=== PATIENT | male | born 1945 | race Caucasian/White ===

== ENCOUNTER → 2018-11-15 07:58 | Outpatient (CLI) | payer MEDICARE, OTHER, SELFPAY ==
--- NOTE | 2018-11-15 | DI.MRI.S_ITS ---
PROCEDURE: MR LUMBAR SPINE WO/W CON INDICATIONS: SCIATICA RIGHT SIDE TECHNIQUE: Noncontrast sagittal T1 spin echo and T2 fast spin echo, sagittal STIR, axial T1 and T2 fast spin echo through the lumbar spine. In cases with scoliosis, additional coronal T2 fast spin echo may be performed. After the administration of contrast, sagittal and axial T1 spin echo with fat saturation through the lumbar spine. COMPARISON: [facility], MR, LUMBAR SPINE W/O CONTRAST, 12/15/2011, 10:36. [facility], CR, SPINE LUMB 2 OR 3VW, 07/17/2015, 11:21. [facility], MR, L-SPINE W&WO CONTRAST, 11/25/2016, 12:14. FINDINGS: Image quality: Excellent. Alignment and curvature: There is severe levoscoliosis. There is grade 1-2 anterolisthesis of L5 on S1. There is surgical fusion of L5-S1. Marrow: Marrow is of normal overall signal. No acute vertebral body compression fractures. No suspicious marrow enhancement. Spinal cord: Conus medullaris terminates at the L1 level. Visualized spinal cord demonstrates normal signal, without suspicious enhancement. Paraspinous soft tissues: No paravertebral masses or abnormal enhancement. T12-L1: Moderate to severe loss of disc height and disc desiccation. There is diffuse posterior disc bulge and disc osteophyte complex. Moderate bilateral facet arthropathy and hypertrophy of ligamentum flavum. The central canal is mildly narrowed. Severe right and moderate left foraminal stenosis. No significant change from the last exam. L1-L2: Severe loss of disc height and disc desiccation. There is diffuse posterior disc bulge and disc osteophyte complex. Moderate bilateral facet arthropathy and hypertrophy of ligamentum flavum. The central canal is moderately narrowed. Severe bilateral foraminal stenosis. No significant change from the last exam. L2-L3: Severe loss of disc height and disc desiccation. There is diffuse posterior disc bulge and disc osteophyte complex. Severe bilateral facet arthropathy and hypertrophy of ligamentum flavum. The central canal is severely narrowed. Severe bilateral foraminal stenosis. No significant change from the last exam. L3-L4: There is laminectomy and fusion. There is diffuse posterior osteophyte complex. Severe bilateral facet arthropathy and hypertrophy of ligamentum flavum. The central canal is mild-to moderate narrowed. Moderate to severe bilateral foraminal stenosis. No significant change from the last exam. L4-L5: Severe loss of disc height and disc desiccation. There is diffuse posterior disc bulge and disc osteophyte complex. Moderate bilateral facet arthropathy. The central canal is mildly narrowed. Moderate to severe right and [id number] left foraminal stenosis. No significant change from the last exam. L5-S1: Surgically fused. There is diffuse posterior osteophyte complex. Moderate bilateral facet arthropathy. The central canal is mildly narrowed. Moderate to severe bilateral foraminal stenosis. No significant change from the last exam. IMPRESSION: 1. Multilevel degenerative and post surgical as described. 2. Multilevel central canal stenosis, severe at L2-L3, moderate at L1-L2, and [id number] at L2 at L4 and L4-L5. 3. Multilevel foraminal stenoses as described. 4. Severe levoscoliosis. Dictated by: Kyler Byrd M.D. on 11/15/2018 at 13:33 Approved by: Kyler Byrd M.D. on 11/15/2018 at 17:58
== END ==
DX: M51.16 Intervertebral disc disorders with radiculopathy, lumbar region (principal); M48.061 Spinal stenosis, lumbar region without neurogenic claudication; M51.17 Intervertebral disc disorders with radiculopathy, lumbosacral region; M48.07 Spinal stenosis, lumbosacral region; M47.27 Other spondylosis with radiculopathy, lumbosacral region; M43.17 Spondylolisthesis, lumbosacral region; M47.26 Other spondylosis with radiculopathy, lumbar region; M41.9 Scoliosis, unspecified; Z98.1 Arthrodesis status
CPT/HCPCS: 72158; A9579

== ENCOUNTER → 2018-12-28 11:31 | Outpatient (CLI) | payer MEDICARE, OTHER, SELFPAY ==
--- NOTE | 2018-12-28 | DI.CT.S_ITS ---
PROCEDURE: CT LUMBAR SPINE WO CON INDICATIONS: Spinal stenosis, lumbar region without neurogenic claudicati TECHNIQUE: Noncontrast 3 mm thick sections acquired from the T12 level to the sacrum. Sagittal and coronal reformats were constructed. For radiation dose reduction, the following was used: automated exposure control. In this patient, 3-D reformatted images were also performed. COMPARISON: [facility], MR, MR LUMBAR SPINE WO/W CON, 11/15/2018, 8:56. [facility], MR, L-SPINE W&WO CONTRAST, 11/25/2016, 12:14. FINDINGS: Image quality: There is streak artifact associated with the metallic hardware. Bones: No acute vertebral body compression fractures. There is loss of vertebral body height seen on the right aspect of L2, which is best perceived on the coronal reformatted images. No suspicious lytic or blastic bony lesions. No pars defects. Moderate levoconvex lumbar scoliosis is seen. Grade 1 anterolisthesis is seen at L5-S1. T12-L1: Moderate to severe loss of disc height is seen. Vacuum disc phenomenon is seen at this level. Endplate irregularity and sclerosis are seen. There is moderate right-sided and mild left-sided facet hypertrophy seen. Moderate to severe bilateral neural foraminal narrowing is seen. Mild to moderate central canal narrowing is seen. L1-L2: Moderate to severe loss of disc height is seen. Endplate irregularity and sclerosis are seen. Bridging endplate osteophytes are seen. Vacuum disc phenomenon is seen at this level. Moderate to prominent disc bulge is seen. There is severe bilateral neural foraminal narrowing seen. Moderate central canal narrowing is seen. No significant change from the prior. L2-L3: Moderate to severe loss of disc height is seen. Vacuum disc phenomenon is seen at this level. Endplate irregularity and sclerosis are seen. Bridging endplate osteophytes are seen. Prominent disc bulge is seen. Severe bilateral neural foraminal narrowing is seen. Severe central canal narrowing is seen. Stable from the prior study. L3-L4: Vertebral body fusion is seen at this level. There is fusion of the facets as well. There is moderate to severe bilateral neural foraminal narrowing seen, left worse than right. Mild to moderate central canal narrowing is seen. Stable from the prior study. L4-L5: Moderate to severe loss of disc height is seen. Bridging endplate osteophytes are seen. Moderate disc bulge is seen. Moderate to severe bilateral neural foraminal narrowing is seen, left worse than right. Mild central canal narrowing is seen. Stable from the prior study. L5-S1: Bilateral pedicle screws are seen. The screws appear well placed. Vertical fixation rods are seen. No definite findings of hardware failure or hardware loosening can be seen. There is a degree of vertebral body fusion seen at this level. Bridging endplate osteophytes are seen. There is severe right-sided and moderate to severe left-sided neural foraminal narrowing seen. Mild central canal narrowing is seen. No significant change from the prior. Bilateral hip arthroplasty hardware is seen, with associated streak artifact. Soft tissues: No retroperitoneal masses or hematomas. Visualized aorta is normal in caliber. Atherosclerotic calcification is noted. IMPRESSION: L5-S1 postoperative change, without complication observed. Levoconvex scoliosis and multiple levels of degenerative change are seen. The degenerative changes are similar to the recent prior MRI examination. Dictated by: Freddy Chatman M.D. on 12/28/2018 at 12:53 Approved by: Freddy Chatman M.D. on 12/28/2018 at 13:03
== END ==
PROVIDERS: Visit Provider Orthopaedic Surgery
DX: M48.061 Spinal stenosis, lumbar region without neurogenic claudication (principal); M47.816 Spondylosis without myelopathy or radiculopathy, lumbar region; M41.86 Other forms of scoliosis, lumbar region; Z98.1 Arthrodesis status; Z96.643 Presence of artificial hip joint, bilateral
CPT/HCPCS: 72131

== ENCOUNTER → 2019-08-01 10:23 | Outpatient (CLI) | payer MEDICARE, OTHER, SELFPAY | PROVIDERS: PCP Family Medicine; Visit Provider Family Medicine | DX: S91.105A Unspecified open wound of left lesser toe(s) without damage to nail, initial encounter (principal); L89.893 Pressure ulcer of other site, stage 3; G20 Parkinson's disease | CPT/HCPCS: 97597; 99203; 99213 ==

== ENCOUNTER → 2019-08-08 09:49 | Outpatient (CLI) | payer MEDICARE, OTHER, SELFPAY | PROVIDERS: PCP Family Medicine; Visit Provider Family Medicine | DX: L89.893 Pressure ulcer of other site, stage 3 (principal); R60.0 Localized edema; S91.105D Unspecified open wound of left lesser toe(s) without damage to nail, subsequent encounter | CPT/HCPCS: 99212; 99213 ==

== ENCOUNTER 2019-11-06 06:09 | Inpatient (IN) | payer MEDICARE, OTHER, SELFPAY ==
[2019-10-23 09:56] VITALS: BMI 28.8
[2019-11-06] VITALS (22 sets, daily range): BP systolic 63–133; BP diastolic 28–65; PULSE 60–94; RESP 8–19; TEMP 36–36.6; O2SAT 90–99; BMI 28.9
[2019-11-06] MEDS: LACTATED RINGERS 1,000 ML 42 ML IV ×3 (07:06→13:44)
--- NOTE | 2019-11-06 07:25 | PM.PREOP ---
Pre-operative Note Interval Note History & Physical reviewed/Exam performed by Physician: Yes Changes to H&P: No
[2019-11-06] MEDS: CEFAZOLIN 2 GM/100 ML FROZ.PIGGY IV ×3 (08:10→20:05)
--- NOTE | 2019-11-06 08:41 | SUR.OPER ---
Position #1 Right lateral on padded OR table. Head on pillow, gel axillary roll, pillow to support left arm. Legs flexed, pillows between legs, gel pad under down leg and ankle. Multiple passes of 3 inch cloth tape across shoulder, hip, upper and lower legs to secure patient on OR table. Position #2 Prone on spine table, head in foam head support, padded chest and pelvic supports, gel pad at knees, lower legs supported by pillows; nipples, genitalia and toes free of pressure, arms secured on foam padded arm boards at <90 degrees abduction. Tape over blanket at thigh secured to table.
--- NOTE | 2019-11-06 08:42 | SUR.OPER ---
Quarter size reddish/purple and yellow bruise noted on left hip during prep. Small red abrasion noted on left knee during first positioning. Dr. Richard notified.
[2019-11-06] MEDS: ACETAMINOPHEN IV 1,000 MG/100 ML VIAL 400 MG IV ×2 (08:55→16:12)
[2019-11-06] MEDS: THROMBIN (RECOMBINANT) 5,000 UNIT VIAL 5000 UNIT TOP (08:55)
[2019-11-06] MEDS: SODIUM CHLORIDE 0.9% 1,000 ML, GENTAMICIN 80 MG IRR (08:56)
[2019-11-06] MEDS: BUPIVACAINE 0.5% (PF) 4 ML, MORPHINE-PF 4 MG, BUTORPHANOL 1 MG, fentaNYL 100 MCG INJ (08:58)
[2019-11-06] MEDS: VANCOMYCIN 1,000 MG VIAL 1000 MG TOP (08:58)
[2019-11-06] MEDS: SODIUM CHLORIDE 0.9% 1,000 ML 84 ML IV ×2 (10:45→13:40)
--- NOTE | 2019-11-06 15:21 | CM.DANOTE ---
Discharge Planning/Care Management CM Discharge Assessment Start: 11/06/19 15:18 Freq: Status: Active Protocol: Document 11/06/19 15:19 ITV (Rec: 11/06/19 15:21 ITV [id number]) Discharge Planning Assessment Advance Directives? Yes Advance Directives on File Yes: in chart History Provided By Medical Record Prior Living Arrangements House Household Members spouse Whiteboard Updated in Patient Room with Yes name and ext. 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 Review Status In Process Pre-Anesthesia Assessment Start: 10/23/19 09:56 Freq: Status: Active Protocol: Document 10/23/19 09:56 CAB (Rec: 10/23/19 12:55 CAB [id number]) Pre-Anesthesia Assessment Preferred Name Kris Diagnostic Results BMP/CMP,CBC,EKG,Other Comment Outside labs/EKG scanned to record Primary Care Provider Mac Reed Seen Specialist in Last 12 Months Yes Specialist Seen Orthopedist Comment PCP pre-op clearance scanned to record Primary Language Frisian Supply Tech Required No Height 160.02 cm Weight 73.936 kg Body Mass Index (BMI) 28.8 Hearing Ability Hard of Hearing,Use of Hearing Aid Visual Assist Glasses Dentition Type Teeth, Natural Present,Teeth, Missing,Dental Implants Barriers to Learning Memory Other Aids No Comment Hx of Parkinson's Hx Anesthesia Reactions Yes: Cognitive changes w/ anesthesia Hx Family Anesthesia Reaction No Hx Malignant Hyperthermia No Hx Blood Transfusions Yes: r/t Lumbar surgery 2011 Hx Blood Transfusion Reaction No Anesthesia Review Requested No alcohol intake current alcohol intake frequency holidays/special occasions only Smoking Status Former smoker how long ago did patient quit smoking Quit 1977 Substance Use Type does not use Pain Present Pain Reported Musculoskeletal Symptoms Abnormal Gait,Back Pain, Difficulty Walking,Joint Pain, Radiating Pain into Limb History of Falling (Recent or History of Yes ) Patient is completely paralyzed or No completely immobile Prosthesis or Orthotic Device Cane,Front Wheel Walker Mental Status Forgets limitations Is patient on oxygen? No Does patient have CRUZ/SOB No Hx Sleep Apnea No Currently Taking a Beta Piero No Can You Climb a Flight of Stairs Without Yes SOB Hx Chest Pain No Hx SOB No Hx Syncope or Dizziness No Anti-Coagulant Therapy No Has a Ore Smelter No Cardiac Testing No Hx Pacemaker/ICD No Pacemaker Rep Required? No Cardiac Clearance Received Not Applicable Diet Type At Home Regular dysphagia No Urinary Catheter Present No Hx Urinary Self Catheterization No Diabetes No Hx Drug Resistant Organism No Presence of External or Internal Medical Yes: Lumbar, hips, left Devices shoulder hardware Have you traveled outside the [place] in the last 30 days? Marital Status Lives With spouse Prior Living Arrangements House Number of Floors (Floors) Two Floors Support System Spouse Does the Patient Have Assistance After Yes Surgery Patient Discharge Plan Description Assisted Facility/Rehab Comment Pt wants to discharge to SNF Feels Safe in Current Environment Yes Been Physically Hurt or Threatened By a No Person in Current Environment Do you have thoughts of harming yourself None or others? Are you currently considering suicide? No Do you have a plan to hurt yourself or No Plan others? Do You Have Any Spiritual Beliefs That No May Affect Your HC Choices? Do You Have Any Cultural Practices That No May Affect Your HC Choices? Comment [place] Who Can We Speak to About Patient's Care Family, friends Identifying Code for Release of Patient Declines to issue Information Health Care Proxy/Next of Kin Veronica () Health Care Proxy or [phone] Emergency Contact Name Veronica () Emergency Contact or [phone] Advance Directives? Yes Advance Directives on File No Requested Patient Bring Advanced Yes Directives DOS Power of Nuclear Equipment Design Engineer Yes Power of Nuclear Equipment Design Engineer Name Veronica () Power of Nuclear Equipment Design Engineer or [phone] PAC Instructions Do not shave/clip surgical site,Durable medical equipment ,Medications to take/avoid, Nasal antibiotic,No ETOH/ petroleum product on skin DOS, NPO,Post-op transportation,Pre -surgical wash,Sturdy shoes/ comfortable clothes,Do not bring valuables and remove jewelry
--- NOTE | 2019-11-06 15:25 | CM.DANOTE ---
Discharge Planning/Care Management DCP: assessment: case received this morning, EMR reviewed and have check in now at 1530: pt has not yet arrived from PACU. Documentation thus far is very limited but pt's pre-op plan does say he is planning for a d/c to snf setting (does not identify a choice.) Pt is a 73 year old male who admitted to care of Dr. Richard for a planned spinal surgery. INPT admission status: confirmed by UR RN Efraín Payer: Medicare and [facility] Pt does carry diagnosis of Parkinson's per the pre-op assessment: see Template info by CAB below: completed 10/23/19. PT and OT can be expected to be ordered. Pt lives with his spouse Veronica Kelsey in Tuesday. P: pt is well poised in terms of insurance for the snf option if needed. DCP team to check in tomorrow to continue the DCP assessment process. CM Discharge Assessment Start: 11/06/19 15:18 Freq: Status: Active Protocol: Document 11/06/19 15:19 ITV (Rec: 11/06/19 15:21 ITV [id number]) Discharge Planning Assessment Advance Directives? Yes Advance Directives on File Yes: in chart History Provided By Medical Record Prior Living Arrangements House Household Members spouse Whiteboard Updated in Patient Room with Yes name and ext. # of Instrument Tester Review Status In Process Pre-Anesthesia Assessment Start: 10/23/19 09:56 Freq: Status: Active Protocol: Document 10/23/19 09:56 CAB (Rec: 10/23/19 12:55 CAB [id number]) Pre-Anesthesia Assessment Preferred Name Kris Diagnostic Results BMP/CMP,CBC,EKG,Other Comment Outside labs/EKG scanned to record Primary Care Provider Mac Reed Seen Specialist in Last 12 Months Yes Specialist Seen Orthopedist Comment PCP pre-op clearance scanned to record Primary Language Cymro Quick Sketch Artist Required No Height 160.02 cm Weight 73.936 kg Body Mass Index (BMI) 28.8 Hearing Ability Hard of Hearing,Use of Hearing Aid Visual Assist Glasses Dentition Type Teeth, Natural Present,Teeth, Missing,Dental Implants Barriers to Learning Memory Other Aids No Comment Hx of Parkinson's Hx Anesthesia Reactions Yes: Cognitive changes w/ anesthesia Hx Family Anesthesia Reaction No Hx Malignant Hyperthermia No Hx Blood Transfusions Yes: r/t Lumbar surgery 2011 Hx Blood Transfusion Reaction No Anesthesia Review Requested No alcohol intake current alcohol intake frequency holidays/special occasions only Smoking Status Former smoker how long ago did patient quit smoking Quit 1977 Substance Use Type does not use Pain Present Pain Reported Musculoskeletal Symptoms Abnormal Gait,Back Pain, Difficulty Walking,Joint Pain, Radiating Pain into Limb History of Falling (Recent or History of Yes ) Patient is completely paralyzed or No completely immobile Prosthesis or Orthotic Device Cane,Front Wheel Walker Mental Status Forgets limitations Is patient on oxygen? No Does patient have CRUZ/SOB No Hx Sleep Apnea No Currently Taking a Beta Piero No Can You Climb a Flight of Stairs Without Yes SOB Hx Chest Pain No Hx SOB No Hx Syncope or Dizziness No Anti-Coagulant Therapy No Has a Log Data Technician No Cardiac Testing No Hx Pacemaker/ICD No Pacemaker Rep Required? No Cardiac Clearance Received Not Applicable Diet Type At Home Regular dysphagia No Urinary Catheter Present No Hx Urinary Self Catheterization No Diabetes No Hx Drug Resistant Organism No Presence of External or Internal Medical Yes: Lumbar, hips, left Devices shoulder hardware Have you traveled outside the [facility] in the last 30 days? Marital Status Lives With spouse Prior Living Arrangements House Number of Floors (Floors) Two Floors Support System Spouse Does the Patient Have Assistance After Yes Surgery Patient Discharge Plan Description Long-Term Facility/Rehab Comment Pt wants to discharge to SNF Feels Safe in Current Environment Yes Been Physically Hurt or Threatened By a No Person in Current Environment Do you have thoughts of harming yourself None or others? Are you currently considering suicide? No Do you have a plan to hurt yourself or No Plan others? Do You Have Any Spiritual Beliefs That No May Affect Your HC Choices? Do You Have Any Cultural Practices That No May Affect Your HC Choices? Comment Orthodox Who Can We Speak to About Patient's Care Family, friends Identifying Code for Release of Patient Declines to issue Information Health Care Proxy/Next of Kin Veronica () Health Care Proxy or [phone] Emergency Contact Name Veronica () Emergency Contact or [phone] Advance Directives? Yes Advance Directives on File No Requested Patient Bring Advanced Yes Directives DOS Power of Assistant Laboratory Director Yes Power of Assistant Laboratory Director Name Veronica () Power of Assistant Laboratory Director or [phone] PAC Instructions Do not shave/clip surgical site,Durable medical equipment ,Medications to take/avoid, Nasal antibiotic,No ETOH/ petroleum product on skin DOS, NPO,Post-op transportation,Pre -surgical wash,Sturdy shoes/ comfortable clothes,Do not bring valuables and remove jewelry
--- NOTE | 2019-11-06 15:30 | DI.RAD.S_ITS ---
PROCEDURE: XR LUMBAR SPINE 2-3V INDICATIONS: L1-L2 , L2-L3 XLIF FUSION FROM T10 TECHNIQUE: 4 views of the lumbar spine were acquired. COMPARISON: [facility], RG, SPINE LUMB BENDING MIN 4VW, 09/20/2018, 14:21. FINDINGS: Spot fluoroscopic images demonstrating thoracolumbar fixation hardware from T10-L3. There is expected intraoperative alignment. Interbody cage at L1-L2 and L2-L3 Previously L5-S1 posterior spinal hardware. Dictated by: Rolando Garay M.D. on 11/06/2019 at 16:29 Approved by: Rolando Garay M.D. on 11/06/2019 at 16:36
--- NOTE | 2019-11-06 15:36 | P.OP_ITS ---
Operative Date/Time/Diagnoses Date of procedure: 11/06/19 Time of procedure: 15:36 Pre-op diagnosis: Lumbar stenosis with radiculopathy Lumbar scoliosis and kyphosis Flat back Post-op diagnosis: same Procedure & Clinicians Procedure: L1-2, L2-3 anterior column osteotomy L1-2, L2-3 posterior column osteotomy, Sanchez Daugherty L1-2, L2-3 anterior fusion with cage L1-2, L2-3 laminectomies T10 through L4 instrumented fusion Iliac crest bone graft aspirate Use of microscope Placement of epidural catheter Same procedure as scheduled: Yes Indications: [age] year old male with intractable pain from stenosis and kyphosis. They had failed conservative management and requested operative intervention. Risks and benefits of surgery were discussed and appropriate consents were obtained. Surgeon: Zane Richard [employer] Equipment Operator: Charley Salmon Anesthesia Type: General Operative Notes Findings: None Closure Type: primary Specimen(s): none sent Prosthetic devices, grafts, tissues, transplants, or devices: NuVasive XLIF ACR cages NuVasive MAS Reline screws Applied: catheter Estimated Blood Loss (mL): 1,400 Blood products transfused: none Procedure in detail: Patient was brought to the operating room and intubated on the table. Time-out was performed. They were then rolled over to the lateral decubitus position with the [id number]. The table was bent and they were taped down in the correct position. X-rays were taken to confirm a true AP and lateral. Preoperative antibiotics were given. The left flank was prepped and draped in standard sterile fashion. Using fluoroscopy, a 3 cm incision was made above the iliac crest. We bluntly dissected down with Metzenbaum scissors and split the 3 abdominal muscle layers. We dissected out the retroperitoneal space and using finger guidance, brought our 1st dilator down to the psoas muscle. Using neuromonitoring and fluoroscopy, we placed it through the psoas onto the L2-3 disc space in an anterior position and gradually pulled the dilator posteriorly along the disc space. We placed our guidewire and measured our depth for the retractor. We then dilated with the next 2 dilators and then placed our retractor over the dilators. Position was confirmed with fluoroscopy and the retractor was locked down to the bar. We opened up the retractor and checked with neuro monitoring. We then placed the maricarmen and again checked with neuro monitoring. The retractor was opened further and the ALL retractor was placed going all the way around the front of the vertebral body to the opposite side. An annulotomy was performed. We then performed a complete diskectomy with pituitary and box osteotome. A Almaguer was advanced across the disc space under fluoroscopy to release the lateral annulus on the opposite side. We then cut through the ALL using our channel on the ALL retractor for safety. This gave us our full anterior release and and anterior column resection and osteotomy. We then used the 20 degree and then 30 degree trials and confirmed positioning under x-ray. A 30 degree XLIF ACR cage chosen and we cut off the topstitcher lockstitch flange. This was packed with Osteocell bone graft and impacted into the L2-3 disc space with fluoroscopy for the anterior fusion at this level. We then drilled and placed our locking screw. This completed the anterior osteotomy and fusion at L2-3. The wound was irrigated. The r etractor was closed down. The maricarmen was removed. We carefully removed the retractor with direct visualization to make sure there was no neurovascular or abdominal injury. We then went up to the L1-2 level. We had to force more up against the rib to get our exposure. We did the same technique with dilators and monitoring and placing a retractor. We placed the a LL retractor all the way around. We used a Almaguer and box osteotome to perform a diskectomy and release the lateral annulus. We used the knife on the ALL retractor to release the anterior longitudinal ligament and this completed the full anterior release and anterior column osteotomy. We then used the 20 degree trial and this opened up everything well. A 20 degree XLIF ACR cage was chosen and the inferior flange was cut off. We packed this with bone graft and then impacted into the L1-2 disc space with fluoroscopy for the anterior fusion at this level. We then drilled and placed our locking screw. Wound was irrigated. The retractor was closed and removed under direct visualization. Final x-rays were taken which showed excellent anterior column realignment with our osteotomy at both levels. We dissected out over the facets to the transverse processes and decorticated these from L4 through L1 and then released the right paraspinals from T10 through 12 and decorticated the lamina with a bur. The muscle fascia was closed, superficial tissue was closed. The skin was closed. Sterile dressing was placed. The patient was then rolled over on the well-padded prone position on the Loi table. Using fluoroscopy for localization, a 25 cm incision was made in the midline utilizing part of his previous incision. We undermined underneath the soft tissue and then placed Jamshidi needles down the bilateral pedicles of T10 through L4 with fluoroscopic guidance and neural monitoring percutaneously placing through the muscle fascia on each side. Due to his scoliosis we had to use a fair amount of fluoroscopy with multiple rotating views but we were able to get all of our guidewires down. We then dissected the bilateral paraspinal muscles from L1 through L3. We confirmed positioning with fluoro. We brought in the microscope. We then performed laminectomies at L1-2 and L2-3 using a bur and Kerrison rongeurs. There was extensive decompression mostly on the right side at L2-3. Once the decompressions were done, we began doing the Sanchez Daugherty osteotomies at both of these levels. We angled up and cut through the facets and undermined the foramen until we had completely cut through the pars releasing posteriorly we had to continue working and remove some of the extra facet overgrowth until the osteotomies would collapse down further. We checked with a ball probe to make sure that the foramen and central canal was open throughout. This completed the posterior osteotomies at L1-2 and L2-3. The majority of the blood loss occurred at this time as during the laminectomies, his bone continuously bled he even through bone wax coating on the bone itself. Once we got out to the neural foramen and began decompressing and doing the osteotomies, the majority of the bleeding came from epidural bleeders. These were packed off with Gelfoam and thrombin and then later we used FloSeal until this finally to slow down to a mild ooze. We then percutaneously tapped and placed all of our MAS Reline screws. Unfortunately, the heads of L2 and L4 were touching each other and we were unable to get the L3 screw in between and just left the L3 level without screws and at L3. We would not have been able to get in on the left-hand side anyway because the anterior locking screw would be blocking it. Placement was all done with fluoroscopy and neural monitoring. We then began conforming our rods and then placed them underneath the muscle fascia through all of the screws, confirmed with fluoroscopy. We then locked down the set screws. Final x-rays were taken. The wound was irrigated. Small stab incision was made over the right PSIS. A Jamshidi needle was advanced into the pelvis and 10 mL of bone marrow was aspirated with multiple passes. This was combined with the locally harvested b one graft as well as bone chips. We placed the Osteocel and the remaining bone graft in the posterolateral gutters through the lumbar spine and up through the posterior aspect along the lamina in the lower thoracic spine for the posterior fusion from T10 through L4. An epidural catheter was primed with 4mL of 0.5% bupivacaine, 100 mcg fentanyl, 4 mg Duramorph, 1 mg Stadol. The dura was depressed under the cephalad lamina with a ball probe and the epidural catheter was gently advanced 6 cm cephalad. The fascia was then closed in layers. The epidural was then injected without resistance. The catheter was pulled and we closed more over the fascia. Vancomycin powder was placed in the wound. A drain was placed. The superficial and skin were closed. Sterile dressing was placed. The patient was then rolled over, extubated, brought to the recovery room with no complications. Complications: none Post-operative Condition: stable Disposition: PACU Plan for aftercare: Inpatient. Mobilize with therapy. Anticipate skilled rehab
[2019-11-06 15:49] LABS: Hematocrit 32.7 % (41-53); Hemoglobin 11.2 g/dL (13.5-17.5)
[2019-11-06] MEDS: hydrOXYzine 50 MG/ML INJ 25 MG IM (16:01)
[2019-11-06] MEDS: HYDROMORPHONE 2 MG INJ IV ×2 (16:23→16:36)
--- NOTE | 2019-11-06 17:22 | SUR.PHASEI ---
Patient arrived in PACU somnolent with airway in. When patient awoke he became very restless, turning from side to side trying to climb out of bed. Gave IV diluadid x 2. Once IV meds in repositioned patient. Patient currently sitting upright in bed. States he is more comfortable. Gave fluids wide open for a BP 70/45.
[2019-11-06] MEDS: LACTATED RINGERS 1,000 ML 125 ML IV (18:51)
[2019-11-06] MEDS: CELECOXIB 200 MG CAPSULE 400 MG PO (20:06)
[2019-11-06] MEDS: ATORVASTATIN 10 MG TABLET PO (20:07)
[2019-11-06] MEDS: CARBIDOPA-LEVODOPA 25/100 TABLET 1.5 EACH PO (20:07)
[2019-11-06] MEDS: DOCUSATE 100 MG CAPSULE PO (20:08)
[2019-11-06] MEDS: SENNOSIDES 8.6 MG TABLET 17.2 MG PO (20:09)
[2019-11-06] MEDS: TAMSULOSIN 0.4 MG CAPSULE PO (20:09)
[2019-11-06] MEDS: HYDROMORPHONE 0.5 MG INJ IV (20:10)
[2019-11-06] MEDS: hydrOXYzine pamoate 25 MG CAPSULE PO (20:10)
--- NOTE | 2019-11-06 22:47 | PC.NURSE ---
Evening Shift Note Patient with decrease blood pressure, dangling at bedside 63/28, sitting in bed 87/48, laying in bed 133/64. Decreased output of 175cc in 5hrs or 35cc per hour. yardage caller MD paged and updated on decreased blood pressure and urinary output. No new medication orders, nursing communication to keep patient on bedrest and monitor urinary output call MD for less than 30cc per hour and maintain PIV fluids at 125ml/hr.
[2019-11-06] MEDS: HYDROCODONE/ACET 5/325 TABLET 1 TAB PO (23:45)
[2019-11-07] VITALS (7 sets, daily range): BP systolic 76–113; BP diastolic 41–83; PULSE 77–98; RESP 16–20; TEMP 36.4–36.9; O2SAT 91–100
[2019-11-07] MEDS: LACTATED RINGERS 1,000 ML 125 ML IV (03:01)
[2019-11-07] MEDS: HYDROCODONE/ACET 5/325 TABLET 2 TAB PO ×2 (03:01→06:50)
[2019-11-07] MEDS: CEFAZOLIN 2 GM/100 ML FROZ.PIGGY IV (04:08)
[2019-11-07 05:38] LABS: Hematocrit 28.9 % (41-53); Hemoglobin 9.8 g/dL (13.5-17.5)
[2019-11-07 05:47] LABS: BUN Creatinine Ratio 32.2 (6-22); Blood Urea Nitrogen 29 mg/dL (9-20); Calcium 8.3 mg/dL (8.4-10.2); Carbon Dioxide 25 mmol/L (22-32); Chloride 102 mmol/L (98-107); Estimated Glomerular Filt Rate > 60.0 mL/min (>60); Glucose 140 mg/dL (80-110); HEMOLYSIS < 15 (0-50); Potassium 4.8 mmol/L (3.4-5.1); Sodium 134 mmol/L (137-145)
--- NOTE | 2019-11-07 06:44 | PC.NURSE ---
Patient still hypotensive this night, BP 109/58. Lung sounds clear, CMS intact. Pain 6/10, PO Roosevelt given Q4. Patient has low urine output 175cc, Hemovac output 175cc. I called Dr. Stafford at [phone], she said to wait until Dr. Richard see's him this AM, keep fluids at the same rate. Patient is wearing SCD's, IS has been encouraged, Bed is low and locked and call light is within reach.
[2019-11-07] MEDS: SODIUM CHLORIDE 0.9% 1,000 ML 1000 ML IV (08:18)
[2019-11-07] MEDS: CARBIDOPA-LEVODOPA 25/100 TABLET 1.5 EACH PO ×3 (08:18→18:35)
[2019-11-07] MEDS: CELECOXIB 200 MG CAPSULE PO ×2 (08:18→19:45)
[2019-11-07] MEDS: DOCUSATE 100 MG CAPSULE PO ×2 (08:18→19:45)
[2019-11-07] MEDS: hydrOXYzine pamoate 25 MG CAPSULE PO (08:18)
--- NOTE | 2019-11-07 08:20 | PM.PNPO.1 ---
Subjective Subjective Date Patient Seen: 11/07/19 Time Patient Seen: 08:20 Interval history: He is having very little pain. He was hypotensive when they stood him up yesterday but has been back to normal since then. Exam Vital Signs (past 8 hours): - 11/07/19 04:45 Temperature 97.8 F Pulse Rate 87 Respiratory Rate 16 Blood Pressure 109/58 L Pulse Oximetry 100 Oxygen Delivery Method Nasal Cannula Oxygen Flow Rate 3 Const Orientation: alert and oriented x3 Back/Spine/Pelvis Other: CDI. 5/5 motor both lower extremities. Drain output 170/175 over the past 2 shifts. Objective Labs Result Diagrams: 11/07/19 05:00 11/07/19 05:00 Labs: Laboratory Results - last 24 hr 11/06/19 11/06/19 11/07/19 15:41 Unknown 05:00 Hgb 11.2 L 9.8 L Hct 32.7 L 28.9 L Sodium Potassium Chloride Carbon Dioxide BUN Creatinine Estimated GFR BUN/Creatinine Ratio Glucose Calcium Blood Type A Positive Antibody Screen Negative 11/07/19 05:00 Hgb Hct Sodium 134 L Potassium 4.8 Chloride 102 Carbon Dioxide 25 BUN 29 H Creatinine 0.90 Estimated GFR > 60.0 BUN/Creatinine Ratio 32.2 H Glucose 140 H Calcium 8.3 L Blood Type Antibody Screen Assessment & Plan Post-op Postoperative Procedures: Procedures Operation Date: 11/06/19 07:45 Actual Procedures Side Surgeon p L1-2,L2-3 anterior & posterior osteotomies & fusion w/posterior T10-L4 instru fusion w/bone graft Zane Richard MD Still having a fair amount of drain output. Overall doing well. Mobilize today with PT. Anticipate skilled rehab in a few days.
--- NOTE | 2019-11-07 09:06 | CM.DANOTE ---
Addendum entered by Carmen Jones R.N. 11/07/19 11:45: Kae from [facility] called back. Stated, Original Note: DCP Cont: Spoke to patient, he called this renal case manager's desk. Stated, I really want to go to [facility], for I live in [place]. Encouraged him to make a second choice, but he is clear on going there. Let him know that this renal case manager could not guarantee an opening, but would call [facility]. He would be eligible by Medicare standards by Tuesday. Called Kae at [facility] and left her a message with patient's name, so she can review. Let her know in message that patient will be eligible by Tuesday. Carmen Jones RN/Public Policy Analyst
--- NOTE | 2019-11-07 10:30 | PT.IIE ---
Current Diagnoses Other forms of scoliosis, lumbar region (11/06/19) Spinal stenosis, lumbar region with neurogenic claudication (11/06/19) Surgery Performed Operation Date: 11/06/19 07:45 Actual Procedures p L1-2,L2-3 anterior & posterior osteotomies & fusion w/posterior T10-L4 instru fusion w/bone graft - Zane Richard MD Surgical History (Last Updated 10/23/19 @ 10:20 by Rebecca Cho RN) H/O vasectomy (Acute) History of arthroplasty of left shoulder (Acute) History of arthroscopy of both knees (Acute) History of bilateral total hip arthroplasty (Acute) History of lumbar fusion (Acute ~2011) Hx of tonsillectomy (Acute) Status post correction of deviated nasal septum (Acute) Medical History (Last Updated 10/29/19 @ 08:14 by Rebecca Cho RN) Atherosclerotic heart disease of [place] coronary artery without angina pectoris (Acute) Back pain (Acute) Hearing impaired (Acute) HLD (hyperlipidemia) (Acute) HTN (hypertension) (Acute) Memory deficit (Acute) Osteoarthritis (Acute) Parkinson's disease (Acute) Sciatica (Acute) Spinal stenosis (Acute) Physical Therapy Inpatient Evaluation/Re-Eval M1 PT/OT-IP Prior Functional Status Start: 11/07/19 12:14 Freq: NEEDED Status: Active Protocol: Document 11/07/19 10:30 AB (Rec: 11/07/19 12:40 AB [id number]) Medical Review Prior Functional Status Medical History Reviewed Yes Communication able to make needs known Mobility and Gait pt stated that he is modified independent with all mobilities and ambulation using 3WW indoors and outdoors but furniture walks when he is on the 2nd level of the house and stated because the bed is only ~ 10 ft away. uses quad cane and rail to get to 2nd level of the house Social History Household Members spouse Living Arrangements House Number of Floors (Floors) Two Floors Number of Stairs To Enter/Railing? 1 step to enter; 7 steps with R rails +landing+7 steps with bilateral rails Home Environment High Toilet,Walk in Shower Home Equipment Quad Cane,Shower Seat without Backrest,Hand Held Shower,Grab Bars Near Toilet,Grab Bars In Shower Additional Social History Comment pt stated that he has blocks under the head of his bed so that it is ~ 4 inch elevated M2 PT-IP Current Condition Start: 11/07/19 12:14 Freq: NEEDED Status: Active Protocol: Document 11/07/19 10:30 AB (Rec: 11/07/19 12:40 AB [id number]) Physical Therapy Current Condition Current Condition Evaluation Date 11/07/19 Treatment Diagnosis s/p L1-3 ant. fusion/lami; difficulty in walking Onset Date 11/06/19 Precautions Lumbar Precautions Log Roll,No Twisting,Limit Bending,Lifting Restriction of 10 lbs,Gait Belt above Incisional Area M3 PT-IP Subjective Start: 11/07/19 12:14 Freq: NEEDED Status: Active Protocol: Document 11/07/19 10:30 AB (Rec: 11/07/19 12:40 AB [id number]) Subjective Physical Therapy Visit Type Type Initial Evaluation Visit Start Time 10:30 Visit Stop Time 11:20 Total Visit Minutes 50 Number of INSPECTION CLERK Visits 0 Physical Therapy Visit Comments Patient Comments pt agreeable to do PT Therapy Pain Assessment Pain When Pain Assessed At Rest Pain Present Pain Present Pain Reported Location back Intensity 8 Scale Used Numeric (1 - 10) Pain Management Techniques Re-positioning,Timing of Activity with Medications M4 PT-IP Mobility and Gait Start: 11/07/19 12:14 Freq: NEEDED Status: Active Protocol: Document 11/07/19 10:30 AB (Rec: 11/07/19 12:40 AB [id number]) PT-Bed Mobility Assessment Rolling Type of Rolling Log Rolling Level of Assist Maximal Assistance,1 Person Assistance Supine to Sit Supine to Sit Maximum Assistance,1 Person Assistance,Head of Bed Elevated PT-Transfer Assessment Sit to and From Stand Sit to and from Stand Maximum Assistance,1 Person Assistance,Use of Upper Extremities Equipment Transfer Assistive Device Gait Belt,Front Wheeled Walker Orthotic/Prosthetic Devices or Brace: No Transfers Transfer Destination Chair Transfer Technique Stand Step Pivot Transfer Ability Level of Assist Moderate Assistance,Maximum Assistance,1 Person Assistance ,Use of Upper Extremities Comments Mobility Comments BP supine: 101/58. pt completed supine to sit log roll max A x 1 and max cues with HOB elevated to ~ 22 deg. BP sitting on EOB: 90/50. pt tolerated ~ 5 min of sitting. No c/o dizziness/ lightheadedness/nausea but pt seems sweaty. BP checked prior to standin/53. completed sit to stand max A and max cues. BP in standin/40 ; pt without complaints. BP checked again: 89/40. pt completed step transfer to the chair using FWW mod to max A and cues. BP right after transfers: 67/37. elevated LE . BP: 102/51. Nurse in room and aware of BP. pt required max A x 2 for positioning on chair. call light and table placed within reach. Gait Assessment Comments Gait Comments not completed due to unstable BP PT-Balance Assessment Sitting Balance and Reactions Static Sitting Balance Ability Good Dynamic Sitting Balance Ability Fair Standing Balance and Reactions Static Standing Balance Ability Fair Dynamic Standing Balance Ability Poor Device Used FWW M5 PT-IP Objective Assessments Start: 11/07/19 12:14 Freq: NEEDED Status: Active Protocol: Document 11/07/19 10:30 AB (Rec: 11/07/19 12:40 AB [id number]) Orientation Orientation/Cognition Level of Alertness Alert Orientation Name,Age,Place,Situation Safety Awareness Decreased Safety Awareness Gross Range of Motion Lower Extremity ROM Assessment Within Functional Limits Strength Lower Extremity Strength Hip 4-/5 Knee 4-/5 M6 PT-IP Treatment Start: 11/07/19 12:14 Freq: NEEDED Status: Active Protocol: Document 11/07/19 10:30 AB (Rec: 11/07/19 12:40 AB [id number]) Physical Therapy Treatment Education Education Provided Precautions,Weight Bearing Status,Post-Op Packet,Safety M7 PT-IP Assessment and Plan Start: 11/07/19 12:14 Freq: NEEDED Status: Active Protocol: Document 11/07/19 10:30 AB (Rec: 11/07/19 12:40 AB [id number]) PT Summary Assessment and Plan Potential Rehabilitation Potential Fair Status of Condition at Evaluation Evolving Summary Impairments Pain,ROM,Strength,Balance, Coordination,Sensation,Tone, Cognition,Bed Mobility, Transfers,Gait,Activity Tolerance Assessment Summary pt requiring mod to max A and cues and still presents with low BP affecting mobility and activity tolerance. pt will require SNF rehab to improve strength and independence. Goals Bed Mobility Goal Standby Assistance Transfer Goal Standby Assistance,Front Wheeled Walker Gait Goal Standby Assistance,Front Wheel Walker Gait Distance 100 Other Goals up/down 1 step using FWW CGA up/down 15 steps using quad cane and 1 rail CGA Days to Meet Goals 10 Frequency of Treatment Frequency Of Treatment Twice a Day Treatment Plan Physical Therapy Treatment Plan Bed Mobility Training,Transfer Training,Gait Training, Therapeutic Exercise,Balance Retraining,Post Op Education, Discharge Planning,Hot or Cold Pack,Neuromuscular Re-ed, Coordination Retraining,Manual Therapy Other Recommendations and Next Treatment ambulation if appropriate Focus Recommendations To Nursing Amount of Assist Needed 2 Person Assist Discharge Recommendations PT Discharge Recommendations SNF Rehab
[2019-11-07] MEDS: CODEINE/ACETAMINOPHEN 30/300 TABLET 2 TAB PO ×2 (11:28→19:44)
--- NOTE | 2019-11-07 13:45 | OT.IP.EVAL ---
Current Diagnoses Other forms of scoliosis, lumbar region (11/06/19) Spinal stenosis, lumbar region with neurogenic claudication (11/06/19) Surgery Performed Operation Date: 11/06/19 07:45 Actual Procedures p L1-2,L2-3 anterior & posterior osteotomies & fusion w/posterior T10-L4 instru fusion w/bone graft - Zane Richard MD Past Medical History (Last Updated 10/29/19 @ 08:14 by Rebecca Cho RN) Atherosclerotic heart disease of [place] coronary artery without angina pectoris (Acute) Back pain (Acute) Hearing impaired (Acute) HLD (hyperlipidemia) (Acute) HTN (hypertension) (Acute) Memory deficit (Acute) Osteoarthritis (Acute) Parkinson's disease (Acute) Sciatica (Acute) Spinal stenosis (Acute) Surgical History (Last Updated 10/23/19 @ 10:20 by Rebecca Cho RN) H/O vasectomy (Acute) History of arthroplasty of left shoulder (Acute) History of arthroscopy of both knees (Acute) History of bilateral total hip arthroplasty (Acute) History of lumbar fusion (Acute ~2011) Hx of tonsillectomy (Acute) Status post correction of deviated nasal septum (Acute) Occupational Therapy Inpatient Evaluation/Re-Eval M1 PT/OT-IP Prior Functional Status Start: 11/07/19 12:14 Freq: NEEDED Status: Active Protocol: Document 11/07/19 13:45 ASHLEY (Rec: 11/07/19 15:14 PJM [id number]) Medical Review Prior Functional Status Medical History Reviewed Yes Diet/Fluid Consistency Regular Communication WFL Mobility and Gait Pt states he is independent with ambulation using 3WW indoors and outdoors. He uses quad cane and rail to get to 2nd level of the house then furniture walks because the bed is only ~ 10 ft away. Pt reports 4 falls in last year. Activities of Daily Living and IADL's Pt states he is independent with all self care including showering. does IADLS. Pt still drives. Prior Functional Level (Other details) No family here to confirm home situation this session. Social History Household Members spouse Living Arrangements House Number of Floors (Floors) Two Floors Number of Stairs To Enter/Railing? 1 step to enter; 7 steps with R rails +landing+7 steps with bilateral rails to bedroom. Home Environment High Toilet,Walk in Shower Home Equipment Quad Cane,Shower Seat without Backrest,Hand Held Shower,Long Handled Shoe Horn,Oil Well Cable Tool Operator, Sock Aid,Grab Bars Near Toilet ,Grab Bars In Shower Employment Status Retired M2 OT-IP Current Condition Start: 11/07/19 14:52 Freq: Status: Active Protocol: Document 11/07/19 13:45 PJM (Rec: 11/07/19 15:14 PJ [id number]) Occupational Therapy Current Condition Current Condition Evaluation Date 11/07/19 Treatment Diagnosis decr'd ADLS, mobility s/p L1- 12, L2-3 ant/post osteotomies, T10-L4 posterior fusion Diagnosis Onset Date 11/06/19 Post Operative Precautions Lumbar Precautions Log Roll,No Twisting,Limit Bending,Lifting Restriction of 10 lbs,Gait Belt above Incisional Area Other Precautions orthostatic this AM with RN and P.T. chair alarm Parkinson's M3 OT- IP Subjective and Pain Start: 11/07/19 14:52 Freq: Status: Active Protocol: Document 11/07/19 13:45 PJM (Rec: 11/07/19 15:14 PJ [id number]) OT- Subjective Occupational Therapy Visit Type Type Initial Evaluation Visit Start Time 13:20 Visit Stop Time 13:45 Total Visit Minutes 25 Occupational Therapy Visit Comments Patient Comments I have all that equipment from my hip surgeries. 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 Pain Assessment Pain When Pain Assessed After Treatment Pain Present Pain Present Pain Reported Location back Intensity 4 Description Aching,Acute Management Techniques Distraction,Timing of Activity with Medications M4 OT- IP ADL's Start: 11/07/19 14:52 Freq: Status: Active Protocol: Document 11/07/19 13:45 PJM (Rec: 11/07/19 15:14 PJ [id number]) OT NJN-Spgj-Borewbc General Evaluation Self-Feeding Ability Independent OT ADL-Grooming General Evaluation Grooming Ability Standby Assistance Areas Needing Assistance Retrieving/Set-up of Grooming Items,Face Washing Comments OT Grooming Comments in chair OT ADL-Oral Care Comments Oral Care Comments to be assessed at sink as mobility improves OT ADL-Dressing General Eval Lower Body Dressing Ability Total Assistance Assistive Devices Dressing Assistive Devices Long Handled Shoe Horn,Oil Well Cable Tool Operator ,Sock Aid Comments OT Dressing Comments Pt has necessary adaptive equipt and is familiar with it's use from previous B JESENIA's, but has decreased insight into how lumbar spine precautions with affect lower body dressing techniques. OT ADL-Toileting General Evaluation Toileting Ability Total Assistance Areas Needing Assistance Empty Catheter or Colostomy Comments OT Toileting Comments baltazar in place OT ADL-Bathing Comments OT Bathing Comments to be assessed when mobility, activity tolerance improves M5 OT- IP IADL's Start: 11/07/19 14:52 Freq: Status: Active Protocol: Document 11/07/19 13:45 PJM (Rec: 11/07/19 15:14 PJ [id number]) OT-Instrumental Activities of Daily Living Deficits IADL Deficits Identified Deficits Home Safety Awareness Awareness of Need for Assistance at Home Good Awareness Medication Management Medication Management Comments pt states he manages his own medications at home Money Management Money Management Caregiver Provides Assistance Money Management Comments pt writes checks and pays bills; manages investments Meal Preparation Meal Preparation Caregiver Provides Assist Slot Machine Mechanic Slot Machine Mechanic Caregiver Provides Assist Driving Driving Comments pt states he still drives M6 OT- IP Functional Cognition Start: 11/07/19 14:52 Freq: Status: Active Protocol: Document 11/07/19 13:45 PJM (Rec: 11/07/19 15:14 PJ [id number]) Cognitive Factors Limiting Selfcare Function Cognitive Ability Level of Alertness Alert Patient Orientation Name,Month,Date,Year,Place, Situation Attention Span Ability Capable of Focused Attention Ability to Follow Commands Able to Follow One Step Commands Safety Awareness Underestimates Need for Assistance Cognitive Comments Cognitive Assessment Comments Pt has decreased insight into how lumbar spine precautions will affect his ability to complete self care tasks. OT- Vision and Hearing OT- Hearing Assessment OT- Hearing Assessment WFL,Use of Hearing Aids OT- Vision Assessment Visual Acuity WFL,Glasses All The Time M7 OT- IP Mobility and Balance Start: 11/07/19 14:52 Freq: Status: Active Protocol: Document 11/07/19 13:45 PJM (Rec: 11/07/19 15:14 PJ [id number]) OT-Transfer Assessment Comments Mobility Comments Pt seen in chair this session OT- Gait Assessment Comments Gait Ability Comments Pt unable to ambulate with P.T . today due to orthostatic hypotension. OT- Balance Assessment Comments Other Balance Tests/Deviations/Treatment see P.T. notes : M8 OT- IP Objective Assessments Start: 11/07/19 14:52 Freq: Status: Active Protocol: Document 11/07/19 13:45 PJM (Rec: 11/07/19 15:14 PJM [email or web address]) OT Gross Range of Motion Upper Extremity Range of Motion Assessment Bilaterally Impaired ROM Impairments R shldr scaption 100 degress, L shldr scaption 80 degrees (s /p L TSA) Distal AROM WFL in BUE. OT Strength Upper Extremity Strength Shoulder B shldr scaption 3+/5 Comments Strength Comments Distal strength WFL BUE OT- Coordination Assessment Comments Coordination Comments WFL BUE OT-Muscle Tone Assessment Muscle Tone WNL Yes OT Sensation Assessment Comments Summary Comments Pt detects lt touch in BUE M9 OT- IP Assessment and Plan Start: 11/07/19 14:52 Freq: Status: Active Protocol: Document 11/07/19 13:45 PJM (Rec: 11/07/19 15:14 PJM [email or web address]) OT Summary Assessment and Plan Potential Rehabilitation Potential Good Analytic Complexity at Evaluation Low Summary OT Impairments Pain,Balance,Functional Cognition,Functional Mobility, Grooming,Dressing,Toileting, Bathing,Toilet Transfers, Shower Transfers Assessment Summary Low complexity OT assessment completed on this 73 yr old male admitted for L1-2, L2-3 osteotomies/fusion with T10-L4 posterior fusion. PMHX significant for Parkinson's with memory deficits. Pt states he is normally independent with mobility with 3 wheel walker and independent with all self care . He still drives. does IADLS. No family here to confirm prior level of function this session. Pt presents with performance deficits in all functional mobility/transfers and was unable to ambulate today due to orthostatic hypotension. BP in recliner this session was 108/54, HR 103. Pt also has performance deficits in standing grooming, dressing, bathing and toileting. Recommend SNF at d/c for further rehab services prior to return to his 2 story home with 14 stairs to access bedroom. Goals Grooming Goal Contact Guard Assistance Dressing Goal Minimal Assistance Toileting Goal Standby Assistance Bathing Goal Minimal Assistance Toilet Transfer Goal Contact Guard Assistance Shower Transfer Goal Contact Guard Assistance,Walk- in Shower,Shower Chair,Grab Bars Patient/Caregiver Education Goal Demonstrate Post-Op Precautions,Demonstrate Energy Conservation and Pacing OT-Other Goals Grooming to be done standing at sink with no loss of balance. Days to Meet Goals 7 Frequency of Treatment Frequency Of Treatment Once a Day Treatment Plan OT Treatment Plan ADL Training,Functional Mobility,Patient/Family Education,Discharge Planning Discharge Recommendations OT Discharge Recommendations SNF Rehab
--- NOTE | 2019-11-07 15:26 | PC.NURSE ---
Ortho: Disoriented this am, not sure how to use his call light or phone. Shown how to use. Reoriented. Does know he is in the hospital and had surgery. SI get confused sometimes, the medication does that and I have parkinsons. Reviewed pain med regime, pt reporting he is unable to take much than NSAIDS, he is on celebrex and that is not an option for now. Spouse called. She reports pt has taken T-3 in the past and he does the best on those. SHe might still be a little confused but they work the best, I'd rather have him a little confused then to be in pain. Pt agreeable to try T-3. Order obtained from . He took at dose at 1130. This afternoon he is much less disoriented then he was this am. BP in the 70's systolic this am, he had wanted to go to the chair stating the bed was to painful for him to be in. Pt instructed in fall protocol and he was willing to go back to bed. Dr. Richard made aware. BP med held, pt received a 1000ml NS bolus, got up and worked with physical therapist. Bed was swapped out for a new bed. This afternoon prior to going back to bed his sitting bp was 99/56 p 82, stand 107/44 p 98. No dizziness. pt returned to bed w/out problems. Does need cues to follow his lami precautions. Tired and he wants to nap for now. Cont w/poc.
[2019-11-07] MEDS: CODEINE/ACETAMINOPHEN 30/300 TABLET 1 TAB PO (15:53)
--- NOTE | 2019-11-07 16:10 | PT.IPTN ---
Current Diagnoses Other forms of scoliosis, lumbar region (11/06/19) Spinal stenosis, lumbar region with neurogenic claudication (11/06/19) Surgery Performed Operation Date: 11/06/19 07:45 Actual Procedures p L1-2,L2-3 anterior & posterior osteotomies & fusion w/posterior T10-L4 instru fusion w/bone graft - Zane Richard MD Physical Therapy Treatment Note M2 PT-IP Current Condition Start: 11/07/19 12:14 Freq: NEEDED Status: Active Protocol: Document 11/07/19 10:30 AB (Rec: 11/07/19 12:40 AB [id number]) Physical Therapy Current Condition Current Condition Evaluation Date 11/07/19 Treatment Diagnosis s/p L1-3 ant. fusion/lami; difficulty in walking Onset Date 11/06/19 Precautions Lumbar Precautions Log Roll,No Twisting,Limit Bending,Lifting Restriction of 10 lbs,Gait Belt above Incisional Area M3 PT-IP Subjective Start: 11/07/19 12:14 Freq: NEEDED Status: Active Protocol: Document 11/07/19 16:10 AB (Rec: 11/07/19 17:18 AB [id number]) Subjective Physical Therapy Visit Type Type Treatment Note Visit Start Time 16:10 Visit Stop Time 16:40 Total Visit Minutes 30 Number of TITLE COORDINATOR Visits 0 Physical Therapy Visit Comments Patient Comments pt agreeable to do PT Therapy Pain Assessment Pain When Pain Assessed At Rest Pain Present Pain Present Pain Reported Location back Intensity 6 Scale Used Numeric (1 - 10) Pain Management Techniques Timing of Activity with Medications M4 PT-IP Mobility and Gait Start: 11/07/19 12:14 Freq: NEEDED Status: Active Protocol: Document 11/07/19 16:10 AB (Rec: 11/07/19 17:18 AB [id number]) PT-Bed Mobility Assessment Rolling Type of Rolling Log Rolling Level of Assist Maximal Assistance,1 Person Assistance Supine to Sit Supine to Sit Maximum Assistance,1 Person Assistance,2 Person Assistance Scooting Scooting to Edge of Bed Maximum Assistance PT-Transfer Assessment Sit to and From Stand Sit to and from Stand Moderate Assistance,Maximum Assistance,1 Person Assistance ,Use of Upper Extremities Equipment Transfer Assistive Device Gait Belt,Front Wheeled Walker Orthotic/Prosthetic Devices or Brace: No Transfers Transfer Destination Toilet Transfer Technique ambulated to the toilet Transfer Ability Level of Assist Moderate Assistance,Maximum Assistance,1 Person Assistance ,Use of Upper Extremities Comments Mobility Comments BP supine: 105/83. pt completed supine to sit log roll max A and max cues. pt with increase posterior trunk leaning requiring max A to maintain side lying position. requires max A for initial sitting balance and requires max A for reposition. able to sit CGA after repositioning. BP sitting on EOB: 100/53. pt requested to use the toilet. completed sit to stand mod to max A and max cues. pt can be impulsive. BP in standin/60. ambulated using FWW ~ 10 ft mod to max A and max cues. pt tends to move FWW too far forward. pt requires cues for safety. pt completed sit to stand from the toilet using grab bar and FWW to assist max A and max cues. pt ambulated towards the chair using FWW ~ 10 ft mod to max A and cues. positioned pt on chair. chair alarm set up. call light and table placed within reach. BP after tx session: 115/70. Gait Assessment Gait Gait Assistance Required: Moderate Assistance,Maximum Assistance,1 Person Assist Distance (Feet) 10 Able to Maintain Weight Bearing Status Yes During Gait Assistive Devices Assistive Device Gait Belt,Front Wheeled Walker Gait Deviations General Gait Pattern Antalgic,Decreased Stride Length,Decreased Feet Clearance Factors Limiting Gait Function Factors Limiting Gait Function Decreased Activity Tolerance, Decreased Strength,Difficulty Following Directions,Limited Range of Motion,Pain,Poor Balance,Poor Safety Awareness Comments Gait Comments pls refer to mobility section for details M5 PT-IP Objective Assessments Start: 11/07/19 12:14 Freq: NEEDED Status: Active Protocol: Document 11/07/19 10:30 AB (Rec: 11/07/19 12:40 AB [id number]) Orientation Orientation/Cognition Level of Alertness Alert Orientation Name,Age,Place,Situation Safety Awareness Decreased Safety Awareness Gross Range of Motion Lower Extremity ROM Assessment Within Functional Limits Strength Lower Extremity Strength Hip 4-/5 Knee 4-/5 M6 PT-IP Treatment Start: 11/07/19 12:14 Freq: NEEDED Status: Active Protocol: Document 11/07/19 16:10 AB (Rec: 11/07/19 17:18 AB [id number]) Physical Therapy Treatment Education Education Provided Precautions,Safety M7 PT-IP Assessment and Plan Start: 11/07/19 12:14 Freq: NEEDED Status: Active Protocol: Document 11/07/19 16:10 AB (Rec: 11/07/19 17:18 AB [id number]) PT Summary Assessment and Plan Potential Rehabilitation Potential Fair Summary Impairments Pain,ROM,Strength,Balance, Coordination,Sensation,Tone, Cognition,Bed Mobility, Transfers,Gait,Activity Tolerance Progress Towards Goals Slow Progress due to Pain,Slow Progress due to Medical Issues,Slow Progress due to Activity Tolerance Assessment Summary pt requires mod to max A with mobilities and max cues for techniques and safety. pt can be impulsive. pt also has parkinson's dse contributing to current level of assistance needed. pt will require SNF rehab to improve strength and independence. Goals Bed Mobility Goal Standby Assistance Transfer Goal Standby Assistance,Front Wheeled Walker Gait Goal Standby Assistance,Front Wheel Walker Gait Distance 100 Other Goals up/down 1 step using FWW CGA up/down 15 steps using quad cane and 1 rail CGA Days to Meet Goals 10 Frequency of Treatment Frequency Of Treatment Twice a Day Treatment Plan Physical Therapy Treatment Plan Bed Mobility Training,Transfer Training,Gait Training, Therapeutic Exercise,Balance Retraining,Post Op Education, Discharge Planning,Hot or Cold Pack,Neuromuscular Re-ed, Coordination Retraining,Manual Therapy Other Recommendations and Next Treatment ambulation; pt requesting 930 Focus am PT tx session and 2pm tx session for 11/08/2019 Thurs Recommendations To Nursing Amount of Assist Needed 2 Person Assist Discharge Recommendations PT Discharge Recommendations SNF Rehab
[2019-11-07] MEDS: LORATADINE 10 MG TABLET PO (19:45)
[2019-11-07] MEDS: SENNOSIDES 8.6 MG TABLET 17.2 MG PO (19:45)
[2019-11-07] MEDS: TAMSULOSIN 0.4 MG CAPSULE PO (19:45)
[2019-11-07] MEDS: ATORVASTATIN 10 MG TABLET PO (19:45)
[2019-11-07] MEDS: TRIAZOLAM 0.125 MG TABLET 0.25 MG PO (20:34)
[2019-11-07] MEDS: HYDROCODONE/ACET 5/325 TABLET 1 TAB PO (23:41)
[2019-11-08] VITALS (7 sets, daily range): BP systolic 87–119; BP diastolic 40–78; PULSE 84–109; RESP 16–18; TEMP 36.7–36.8; O2SAT 94–98
--- NOTE | 2019-11-08 00:22 | PC.NURSE ---
Addendum entered by Lexus Farris R.N. 11/08/19 06:54: Patient attempted to exit bed without calling staff, in the process dislodged HV from back and had significant drainage to green pad. Patient put on his call light when he could not get himself out of bed but could not maneuver himself back into a comfortable position. Reports that he had been screaming for help for 15 minutes, patient was not heard by staff to be in distress at any time. Patient quite agitated with staff that he could not get himself out of bed on his own, assisted patient to toilet to void and then transferred to bedside chair. Will attach chair alarm for patient's safety as he continues to be unsteady on his feet. Addendum entered by Lexus Farris R.N. 11/08/19 04:42: No signs or symptoms of disorientation after administering requested pain med. Patient calling appropriately with call light and making needs known well. Addendum entered by Lexus Farris R.N. 11/08/19 01:45: Patient ambulated to toilet and voided 300ml clear uzari urine. Patient unsteady on his feet and required 2 person to safely transfer. Original Note: Shift note: Received pt from evening shift. Noted that at change of shift report pt has not voided since catheter removal at 1430. Pt was reportedly bladder scanned on evening shift but had not met the threshold for straight cath. At time of assessment, patient is AxOx3, able to make needs known. Patient reporting several issues including not having slept well the night before, his pain medication being changed on day shift, and nursing staff encouraging him to void. Patient reports that he is not happy that his made the decision to have his pain meds changed and does not want to take Tylenol 3 for his pain, that he felt he had much more relief the previous night with Vicodin that shift stacker had been giving him. Patient requesting to not receive Tylenol 3 and requesting to be medicated for his 6/10 pain with previous nights medication. Educated patient on why the change had occurred, patient denied confusion but that he was so tired, I didn't want to argue but that he prefers his not have a say in what happens to him. Educated patient that if he chooses to take the [place] for pain that he cannot have the Tylenol 3 as well, patient acknowledges this teaching. Patient denying the urge to void. Educated patient on why urinating after a baltazar removal was very important and that if he was unable to go that it might require another catheter, patient refused at this time to attempt to void and stated that he would refuse a catheter if necessary. Patient requesting to sleep as he didn't sleep a wink last night and that staff could wake him at 0300 to attempt to void. Patient oriented with intact memory, able to recall shift stacker, day shift and evening shift staff names and acknowledges all teaching given to him about medications and voiding at this time. Patient is a high fall risk, bed alarm on and functioning, call light in reach and patient demonstrated use. Will continue to monitor in changes in mentation, medicated per MAR with preferred pain management.
[2019-11-08] MEDS: diphenhydrAMINE 25 MG TABLET PO (04:31)
[2019-11-08 05:48] LABS: Hematocrit 24.5 % (41-53); Hemoglobin 8.7 g/dL (13.5-17.5)
--- NOTE | 2019-11-08 07:39 | PM.PNPO.1 ---
Subjective Subjective Date Patient Seen: 11/08/19 Time Patient Seen: 07:40 Interval history: He is doing better. He has been up with physical therapy and ambulating with assistance. Pain is tolerable with the [place]. Exam Vital Signs (past 8 hours): - 11/08/19 04:07 Pulse Rate 94 H Respiratory Rate 18 Blood Pressure 104/58 L Pulse Oximetry 94 Oxygen Delivery Method Room Air Oxygen Flow Rate 0 Const Orientation: alert and oriented x3 Back/Spine/Pelvis Other: CDI. 5/5 motor both lower extremities. Drain output yesterday 150/110/30. Objective Labs Result Diagrams: 11/08/19 04:55 11/07/19 05:00 Labs: Laboratory Results - last 24 hr 11/08/19 04:55 Hgb 8.7 L Hct 24.5 L Assessment & Plan Post-op Postoperative Procedures: Procedures Operation Date: 11/06/19 07:45 Actual Procedures Side Surgeon p L1-2,L2-3 anterior & posterior osteotomies & fusion w/posterior T10-L4 instru fusion w/bone graft Zane Richard MD stable after extensive kyphoscoliosis reconstruction. He is doing well. He does have acute blood loss anemia with some intermittent orthostatic hypotension but seems to be managing this fairly well otherwise. Continue with mobilization. Anticipate skilled rehab tomorrow.
--- NOTE | 2019-11-08 07:44 | P.DS_ITS ---
History of Present Illness History of Present Illness Date Patient Seen: 11/09/19 Time Patient Seen: 06:32 Chief complaint: [id number] Narrative: 73-year-old male with spinal stenosis and kyphosis. He has a history of a previous lumbar fusion that had a postoperative infection many years ago. Over the past year he has had progressively increasing pain into his legs and weakness into his legs. He failed conservative management with therapy and injections. Discharge Providers Provider Date of admission: 11/06/19 06:09 Discharge Date: 11/09/19 Primary care physician: Mac Reed MD Consults: 11/06/19 18:03 Consult to Occupational Therapy Evaluate & Treat Comment: Physician Instructions: Evaluate and treat Consult to Physical Therapy Evaluate & Treat Comment: Physician Instructions: Evaluate and Treat Discharge provider: Zane Richard MD Summary Hospital Course Discharge Diagnosis: Lumbar stenosis and kyphoscoliosis Hospital Course: Is brought to the operating room on 11/06/18 where he underwent a L1-2 and L2-3 anterior and posterior osteotomies with a T10 through L4 instrumented fusion. He had a large 1400 mL of blood loss during the osteotomy portion of the procedure. Postoperatively he did well. He was gradually mobilized with physical therapy. Pain was under good control with oral medication. He did have acute blood loss anemia with some symptomatic in termittent orthostatic hypotension but this was stable by the time of discharge. It was felt that he would be a good candidate for skilled rehab. Status at Discharge Cognitive/behavioral status at discharge: oriented Functional status at discharge: uses cane/walker Overall status at discharge: patient is progressing back to baseline Exam Vital Signs (past 8 hours): - 11/08/19 04:07 Pulse Rate 94 H Respiratory Rate 18 Blood Pressure 104/58 L Pulse Oximetry 94 Oxygen Delivery Method Room Air Oxygen Flow Rate 0 Const Orientation: alert and oriented x3 Back/Spine/Pelvis Other: CDI. 5/5 motor both lower extremities except 5-/5 bilateral hip flexors Objective Labs Result Diagrams: 11/08/19 04:55 11/07/19 05:00 Labs: Laboratory Results - last 24 hr 11/08/19 04:55 Hgb 8.7 L Hct 24.5 L Discharge Plan Discharge Plan Patient Disposition: Home Transfer to: [facility] and [facility] Discharge comment: Follow-up 1.[address] morning Discharge orders & Medications Prescriptions: New celecoxib [Celebrex] 200 mg Capsule 200 mg PO BID PRN (Reason: pain) Qty: 60 RF: 0 hydrocodone-acetaminophen 5-325 mg Tablet 1 tab PO Q4HR PRN (Reason: Pain, Moderate (4-6)) Qty: 20 RF: 0 hydroxyzine pamoate 25 mg Capsule 25 mg PO Q4HR PRN (Reason: spasms) Qty: 15 RF: 0 Continued triazolam [Halcion] 0.25 mg Tablet 0.25 mg PO BEDTIME RF: 0 atorvastatin 10 mg Tablet 10 mg PO BEDTIME RF: 0 acetaminophen [Tylenol Extra Strength] 500 mg Tablet 500 mg PO Q4H PRN (Reason: Pain) RF: 0 tamsulosin 0.4 mg Capsule 0.4 mg PO BEDTIME RF: 0 telmisartan-hydrochlorothiazid [Micardis HCT] 80-12.5 mg Tablet 1 tab PO DAILY RF: 0 carbidopa-levodopa 25-100 mg Tablet 1.5 tab PO TID RF: 0 cetirizine 10 mg Capsule 10 mg PO BEDTIME RF: 0 Discontinued diclofenac sodium 75 mg Tablet,Delayed Release (Dr/Ec) 75 mg PO BID RF: 0 Follow up/Referrals: Mac Reed MD [Primary Care Provider] - Discharge Health Status Multidrug resistant organism: No MDRO Diet/Activity/Treatments Diet: Diet as Tolerated Activity: Limited be LT. 10 lb maximum lift Skin/Wound/Dressing Care Dressing: May change dressing and shower postop day 5., Ned. Okay to shower currently with waterproof dressing. Visit Report/Discharge Packet Instructions: DI for Laminectomy, DI for Prescription Opioid Use, DI for Lateral Lumbar Interbody Fusion Stand Alone Forms: Surgery Discharge Discharge Data Primary Care Provider: Mac Reed
[2019-11-08] MEDS: HYDROCODONE/ACET 5/325 TABLET 2 TAB PO ×2 (08:09→14:59)
[2019-11-08] MEDS: DOCUSATE 100 MG CAPSULE PO ×2 (08:10→20:02)
[2019-11-08] MEDS: CELECOXIB 200 MG CAPSULE PO ×2 (08:10→20:08)
[2019-11-08] MEDS: CARBIDOPA-LEVODOPA 25/100 TABLET 1.5 EACH PO ×3 (08:10→20:08)
--- NOTE | 2019-11-08 09:57 | PT.IPTN ---
Current Diagnoses Other forms of scoliosis, lumbar region (11/06/19) Spinal stenosis, lumbar region with neurogenic claudication (11/06/19) Surgery Performed Operation Date: 11/06/19 07:45 Actual Procedures p L1-2,L2-3 anterior & posterior osteotomies & fusion w/posterior T10-L4 instru fusion w/bone graft - Zane Richard MD Physical Therapy Treatment Note M2 PT-IP Current Condition Start: 11/07/19 12:14 Freq: NEEDED Status: Active Protocol: Document 11/07/19 10:30 AB (Rec: 11/07/19 12:40 AB [id number]) Physical Therapy Current Condition Current Condition Evaluation Date 11/07/19 Treatment Diagnosis s/p L1-3 ant. fusion/lami; difficulty in walking Onset Date 11/06/19 Precautions Lumbar Precautions Log Roll,No Twisting,Limit Bending,Lifting Restriction of 10 lbs,Gait Belt above Incisional Area M3 PT-IP Subjective Start: 11/07/19 12:14 Freq: NEEDED Status: Active Protocol: Document 11/08/19 09:33 SP (Rec: 11/08/19 14:04 SP [email or web address]) Subjective Physical Therapy Visit Type Type Treatment Note Visit Start Time 09:33 Visit Stop Time 09:57 Total Visit Minutes 24 Number of NUCLEAR PHARMACIST Visits 1 Physical Therapy Visit Comments Patient Comments Pt agreeable to PT. Therapy Pain Assessment Pain When Pain Assessed At Rest Pain Present Pain Present Pain Reported Location back Intensity 2 Scale Used 2/10 at rest, 5/10 durign mobility Pain Management Techniques Re-positioning,Timing of Activity with Medications M4 PT-IP Mobility and Gait Start: 11/07/19 12:14 Freq: NEEDED Status: Active Protocol: Document 11/08/19 09:33 SP (Rec: 11/08/19 14:04 SP [email or web address]) PT-Bed Mobility Assessment Rolling Type of Rolling Log Rolling,Roll to Left Level of Assist Moderate Assistance,1 Person Assistance Supine to Sit Supine to Sit Maximum Assistance,1 Person Assistance,Bedrails Scooting Scooting to Edge of Bed Maximum Assistance PT-Transfer Assessment Sit to and From Stand Sit to and from Stand Minimal Assistance,1 Person Assistance,Use of Upper Extremities Equipment Transfer Assistive Device Gait Belt,Front Wheeled Walker Orthotic/Prosthetic Devices or Brace: No Transfers Transfer Destination Chair Transfer Technique Stand Step Pivot Transfer Ability Level of Assist Contact Guard Assistance,1 Person Assistance,Use of Upper Extremities Comments Mobility Comments BP: supine Gait Assessment Gait Gait Assistance Required: Contact Guard Assist,1 Person Assist Distance (Feet) 30 Able to Maintain Weight Bearing Status Yes During Gait Assistive Devices Assistive Device Gait Belt,Front Wheeled Walker Orthotic/Prosthetic Devices or Brace: No Gait Deviations General Gait Pattern Antalgic,Decreased Stride Length,Decreased Feet Clearance Factors Limiting Gait Function Factors Limiting Gait Function Decreased Activity Tolerance, Decreased Strength,Difficulty Following Directions,Limited Range of Motion,Pain,Poor Balance,Poor Safety Awareness Comments Gait Comments Pt was able to walk room distance using fWW, CGA - Emily with intermittent cuing for upright body posture and keeping body closer to FWW, obstacle mgt around end of bed and intermittent Min support anterior FWW to slow pacing and decrease flexed trunk posture. PT-Balance Assessment Sitting Balance and Reactions Static Sitting Balance Ability Fair Dynamic Sitting Balance Ability Poor Standing Balance and Reactions Static Standing Balance Ability Fair Dynamic Standing Balance Ability Poor Device Used FWW M5 PT-IP Objective Assessments Start: 11/07/19 12:14 Freq: NEEDED Status: Active Protocol: Document 11/07/19 10:30 AB (Rec: 11/07/19 12:40 AB [id number]) Orientation Orientation/Cognition Level of Alertness Alert Orientation Name,Age,Place,Situation Safety Awareness Decreased Safety Awareness Gross Range of Motion Lower Extremity ROM Assessment Within Functional Limits Strength Lower Extremity Strength Hip 4-/5 Knee 4-/5 M6 PT-IP Treatment Start: 11/07/19 12:14 Freq: NEEDED Status: Active Protocol: Document 11/08/19 09:33 SP (Rec: 11/08/19 14:04 SP [email or web address]) Physical Therapy Treatment Education Education Provided Precautions,Safety M7 PT-IP Assessment and Plan Start: 11/07/19 12:14 Freq: NEEDED Status: Active Protocol: Document 11/08/19 09:33 SP (Rec: 11/08/19 14:04 SP [email or web address]) PT Summary Assessment and Plan Potential Rehabilitation Potential Fair Status of Condition at Evaluation Evolving Summary Impairments Pain,ROM,Strength,Balance, Coordination,Sensation,Tone, Cognition,Bed Mobility, Transfers,Gait,Activity Tolerance Progress Towards Goals Slow Progress due to Pain,Slow Progress due to Medical Issues,Slow Progress due to Activity Tolerance Assessment Summary Pt requires mod to max A with mobilities and max cues for techniques and safety. pt can be impulsive. pt also has parkinson's dse contributing to current level of assistance needed. pt will require SNF rehab to improve strength and independence. Pt was up in chair with all needs and call light within reach and chair alarm donned. Relayed progress with nurse. Goals Bed Mobility Goal Standby Assistance Transfer Goal Standby Assistance,Front Wheeled Walker Gait Goal Standby Assistance,Front Wheel Walker Gait Distance 100 Other Goals up/down 1 step using FWW CGA up/down 15 steps using quad cane and 1 rail CGA Days to Meet Goals 10 Frequency of Treatment Frequency Of Treatment Twice a Day Treatment Plan Physical Therapy Treatment Plan Bed Mobility Training,Transfer Training,Gait Training, Therapeutic Exercise,Balance Retraining,Post Op Education, Discharge Planning,Hot or Cold Pack,Neuromuscular Re-ed, Coordination Retraining,Manual Therapy Other Recommendations and Next Treatment ambulation, bed mobility, log Focus roll, 1 step mgt using FWW; pt requesting 930 am PT tx session and 2pm tx session for 11/08/2019 Thurs Recommendations To Nursing Amount of Assist Needed 1 Person Assist Discharge Recommendations PT Discharge Recommendations SNF Rehab
--- NOTE | 2019-11-08 13:50 | OT.IP.TRT ---
Current Diagnoses Other forms of scoliosis, lumbar region (11/06/19) Spinal stenosis, lumbar region with neurogenic claudication (11/06/19) Surgery Performed Operation Date: 11/06/19 07:45 Actual Procedures p L1-2,L2-3 anterior & posterior osteotomies & fusion w/posterior T10-L4 instru fusion w/bone graft - Zane Richard MD Occupational Therapy Treatment Note M2 OT-IP Current Condition Start: 11/07/19 14:52 Freq: Status: Active Protocol: Document 11/07/19 13:45 PJM (Rec: 11/07/19 15:14 PJM [email or web address]) Occupational Therapy Current Condition Current Condition Evaluation Date 11/07/19 Treatment Diagnosis decr'd ADLS, mobility s/p L1- 12, L2-3 ant/post osteotomies, T10-L4 fusion Diagnosis Onset Date 11/06/19 Post Operative Precautions Lumbar Precautions Log Roll,No Twisting,Limit Bending,Lifting Restriction of 10 lbs,Gait Belt above Incisional Area Other Precautions orthostatic this AM with RN and P.T. chair alarm Parkinson's M3 OT- IP Subjective and Pain Start: 11/07/19 14:52 Freq: Status: Active Protocol: Document 11/08/19 13:50 PJM (Rec: 11/08/19 17:15 PJM [email or web address]) OT- Subjective Occupational Therapy Visit Type Type Treatment Note Visit Start Time 13:29 Visit Stop Time 13:50 Total Visit Minutes 21 Occupational Therapy Visit Comments Patient Comments 'I am feeling better today. Patient/Caregiver Goals to go to rehab tomorrow OT Pain Assessment Pain When Pain Assessed After Treatment Pain Present Pain Present Pain Reported Location back Intensity 3 Scale Used Numeric (1 - 10) Description Aching,Acute Pain Behaviors Guarding Management Techniques Distraction,Re-positioning, Timing of Activity with Medications M4 OT- IP ADL's Start: 11/07/19 14:52 Freq: Status: Active Protocol: Document 11/08/19 13:50 PJM (Rec: 11/08/19 17:15 PJM [email or web address]) OT ADL-Dressing General Eval Lower Body Dressing Ability Moderate Assistance Areas Needing Assistance Retrieving/Set-up of Clothing, Underpants/Brief,Socks Assistive Devices Dressing Assistive Devices Television News Reporter,Sock Aid Comments OT Dressing Comments Practiced donning and doffing B socks with macadam raker and hard sock aid with pt seated in chair. Also practiced donning undershorts with macadam raker. M6 OT- IP Functional Cognition Start: 11/07/19 14:52 Freq: Status: Active Protocol: Document 11/07/19 13:45 PJM (Rec: 11/07/19 15:14 PJ [email or web address]) Cognitive Factors Limiting Selfcare Function Cognitive Ability Level of Alertness Alert Patient Orientation Name,Month,Date,Year,Place, Situation Attention Span Ability Capable of Focused Attention Ability to Follow Commands Able to Follow One Step Commands Safety Awareness Underestimates Need for Assistance Cognitive Comments Cognitive Assessment Comments Pt has decreased insight into how lumbar spine precautions will affect his ability to complete self care tasks. OT- Vision and Hearing OT- Hearing Assessment OT- Hearing Assessment WFL,Use of Hearing Aids OT- Vision Assessment Visual Acuity WFL,Glasses All The Time M7 OT- IP Mobility and Balance Start: 11/07/19 14:52 Freq: Status: Active Protocol: Document 11/08/19 13:50 PJM (Rec: 11/08/19 17:15 PJ [email or web address]) OT-Transfer Assessment Sit to and From Stand Sit to and from Stand Minimal Assistance,Moderate Assistance Comments Mobility Comments Pt's sit to stand is variable, initially requiring mod assist due to poor hand placement and technique; practiced 4 sit to stands with emphasis on hand placement and hip hinge with forward weight shift, then pt fatigued. OT- Balance Assessment Sitting Balance and Reactions Static Sitting Balance Ability Good Dynamic Sitting Balance Ability Fair Standing Balance and Reactions Static Standing Balance Ability Fair M9 OT- IP Assessment and Plan Start: 11/07/19 14:52 Freq: Status: Active Protocol: Document 11/08/19 13:50 PJM (Rec: 11/08/19 17:15 [facility] [email or web address]) OT Summary Assessment and Plan Potential Rehabilitation Potential Good Summary OT Impairments Strength,Balance,Functional Cognition,Functional Mobility, Grooming,Dressing,Toileting, Bathing,Toilet Transfers, Shower Transfers Assessment Summary Pt progressing towards goals with good effort and participation as described above. Pt needs mod verbal cues and mod assist for effective use of lower body dressing equipt. Pt has decreased B hand coordination with frequent dropping of items noted. Min verbal cues needed to avoid forward bending. Pt needs max verbal cues for sit to stand technique but improves with practice. Pt will benefit from further rehab services at [facility] [place] to access his bedroom. Goals Grooming Goal Contact Guard Assistance Dressing Goal Minimal Assistance Toileting Goal Standby Assistance Bathing Goal Minimal Assistance Toilet Transfer Goal Contact Guard Assistance Shower Transfer Goal Contact Guard Assistance,Walk- in Shower,Shower Chair,Grab Bars Patient/Caregiver Education Goal Demonstrate Post-Op Precautions,Demonstrate Energy Conservation and Pacing OT-Other Goals Grooming to be done standing at sink with no loss of balance. Days to Meet Goals 6 Frequency of Treatment Frequency Of Treatment Once a Day Treatment Plan OT Treatment Plan ADL Training,Functional Mobility,Patient/Family Education,Discharge Planning Discharge Recommendations OT Discharge Recommendations [facility] Rehab
--- NOTE | 2019-11-08 14:41 | PT.IPTN ---
Current Diagnoses Other forms of scoliosis, lumbar region (11/06/19) Spinal stenosis, lumbar region with neurogenic claudication (11/06/19) Surgery Performed Operation Date: 11/06/19 07:45 Actual Procedures p L1-2,L2-3 anterior & posterior osteotomies & fusion w/posterior T10-L4 instru fusion w/bone graft - Zane Richard MD Physical Therapy Treatment Note M2 PT-IP Current Condition Start: 11/07/19 12:14 Freq: NEEDED Status: Active Protocol: Document 11/07/19 10:30 AB (Rec: 11/07/19 12:40 AB [id number]) Physical Therapy Current Condition Current Condition Evaluation Date 11/07/19 Treatment Diagnosis s/p L1-3 ant. fusion/lami; difficulty in walking Onset Date 11/06/19 Precautions Lumbar Precautions Log Roll,No Twisting,Limit Bending,Lifting Restriction of 10 lbs,Gait Belt above Incisional Area M3 PT-IP Subjective Start: 11/07/19 12:14 Freq: NEEDED Status: Active Protocol: Document 11/08/19 14:07 SP (Rec: 11/08/19 15:10 SP [email or web address]) Subjective Physical Therapy Visit Type Type Treatment Note Visit Start Time 14:07 Visit Stop Time 14:41 Total Visit Minutes 34 Number of OPTOMETRIC TECHNOLOGIST Visits 2 Physical Therapy Visit Comments Patient Comments Pt agreeable to PT and walk further. Patient Goals Need to go to the bathroom. Therapy Pain Assessment Pain When Pain Assessed During Mobility Pain Present Pain Present Pain Reported Location back Intensity 3 Scale Used legs when walking Pain Management Techniques Re-positioning M4 PT-IP Mobility and Gait Start: 11/07/19 12:14 Freq: NEEDED Status: Active Protocol: Document 11/08/19 14:07 SP (Rec: 11/08/19 15:10 SP [email or web address]) PT-Bed Mobility Assessment Rolling Type of Rolling Log Rolling,Roll to Right Level of Assist Contact Guard Assistance Sit to Supine Sit to Supine Moderate Assistance,1 Person Assistance,Bedrails PT-Transfer Assessment Sit to and From Stand Sit to and from Stand Moderate Assistance,1 Person Assistance,Use of Upper Extremities Equipment Transfer Assistive Device Gait Belt,Front Wheeled Walker Orthotic/Prosthetic Devices or Brace: No Transfers Transfer Destination Bed,Toilet Transfer Technique Stand Step Pivot Transfer Ability Level of Assist Contact Guard Assistance,1 Person Assistance,Use of Upper Extremities Comments Mobility Comments Pt required more assistance to complete sit to stand from chair this afternoon with Max cuing for forward trunk wt shift over legs to decrease retro extension, was ableto stand on 4th attempt with Mod A and cuing for downward pressure RUE on FWW not pull back and pushup up from chair arm rest. FWW tiped back toward him pull on it during first 2 trials. Pt walked into hallway then back to L side of bed, sit to stand CGA, walked into bathroom and ableto descend to sitting using L wall rail and FWW for support CGA. CGA to stand from toilet usign L rail and FWW downward pressure, he was ableto complete clothing mgt himself. Pt completed sitting to supine with good log roll techniques required use of bed rail on L and Mod A for BLE on to bed then he was able log roll onto his back and reposition his LEs and pelvic alignment to center in bed himself. Pt had call light and all needs within reach with in room when left. Vitals: BP standing 116/73 HR 109. Gait Assessment Gait Gait Assistance Required: Contact Guard Assist,1 Person Assist Distance (Feet) 90 Able to Maintain Weight Bearing Status Yes During Gait Assistive Devices Assistive Device Gait Belt,Front Wheeled Walker Orthotic/Prosthetic Devices or Brace: No Gait Deviations General Gait Pattern Antalgic,Decreased Stride Length,Decreased Feet Clearance,Flexed Trunk Factors Limiting Gait Function Factors Limiting Gait Function Decreased Activity Tolerance, Decreased Strength,Difficulty Following Directions,Limited Range of Motion,Pain,Poor Balance,Poor Safety Awareness Comments Gait Comments Pt was ableto walk further distance into hallway to L to window and back 3 stopped standing rest breaks. Decrease cuing required for body closer to FWW and no assist to slow walker down this session . Pt walked approx 90ft chair to L side of bed and 10 ft back/forth bathroom. PT-Balance Assessment Sitting Balance and Reactions Static Sitting Balance Ability Good Dynamic Sitting Balance Ability Fair Standing Balance and Reactions Static Standing Balance Ability Good Dynamic Standing Balance Ability Fair Device Used FWW M5 PT-IP Objective Assessments Start: 11/07/19 12:14 Freq: NEEDED Status: Active Protocol: Document 11/07/19 10:30 AB (Rec: 11/07/19 12:40 AB [id number]) Orientation Orientation/Cognition Level of Alertness Alert Orientation Name,Age,Place,Situation Safety Awareness Decreased Safety Awareness Gross Range of Motion Lower Extremity ROM Assessment Within Functional Limits Strength Lower Extremity Strength Hip 4-/5 Knee 4-/5 M6 PT-IP Treatment Start: 11/07/19 12:14 Freq: NEEDED Status: Active Protocol: Document 11/08/19 09:33 SP (Rec: 11/08/19 14:04 SP [email or web address]) Physical Therapy Treatment Education Education Provided Precautions,Safety M7 PT-IP Assessment and Plan Start: 11/07/19 12:14 Freq: NEEDED Status: Active Protocol: Document 11/08/19 14:07 SP (Rec: 11/08/19 15:10 SP [email or web address]) PT Summary Assessment and Plan Potential Rehabilitation Potential Fair Status of Condition at Evaluation Evolving Summary Impairments Pain,ROM,Strength,Balance, Coordination,Sensation,Tone, Cognition,Bed Mobility, Transfers,Gait,Activity Tolerance Progress Towards Goals Slow Progress due to Pain,Slow Progress due to Medical Issues,Slow Progress due to Activity Tolerance Assessment Summary Pt requires mod A for sit to supine for LE support into bed , Mod A to stand from chair 4th attempts CGA from toilet, CGA with mod cuing for body positioning closer to FWW during gait in hallway with 3 stopped rest breaks secondaory to decreased strength. Decreased impulsivity this afternoon and improved longer slower strides durign gait. Pt also has parkinson's dse contributing to assistance needed. pt will require SNF rehab to improve strength and independence. Pt was in bed with all needs and call light within reach. Relayed progress with nurse. Goals Bed Mobility Goal Standby Assistance Transfer Goal Standby Assistance,Front Wheeled Walker Gait Goal Standby Assistance,Front Wheel Walker Gait Distance 100 Other Goals up/down 1 step using FWW CGA up/down 15 steps using quad cane and 1 rail CGA Days to Meet Goals 10 Frequency of Treatment Frequency Of Treatment Twice a Day Treatment Plan Physical Therapy Treatment Plan Bed Mobility Training,Transfer Training,Gait Training, Therapeutic Exercise,Balance Retraining,Post Op Education, Discharge Planning,Hot or Cold Pack,Neuromuscular Re-ed, Coordination Retraining,Manual Therapy Other Recommendations and Next Treatment ambulation, bed mobility, log Focus roll, 1 step mgt using FWW; pt requesting 930 am PT tx session and 2pm tx session for 11/08/2019 Thurs Recommendations To Nursing Amount of Assist Needed 1 Person Assist Discharge Recommendations PT Discharge Recommendations SNF Rehab
--- NOTE | 2019-11-08 15:24 | PC.NURSE ---
Ortho: Pt pulled out hemovac just before shift change. Dressing was changed to an aquacel and has remained c/d since. Has tried x2 to get up by self this am. SThe physical therapist said i could get up. Stopped due to chair alarm. Instructed has not been released yet as he needs cues to follow his lami precautions. Sl disoriented this am, trying to figure out how things work like his call light. Discussed pain med concerns. Recounted conversation from yesterday when he talked about speaking to his about his pain meds because he was reporting out of control pain and he was unable to recall which pain meds he could take. SI think I do remember that conversation now that you say something, I have parkinsons so I forget things sometimes. Spouse here later this afternoon reporting this was the best she had seen her after surgery as far as pain control and mentation were concerned. She reported he had been much more disoriented after his earlier surgery's. Pt plans on going to facility at d/c, poss tomorrow. Another day to see if disorientation conts to resolve. That he is safe when he is up and amb, and more consistently follows his lami precautions.
--- NOTE | 2019-11-08 15:59 | PC.NURSE ---
pruitis pt states back itches at proximal dressing. no erythema or rash noted. Pt declined need for Benadryl. powder applied around edges of bandage and ice pack placed.
[2019-11-08] MEDS: SENNOSIDES 8.6 MG TABLET 17.2 MG PO (20:02)
[2019-11-08] MEDS: ATORVASTATIN 10 MG TABLET PO (20:08)
[2019-11-08] MEDS: LORATADINE 10 MG TABLET PO (20:08)
[2019-11-08] MEDS: TAMSULOSIN 0.4 MG CAPSULE PO (20:08)
[2019-11-08] MEDS: CODEINE/ACETAMINOPHEN 30/300 TABLET 2 TAB PO (20:09)
[2019-11-08] MEDS: TRIAZOLAM 0.125 MG TABLET 0.25 MG PO (20:55)
[2019-11-09 01:35] VITALS: BP 109/52; PULSE 84; RESP 18; TEMP 36.8; O2SAT 93
[2019-11-09 03:41] VITALS: BP 102/41; PULSE 87; RESP 18; TEMP 36.4; O2SAT 93
--- NOTE | 2019-11-09 06:31 | P.PN_ITS ---
Subjective Subjective Date Patient Seen: 11/09/19 Time Patient Seen: 06:31 Interval history: He is doing well. Pain is about a 4. Up and ambulating with the assistance of therapy. No more leg pain. Exam Vital Signs (past 8 hours): - 11/09/19 01:35 11/09/19 03:41 Temperature 98.2 F 97.6 F Pulse Rate 84 87 Respiratory Rate 18 18 Blood Pressure 109/52 L 102/41 L Pulse Oximetry 93 93 Oxygen Delivery Method Room Air Oxygen Flow Rate 0 Const Orientation: alert and oriented x3 Back/Spine/Pelvis Other: CDI. 5/5 motor both lower extremities except for 5-/5 both hip flexors Objective Labs Result Diagrams: 11/08/19 04:55 11/07/19 05:00 Assessment & Plan Post-op Postoperative Procedures: Procedures Operation Date: 11/06/19 07:45 Actual Procedures Side Surgeon p L1-2,L2-3 anterior & posterior osteotomies & fusion w/posterior T10-L4 instru fusion w/bone graft Zane Richard MD he is doing well. Mobilize with physical therapy. Plan to discharge to [facility] when bed available.
[2019-11-09] MEDS: CELECOXIB 200 MG CAPSULE PO (07:37)
[2019-11-09] MEDS: CARBIDOPA-LEVODOPA 25/100 TABLET 1.5 EACH PO ×2 (07:37→13:45)
[2019-11-09] MEDS: DOCUSATE 100 MG CAPSULE PO (07:38)
[2019-11-09 07:40] VITALS: BP 139/51; PULSE 94; RESP 16; TEMP 36.3; O2SAT 95
[2019-11-09] MEDS: HYDROCODONE/ACET 5/325 TABLET 1 TAB PO (07:43)
--- NOTE | 2019-11-09 09:40 | PT.IPTN ---
Current Diagnoses Other forms of scoliosis, lumbar region (11/06/19) Spinal stenosis, lumbar region with neurogenic claudication (11/06/19) Surgery Performed Operation Date: 11/06/19 07:45 Actual Procedures p L1-2,L2-3 anterior & posterior osteotomies & fusion w/posterior T10-L4 instru fusion w/bone graft - Zane Richard MD Physical Therapy Treatment Note M2 PT-IP Current Condition Start: 11/07/19 12:14 Freq: NEEDED Status: Active Protocol: Document 11/07/19 10:30 AB (Rec: 11/07/19 12:40 AB [id number]) Physical Therapy Current Condition Current Condition Evaluation Date 11/07/19 Treatment Diagnosis s/p L1-3 ant. fusion/lami; difficulty in walking Onset Date 11/06/19 Precautions Lumbar Precautions Log Roll,No Twisting,Limit Bending,Lifting Restriction of 10 lbs,Gait Belt above Incisional Area M3 PT-IP Subjective Start: 11/07/19 12:14 Freq: NEEDED Status: Active Protocol: Document 11/09/19 09:18 SP (Rec: 11/09/19 10:07 SP [id number]) Subjective Physical Therapy Visit Type Type Treatment Note Visit Start Time 09:18 Visit Stop Time 09:40 Total Visit Minutes 22 Number of TUFTING MACHINE OPERATOR SINGLE NEEDLE Visits 3 Physical Therapy Visit Comments Patient Comments Pt agreeable to PT this am . Patient Goals Want to get up and move around . Therapy Pain Assessment Pain Present Pain Present Denied Pain M4 PT-IP Mobility and Gait Start: 11/07/19 12:14 Freq: NEEDED Status: Active Protocol: Document 11/09/19 09:18 SP (Rec: 11/09/19 10:07 SP [id number]) PT-Bed Mobility Assessment Rolling Type of Rolling Roll to Right,Roll to Left Level of Assist Contact Guard Assistance,1 Person Assistance Supine to Sit Supine to Sit Moderate Assistance,1 Person Assistance,Bedrails Sit to Supine Sit to Supine Minimal Assistance,1 Person Assistance,Bedrails Scooting Scooting to Edge of Bed Contact Guard Assistance PT-Transfer Assessment Sit to and From Stand Sit to and from Stand Minimal Assistance,1 Person Assistance,Use of Upper Extremities Equipment Transfer Assistive Device Gait Belt,Front Wheeled Walker Orthotic/Prosthetic Devices or Brace: No Transfers Transfer Destination Bed,Chair Transfer Technique Stand Step Pivot Transfer Ability Level of Assist Contact Guard Assistance,1 Person Assistance,Use of Upper Extremities Comments Mobility Comments Pt was seated in chair when arrived. Pt was able to complete sit to stand requiring Min A with cuing for scooting to front of chair and trunk wt shift forward over LEs to decrease retro ext , he uses LUE push off chair arm and RUE on FWW. Pt continues to pull from FWW rather than cuing of pressing down in FWW with noted little FWW tip backwards into chair, patient persistant can use noted hand placement after unsuccessful use of BUE on chair arms and increases retro ext. Pt was able to stand on 3rd attempt with support at belt posteriorly to come to standing. Good controlled descent sitting onto EOB when returned from walk in hallway, fair during transfer sitting into chair using BUE. Pt completed sitting to supine with good log roll, required Min A for RLE into bed then patient was ableto reposition self with feedback of body awareness. Pt was able to log roll to L with cuing of use of reaching RUE across to bed rail with BLE together, required Emily to transition trunk to sitting cued RUE WB into bed and LUE use for bed rail. He was able to scoot to EOB himself with feedback cue until feet on the floor. Pt sit to stand from EOB and pivoted to chair and descent into chair CGA usign FWW. Cued for slow descent fully to chair to prevent last 2 falling to chair and feet slide on floor, good hand placement for self support on chair arms. Pt was seated in chair with alarm on, call light and all needs within reach when left. Gait Assessment Gait Gait Assistance Required: Contact Guard Assist,1 Person Assist Distance (Feet) 90 Able to Maintain Weight Bearing Status Yes During Gait Assistive Devices Assistive Device Gait Belt,Front Wheeled Walker Orthotic/Prosthetic Devices or Brace: No Gait Deviations General Gait Pattern Antalgic,Decreased Stride Length,Decreased Feet Clearance,Flexed Trunk,Lateral Trunk Lean,Narrow Based Gait Factors Limiting Gait Function Factors Limiting Gait Function Decreased Activity Tolerance, Decreased Strength,Difficulty Following Directions,Limited Range of Motion,Pain,Poor Balance,Poor Safety Awareness, Respiratory Distress Comments Gait Comments Pt was able to ambulate further distance around nursing station initially CGA with intermittent cuinging for body closer to FWW then suported FWW from getting to far front and repeated body closer with slower pacing steps and focused converation on task at hand. Pt demonstrated L lateral trunk lean as distance progressed. Pt required 4 stopped stand rests and cuing for slow breathing secondary for recovery, challenged by increased distance, TUFTING MACHINE OPERATOR SINGLE NEEDLE stated will provide w/c follow next walk in hallway if wanting further distance for trunk rest break, patient stated I can do the distance. PT-Balance Assessment Sitting Balance and Reactions Static Sitting Balance Ability Good Dynamic Sitting Balance Ability Fair Standing Balance and Reactions Static Standing Balance Ability Good Dynamic Standing Balance Ability Poor Device Used FWW M5 PT-IP Objective Assessments Start: 11/07/19 12:14 Freq: NEEDED Status: Active Protocol: Document 11/07/19 10:30 AB (Rec: 11/07/19 12:40 AB [id number]) Orientation Orientation/Cognition Level of Alertness Alert Orientation Name,Age,Place,Situation Safety Awareness Decreased Safety Awareness Gross Range of Motion Lower Extremity ROM Assessment Within Functional Limits Strength Lower Extremity Strength Hip 4-/5 Knee 4-/5 M6 PT-IP Treatment Start: 11/07/19 12:14 Freq: NEEDED Status: Active Protocol: Document 11/08/19 09:33 SP (Rec: 11/08/19 14:04 SP [id number]) Physical Therapy Treatment Education Education Provided Precautions,Safety M7 PT-IP Assessment and Plan Start: 11/07/19 12:14 Freq: NEEDED Status: Active Protocol: Document 11/09/19 09:18 SP (Rec: 11/09/19 10:07 SP [id number]) PT Summary Assessment and Plan Potential Rehabilitation Potential Fair Status of Condition at Evaluation Evolving Summary Impairments Pain,ROM,Strength,Balance, Coordination,Sensation,Tone, Cognition,Bed Mobility, Transfers,Gait,Activity Tolerance Progress Towards Goals Slow Progress due to Pain,Slow Progress due to Medical Issues,Slow Progress due to Activity Tolerance Assessment Summary Pt requires min A for sit to supine for LLE support into bed, Min A to stand from chair 3th attempts, CGA from EOB, with mod- max cuing for body positioning closer to FWW during gait in hallway with 3 stopped rest breaks secondaory to decreased strength. Decreased impulsivity this afternoon and improved longer slower strides durign gait. Pt also has parkinson's dse contributing to assistance needed. pt will require SNF rehab to improve strength and independence. Pt was in bed with all needs and call light within reach. Goals Bed Mobility Goal Standby Assistance Transfer Goal Standby Assistance,Front Wheeled Walker Gait Goal Standby Assistance,Front Wheel Walker Gait Distance 100 Other Goals up/down 1 step using FWW CGA up/down 15 steps using quad cane and 1 rail CGA Days to Meet Goals 10 Frequency of Treatment Frequency Of Treatment Twice a Day Treatment Plan Physical Therapy Treatment Plan Bed Mobility Training,Transfer Training,Gait Training, Therapeutic Exercise,Balance Retraining,Post Op Education, Discharge Planning,Hot or Cold Pack,Neuromuscular Re-ed, Coordination Retraining,Manual Therapy Other Recommendations and Next Treatment ambulation, bed mobility, log Focus roll, 1 step mgt using FWW; pt requesting 930 am PT tx session and 2pm tx session for 11/08/2019 Thurs Recommendations To Nursing Amount of Assist Needed 1 Person Assist Discharge Recommendations PT Discharge Recommendations SNF Rehab
--- NOTE | 2019-11-09 10:59 | CM.DPC ---
DCP: continued: case received and d/c to snf level care noted. Dr. Richard was here at 0630 to finalize the snf orders. Met with pt who is agreeable to same. Called his Veronica to update her on the d/c details. Conferred with RN Carmella and then [facility]/March and plan is for the facility van to pick pt up at 1400, giving time for nursing staff to work with pt on his bowels. (pt with no BM since 10/05 and, per RN Carmella, chronically constipated at baseline with usual pattern 2 BMs per week). PASRR: Completed by VANESSA Morales yesterday: reviewed, faxed to [facility] given to scan and placed to snf packet. SNF orders and scripts/faxed to [facility]. P: [facility] today, 1400, [place].
[2019-11-09] MEDS: BISACODYL 10 MG SUPP PR (12:22)
[2019-11-09 12:34] VITALS: BP 112/61; PULSE 81; RESP 16; O2SAT 94
--- NOTE | 2019-11-09 13:23 | OT.IP.TRT ---
Current Diagnoses Other forms of scoliosis, lumbar region (11/06/19) Spinal stenosis, lumbar region with neurogenic claudication (11/06/19) Surgery Performed Operation Date: 11/06/19 07:45 Actual Procedures p L1-2,L2-3 anterior & posterior osteotomies & fusion w/posterior T10-L4 instru fusion w/bone graft - Zane Richard MD Occupational Therapy Treatment Note M2 OT-IP Current Condition Start: 11/07/19 14:52 Freq: Status: Active Protocol: Document 11/07/19 13:45 PJM (Rec: 11/07/19 15:14 PJM [id number]) Occupational Therapy Current Condition Current Condition Evaluation Date 11/07/19 Treatment Diagnosis decr'd ADLS, mobility s/p L1- 12, L2-3 ant/post osteotomies, T10-L4 fusion Diagnosis Onset Date 11/06/19 Post Operative Precautions Lumbar Precautions Log Roll,No Twisting,Limit Bending,Lifting Restriction of 10 lbs,Gait Belt above Incisional Area Other Precautions orthostatic this AM with RN and P.T. chair alarm Parkinson's M3 OT- IP Subjective and Pain Start: 11/07/19 14:52 Freq: Status: Active Protocol: Document 11/09/19 13:25 CCC (Rec: 11/09/19 13:39 CCC [email or web address]) OT- Subjective Occupational Therapy Visit Type Type Treatment Note Visit Start Time 12:58 Visit Stop Time 13:23 Total Visit Minutes 25 Occupational Therapy Visit Comments Patient Comments Pt wanting to use the bathroom . Patient/Caregiver Goals Pt getting ready to go to skilled rehab today. OT Pain Assessment Pain When Pain Assessed At Rest Pain Present Pain Present Denied Pain M4 OT- IP ADL's Start: 11/07/19 14:52 Freq: Status: Active Protocol: Document 11/09/19 13:25 CCC (Rec: 11/09/19 13:39 CCC [email or web address]) OT [id number] Comments OT Self-Feeding Comments Not at meal time. OT ADL-Grooming General Evaluation Grooming Ability Standby Assistance Comments OT Grooming Comments While standing with FWW in front of the sink. OT ADL-Dressing General Eval Lower Body Dressing Ability Moderate Assistance Areas Needing Assistance Underpants/Brief,Pants/Shorts Comments OT Dressing Comments Pt needing assist to pull up brief and pants over hips, pt' s socks already on. OT ADL-Toileting General Evaluation Toileting Ability Maximum Assistance Areas Needing Assistance Manage Clothing,Perform Perineal Hygiene Comments OT Toileting Comments Pt unable to reach all the way to hygiene after bowel movement, MAX A for completeness. Pt aware may need toilet aid. OT ADL-Bathing Comments OT Bathing Comments Pt already completed shower with nursing. 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 Meal Preparation Meal Preparation Caregiver Provides Assist Consumer Insight Analyst Consumer Insight Analyst Caregiver Provides Assist Driving Driving Comments pt states he still drives M6 OT- IP Functional Cognition Start: 11/07/19 14:52 Freq: Status: Active Protocol: Document 11/09/19 13:25 [facility] (Rec: 11/09/19 13:39 [facility] [id number]) Cognitive Factors Limiting Selfcare Function Cognitive Ability Level of Alertness Alert Patient Orientation Name,Age,Birthday,Month,Date, Year,Day of Week,Place, Situation Attention Span Ability Capable of Focused Attention, Capable of Sustained Attention Ability to Follow Commands Able to Follow One Step Commands Memory Description Short Term Impaired Safety Awareness Decreased Ability to Apply Precautions,Underestimates Need for Assistance Cognitive Comments Cognitive Assessment Comments Pt today more aware now will need more assist for needs due to back precautions. VC to keep FWW in front of him during grooming while standing . Also VC for safety awareness and steps to sequence when coming to stand. M7 OT- IP Mobility and Balance Start: 11/07/19 14:52 Freq: Status: Active Protocol: Document 11/09/19 13:25 [facility] (Rec: 11/09/19 13:39 [facility] [id number]) OT-Transfer Assessment Sit to and From Stand Sit to and from Stand Minimal Assistance Transfers Transfer Ability Contact Guard Assistance, Minimal Assistance Technique Transfer Destination Chair,Toilet Transfer Technique Stand Step Pivot Devices Transfer Assistive Devices Gait Belt,Front Wheeled Walker Comments Mobility Comments LEONID from lower surfaces, reminders to scoot forwards initially before standing. OT- Balance Assessment Sitting Balance and Reactions Static Sitting Balance Ability Normal Dynamic Sitting Balance Ability Good Standing Balance and Reactions Static Standing Balance Ability Good M8 OT- IP Objective Assessments Start: 11/07/19 14:52 Freq: Status: Active Protocol: Document 11/07/19 13:45 PJM (Rec: 11/07/19 15:14 PJM [id number]) OT Gross Range of Motion Upper Extremity Range of Motion Assessment Bilaterally Impaired ROM Impairments R shldr scaption 100 degress, L shldr scaption 80 degrees (s /p L TSA) Distal AROM WFL in BUE. OT Strength Upper Extremity Strength Shoulder B shldr scaption 3+/5 Comments Strength Comments Distal strength WFL BUE OT- Coordination Assessment Comments Coordination Comments WFL BUE OT-Muscle Tone Assessment Muscle Tone WNL Yes OT Sensation Assessment Comments Summary Comments Pt detects lt touch in BUE M9 OT- IP Assessment and Plan Start: 11/07/19 14:52 Freq: Status: Active Protocol: Document 11/09/19 13:25 CCC (Rec: 11/09/19 13:39 CCC [email or web address]) OT Summary Assessment and Plan Potential Rehabilitation Potential Good Summary OT Impairments Strength,Balance,Functional Cognition,Functional Mobility, Grooming,Dressing,Toileting, Bathing,Toilet Transfers, Shower Transfers Progress Towards Goals Progressing Toward Goals Assessment Summary Pt going to skilled rehab today and very motivated to get better. Goals Grooming Goal Independent Dressing Goal Minimal Assistance Toileting Goal Standby Assistance Bathing Goal Minimal Assistance Toilet Transfer Goal Contact Guard Assistance Shower Transfer Goal Contact Guard Assistance,Walk- in Shower,Shower Chair,Grab Bars Patient/Caregiver Education Goal Demonstrate Post-Op Precautions,Demonstrate Energy Conservation and Pacing OT-Other Goals Grooming to be done standing at sink with no loss of balance. Frequency of Treatment Frequency Of Treatment Once a Day Treatment Plan OT Treatment Plan ADL Training,Functional Mobility,Patient/Family Education,Discharge Planning Discharge Recommendations OT Discharge Recommendations SNF Rehab
--- NOTE | 2019-11-09 13:29 | PC.NURSE ---
Transfer: Pt readied to transfer to snf. Report called to Leana, admitting nurse at facility. Reviewed hospital course, has some disorientation still, mixed up on events and time. Forgot he pulled out hemovac yesterday, thought he could take both t-3 and vicodin and pt was instructed he can only have one or the other. (Had switched yesterday to t-3 again) Pt decided on vicodin. Spouse aware of transfer. Reviewed adl's, vs, bp has been low and bp meds have been held per md orders for last several days. Last bp 112/61. BP meds have not been ordered on transfer med list. At facility they do regular vital sign checks so they will monitor bp and notify md if bp goes back up. Both dressings to the flank and back were changed today after his shower. Back covered w/aquacel, flank with coversite. Back is stapled, flank is sutured. Both sites w/minimal redness, no drainage, wound edges approx. Reviewed labs and rest of hospital course. Questions answered. Pt will be transfered by facility vehicle.
--- NOTE | 2019-11-09 14:16 | PC.NURSE ---
Transfered to snf. Leana admitting nurse updated.
== END 2019-11-09 14:05 | DRG 454 ==
PROVIDERS: Anesthesiology; Admitting Provider Orthopaedic Surgery; PCP Family Medicine; Visit Provider Orthopaedic Surgery
PROC: 0SG00A0 Fusion of Lumbar Vertebral Joint with Interbody Fusion Device, Anterior Approach, Anterior Column, Open Approach (ICD-10-PCS; CPT 22558; principal; 2019-11-06 07:45)
DX: M48.062 Spinal stenosis, lumbar region with neurogenic claudication (principal); D62 Acute posthemorrhagic anemia; M41.86 Other forms of scoliosis, lumbar region; G20 Parkinson's disease; I10 Essential (primary) hypertension; I25.10 Atherosclerotic heart disease of native coronary artery without angina pectoris; I95.1 Orthostatic hypotension
CPT/HCPCS: 36415; 72100; 76000; 80048; 85014; 85018; 86850; 86900; 86901; 94762; 97116; 97162; 97165; 97530; 97535; C1776; J0131; J0330; J0595; J0690; J1100; J1170; J2250; J2274; J2405; J2704; J3010; J3410

== ENCOUNTER 2019-11-12 15:48 | Observation (INO) | payer MEDICARE, OTHER, SELFPAY ==
[2019-11-06 20:30] VITALS: BMI 28.9
[2019-11-12 15:59] VITALS: BP 151/89; PULSE 69; RESP 20; TEMP 37.1; O2SAT 97
--- NOTE | 2019-11-12 16:48 | ED_ITS ---
HPI - Back Pain/Injury General Chief Complaint: Back Pain/Injury Stated Complaint: Backpain radiates down leg Time Seen by Provider: 11/12/19 16:11 Source: patient Mode of arrival: Ambulatory Limitations: no limitations History of Present Illness HPI Narrative: Patient is 73-year-old male who presents with back pain. He is status post T10 through L for effusion on 11/06/2018. He was discharged to filled out the rehab where according to who is on [place] states that his pain is out of control. 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 He has no loss of urine or stool. He has no weakness in his legs. While at rest lying on the side his pain is relatively under control. On his narcotic medications due to hallucinations MD Complaint: back pain Related Data Home Medications Medication Instructions Recorded Confirmed acetaminophen [Tylenol Extra 500 mg PO Q4H PRN 10/23/19 11/12/19 Strength] atorvastatin 10 mg PO BEDTIME 10/23/19 11/12/19 carbidopa-levodopa 1.5 tab PO TID 10/23/19 11/12/19 cetirizine 10 mg PO BEDTIME 10/23/19 11/12/19 tamsulosin 0.4 mg PO BEDTIME 10/23/19 11/12/19 telmisartan-hydrochlorothiazid 1 tab PO DAILY 10/23/19 11/12/19 [Micardis HCT] triazolam [Halcion] 0.25 mg PO BEDTIME 10/23/19 11/12/19 oxycodone 5 - 10 mg PO Q4H PRN 11/12/19 11/12/19 Previous Rx's Medication Instructions Recorded celecoxib [Celebrex] 200 mg PO BID PRN #60 cap 11/08/19 hydrocodone-acetaminophen 1 tab PO Q4HR PRN #20 tab 11/08/19 hydroxyzine pamoate 25 mg PO Q4HR PRN #15 cap 11/08/19 Allergies Allergy/AdvReac Type Severity Reaction Status Date / Time narcotics AdvReac Severe Opioids Uncoded 11/06/19 07:03 cause delirium, hallucinations Review of Systems Review of Systems Narrative: GENERAL: Denies chills, fatigue, malaise, fever, sweats, travel HEENT: Denies sinus pain, ear pain, sore throat, difficulty swallowing, neck pain RESPIRATORY: Denies dyspnea, cough, wheezing, hemoptysis, sputum. CARDIOVASCULAR: Denies chest pain, palpitations, orthopnea, edema GASTROINTESTINAL: Denies nausea, vomiting, abdominal pain, diarrhea, constipation, melena. : Denies dysuria, frequency, incontinence, hematuria, urinary retention, flank pain. MUSCULOSKELETAL: See HPI SKIN: No rash, no erythema, no pruritus NEUROLOGIC: Denies weakness, dizziness, headache, numbness, change in speech, confusion PSYCHIATRIC: No concerning psychosocial issues. 12 point review of systems is negative except for those stated above and HPI Patient History Medical History Atherosclerotic heart disease of [place] coronary artery without angina pectoris (Acute) Back pain (Acute) Hearing impaired (Acute) HLD (hyperlipidemia) (Acute) HTN (hypertension) (Acute) Memory deficit (Acute) Osteoarthritis (Acute) Parkinson's disease (Acute) Sciatica (Acute) Spinal stenosis (Acute) Surgical History H/O vasectomy (Acute) History of arthroplasty of left shoulder (Acute) History of arthroscopy of both knees (Acute) History of bilateral total hip arthroplasty (Acute) History of lumbar fusion (Acute ~2011) Hx of tonsillectomy (Acute) Status post correction of deviated nasal septum (Acute) Social History household members: spouse Smoking Status: Former smoker alcohol intake: current Smoking Status: Former smoker alcohol intake frequency: holidays/special occasions only Substance Use Type: does not use Exam Initial Vital Signs Initial Vital Signs: Vital Signs Temperature 98.7 F 11/12/19 15:59 Pulse Rate 69 11/12/19 15:59 Respiratory Rate 20 11/12/19 15:59 Blood Pressure 151/89 H 11/12/19 15:59 Pulse Oximetry 97 11/12/19 15:59 GENERAL: Alert male lying on right side does not appear in extreme pain HEENT: Head atraumatic,EOMI, pupils reactive, face symmetric CARDIOVASCULAR: Regular rate and rhythm without murmurs, rubs or gallops. RESPIRATORY: Breath sounds equal bilaterally, no wheezes rales or rhonchi. ABDOMEN: Soft, nontender. Normoactive bowel sounds all 4 quadrants. No guarding or rebound. BACK: Dressings placed over incision sites no significant erythema minimal tenderness EXTREMITIES: Normal range of motion, no clubbing or edema. Neurovascularly intact NEUROLOGICAL: Alert and oriented x4.Normal gait and speech. Cranial nerves II through XII grossly intact. Sensation in lower legs equal and this same SKIN: Warm, dry, no laceration, no petechiae, no rashes or lesions. Course Orders Ordered: ED Orders 11/12/19 17:40 Basic Metabolic Panel Stat Complete Blood Count AUTO DIFF Stat Hydrocodone Bitart/Acetaminophen ([place] 5/325) 1 tab PO Q4HR PRN PRN Reason: Pain, Moderate (4-6) Al Hydrox/Mg Hydrox/Simethicone (Maalox Plus) 30 ml PO QID PRN PRN Reason: Dyspepsia Atorvastatin Calcium (Lipitor) 10 mg PO BEDTIME [facility] Bisacodyl (Dulcolax) [address] PRN PRN PRN Reason: Constipation Carbidopa/Levodopa (Sinemet 25-100 Tab) 1.5 each PO TID KHURRAM Celecoxib (Celebrex) 200 mg PO BID PRN PRN Reason: pain Dexamethasone (Decadron) 4 mg IV Q6HR [facility] Stop: 11/13/19 18:01 Docusate Sodium (Colace) 100 mg PO BID [facility] Gabapentin (Neurontin) 300 mg PO BEDTIME [facility] Hydrochlorothiazide (Hydrochlorothiazide) 12.5 mg PO DAILY [facility] Hydromorphone HCl (Dilaudid) 0.2 mg IV Q2HR PRN PRN Reason: Pain, Moderate (4-6) Hydroxyzine Pamoate (Vistaril) 25 mg PO Q4HR PRN PRN Reason: spasms Loratadine (Claritin) 10 mg PO BEDTIME [facility] Magnesium Hydroxide (Milk Of Magnesia) 30 ml PO DAILY PRN PRN Reason: Constipation Naloxone HCl (Narcan) 0.2 mg IV Q2MIN PRN PRN Reason: Opiate Reversal Ondansetron HCl (Zofran) 4 mg IV Q6HR PRN PRN Reason: Nausea And Vomiting Oxycodone HCl (Percolone) 5 mg PO Q4H PRN PRN Reason: Pain, Moderate Sennosides (Senna) 17.2 mg PO BEDTIME [facility] Sodium Biphosphate/Sodium Phosphate (Fleet Enema) [address] PRN PRN PRN Reason: Constipation Tamsulosin HCl (Flomax) 0.4 mg PO BEDTIME [facility] Telmisartan (Micardis) 80 mg PO DAILY [facility] Triazolam (Halcion) 0.25 mg PO BEDTIME K[facility] Discontinued Medications Dexamethasone (Decadron) 10 mg IV NOW ONE Stop: 11/12/19 17:16 Last Admin: 11/12/19 17:39 Dose: 10 mg Documented by: YON Hydromorphone HCl (Dilaudid) 1 mg IM NOW ONE Stop: 11/12/19 17:03 Last Admin: 11/12/19 17:39 Dose: 1 mg Documented by: YON Vital Signs Vital signs: Vital Signs - 8 hr 11/12/19 15:59 Temperature 98.7 F Pulse Rate 69 Respiratory Rate 20 Blood Pressure 151/89 H Pulse Oximetry 97 [facility] - Back Pain/Injury Lab Data Attestation: I reviewed the patient's lab results. Result diagrams: 11/12/19 17:40 11/12/19 17:40 [facility] Narrative Medical decision making narrative: Dr. tolliver initially called and discussed case with me. I initially saw and evaluated patient ordered to law did for him for pain and Dr. tolliver was in the emergency department to see and evaluate patient. Decision was for patient to be admitted for intractable back pain postoperatively and to give IV steroids. Dr. tolliver accepts patient Discharge Plan Departure Patient Disposition: Admitted as Observation Clinical Impression: Intractable back pain Discharge Date/Time: 11/12/19 18:02 Admit Date/Time: 11/12/19 17:17 Admit Provider: Zane Richard
--- NOTE | 2019-11-12 17:26 | P.HP_ITS ---
History of Present Illness History of Present Illness Date Patient Seen: 11/12/19 Time Patient Seen: 17:26 Chief complaint: Backpain radiates down leg Narrative: 73-year-old male that underwent an anterior and posterior osteotomy and fusion from T10 through L4 1 week ago on 11/06/2018. He was in the hospital for 3 days and progressing well. He was transferred to longterm on Tuesday. He reports that since then he has had severe pain going down the front of his left thigh whenever he rolls over or tries to stand up. Prior to this he was having all right thigh pain. Fairly comfortable at rest. He reports he has not been able to get up at all with physical therapy. His pain hits 10/10 whenever he tries to maneuver in bed or stand up. Does not go down the back of the leg. Right leg is doing fine. The back is doing well. Denies fevers or chills. He does have history of Parkinson's disease as well as poor tolerance with narcotics. He has been having some hallucinations with the hydrocodone. However, he feels like he has been lucid through this. They have been cutting back on the pain medication trying to balance this out. Patient History Medical History Atherosclerotic heart disease of [place] coronary artery without angina pectoris (Acute) Back pain (Acute) Hearing impaired (Acute) HLD (hyperlipidemia) (Acute) HTN (hypertension) (Acute) Memory deficit (Acute) Osteoarthritis (Acute) Parkinson's disease (Acute) Sciatica (Acute) Spinal stenosis (Acute) Surgical History H/O vasectomy (Acute) History of arthroplasty of left shoulder (Acute) History of arthroscopy of both knees (Acute) History of bilateral total hip arthroplasty (Acute) History of lumbar fusion (Acute ~2011) Hx of tonsillectomy (Acute) Status post correction of deviated nasal septum (Acute) Family & Social History Social History: household members spouse Tobacco & Substance use: Smoking Status Former smoker alcohol intake current alcohol intake frequency holiday/special occasion Substance Use Type does not use Meds Home Medications and Allergies Home Medications Medication Instructions Recorded Confirmed Type acetaminophen [Tylenol Extra 500 mg PO Q4H PRN 10/23/19 11/12/19 History Strength] atorvastatin 10 mg PO BEDTIME 10/23/19 11/12/19 History carbidopa-levodopa 1.5 tab PO TID 10/23/19 11/12/19 History cetirizine 10 mg PO BEDTIME 10/23/19 11/12/19 History tamsulosin 0.4 mg PO BEDTIME 10/23/19 11/12/19 History telmisartan-hydrochlorothiazid 1 tab PO DAILY 10/23/19 11/12/19 History [Micardis HCT] triazolam [Halcion] 0.25 mg PO BEDTIME 10/23/19 11/12/19 History celecoxib [Celebrex] 200 mg PO BID PRN #60 cap 11/08/19 11/12/19 Rx hydrocodone-acetaminophen 1 tab PO Q4HR PRN #20 tab 11/08/19 11/12/19 Rx hydroxyzine pamoate 25 mg PO Q4HR PRN #15 cap 11/08/19 11/12/19 Rx oxycodone 5 - 10 mg PO Q4H PRN 11/12/19 11/12/19 History Allergies Allergy/AdvReac Type Severity Reaction Status Date / Time narcotics AdvReac Severe Opioids Uncoded 11/06/19 07:03 cause delirium, hallucinations Exam Vital Signs (past 8 hours): - 11/12/19 15:59 Temperature 98.7 F Pulse Rate 69 Respiratory Rate 20 Blood Pressure 151/89 H Pulse Oximetry 97 Oxygen Delivery Method Room Air Const Orientation: alert and oriented x3 Resp Auscultation: clear to auscultation bilaterally Cardio Rate: regular rate Rhythm: regular rhythm Back/Spine/Pelvis Other: Dressings CDI. 5/5 motor both lower extremities. Pain with left quadriceps and hip flexion. Assessment & Plan Assessment & Plan narrative: He did well in the hospital but now is having an acute L4 radiculopathy. I'm going to get a CT scan of his back to make sure nothing has moved. I also a.m. going to admit him for overnight IV steroids to try to decrease the inflammation in his back. Both he and his for very upset with his care level at the skilled rehab center and he does not want to go back there as he feels like they were not treating his pain adequately or helping him with mobilization. This will have to be addressed tomorrow with social work.
[2019-11-12] MEDS: DEXAMETHASONE 10 MG/ML VIAL IV (17:39)
[2019-11-12] MEDS: HYDROMORPHONE 1 MG INJ IM (17:39)
[2019-11-12 17:43] LABS: Add Manual Diff / Slide Review NO; Basophils Absolute Auto 100 /uL (0-100); Basophils Percent Auto 1.3 % (0-2); Eosinophils Absolute Auto 300 /uL (0-450); Eosinophils Percent Auto 3.9 % (2-4); Hematocrit 26.8 % (41-53); Hemoglobin 9.2 g/dL (13.5-17.5); Lymphocytes Absolute Auto 1300 /uL (1100-4500); Lymphocytes Percent Auto 17.3 % (25-40); Mean Corpuscular HGB Conc 34.3 % (30-36); Mean Corpuscular Hemoglobin 31.1 PG (26-34); Mean Corpuscular Volume 90.6 fL (80-100); Monocytes Absolute Auto 900 /uL (0-900); Monocytes Percent Auto 12.3 % (3-14); Neutrophils Absolute Auto 5000 /uL (1500-7000); Neutrophils Percent Auto 65.2 % (50-75); Platelet Count 364 X10^3/uL (150-400); Red Blood Cell Count 2.95 X10^6/uL (4.5-5.9); Red Cell Distribution Width 13.6 % (11.6-14.8); White Blood Cell Count 7.7 X10^3/uL (4.5-11.0)
[2019-11-12 18:00] VITALS: BP 157/75; PULSE 72; RESP 18; TEMP 36.7; O2SAT 99
[2019-11-12 18:02] VITALS: BP 155/79; RESP 18
[2019-11-12 18:02] LABS: Blood Urea Nitrogen 14 mg/dL (9-20); Calcium 8.9 mg/dL (8.4-10.2); Carbon Dioxide 30 mmol/L (22-32); Chloride 102 mmol/L (98-107); Estimated Glomerular Filt Rate > 60.0 mL/min (>60); Glucose 97 mg/dL (80-110); HEMOLYSIS < 15 (0-50); Potassium 3.8 mmol/L (3.4-5.1); Sodium 137 mmol/L (137-145)
--- NOTE | 2019-11-12 18:12 | DI.CT.S_ITS ---
PROCEDURE: CT LUMBAR SPINE WO CON INDICATIONS: L leg pain, s/p fusion TECHNIQUE: Noncontrast 3 mm thick sections acquired from the T12 level to the sacrum. Sagittal and coronal reformats were constructed. For radiation dose reduction, the following was used: automated exposure control. COMPARISON: [facility], RG, SPINE THORACIC 2VW, 09/20/2018, 14:21. [facility], CT, CT LUMBAR SPINE WO CON, 12/28/2018, 11:30. FINDINGS: Image quality: Excellent. Bones: Levoscoliosis of the lumbar spine. 5 lumbar type vertebral bodies. Pedicle screws and lateral ramsey spanning T10-L4 which is new compared to CT of 12/28/2018. Lateral screws at L1 and L3. Intervertebral body spacers at L1-L2 and L2-L3. Pedicle screws and fixation rods at L5-S1 are unchanged. No hardware fracture identified. L3 compression fracture appears slightly worsened. Bilateral hip arthroplasties. Central spinal caliber is of normal overall caliber. No pars defects. Soft tissues: Trace pleural effusions. Small amount of gas and trace fluid in the left paraspinal abdomen. Small volume of the lumbar spine subcutaneous fluid. This may extend into the left posterior paraspinal musculature, (4/58). Overlying staple line. Visualized aorta is normal in caliber. Moderate atherosclerotic plaque. Increased stool in the right colon. IMPRESSION: New lumbar spine fusion spanning T10-L4. No hardware fracture. Small posterior postsurgical fluid collection. The fluid collection may extend into the left paraspinal musculature. Small amount of post surgical gas in the left abdomen. Increased stool in the right colon. Dictated by: Toño Mccormick M.D. on 11/12/2019 at 20:00 Approved by: Toño Mccormick M.D. on 11/12/2019 at 20:15
[2019-11-12 18:14] VITALS: BMI 25.7
[2019-11-12 20:01] VITALS: BP 138/68; PULSE 96; RESP 18; TEMP 37; O2SAT 98
[2019-11-12] MEDS: SENNOSIDES 8.6 MG TABLET 17.2 MG PO (20:41)
[2019-11-12] MEDS: TRIAZOLAM 0.125 MG TABLET 0.25 MG PO (20:41)
[2019-11-12] MEDS: GABAPENTIN 300 MG CAPSULE PO (20:41)
[2019-11-12] MEDS: DOCUSATE 100 MG CAPSULE PO (20:41)
[2019-11-12] MEDS: ATORVASTATIN 10 MG TABLET PO (20:41)
[2019-11-12] MEDS: LORATADINE 10 MG TABLET PO (20:42)
[2019-11-12] MEDS: CARBIDOPA-LEVODOPA 25/100 TABLET 1.5 EACH PO (20:42)
[2019-11-12] MEDS: TAMSULOSIN 0.4 MG CAPSULE PO (20:42)
[2019-11-12 23:30] VITALS: BP 158/83; PULSE 83; RESP 16; TEMP 36.1; O2SAT 96
[2019-11-13] MEDS: DEXAMETHASONE 4 MG/ML VIAL IV ×3 (00:02→12:00)
[2019-11-13 03:30] VITALS: BP 148/73; PULSE 95; RESP 18; TEMP 35.7; O2SAT 100
--- NOTE | 2019-11-13 03:41 | PC.NURSE ---
Addendum entered by Georgina Jones R.N. 11/13/19 04:45: Patient getting very aggravated and cursing about being in as he states the back of the bed of a truck, very frustrated that all the truck lights are on. I worked on re-orienting him to the environment and explained that the lights were from the bed controls. Patient still seemed to be angry and frustrated and said, cover me up and go away. Original Note: Patient is AXox2, is confused this night, when asked where he is at states, I'm in the garage, and why are you here? Patient is impulsive, bed alarm is on but patient tried to get out of bed w/o using call light. Bed alarm went off and patient was standing next to bed. Bed alarm was put on a more sensitive setting. VSS, lung sounds clear bilaterally, Dressing is clean/dry and intact on Left hip and back. No medications given for pain besides scheduled Decadron. Patient was able to ambulate to the bathroom w/ audiology assistant, stand by one person assist. Bed is low and locked, call light within reach, bed alarm on. IS encouraged, patient refused SCD's.
--- NOTE | 2019-11-13 07:35 | PM.PNPO.1 ---
Subjective Subjective Date Patient Seen: 11/13/19 Time Patient Seen: 07:35 Interval history: He is somewhat confused this morning. Wasn't sure where he was or what happened overnight. At this point he ripped ports that he has spent sleeping well overnight. Has no pain in his left leg anymore. Exam Vital Signs (past 8 hours): - 11/13/19 03:30 Temperature 96.2 F L Pulse Rate 95 H Respiratory Rate 18 Blood Pressure 148/73 H Pulse Oximetry 100 Oxygen Delivery Method Room Air Oxygen Flow Rate 0 Const Orientation: alert and oriented x3 Back/Spine/Pelvis Other: CDI. 5/5 motor both lower extremities without pain. Objective Labs Result Diagrams: 11/12/19 17:40 11/12/19 17:40 Labs: Laboratory Results - last 24 hr 11/12/19 11/12/19 17:40 17:40 WBC 7.7 RBC 2.95 L Hgb 9.2 L Hct 26.8 L MCV 90.6 MCH 31.1 MCHC 34.3 RDW 13.6 Plt Count 364 Neut % (Auto) 65.2 Lymph % (Auto) 17.3 L Mccracken % (Auto) 12.3 Eos % (Auto) 3.9 Baso % (Auto) 1.3 Neut # (Auto) 5000 Lymph # (Auto) 1300 [place]racken # (Auto) 900 Eos # (Auto) 300 Baso # (Auto) 100 Sodium 137 Potassium 3.8 Chloride 102 Carbon Dioxide 30 BUN 14 Creatinine 0.70 Estimated GFR > 60.0 BUN/Creatinine Ratio 20.0 Glucose 97 Calcium 8.9 Assessment & Plan Post-op Postoperative Procedures: One week status post T10 through L4 anterior posterior fusion Postoperative day: 7 Postoperative status narrative: He seems to be doing much better now that we've had him on IV steroids. He has been having more pain medication but this has a middle but confused upon waking. I will check on him later. His CT scan of the lumbar spine is still pending. We will need to work with social work today for final disposition. Quality VTE Deep Vein Thrombosis/Pulmonary Embolism Present on Admission: No
[2019-11-13] MEDS: DOCUSATE 100 MG CAPSULE PO (08:30)
[2019-11-13] MEDS: CARBIDOPA-LEVODOPA 25/100 TABLET 1.5 EACH PO (08:31)
[2019-11-13] MEDS: hydroCHLOROthiazide 12.5 MG CAPSULE PO (08:31)
[2019-11-13] MEDS: TELMISARTAN 40 MG TABLET 80 MG PO (08:32)
[2019-11-13] MEDS: SODIUM CHLORIDE 0.9% FLUSH 10 ML IV ×2 (08:33→12:00)
[2019-11-13] MEDS: CELECOXIB 200 MG CAPSULE PO (08:41)
[2019-11-13 09:00] VITALS: BP 121/65; PULSE 88; RESP 18; TEMP 36.4; O2SAT 100
[2019-11-13] MEDS: hydrOXYzine pamoate 25 MG CAPSULE PO (09:49)
--- NOTE | 2019-11-13 10:11 | CM.DANOTE ---
Addendum entered by Carmen Jones R.N. 11/13/19 12:37: Irais at [facility] [place] stated that they can accept patient today. Updated Dr. Richard, who will write orders. Irais did mention that she needs to get in touch with cabulence, due to the weather. She stated that steel pickler is supposed to be at 1500, but could change due to weather. Will go ahead and look for ordeRs, and prepare PASSR. Addendum entered by Carmen Jones R.N. 11/13/19 10:47: Irais at [facility].. confirmed acceptance. She is aware that patient may not be discharged today, but likely for tomorrow. Original Note: DCP: Case received, EMR reviewed and met with patient. Introduced self and role. Was able to converse with patient in his room to get some baseline information. Patient remembers this special education case manager from recent admission. He was recently here on 11/09 and discharged to [facility]. DCP assessment completed with information currently available. Patient is a 73 year old male who admitted yesterday afternoon to the care of the hospitalist team. PCP: Dr. Reed. Payer: confirmed: Medicare/[facility]. Patient came to the hospital via ambulance from [facility]. He had been recently here at this hospital with back surgery, and discharged to [facility]. Patient is from [place] where he resides with his , Veronica. He has history of Parkinsons as well. Patient came to hospital secondary to increased back pain. Spoke to patient in room. Stated, he had a really bad experience at [facility], and doesn't want to go back there. , Veronica was not present in room secondary to weather, but she mentioned that she felt that they were falsifying records and not giving accurate information. She was concerned that he was not getting P.T., when they were saying that he was, and also, concerned about his pain meds. Went ahead and gave patient a Medicare Choice list. During conversation with patient, he was alert and oriented, but was noted that he had confusion last night, not remembering where he was. Patient asked what facilities that this finished goods planner recommends, and let him know that corrections caseworker can't make suggestions. Named two in [facility], and patient stated, he does not care which facility he goes to. , Veronica, stated that [facility] or [facility] would be ok. Spoke to Irais at [facility] [place] in admissions, and stated, may have a bed available today. Went ahead and sent her over clinical information, letting her know that patient was recently at [facility]. Irais stated, she knows patient, for he toured facility before his back surgery. Irais confirmed that they do have male beds available. Spoke to Deisy at [facility] in admissions, and stated they also have availabilities. Clinical information sent to both facilities. P: DCP to continue to follow. At this time, is unclear if patient will be discharged today, was given some IV steroids, and may work with P.T. Plan is for [facility] or [facility] at discharge. New PASSR will be needed. Carmen Jones RN/Blacksmith Helper
--- NOTE | 2019-11-13 10:22 | PT.IIE ---
Surgical History (Last Reviewed 11/12/19 @ 18:40 by Ann Marie Anders DO) H/O vasectomy (Acute) History of arthroplasty of left shoulder (Acute) History of arthroscopy of both knees (Acute) History of bilateral total hip arthroplasty (Acute) History of lumbar fusion (Acute ~2012) Hx of tonsillectomy (Acute) Status post correction of deviated nasal septum (Acute) Medical History (Last Reviewed 11/12/19 @ 18:40 by Ann Marie Anders DO) Atherosclerotic heart disease of [place] coronary artery without angina pectoris (Acute) Back pain (Acute) Hearing impaired (Acute) HLD (hyperlipidemia) (Acute) HTN (hypertension) (Acute) Memory deficit (Acute) Osteoarthritis (Acute) Parkinson's disease (Acute) Sciatica (Acute) Spinal stenosis (Acute) Physical Therapy Inpatient Evaluation/Re-Eval M1 PT/OT-IP Prior Functional Status Start: 11/13/19 12:14 Freq: NEEDED Status: Active Protocol: Document 11/13/19 10:22 AB (Rec: 11/13/19 12:28 AB [id number]) Medical Review Prior Functional Status Medical History Reviewed Yes Communication able to make needs known Mobility and Gait pt stated that prior to last hospitalization, he was independent with all mobilities and ambulation using 3WW but furniture cruise when up to 2nd level bedroom and stated that bed is only ~ 10 ft away from the stairs. Prior Functional Level (Other details) pt was admitted 11/06/19 s/p lumbar fusion/lami and was d/c 'd to SNF. pt admitted back for LBP. Social History Household Members spouse Living Arrangements House Number of Floors (Floors) Two Floors Number of Stairs To Enter/Railing? 1 step to enter step R rail ascending +landing +7 steps with B rails: uses rail and quad cane Home Environment High Toilet,Walk in Shower Home Equipment Straight Cane,Shower Seat without Backrest,Hand Held Shower,Grab Bars Near Toilet, Grab Bars In Shower Additional Social History Comment Pt has a 3WW M2 PT-IP Current Condition Start: 11/13/19 12:14 Freq: NEEDED Status: Active Protocol: Document 11/13/19 10:22 AB (Rec: 11/13/19 12:28 AB [id number]) Physical Therapy Current Condition Current Condition Evaluation Date 11/13/19 Treatment Diagnosis LBP; difficulty in walking Onset Date 11/12/2019 Precautions Lumbar Precautions Log Roll,No Twisting,Limit Bending,Lifting Restriction of 10 lbs,Gait Belt above Incisional Area M3 PT-IP Subjective Start: 11/13/19 12:14 Freq: NEEDED Status: Active Protocol: Document 11/13/19 10:22 AB (Rec: 11/13/19 12:28 AB [id number]) Subjective Physical Therapy Visit Type Type Initial Evaluation Visit Start Time 10:22 Visit Stop Time 10:45 Total Visit Minutes 23 Number of TROUBLE DISPATCHER Visits 0 Physical Therapy Visit Comments Patient Comments pt agreeable to do PT Therapy Pain Assessment Pain When Pain Assessed At Rest Pain Present Pain Present Pain Reported Location back Intensity 8 Scale Used Numeric (1 - 10) M4 PT-IP Mobility and Gait Start: 11/13/19 12:14 Freq: NEEDED Status: Active Protocol: Document 11/13/19 10:22 AB (Rec: 11/13/19 12:28 AB [id number]) PT-Bed Mobility Assessment Rolling Type of Rolling Log Rolling Level of Assist Moderate Assistance Supine to Sit Supine to Sit Moderate Assistance,1 Person Assistance Sit to Supine Sit to Supine Maximum Assistance,1 Person Assistance PT-Transfer Assessment Sit to and From Stand Sit to and from Stand Moderate Assistance,1 Person Assistance,Use of Upper Extremities Equipment Transfer Assistive Device Gait Belt,Front Wheeled Walker Orthotic/Prosthetic Devices or Brace: No Transfers Transfer Destination Bed,Chair Transfer Technique ambulated using FWW Transfer Ability Level of Assist Moderate Assistance,1 Person Assistance,Use of Upper Extremities Comments Mobility Comments Pt sitting on chair and completed sit to stand mod A and cues for techniques and safety. pt can be impulsive. pt ambulated ~ 12 ft using FWW to the bed mod A and cues. presents with unsteady antalgic gait. pt completed sit to supine max A and cues. requires assist with LE elevation. pt completed log roll supine to sit mod A and cues. pt was able to sit on EOB CGA. ambulated back to chair ~ 12 ft using FWW mod A and cues. positioned pt on chair. call light and table placed within reach. Gait Assessment Gait Gait Assistance Required: Moderate Assistance Distance (Feet) 12 Able to Maintain Weight Bearing Status Yes During Gait Assistive Devices Assistive Device Gait Belt,Front Wheeled Walker Gait Deviations General Gait Pattern Antalgic,Decreased Stride Length,Decreased Feet Clearance,Step-to Gait Factors Limiting Gait Function Factors Limiting Gait Function Decreased Activity Tolerance, Decreased Strength,Limited Range of Motion,Pain,Poor Balance,Poor Safety Awareness Comments Gait Comments pls refer to mobility section for details PT-Balance Assessment Sitting Balance and Reactions Static Sitting Balance Ability Good Dynamic Sitting Balance Ability Fair Standing Balance and Reactions Static Standing Balance Ability Fair Dynamic Standing Balance Ability Fair Device Used FWW M5 PT-IP Objective Assessments Start: 11/13/19 12:14 Freq: NEEDED Status: Active Protocol: Document 11/13/19 10:22 AB (Rec: 11/13/19 12:28 AB [id number]) Orientation Orientation/Cognition Level of Alertness Alert Orientation Name,Age,Birthday,Month,Date, Year,Day of Week,Place, Situation Language Function Ability No Deficits Noted Safety Awareness Decreased Safety Awareness Memory Description Short Term Impaired Gross Range of Motion Lower Extremity ROM Assessment Within Functional Limits Strength Comments Strength Comments RLE: 4-/5 LLE 3+/5 Coordination Assessment Gross Coordination Gross Coordination WNL Muscle Tone Muscle Tone WNL Yes M6 PT-IP Treatment Start: 11/13/19 12:14 Freq: NEEDED Status: Active Protocol: Document 11/13/19 10:22 AB (Rec: 11/13/19 12:28 AB [id number]) Physical Therapy Treatment Education Education Provided Precautions,Safety M7 PT-IP Assessment and Plan Start: 11/13/19 12:14 Freq: NEEDED Status: Active Protocol: Document 11/13/19 10:22 AB (Rec: 11/13/19 12:28 AB [id number]) PT Summary Assessment and Plan Potential Rehabilitation Potential Good Summary Impairments Pain,ROM,Strength,Balance, Coordination,Sensation,Tone, Cognition,Bed Mobility, Transfers,Gait,Activity Tolerance Assessment Summary pt requires mod A with mobilities and max cues for safety. pt will require SNF rehab to improve strength and independence. Goals Bed Mobility Goal Standby Assistance Transfer Goal Standby Assistance,Front Wheeled Walker Gait Goal Standby Assistance,Front Wheel Walker Gait Distance 150 Other Goals up/down 1 step using FWW SBA up/down 15 steps using quad cane and R rail ascending SBA Days to Meet Goals 10 Frequency of Treatment Frequency Of Treatment Twice a Day Treatment Plan Physical Therapy Treatment Plan Bed Mobility Training,Transfer Training,Gait Training, Therapeutic Exercise,Balance Retraining,Post Op Education, Discharge Planning,Hot or Cold Pack,Neuromuscular Re-ed, Coordination Retraining,Manual Therapy Recommendations To Nursing Amount of Assist Needed 1 Person Assist Discharge Recommendations PT Discharge Recommendations SNF Rehab Equipment Needed for Home Before FWW: if pt goes home Discharge
--- NOTE | 2019-11-13 11:49 | OT.IP.TRT ---
Occupational Therapy Treatment Note M2 OT-IP Current Condition Start: 11/13/19 15:12 Freq: Status: Active Protocol: Document 11/13/19 11:49 PJM (Rec: 11/13/19 15:31 PJ [id number]) Occupational Therapy Current Condition Current Condition Evaluation Date 11/13/19 Treatment Diagnosis decreased self care, mobility s/p T10-L4 fusion w/post op L4 radiculopathy Diagnosis Onset Date 11/09/19 Post Operative Precautions Lumbar Precautions Log Roll,No Twisting,Limit Bending,Lifting Restriction of 10 lbs,Gait Belt above Incisional Area Other Precautions fall risk, STM deficits M3 OT- IP Subjective and Pain Start: 11/13/19 15:12 Freq: Status: Active Protocol: Document 11/13/19 11:49 PJM (Rec: 11/13/19 15:31 PJ [id number]) OT- Subjective Occupational Therapy Visit Type Type Initial Evaluation Visit Start Time 11:25 Visit Stop Time 11:49 Total Visit Minutes 24 Notes This therapist is familiar with this pt from previous admit 1 week ago. Occupational Therapy Visit Comments Patient Comments I couldn't do anything at rehab because I was in so much pain. Patient/Caregiver Goals to have less pain, return to rehab and get strong enough to go home OT Pain Assessment Pain When Pain Assessed At Rest Pain Present Pain Present Pain Reported Location back Intensity 9 Scale Used Numeric (1 - 10) Description Aching,Acute M4 OT- IP ADL's Start: 11/13/19 15:12 Freq: Status: Active Protocol: Document 11/13/19 11:49 PJM (Rec: 11/13/19 15:31 PJ [id number]) OT GFS-[id number]-Eaxxkez General Evaluation Self-Feeding Ability Independent OT ADL-Grooming General Evaluation Grooming Ability Standby Assistance Areas Needing Assistance Retrieving/Set-up of Grooming Items Comments OT Grooming Comments after set up in chair OT ADL-Oral Care Comments Oral Care Comments did not occur this session OT ADL-Dressing General Eval Lower Body Dressing Ability Minimal Assistance Areas Needing Assistance Socks Assistive Devices Dressing Assistive Devices Green Building Design Specialist,Sock Aid Comments OT Dressing Comments Pt familiar with use of adaptive equipt for lower body dressing. Needs min assist to get sock on hard sock aid and prefers to use soft sock aid that he has at home. OT ADL-Toileting Comments OT Toileting Comments did not occur this session OT ADL-Bathing Comments OT Bathing Comments to be assessed as mobility improves M5 OT- IP IADL's Start: 11/13/19 15:12 Freq: Status: Active Protocol: Document 11/13/19 11:49 PJM (Rec: 11/13/19 15:31 [facility] [id number]) OT-Instrumental Activities of Daily Living Deficits IADL Deficits Identified Deficits Home Safety Awareness Awareness of Need for Assistance at Home Good Awareness Ability to Problem Solve Emergency Able to Problem Solve Situations Medication Management Medication Management Caregiver Provides Supervision Medication Management Comments pt needs supervision due to memory deficits Money Management Money Management Caregiver Provides Supervision Money Management Comments pt needs supervision due to memory deficits Meal Preparation Meal Preparation Caregiver Provides Assist Meal Preparation Comments does meal prep at home Violin Restorer Violin Restorer Caregiver Provides Assist Violin Restorer Comments assists Driving Driving Comments to assist until pt able M6 OT- IP Functional Cognition Start: 11/13/19 15:12 Freq: Status: Active Protocol: Document 11/13/19 11:49 PJM (Rec: 11/13/19 15:31 [facility] [id number]) Cognitive Factors Limiting Selfcare Function Cognitive Ability Level of Alertness Alert Patient Orientation Name,Age,Birthday,Month,Date, Year,Day of Week,Place, Situation Attention Span Ability Capable of Focused Attention, Capable of Sustained Attention Ability to Follow Commands Able to Follow One Step Commands Memory Description Short Term Impaired Safety Awareness Underestimates Need for Assistance Executive Function Ability Unable to Filter Distractions Cognitive Comments Cognitive Assessment Comments Pt has been confused at night, but aware he was confused last night. Pt alert and oriented this AM with recall of recent events. Pt is mildly distractible; needs min cues to redirect. OT- Vision and Hearing OT- Hearing Assessment OT- Hearing Assessment Hearing Impaired OT- Vision Assessment Visual Acuity WFL,Glasses All The Time M7 OT- IP Mobility and Balance Start: 11/13/19 15:12 Freq: Status: Active Protocol: Document 11/13/19 11:49 PJM (Rec: 11/13/19 15:31 [facility] [id number]) OT-Transfer Assessment Comments Mobility Comments see P.T. notes; pt seen up in chair this session OT- Gait Assessment Comments Gait Ability Comments see P.T. notes OT- Balance Assessment Sitting Balance and Reactions Static Sitting Balance Ability Good Dynamic Sitting Balance Ability Fair M8 OT- IP Objective Assessments Start: 11/13/19 15:12 Freq: Status: Active Protocol: Document 11/13/19 11:49 PJM (Rec: 11/13/19 15:31 PJM [id number]) OT Gross Range of Motion Upper Extremity Range of Motion Assessment Within Functional Limits OT Strength Upper Extremity Strength Assessment Within Functional Limits Hand Gear Milling Machine Set Up Operator Strength Hand Dominance Right OT- Coordination Assessment Comments Coordination Comments Pt drops items occasionally due to Parkinsons OT-Muscle Tone Assessment Muscle Tone WNL Yes OT Sensation Assessment Comments Summary Comments Pt denies deficits in BUE's Edema Edema Absent M9 OT- IP Assessment and Plan Start: 11/13/19 15:12 Freq: Status: Active Protocol: Document 11/13/19 11:49 PJM (Rec: 11/13/19 15:31 PJM [id number]) OT Summary Assessment and Plan Potential Rehabilitation Potential Good Analytic Complexity at Evaluation Low Summary OT Impairments Pain,Strength,Balance, Coordination,Functional Cognition,Functional Mobility, Grooming,Dressing,Toileting, Bathing,Toilet Transfers, Shower Transfers Assessment Summary Low complexity OT assessment completed on this 73 yr old male s/p T10-L4 lumbar fusion 11/06/19, d/c'd to SNF 11/09/19, then readmitted with acute L4 radiculopathy now improved with steroids. Pt is below his baseline level of function and presents with significant performance deficits in all functional mobility/transfers with low activity tolerance. He also has decreased independence in standing grooming, lower body dressing, bathing and toileting as described above. Note pt has significant co-morbidity of Parkinson's. Recommend pt return to SNF to increases independence, endurance and safety in all self care and functional mobility [place] [facility]. Goals Grooming Goal Standby Assistance Dressing Goal Standby Assistance Toileting Goal Independent Bathing Goal Standby Assistance Toilet Transfer Goal Standby Assistance Shower Transfer Goal Contact Guard Assistance Patient/Caregiver Education Goal Demonstrate Energy Conservation and Pacing, Caregiver Independent Assisting Patient Days to Meet Goals 7 Frequency of Treatment Frequency Of Treatment Once a Day Treatment Plan OT Treatment Plan ADL Training,Functional Mobility,Patient/Family Education,Discharge Planning Discharge Recommendations OT Discharge Recommendations SNF Rehab
[2019-11-13 11:52] VITALS: BP 122/56; PULSE 76; RESP 18; TEMP 36.8; O2SAT 100
--- NOTE | 2019-11-13 13:40 | CM.DPC ---
DCP Cont: Spoke to Dr. Richard, orthopedist, and let him know that [facility] in [facility] can accept patient. Orders completed. Spoke to Irais in admissions at [facility] who called back to confirm sampler pickup time of 1500. Updated patient. He was concerned about his items, such as battery charger, still at [facility], and his clothes. Spoke to March in admissions at [facility] and let her know that patient would be going to another facility, and to see if they could bring his items over when they sampler pickup other patient. Stated, they would try. Updated , Veronica, she is aware of discharge. Gave her Kadie Puentesta's phone number if she has any questions. She wants to be sure that he is getting appropriate meds. PASSR completed, and orders along with prescriptions were faxed over to [facility]. Updated nurse, Cristina, as well. P: Patient is to go to [facility] in [facility] today. Carmen Jones RN/Tumbler Machine Operator Helper
--- NOTE | 2019-11-13 14:50 | PC.NURSE ---
Addendum entered by Cristina Bennett R.N. 11/13/19 15:27: Pt left unit via wheelchair at 1457 in no distress. Report called [facility] and [facility] at 1520 to given pt status update. No further voiced concerns. This caption writer did explain, try to avoid narcotics due to side effects. Pt was receiving Celebrex and Vistaril prn. Oxycodone prn for severe pain. Original Note: Day Shift- All belongings retrieved from [facility], staff member brought over to pt and given in room, except a white cell phone truck spotter. Spoke with pt's Veronica at 0810 and 1409, update given. Pt is to discharge to [facility]. [facility] personnel given discharge packet.
--- NOTE | 2019-11-15 09:57 | CM.DPC ---
DCP Cont: Faxed discharge summary to [facility], Attn: Irais at fax # [phone], as requested by Irais via voicemail. Fax confirmation scanned in. Fouzia Cuevas [facility] And Weig[facility]
== END 2019-11-13 14:57 ==
LOC: ED 17:17 → AC 17:18
PROVIDERS: Admitting Provider Orthopaedic Surgery; Emergency Provider Emergency Medicine; PCP Family Medicine; Visit Provider Orthopaedic Surgery
DX: M54.5 Low back pain (principal); Z98.1 Arthrodesis status; G20 Parkinson's disease; E78.5 Hyperlipidemia, unspecified; I10 Essential (primary) hypertension; M54.16 Radiculopathy, lumbar region; M48.061 Spinal stenosis, lumbar region without neurogenic claudication
CPT/HCPCS: 36415; 72131; 80048; 85025; 96372; 96374; 96376; 97161; 97165; 97535; 99284; G0378; J1100; J1170

== ENCOUNTER 2019-11-28 13:00 | Observation (INO) | payer MEDICARE, OTHER, SELFPAY ==
[2019-11-26 09:57] VITALS: BMI 28.8
[2019-11-27] VITALS (11 sets, daily range): BP systolic 110–145; BP diastolic 47–73; PULSE 61–76; RESP 10–24; TEMP 36.1–36.8; O2SAT 96–100; BMI 28.8
--- NOTE | 2019-11-27 | DI.RAD.S_ITS ---
PROCEDURE: XR LUMBAR SPINE 2-3V INDICATIONS: REVISION POSTERIOR LUMBAR FUSION TECHNIQUE: 2 intraoperative fluoroscopic views of the lumbar spine were acquired. COMPARISON: [facility], , XR LUMBAR SPINE 2-3V, 11/06/2019, 9:21. FINDINGS: 2 views of the lower thoracic and lumbar spine were acquired demonstrating posterior surgical fusion of the lower thoracic and lumbar spine with bilateral pedicular screws and paraspinal ramsey fixation. Additional paraspinal rods noted on the left side involving the lumbosacral junction. IMPRESSION: Intraoperative fluoroscopic support for posterior lumbar fusion revision. Please see operative note for further details. Dictated by: Lg Irvin M.D. on 11/27/2019 at 21:34 Approved by: Lg Irvin M.D. on 11/27/2019 at 21:36
--- NOTE | 2019-11-27 15:58 | SUR.PREOP ---
Addendum entered by Mylene Cote R.N. 11/27/19 15:59: Patient in severe pain but denies numbness or tingling. Patient denies recent falls. Patient lives with in Tuesday. Original Note: Patient here from [facility] via [facility]. Patient here with belongings and wheelchair. Patient states that he is not going back to [facility] post-op, planning instead to obtain homehealth with assistance of . Patient in se
--- NOTE | 2019-11-27 16:01 | SUR.PREOP ---
This nurse called [facility] and spoke with Irais to obtain medication list and last doses.
--- NOTE | 2019-11-27 16:10 | SUR.PREOP ---
Repositioned patient in bed for comfort. Patient voided 100 mls urine to urinal independently.
[2019-11-27] MEDS: LACTATED RINGERS 1,000 ML 42 ML IV ×2 (16:11→19:30)
--- NOTE | 2019-11-27 17:27 | PM.PREOP ---
Pre-operative Note Interval Note History & Physical reviewed/Exam performed by Physician: Yes Changes to H&P: No H&P completed within 30 days and has changed as indicated here:: The pain was intractable over the weekend. We're going to go ahead with surgery.
--- NOTE | 2019-11-27 17:33 | PM.OP.1 ---
Operative Date/Time/Diagnoses Date of procedure: 11/27/19 Time of procedure: 20:08 Pre-op diagnosis: Loose hardware lumbar spine History of scoliosis fusion Post-op diagnosis: same Procedure & Clinicians Procedure: Revision of set screw at L4 on the left. Supplemental posterior fixation from L4 through S1. Same procedure as scheduled: Yes Indications: [age] year old male with a loose ramsey after his lumbar surgery. He was having severe leg pain whenever he stood up and is felt to be from instability. We recommended surgery. Risks and benefits of surgery were discussed and appropriate consents were obtained. Surgeon: Zane Richard Click Yes if Unassisted: Yes Anesthesia Type: General Operative Notes Findings: None Closure Type: primary Specimen(s): none sent Prosthetic devices, grafts, tissues, transplants, or devices: [employer] Reline MAS system [employer] [place] ASF connector Applied: catheter Estimated Blood Loss (mL): 10 Blood products transfused: none Procedure in detail: Patient is brought to the operating room and intubated on the stretcher. He was rolled over the well-padded prone position on the Loi table. The back was prepped and draped in standard sterile fashion. Time-out was performed. Preoperative antibiotics were given. We turned our attention to the well-marked left side. We used fluoroscopy for localization and made a 6 cm incision to the left of the midline. Bovie used to come down to and split the fascia and then through the muscle to expose the screws and rods from L4 through S1. We removed the old set screw from L4. We had to lift up on the ramsey and rotate the screw but then could place it back into the [place] head. The ramsey was clamped down and a new set screw was locked down to L4. We then exposed around the ramsey between L3 and L4 and L5 and S1. We placed side connectors onto the rods at these levels. A new ramsey was conformed fit. The side ramsey was placed connecting these connectors and all the screws were locked down. Final x-rays were taken. The wound was irrigated. The fascia was closed, the superficial tissue was closed, the skin was closed. Sterile dressing was placed. He was then rolled over, extubated brought to recovery room without complications. Complications: none Post-operative Condition: stable Disposition: PACU Plan for aftercare: 1-2 days admission. Up with PT.
--- NOTE | 2019-11-27 17:47 | SUR.PREOP ---
Patient resting quietly in bed with eyes closed. Awaiting transfer to OR for surgery.
--- NOTE | 2019-11-27 17:54 | SUR.PREOP ---
Called patient's Veronica at home to update regarding status and patient's room assignment after surgery. appreciative.
[2019-11-27] MEDS: CEFAZOLIN 2 GM/100 ML FROZ.PIGGY IV (18:39)
--- NOTE | 2019-11-27 18:44 | SUR.OPER ---
Prone on spine table, head in foam head support, padded chest and pelvic supports, gel pad at knees, lower legs supported by pillows; nipples, genitalia and toes free of pressure, arms secured on foam padded arm boards at <90 degrees abduction. Tape over blanket at thigh secured to table.
[2019-11-27] MEDS: SODIUM CHLORIDE 0.9% 1,000 ML, GENTAMICIN 80 MG IRR (18:55)
[2019-11-27] MEDS: BUPIVACAINE 0.5% (PF) VIAL 30 ML INJ (19:39)
[2019-11-27] MEDS: BUPIVACAINE LIPOSOME 266 MG/20 ML VIAL INJ (19:40)
[2019-11-27] MEDS: CARBIDOPA-LEVODOPA 25/100 TABLET 1.5 EACH PO (21:58)
[2019-11-27] MEDS: CELECOXIB 200 MG CAPSULE PO (21:59)
[2019-11-27] MEDS: DOCUSATE 100 MG CAPSULE PO (21:59)
[2019-11-27] MEDS: TAMSULOSIN 0.4 MG CAPSULE PO (21:59)
[2019-11-27] MEDS: SENNOSIDES 8.6 MG TABLET 17.2 MG PO (21:59)
[2019-11-27] MEDS: ATORVASTATIN 10 MG TABLET PO (21:59)
[2019-11-27] MEDS: LACTATED RINGERS 1,000 ML 125 ML IV (22:01)
--- NOTE | 2019-11-27 22:41 | PC.NURSE ---
Admit/Evening Shift Note- Patient arrived to room via bed from pacu. Admission questions done, home medication, and physical assessment completed. Oriented patient to bed and bed controls, room, lights, phone, menu, bathroom, and call boggs/tv remote. Dressing to back c/d/i. No complaints of N/V. No complaints of pain or discomfort. Patient ate tuna sandwich without issue. Safety measures in place. Patient agrees to call for assistance. Bed alarm activated. call boggs and phone within reach. will continue to monitor.
--- NOTE | 2019-11-27 23:28 | PC.NURSE ---
Addendum entered by Judi García R.N. 11/28/19 04:55: Slept at intervals. States pain is 2-3/10 this morning but states he is used to 10/10 so declines offer of pain medication and/or ice pack. Original Note: Patient is alert and oriented. Breath sounds CTA with RA sat of 97%. HRR. Denies nausea. BT hypoactive but states he has passed flatus. Voiding per urinal; denies dysuria, frequency or urgency. Able to move self in bed. Dressing to back is CDI. Denies pain. Calf SCD's placed as per post op MD order. CMS is intact. Fall risk score is moderate; bed alarm is activated for safety.
[2019-11-28 00:10] VITALS: BP 113/54; PULSE 69; RESP 16; TEMP 36.4; O2SAT 97
[2019-11-28] MEDS: CEFAZOLIN 2 GM/100 ML FROZ.PIGGY IV ×2 (02:58→12:07)
[2019-11-28 04:45] VITALS: BP 118/57; PULSE 67; RESP 16; TEMP 36.2; O2SAT 100
[2019-11-28] MEDS: LACTATED RINGERS 1,000 ML 125 ML IV (06:16)
[2019-11-28 06:58] LABS: Hematocrit 31.7 % (41-53); Hemoglobin 10.8 g/dL (13.5-17.5)
[2019-11-28 08:00] VITALS: BP 125/59; PULSE 70; RESP 18; TEMP 36.6; O2SAT 98
--- NOTE | 2019-11-28 08:03 | PM.PNPO.1 ---
Subjective Subjective Date Patient Seen: 11/28/19 Time Patient Seen: 08:03 Interval history: He is doing great. No more leg pain. Back pain is minimal. He is able to roll over in bed and move his legs without discomfort. Exam Vital Signs (past 8 hours): - 11/28/19 00:10 11/28/19 04:45 Temperature 97.6 F 97.2 F L Pulse Rate 69 67 Respiratory Rate 16 16 Blood Pressure 113/54 L 118/57 L Pulse Oximetry 97 100 Oxygen Delivery Method Room Air Oxygen Flow Rate 0 Const Orientation: alert and oriented x3 Back/Spine/Pelvis Other: CDI. 5/5 motor both lower extremities Objective Labs Result Diagrams: 11/28/19 06:44 Labs: Laboratory Results - last 24 hr 11/28/19 06:44 Hgb 10.8 L Hct 31.7 L Assessment & Plan Post-op Postoperative Procedures: Procedures Operation Date: 11/27/19 17:15 Actual Procedures Side Surgeon p Revision posterior lumbar fusion L4-5 Zane Richard MD He is doing much better status post stabilization of his loose hardware. We will get him up with physical therapy today. He does not want to go back to rehab. This far out from his big surgery, I think there is a very good chance we should be able to get him home over the next few days with home health.
[2019-11-28] MEDS: CARBIDOPA-LEVODOPA 25/100 TABLET 1.5 EACH PO ×3 (08:40→20:51)
[2019-11-28] MEDS: CELECOXIB 200 MG CAPSULE PO ×3 (08:40→20:49)
[2019-11-28] MEDS: hydroCHLOROthiazide 12.5 MG CAPSULE PO (08:41)
[2019-11-28] MEDS: DOCUSATE 100 MG CAPSULE PO ×2 (08:41→20:51)
[2019-11-28] MEDS: LOSARTAN 50 MG TABLET 100 MG PO (08:41)
[2019-11-28] MEDS: ONDANSETRON 4 MG/2 ML INJ IV (10:13)
[2019-11-28 12:20] VITALS: BP 115/54; PULSE 91; RESP 18; TEMP 36.7; O2SAT 100
--- NOTE | 2019-11-28 12:20 | OT.IP.EVAL ---
Current Diagnoses Other forms of scoliosis, lumbar region (11/28/19) Spinal stenosis, lumbar region with neurogenic claudication (11/28/19) Other mechanical complication of other internal orthopedic devices, implants and grafts, initial encounter (11/28/19) Surgery Performed Operation Date: 11/27/19 17:15 Actual Procedures p Revision posterior lumbar fusion L4-5 - Zane Richard MD Past Medical History (Last Updated 11/26/19 @ 10:04 by Rebecca Cho, RN) Atherosclerotic heart disease of [place] coronary artery without angina pectoris (Acute) Back pain (Acute) Hearing impaired (Acute) HLD (hyperlipidemia) (Acute) HTN (hypertension) (Acute) Memory deficit (Acute) Osteoarthritis (Acute) Parkinson's disease (Acute) Postoperative anemia (Acute 11/06/19) Sciatica (Acute) Spinal stenosis (Acute) Surgical History (Last Updated 11/26/19 @ 10:05 by Rebecca Cho RN) H/O vasectomy (Acute) History of arthroplasty of left shoulder (Acute) History of arthroscopy of both knees (Acute) History of bilateral total hip arthroplasty (Acute) History of lumbar fusion (Acute ~2011) History of lumbar fusion (Acute 11/06/19) Hx of tonsillectomy (Acute) Status post correction of deviated nasal septum (Acute) Occupational Therapy Inpatient Evaluation/Re-Eval M1 PT/OT-IP Prior Functional Status Start: 11/28/19 08:13 Freq: NEEDED Status: Active Protocol: Document 11/28/19 12:20 PJM (Rec: 11/28/19 15:39 PJM [id number]) Medical Review Prior Functional Status Medical History Reviewed Yes Diet/Fluid Consistency Regular Communication WFL Mobility and Gait Prior to surgery 11/06/19, pt using 3WW for indoor and outdoor mobility, furniture walks on 2nd level of the house. He used quad cane and railing to climb stairs to 2nd level where bedroom and office are located. He has been bed or w/c bound for the past few weeks at SNF due to increased back pain. Activities of Daily Living and IADL's Pt was in SNF for the past 3 weeks since his surgery 11/06/19 . He was independent prior to that for ADLs including seated shower. does all IADLs. Pt states he still drives. Prior Functional Level (Other details) states she cannot provide any physical assist to pt due to hip pain. Social History Household Members spouse Living Arrangements House Number of Floors (Floors) Two Floors Number of Stairs To Enter/Railing? 1 stair to enter, needs to walk 150 ft to get to door (some of this is gravel) 7+7 stairs to access bedroom Home Environment High Toilet,Walk in Shower Home Equipment Quad Cane,Shower Seat with Backrest,Hand Held Shower,Long Handled Sponge,Long Handled Shoe Horn,Grants Assistant,Sock Aid, Grab Bars Near Toilet,Grab Bars In Shower Employment Status Retired Additional Social History Comment to obtain bed rail for pt and handy bar to assist with getting out of car. M2 OT-IP Current Condition Start: 11/28/19 15:10 Freq: Status: Active Protocol: Document 11/28/19 12:20 PJM (Rec: 11/28/19 15:39 [facility] [id number]) Occupational Therapy Current Condition Current Condition Evaluation Date 11/28/19 Treatment Diagnosis decr'd self care,mobility s/p repair of loose ramsey,extra post fixation L4-S1 Diagnosis Onset Date 11/27/29 Post Operative Precautions Lumbar Precautions Log Roll,No Twisting,Limit Bending,Lifting Restriction of 10 lbs,Gait Belt above Incisional Area Other Precautions fall risk, Parkinson's M3 OT- IP Subjective and Pain Start: 11/28/19 15:10 Freq: Status: Active Protocol: Document 11/28/19 12:20 PJM (Rec: 11/28/19 15:39 [facility] [id number]) OT- Subjective Occupational Therapy Visit Type Type Initial Evaluation Visit Start Time 11:36 Visit Stop Time 12:20 Notes anxious about caring for pt at home but both pt/ adamantly refuse a return to SNF as they were not happy with care at 2 different SNFs. Occupational Therapy Visit Comments Patient/Caregiver Goals to get stronger and go home OT Pain Assessment Pain When Pain Assessed After Treatment Pain Present Pain Present Pain Reported Location back Intensity 3 Scale Used Numeric (1 - 10) Description Aching,Acute M4 OT- IP ADL's Start: 11/28/19 15:10 Freq: Status: Active Protocol: Document 11/28/19 12:20 PJM (Rec: 11/28/19 15:39 [facility] [id number]) OT [id number] General Evaluation Self-Feeding Ability Independent OT ADL-Grooming General Evaluation Grooming Ability Standby Assistance,Contact Guard Assistance Areas Needing Assistance Face Washing Comments OT Grooming Comments standing at sink; pt sways forward and back and needs verbal cues to self stabilize on sink/counter, no actual LOB OT ADL-Oral Care Comments Oral Care Comments pt prefers to complete after lunch with nursing OT ADL-Dressing Assistive Devices Dressing Assistive Devices Long Handled Shoe Horn,Grants Assistant ,Sock Aid Comments OT Dressing Comments pt has lower body dressing equipt and is familiar with its use OT ADL-Toileting Comments OT Toileting Comments did not occur this session OT ADL-Bathing Comments OT Bathing Comments to be assessed M5 OT- IP IADL's Start: 11/28/19 15:10 Freq: Status: Active Protocol: Document 11/28/19 12:20 PJ (Rec: 11/28/19 15:39 [facility] [id number]) OT-Instrumental Activities of Daily Living Deficits IADL Deficits Identified Deficits Home Safety Awareness Home Safety Comments pt tends to underestimate need for assistance Medication Management Medication Management Caregiver Provides Supervision Medication Management Comments can assist PRN Money Management Money Management Caregiver Provides Supervision Money Management Comments can assist PRN Meal Preparation Meal Preparation Caregiver Provides Assist Precinct Police Lieutenant Precinct Police Lieutenant Caregiver Provides Assist Driving Driving Caregiver Provides Assist M6 OT- IP Functional Cognition Start: 11/28/19 15:10 Freq: Status: Active Protocol: Document 11/28/19 12:20 PJ (Rec: 11/28/19 15:39 [email or web address]) Cognitive Factors Limiting Selfcare Function Cognitive Ability Level of Alertness Alert Patient Orientation Name,Age,Birthday,Place, Situation Attention Span Ability Capable of Focused Attention, Capable of Sustained Attention Ability to Follow Commands Able to Follow One Step Commands Memory Description Short Term Impaired Safety Awareness Decreased Ability to Apply Precautions,Underestimates Need for Assistance Problem Solving Ability Needs Assist to Identify Solutions Executive Function Ability Unable to Remember Details Cognitive Comments Cognitive Assessment Comments Pt has hx of short term memory deficits per H&P. Pt needs verbal cues to apply precautions during self care tasks to avoid bending and twisting. Conversation occasionally repetitive. OT- Vision and Hearing OT- Hearing Assessment OT- Hearing Assessment WFL OT- Vision Assessment Visual Acuity WFL,Glasses All The Time M7 OT- IP Mobility and Balance Start: 11/28/19 15:10 Freq: Status: Active Protocol: Document 11/28/19 12:20 PJM (Rec: 11/28/19 15:39 PJM [email or web address]) OT-Transfer Assessment Sit to and From Stand Sit to and from Stand Contact Guard Assistance, Minimal Assistance Transfers Transfer Ability Contact Guard Assistance Technique Transfer Destination Chair Transfer Technique Stand Step Pivot Devices Transfer Assistive Devices Bed Rail,Front Wheeled Walker Comments Mobility Comments Pt needs CGA to min assist to arise from recliner due to unsteadiness when first arising. Needs mod verbal cues for hand placement and body mechanics. Practiced sit to stand x3. Provided education to pt/ re: car transfer techniques and resources for handy bar to assist pt getting out of car. OT- Gait Assessment Gait Gait Assistance Required: Contact Guard Assist Distance (Feet) 20 Assistive Devices Assistive Device Gait Belt,Front Wheeled Walker Comments Gait Ability Comments Pt ambulated to sink and back with FWW, slightly unsteady on turns. No actual loss of balance noted. OT- Balance Assessment Sitting Balance and Reactions Static Sitting Balance Ability Good Dynamic Sitting Balance Ability Good Standing Balance and Reactions Static Standing Balance Ability Good Dynamic Standing Balance Ability Fair Comments Other Balance Tests/Deviations/Treatment with FWW, standing at sink for : grooming M8 OT- IP Objective Assessments Start: 11/28/19 15:10 Freq: Status: Active Protocol: Document 11/28/19 12:20 PJM (Rec: 11/28/19 15:39 PJM [email or web address]) OT Gross Range of Motion Upper Extremity Range of Motion Assessment Within Functional Limits OT Strength Upper Extremity Strength Assessment Within Functional Limits Hand Professor Of Musicology Strength Hand Dominance Right OT- Coordination Assessment Comments Coordination Comments BUE WFL for self care, no hand tremors noted OT-Muscle Tone Assessment Muscle Tone WNL Yes OT Sensation Assessment Comments Summary Comments WNL BUE per pt Edema Edema Absent M9 OT- IP Assessment and Plan Start: 11/28/19 15:10 Freq: Status: Active Protocol: Document 11/28/19 12:20 PJM (Rec: 11/28/19 15:39 PJM [email or web address]) OT Summary Assessment and Plan Potential Rehabilitation Potential Good Analytic Complexity at Evaluation Low Summary OT Impairments Pain,Strength,Balance, Functional Cognition, Functional Mobility,Grooming, Dressing,Toileting,Bathing, Toilet Transfers,Shower Transfers,Activity Tolerance Assessment Summary Low complexity OT assessment completed on this 73 yr old pt re admitted 11/27/18 for repair of loose lumbar ramsey with supplemental posterior fixation of L4-S1. Pt s/p L1-3 A/P fusion and T10-L4 posterior fusion 11/06/19. He discharged to SNF, was readmitted for steroids then d /c'd to second SNF for further rehab. At baseline pt is independent with ADLS and ambulation with 3 wheeled walker in his 2 story home. He uses quad cane and railing for stairs. does all IADLS. Pt presents with performance deficits in activity tolerance and all functional mobility, transfers and standing self care tasks requiring CGA to min assist for safety/balance. See details above. Pt and both adamantly refusing to have pt return to SNF as they were not happy with care there. has arranged for pt to go to respite bed at [facility], an assisted living facility on [facility], where he will have some caregiver assist and home health OT/PT can be provided. Pt will benefit from OT services to address goals below. Goals Self-Feeding Goal Moderate Assistance Grooming Goal Standby Assistance Dressing Goal Standby Assistance Toileting Goal Standby Assistance Bathing Goal Standby Assistance,Grab Bars, Hand Held Shower Sprayer,Long Handled Sponge or [place] Toilet Transfer Goal Standby Assistance Shower Transfer Goal Contact Guard Assistance Patient/Caregiver Education Goal Demonstrate Post-Op Precautions,Demonstrate Energy Conservation and Pacing Days to Meet Goals 5 Frequency of Treatment Frequency Of Treatment Once a Day Treatment Plan OT Treatment Plan ADL Training,Functional Mobility,Patient/Family Education,Discharge Planning Discharge Recommendations OT Discharge Recommendations Home Health Other Discharge Recommendations [facility]/PT Transportation Needs at Discharge Private Vehicle
--- NOTE | 2019-11-28 12:24 | PT.IIE ---
Current Diagnoses Other forms of scoliosis, lumbar region (11/27/19) Spinal stenosis, lumbar region with neurogenic claudication (11/27/19) Other mechanical complication of other internal orthopedic devices, implants and grafts, initial encounter (11/27/19) Surgery Performed Operation Date: 11/27/19 17:15 Actual Procedures p Revision posterior lumbar fusion L4-5 - Zane Richard MD Surgical History (Last Updated 11/26/19 @ 10:05 by Rebecca Cho RN) H/O vasectomy (Acute) History of arthroplasty of left shoulder (Acute) History of arthroscopy of both knees (Acute) History of bilateral total hip arthroplasty (Acute) History of lumbar fusion (Acute ~2011) History of lumbar fusion (Acute 11/06/19) Hx of tonsillectomy (Acute) Status post correction of deviated nasal septum (Acute) Medical History (Last Updated 11/26/19 @ 10:04 by Rebecca Cho RN) Atherosclerotic heart disease of [place] coronary artery without angina pectoris (Acute) Back pain (Acute) Hearing impaired (Acute) HLD (hyperlipidemia) (Acute) HTN (hypertension) (Acute) Memory deficit (Acute) Osteoarthritis (Acute) Parkinson's disease (Acute) Postoperative anemia (Acute 11/06/19) Sciatica (Acute) Spinal stenosis (Acute) Physical Therapy Inpatient Evaluation/Re-Eval M1 PT/OT-IP Prior Functional Status Start: 11/28/19 08:13 Freq: NEEDED Status: Active Protocol: Document 11/28/19 11:15 (Rec: 11/28/19 12:24 [id number]) Medical Review Prior Functional Status Medical History Reviewed Yes Diet/Fluid Consistency Regular Communication no deficits noted Mobility and Gait prior to first surgery 11/06/19, pt using 3WW for indoor and outdoor mobility, furniture wallk for 2nd level of the house. She also used QC and rails to climb stairs to 2nd level. He has been bed/ w/c bound for the past few weeks at SNF due to increased back pain. Activities of Daily Living and IADL's Pt was in SNF for the past 3 weeks since his surgery 11/06/19 . He was independent prior to that for ADLs and IADLs. Social History Household Members spouse Living Arrangements House Number of Floors (Floors) Two Floors Number of Stairs To Enter/Railing? 1 JALIL to front entrance 7 steps with R rail to landing followed by 7 steps with B rails. Has 150 feet of gravel surface from driveway to front entrance. Home Environment High Toilet,Walk in Shower Home Equipment Quad Cane,Shower Seat with Backrest,Grab Bars Near Toilet ,Grab Bars In Shower Employment Status Retired Additional Social History Comment Pt went to [facility] at first after his first back surgery and transferred to [facility] in [place]. Pt's is mobile but will not be to provide any physical assistance due to her severe R hip pain as she stated. Pt and his stated they do not want to return to SNF due to his unpleasant experience. Will like to get assistance through [facility] upon d/c and home health. M2 PT-IP Current Condition Start: 11/28/19 08:13 Freq: NEEDED Status: Active Protocol: Document 11/28/19 11:15 (Rec: 11/28/19 12:24 [email or web address]) Physical Therapy Current Condition Current Condition Evaluation Date 11/28/19 Treatment Diagnosis Revision post lumbar fusion L4 -L5, difficulty in walking, weakness Onset Date 11/27/19 Precautions Lumbar Precautions Log Roll,No Twisting,Limit Bending,Lifting Restriction of 10 lbs,Gait Belt above Incisional Area Weight Bearing Status Weight Bearing Status Weight Bear as Tolerated M3 PT-IP Subjective Start: 11/28/19 08:13 Freq: NEEDED Status: Active Protocol: Document 11/28/19 11:15 HH (Rec: 11/28/19 12:24 [email or web address]) Subjective Physical Therapy Visit Type Type Initial Evaluation Visit Start Time 11:15 Visit Stop Time 11:45 Total Visit Minutes 30 Notes attended IE Number of DNA SEQUENCING ASSOCIATE Visits 0 Physical Therapy Visit Comments Patient Comments I am ready to get moving Patient Goals To return home with . Therapy Pain Assessment Pain When Pain Assessed During Exercise Pain Present Pain Present Pain Reported Location back Intensity 5 Description Aching Pain Management Techniques Apply Cold,Distraction,Timing of Activity with Medications M4 PT-IP Mobility and Gait Start: 11/28/19 08:13 Freq: NEEDED Status: Active Protocol: Document 11/28/19 11:15 HH (Rec: 11/28/19 12:24 [email or web address]) PT-Bed Mobility Assessment Rolling Type of Rolling Log Rolling,Roll to Left Level of Assist Minimal Assistance Supine to Sit Supine to Sit Minimal Assistance Scooting Scooting to Edge of Bed Contact Guard Assistance PT-Transfer Assessment Sit to and From Stand Sit to and from Stand Contact Guard Assistance,Use of Upper Extremities Equipment Transfer Assistive Device Gait Belt,Front Wheeled Walker Orthotic/Prosthetic Devices or Brace: No Transfers Transfer Destination Bed,Chair Transfer Technique amb with FWW Transfer Ability Level of Assist Contact Guard Assistance,Use of Upper Extremities Comments Mobility Comments Pt was up in bed upon assessment. BP 125/59. Pt completed log roll to L first followed by SL to sit but needed min A on R shoulder to push up. Pt was able to sit without support independently for 2 mins. He then stood up with FWW and use of B UEs to push off. He returned to chair after gait training and able safely transfer himself with proper UE placements on armrests and slow descend. Call light placed within reach . BP at 110/55 Gait Assessment Gait Gait Assistance Required: Contact Guard Assist Distance (Feet) 100 Able to Maintain Weight Bearing Status Yes During Gait Assistive Devices Assistive Device Gait Belt,Front Wheeled Walker Orthotic/Prosthetic Devices or Brace: No Gait Deviations General Gait Pattern Antalgic,Decreased Stride Length,Decreased Feet Clearance,Lateral Trunk Lean Factors Limiting Gait Function Factors Limiting Gait Function Decreased Activity Tolerance, Decreased Strength,Limited Range of Motion,Pain,Poor Balance,Poor Safety Awareness Comments Gait Comments Pt amb from room to staircase and returned to chair. Pt presented a wobbly gait with excessive lateral weight shift . He reports only slight increase in back pain after gait training but denied any radiating pain to extremities. He also c/o fatigue at the end of session and requested to return back to chair after approx 60 feet amb. Stair Climbing Assessment Comments Stair Climbing Comments unable to assess due to fatigue. M5 PT-IP Objective Assessments Start: 11/28/19 08:13 Freq: NEEDED Status: Active Protocol: Document 11/28/19 11:15 (Rec: 11/28/19 12:24 [id number]) Orientation Orientation/Cognition Level of Alertness Alert Orientation Name,Age,Birthday,Month,Date, Year,Day of Week,Place, Situation Language Function Ability No Deficits Noted Safety Awareness Understands Safety Issues Memory Description No Deficits Noted Gross Range of Motion Upper Extremity ROM Assessment Within Functional Limits Lower Extremity ROM Assessment Within Functional Limits Strength Upper Extremity Strength Assessment Within Functional Limits Lower Extremity Strength Assessment Within Functional Limits Coordination Assessment Gross Coordination Gross Coordination WNL Sensation Assessment Sensation Gross Sensation WNL Light Touch Intact Proprioception (Position) Intact Muscle Tone Muscle Tone WNL Yes M6 PT-IP Treatment Start: 11/28/19 08:13 Freq: NEEDED Status: Active Protocol: Document 11/28/19 11:15 HH (Rec: 11/28/19 12:24 HH [email or web address]) Physical Therapy Treatment Education Education Provided Precautions,Weight Bearing Status,Post-Op Packet,Safety M7 PT-IP Assessment and Plan Start: 11/28/19 08:13 Freq: NEEDED Status: Active Protocol: Document 11/28/19 11:15 HH (Rec: 11/28/19 12:24 HH [email or web address]) PT Summary Assessment and Plan Potential Rehabilitation Potential Good Status of Condition at Evaluation Evolving Summary Impairments Pain,ROM,Strength,Balance, Coordination,Bed Mobility, Transfers,Gait,Activity Tolerance Assessment Summary Pt is a low complexity s/p POD2 revision post lumbar fusion L4-5. Pt needed min A for supine to sit through log roll but overall required CGA for transfers and amb with FWW . He demonstrates low endurance and wobbly gait possibly due to prolonged w/c or bed bound since his first sx. Pt reports he amb better today but did get fatigue after 100 of gait training. Pt and his both refused recommendation of skilled rehab and they will get [facility] to assist pt. They also stated that pt will be able to use his reclining chair to sleep on main floor at this point , along with bathroom access so traveling to 2nd floor would not be a barrier for now. Pt also has 150 ft gravel surface from garage to front entrance with 1STE and will need to complete that prior to d/c home. Home health is also recommended at this point to imporve his mobility and strenght Goals Bed Mobility Goal Standby Assistance Transfer Goal Standby Assistance,Front Wheeled Walker Gait Goal Standby Assistance,Front Wheel Walker Gait Distance 200 Other Goals 1 JALIL to front entrance Days to Meet Goals 5 Frequency of Treatment Frequency Of Treatment Twice a Day Treatment Plan Physical Therapy Treatment Plan Bed Mobility Training,Transfer Training,Gait Training, Therapeutic Exercise,Balance Retraining,Post Op Education, Discharge Planning,Hot or Cold Pack,Neuromuscular Re-ed Other Recommendations and Next Treatment log roll Focus bed mob transfer and gait training with FWW >150 with CG 1 step if possible Recommendations To Nursing Amount of Assist Needed 1 Person Assist Discharge Recommendations PT Discharge Recommendations Home with Assistance,Home Health Equipment Needed for Home Before FWW if go home Discharge Transportation Needs at Discharge Private Vehicle
--- NOTE | 2019-11-28 13:39 | CM.DANOTE ---
Patient is a 73 year old male who was a Readmit on 11/27/19 for Lumbar Surgery. Pt has [facility] and [facility] for insurance and his PCP is Dr. Mac Reed. EMR was reviewed. Per Ortho , pt has loose hardwire and had surgery yesterday to repair and now has significantly decreased his pain and limitations. Pt was recently at SNF for rehab post initial lumbar surgery and MD feels pt likely will not need SNF at d/c but signed F2F for HH for d/c likely tomorrow pending PT/OT. Per PT/OT, pt ambulated fairly well but unable to participate in stairs during first eval and pt and spouse state they are working on a d/c plan. PT/OT plans to work with pt again this afternoon and in the morning to determine if safe for d/c. SW met bedside with pt and spouse and explained role and updated whiteboard and spent extensive amount of time discussing Medicare criteria for OBS vs Inpt and Medicare guidelines for discharging patients as spouse feels pt likely discharged too soon after initial surgery and high concerns regarding his rehab stay and care. Spouse quite anxious about caring for pt at home although she and pt adamant that they will not go to SNF again. SW discussed HH services and they are agreeable with [facility] referral and SW encouraged spouse to keep calling [facility] on Tuesday for Respite Care if home not a safe option as well as the [facility] for possible caregivers in the home. Spouse had already begun placing calls and plans to continue today. SW met with spouse and pt again and confirms that pt can d/c to [facility] for Respite Care with [facility] to meet with pt there until he can safely d/c home. Spouse taking the ferry back now to finalize arrangements with [facility] to confirm they can accommodate him tomorrow at d/c. Spouse will call [facility] this evening and leave [facility] with update if [facility] can accept tomorrow 11/29/19 and spouse aware that pt is OBS Status and need for medical justification to stay in the hospital. SW called [facility] with referral and F2F and orders to review were faxed with clinicals and liaison met bedside with pt and spouse. Plan: SW to follow for likely pt d/c to [facility] on Tuesday for Respite Care and [facility]. Spouse hoping to d/c by 1300 to catch 1400 ferry. CARL Ballesteros Discharge Planning/Care Management Advanced directive, confirm from CLINIC Start: 11/27/19 21:15 Freq: Q24H Status: Active Protocol: Document 11/27/19 21:15 AGW (Rec: 11/27/19 22:38 AGW [id number]) Advance Directive, confirm on record Time 22:30 Person contacted patient Copy received No CM Discharge Assessment Start: 11/28/19 13:07 Freq: Status: Active Protocol: Document 11/28/19 13:07 BF (Rec: 11/28/19 13:39 BF [id number]) Discharge Planning Assessment Assigned Hair Spinning Machine Operator JANETTE Shelley DPOA/Assigned Designee Name spouse Veronica Advance Directives? Yes Advance Directives on File Yes History Provided By Patient,Significant Other, Medical Record Has Patient been admitted in last 30 Yes days? Prior Living Arrangements House Household Members spouse Type of transporation used prior to Drives own vehicle admit Independent with ADL's Yes Is patient alert and oriented? Yes Needs Assistance With Managing Medications,Home Chores / Shopping Caregiver for Another No DME Already Rented / Owned Bath Bench Patient/Family Preference Home with Home Health Comment He has had some confusion through the night, will see how he does today Discharge Plan Home with Home Health Community Services Physical Therapy,Occupational Therapy,Home Health Nurse Transportation Arrangement Spouse wants to try to catch the 1400 ferry tomorrow to [place] 11/29/19 Referrals Initiated [facility] Health If patient plan is home with home health Yes : Has signed face to face form been completed? Medicare Choice List Provided Yes SNF/HH Preference [facility] Whiteboard Updated in Patient Room with Yes name and ext. # of Hair Spinning Machine Operator Review Status In Process Please Provide Date Initial DC 11/28/19 Assessment Was Performed Next Review Type Continued Stay Review Pre-Anesthesia Assessment Start: 11/26/19 09:57 Freq: Status: Complete Protocol: Document 11/26/19 09:57 CAB (Rec: 11/26/19 10:01 CAB [id number]) Pre-Anesthesia Assessment PAC Comment T10-L4 Instrumented fusion, L1 -3 anterior/posterior osteotomies on 11/06/19 Patient Information Reviewed Via Chart Review Primary Care Provider Mac Reed Seen Specialist in Last 12 Months Yes Specialist Seen Orthopedist Primary Language Congolese Preferred Language Congolese Bus Operator Required No Height 160.02 cm Weight 73.936 kg Body Mass Index (BMI) 28.8 Hearing Ability Hard of Hearing,Use of Hearing Aid Visual Assist Glasses Dentition Type Teeth, Natural Present,Teeth, Missing,Dental Implants Barriers to Learning Memory Other Aids No Comment Hx Parkinson's Hx Anesthesia Reactions Yes: Cognitive changes w/ anesthesia Hx Family Anesthesia Reaction No Hx Malignant Hyperthermia No Hx Blood Transfusions Yes: r/t Lumbar surgery 2011 Hx Blood Transfusion Reaction No Anesthesia Review Requested No Tool Lathe Operator Yes alcohol intake current alcohol intake frequency holidays/special occasions only Smoking Status Former smoker how long ago did patient quit smoking Quit 1977 Substance Use Type does not use Pain Present Pain Reported Musculoskeletal Symptoms Abnormal Gait,Back Pain, Difficulty Walking,Joint Pain, Post op Pain,Radiating Pain into Limb History of Falling (Recent or History of Yes ) Patient is completely paralyzed or No completely immobile Prosthesis or Orthotic Device Cane,Front Wheel Walker Mental Status Forgets limitations Is patient on oxygen? No Does patient have CRUZ/SOB No Hx Sleep Apnea No CPAP/BIPAP use not prescribed Currently Taking a Beta Piero No Can You Climb a Flight of Stairs Without Yes SOB Hx Chest Pain No Hx SOB No Hx Syncope or Dizziness No Anti-Coagulant Therapy No Has a Spiral Binder No Cardiac Testing No Hx Pacemaker/ICD No Pacemaker Rep Required? No Cardiac Clearance Received Not Applicable Diet Type At Home Regular dysphagia No Urinary Catheter Present No Hx Urinary Self Catheterization No Diabetes No Hx Drug Resistant Organism No Presence of External or Internal Medical Yes: Lumbar, hips, left Devices shoulder hardware Have you traveled outside the [facility] in the last 30 days? Marital Status Lives With spouse Prior Living Arrangements House Number of Floors (Floors) Two Floors Support System Spouse Does the Patient Have Assistance After Yes Surgery Patient Discharge Plan Description [facility] Facility/Rehab Feels Safe in Current Environment Yes Been Physically Hurt or Threatened By a No Person in Current Environment Do you have thoughts of harming yourself None or others? Are you currently considering suicide? No Do you have a plan to hurt yourself or No Plan others? Do You Have Any Spiritual Beliefs That No May Affect Your HC Choices? Do You Have Any Cultural Practices That No May Affect Your HC Choices? Comment Religion Who Can We Speak to About Patient's Care Family, friends Identifying Code for Release of Patient Declines to issue Information Health Care Proxy/Next of Kin Veronica () Health Care Proxy or [phone] Emergency Contact Name Veronica () Emergency Contact or [phone] Advance Directives? Yes Advance Directives on File Yes Power of Leather Currier Yes Power of Leather Currier Name Veronica () Power of Leather Currier or [phone]
[2019-11-28 15:35] VITALS: BP 111/49; PULSE 68; RESP 18; TEMP 36.7; O2SAT 100
--- NOTE | 2019-11-28 15:49 | PT.IPTN ---
Current Diagnoses Other forms of scoliosis, lumbar region (11/28/19) Spinal stenosis, lumbar region with neurogenic claudication (11/28/19) Other mechanical complication of other internal orthopedic devices, implants and grafts, initial encounter (11/28/19) Surgery Performed Operation Date: 11/27/19 17:15 Actual Procedures p Revision posterior lumbar fusion L4-5 - Zane Richard MD Physical Therapy Treatment Note M2 PT-IP Current Condition Start: 11/28/19 08:13 Freq: NEEDED Status: Active Protocol: Document 11/28/19 11:15 (Rec: 11/28/19 12:24 [id number]) Physical Therapy Current Condition Current Condition Evaluation Date 11/28/19 Treatment Diagnosis Revision post lumbar fusion L4 -L5, difficulty in walking, weakness Onset Date 11/27/19 Precautions Lumbar Precautions Log Roll,No Twisting,Limit Bending,Lifting Restriction of 10 lbs,Gait Belt above Incisional Area Weight Bearing Status Weight Bearing Status Weight Bear as Tolerated M3 PT-IP Subjective Start: 11/28/19 08:13 Freq: NEEDED Status: Active Protocol: Document 11/28/19 15:26 SP (Rec: 11/28/19 16:56 SP [email or web address]) Subjective Physical Therapy Visit Type Type Treatment Note Visit Start Time 15:26 Visit Stop Time 15:49 Total Visit Minutes 23 Number of SHOE REPAIR COBBLER Visits 1 Physical Therapy Visit Comments Patient Comments Pt agreeable to PT. Patient Goals To return home with . Therapy Pain Assessment Pain When Pain Assessed During Mobility Pain Present Pain Present Pain Reported Location back Intensity 5 Scale Used Numeric (1 - 10) Description Aching,Acute Pain Management Techniques Re-positioning,Timing of Activity with Medications M4 PT-IP Mobility and Gait Start: 11/28/19 08:13 Freq: NEEDED Status: Active Protocol: Document 11/28/19 15:26 SP (Rec: 11/28/19 16:56 SP [email or web address]) PT-Bed Mobility Assessment Rolling Type of Rolling Log Rolling,Roll to Left Level of Assist Contact Guard Assistance Supine to Sit Supine to Sit Contact Guard Assistance, Minimal Assistance,Bedrails Sit to Supine Sit to Supine Contact Guard Assistance, Bedrails Scooting Scooting to Edge of Bed Standby Assistance PT-Transfer Assessment Sit to and From Stand Sit to and from Stand Contact Guard Assistance,Use of Upper Extremities Equipment Transfer Assistive Device Bed Rail,Front Wheeled Walker Orthotic/Prosthetic Devices or Brace: No Transfers Transfer Destination Bed Transfer Technique pt ambulated with FWW Transfer Ability Level of Assist Contact Guard Assistance,Use of Upper Extremities Comments Mobility Comments Pt was laying in bed when arrived. HOB flat complete log roll with cuing for knees and shld roll together slow controlled pacing, can be quick moving transition L sidelying to supine, cued for pushing up from bed whle letting legs down at same time completed on second attempt CGA- low Emily. sit to stand CGA usign FWW. Pt was ableto complete reverse sitting to L sideying and log roll onto back with SBA with cues for slow control to maintain spinal precautions, quick but successful. Pt was laying in bed with bed alarm on, call light and needs in reach when left. Gait Assessment Gait Gait Assistance Required: Contact Guard Assist Distance (Feet) 65 Able to Maintain Weight Bearing Status Yes During Gait Assistive Devices Assistive Device Gait Belt,Front Wheeled Walker Orthotic/Prosthetic Devices or Brace: No Gait Deviations General Gait Pattern Antalgic,Decreased Stride Length,Decreased Feet Clearance,Lateral Trunk Lean Factors Limiting Gait Function Factors Limiting Gait Function Decreased Activity Tolerance, Decreased Strength,Limited Range of Motion,Pain,Poor Balance,Poor Safety Awareness Comments Gait Comments Pt was able to ambulate further distance with w/c follow CGA using FWW, cued for body closer to FWW, awareness of knee extension due to noted knees slightly flexion, and slow controlled pacing. Therapist lowered FWW x1 notch to assist proper height fit. Pt required seated rest using w/c once got to stairs, cued for proper hand placement and awareness of therapist applying brake mgt for safety. Pt was able to walk same distance back to room withimproved pacing and upright posture, stride length and foot clearance. Stair Climbing Assessment Evaluation Level of Assist On Stairs Minimal Assistance,1 Person Assistance Devices Stair Climbing Assistive Devices Front Wheel Walker Technique/Endurance Stair Climbing Direction Ascend and Descend Stair Climbing Technique Step to Step Number of Steps Climbed 1 Stair Climbing Set # Repetitions (reps) 1 Comments Stair Climbing Comments Pt was ableto complete 1 plateform step using fWW after seated rest fromwalking, Low Min A with cuing for proper sequencing BLE and FWW positioning for safety and success. CGT again required prior to DC with . PT-Balance Assessment Sitting Balance and Reactions Static Sitting Balance Ability Good Dynamic Sitting Balance Ability Fair Standing Balance and Reactions Static Standing Balance Ability Fair Dynamic Standing Balance Ability Poor Device Used FWW M5 PT-IP Objective Assessments Start: 11/28/19 08:13 Freq: NEEDED Status: Active Protocol: Document 11/28/19 11:15 HH (Rec: 11/28/19 12:24 HH [id number]) Orientation Orientation/Cognition Level of Alertness Alert Orientation Name,Age,Birthday,Month,Date, Year,Day of Week,Place, Situation Language Function Ability No Deficits Noted Safety Awareness Understands Safety Issues Memory Description No Deficits Noted Gross Range of Motion Upper Extremity ROM Assessment Within Functional Limits Lower Extremity ROM Assessment Within Functional Limits Strength Upper Extremity Strength Assessment Within Functional Limits Lower Extremity Strength Assessment Within Functional Limits Coordination Assessment Gross Coordination Gross Coordination WNL Sensation Assessment Sensation Gross Sensation WNL Light Touch Intact Proprioception (Position) Intact Muscle Tone Muscle Tone WNL Yes M6 PT-IP Treatment Start: 11/28/19 08:13 Freq: NEEDED Status: Active Protocol: Document 11/28/19 15:26 SP (Rec: 11/28/19 16:56 SP [email or web address]) Physical Therapy Treatment Education Education Provided Precautions,Weight Bearing Status,Safety M7 PT-IP Assessment and Plan Start: 11/28/19 08:13 Freq: NEEDED Status: Active Protocol: Document 11/28/19 15:26 SP (Rec: 11/28/19 16:56 SP [email or web address]) PT Summary Assessment and Plan Potential Rehabilitation Potential Good Status of Condition at Evaluation Evolving Summary Impairments Pain,ROM,Strength,Balance, Coordination,Bed Mobility, Transfers,Gait,Activity Tolerance Assessment Summary Pt required CGA- low Min for supine to sit through log roll but overall required CGA for transfers, amb, 1 step mgt with FWW. He demonstrates low endurance and wobbly gait possibly due to prolonged w/c or bed bound since his first sx. Pt reports did get fatigue after 60t of gait training. Pt and his both refused recommendation of skilled rehab and they will get Respite Care to assist pt. They also stated that pt will be able to use his reclining chair to sleep on main floor at this point , along with bathroom access so traveling to 2nd floor would not be a barrier for now. Pt also has 150 ft gravel surface from garage to front entrance with 1STE and will need to complete that prior to d/c home. Home health is also recommended at this point to imporve his mobility and strenght Goals Bed Mobility Goal Standby Assistance Transfer Goal Standby Assistance,Front Wheeled Walker Gait Goal Standby Assistance,Front Wheel Walker Gait Distance 200 Other Goals 1 JALIL to front entrance- completed using FWW 11/28/ Min A Days to Meet Goals 5 Frequency of Treatment Frequency Of Treatment Twice a Day Treatment Plan Physical Therapy Treatment Plan Bed Mobility Training,Transfer Training,Gait Training, Therapeutic Exercise,Balance Retraining,Post Op Education, Discharge Planning,Hot or Cold Pack,Neuromuscular Re-ed Other Recommendations and Next Treatment log roll Focus bed mob transfer and gait training with FWW >150 with caregiver/ 1 step if possible Recommendations To Nursing Amount of Assist Needed 1 Person Assist Discharge Recommendations PT Discharge Recommendations Home with Assistance,Home Health Equipment Needed for Home Before FWW if go home Discharge Transportation Needs at Discharge Private Vehicle
[2019-11-28 19:08] VITALS: BP 117/55; PULSE 65; RESP 18; TEMP 36.4; O2SAT 96
[2019-11-28] MEDS: SENNOSIDES 8.6 MG TABLET 17.2 MG PO (20:49)
[2019-11-28] MEDS: TAMSULOSIN 0.4 MG CAPSULE PO (20:50)
[2019-11-28] MEDS: ATORVASTATIN 10 MG TABLET PO (20:50)
[2019-11-28] MEDS: hydrOXYzine pamoate 25 MG CAPSULE PO (20:50)
[2019-11-28] MEDS: HYDROCODONE/ACET 5/325 TABLET 1 TAB PO (22:59)
--- NOTE | 2019-11-28 23:29 | PC.NURSE ---
Evening Shift Note- Patient called asking for pain medication. PRN [place] given per patient request. Patient raise arm up up and stated...can we take this thing out? Patient was referring to IV to right forearm which was only holding on by tape. IV removed and bandaid applied. Patient refused new IV line to be placed.
[2019-11-29 00:07] VITALS: BP 94/37; PULSE 68; RESP 18; TEMP 36.9; O2SAT 99
--- NOTE | 2019-11-29 00:58 | PC.NURSE ---
Patient states he was having hallucinations earlier which is typically for up to 1 month following anesthesia. Attempted to ask orientation questions but patient angry with staff and would only say I know where I am. Angry because he states he was asleep and bed alarm went off and now I won't get to sleep. Breath sounds CTA with RA sat of 99%. HRR. BP low at 93/37 and refused to have rechecked; may be related to narcotic use so will need to monitor. Denies nausea. BT present and states he is passing flatus. Is voiding per urinal; denies dysuria, frequency or urgency. Is able to turn self in bed. Gait not assessed at this time. Dressing to back is CDI. CMS is intact. Refusing SCD's so reminded to ankle wave; verbalizes understanding of purpose of SCD's but still declines. States pain in back is 4/10 but tolerable and declines further intervention. Fall risk score is moderate; bed alarm is activated.
[2019-11-29 06:05] VITALS: BP 136/64; PULSE 66; RESP 17; TEMP 36.9; O2SAT 100
--- NOTE | 2019-11-29 06:49 | P.DS_ITS ---
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 He underwent a 2 level anterior osteotomy and a T10 through L4 posterior fusion on 11/06/19. He initially did very well in the hospital was discharged to retirement. Ho wever, once the retirement he was having severe pain running down his left leg. He was readmitted to the hospital overnight placed on IV steroids and this resolved and he was up and moving again. He was discharged back to retirement but the pain began returning. They again tried him on steroids which helped but it began worsening. He was only able to lay in bed without pain but could not sit or stand without excruciating pain. X-rays showed that his ramsey had come off the inferior screw on the left at L4 and is felt that most of this pain was instability of his construct and stabilization would most likely help. Discharge Providers Provider Date of admission: 11/28/19 13:00 Discharge Date: 11/29/19 Primary care physician: Mac Reed MD Consults: 11/27/19 21:09 Consult to Occupational Therapy Evaluate & Treat Comment: Physician Instructions: Evaluate and treat Consult to Physical Therapy Evaluate & Treat Comment: Physician Instructions: Evaluate and Treat 11/28/19 08:04 Consult to CUSTOMER SUCCESS MANAGER - Warehouse Worker 2Nd Shift Routine Comment: Home health eval 11/28/19 11:28 Consult to Home Health Routine Comment: Spinal stenosis, s/p fusion Reason For Exam: Set up RN/PT/OT/INTERNATIONAL CONTROLLER for d/c home Discharge provider: Zane Richard MD Summary Hospital Course Discharge Diagnosis: Lumbar scoliosis Loose hardware Hospital Course: He is brought to the operating room on 11/27/19 where his L4 screw was hooked back up to the ramsey as well as a side connector was hooked from that ramsey down to his old L5-S1 construct for additional stability. Post operatively he did extremely well. All the leg pain resolved. He was still slow with mobility but he was able to get out of bed and walk with minimal assistance by date of discharge. Status at Discharge Cognitive/behavioral status at discharge: oriented Functional status at discharge: uses cane/walker Overall status at discharge: patient is progressing back to baseline Exam Vital Signs (past 8 hours): - 11/29/19 00:07 11/29/19 06:05 Temperature 98.4 F 98.4 F Pulse Rate 68 66 Respiratory Rate 18 17 Blood Pressure 94/37 L 136/64 Pulse Oximetry 99 100 Oxygen Delivery Method Room Air Oxygen Flow Rate 0 Const Orientation: alert and oriented x3 Back/Spine/Pelvis Other: CDI. 5/5 motor both lower extremities Objective Labs Result Diagrams: 11/28/19 06:44 Labs: Laboratory Results - last 24 hr 11/28/19 06:44 Hgb 10.8 L Hct 31.7 L Discharge Plan Discharge Plan Patient Disposition: Assisted Living Other facility: [facility] Discharge comment: f/u 1.5 wks Discharge orders & Medications Discharge Orders: Discharge (Order); Ordered 11/29/19 Ordered By: Zane Richard Prescriptions: New hydrocodone-acetaminophen 5-325 mg Tablet 1 tab PO Q4HR PRN (Reason: Pain, Moderate (4-6)) Qty: 20 RF: 0 Continued losartan-hydrochlorothiazide 100-12.5 mg Tablet 1 tab PO DAILY RF: 0 atorvastatin 10 mg Tablet 10 mg PO BEDTIME RF: 0 acetaminophen [Tylenol Extra Strength] 500 mg Tablet 1,000 mg PO Q4H PRN (Reason: Pain) RF: 0 tamsulosin 0.4 mg Capsule 0.4 mg PO BEDTIME RF: 0 carbidopa-levodopa 25-100 mg Tablet 1.5 tab PO TID RF: 0 hydrocodone-acetaminophen 5-325 mg Tablet 1 tab PO Q4HR PRN (Reason: Pain, Moderate (4-6)) Qty: 20 RF: 0 hydroxyzine pamoate 25 mg Capsule 25 mg PO Q4HR PRN (Reason: spasms) Qty: 15 RF: 0 celecoxib [Celebrex] 200 mg Capsule 200 mg PO BID PRN (Reason: pain) Qty: 60 RF: 0 docusate sodium [DOK] 100 mg Capsule 100 mg PO BID Qty: 40 RF: 0 Follow up/Referrals: Mac Reed MD [Primary Care Provider] - Diet/Activity/Treatments Diet: Diet as Tolerated Activity: limited BLT Skin/Wound/Dressing Care Report to your healthcare provider any signs of infection, such as:: chills, fever, night sweats, increased pain, unusual drainage and unusual redness Dressing: may change and shower POD#5 Visit Report/Discharge Packet Stand Alone Forms: Surgery Discharge Discharge Data Primary Care Provider: Mac Reed Attending Provider: Zane Richard Admvinny Date/Time: 11/28/19 13:00
--- NOTE | 2019-11-29 06:58 | PM.PNPO.1 ---
Subjective Subjective Date Patient Seen: 11/29/19 Time Patient Seen: 06:58 Interval history: He is doing much better. Still requiring mild assist but pain is very manageable. No more leg pain. Exam Vital Signs (past 8 hours): - 11/29/19 00:07 11/29/19 06:05 Temperature 98.4 F 98.4 F Pulse Rate 68 66 Respiratory Rate 18 17 Blood Pressure 94/37 L 136/64 Pulse Oximetry 99 100 Oxygen Delivery Method Room Air Oxygen Flow Rate 0 Const Orientation: alert and oriented x3 Back/Spine/Pelvis Other: CDI. 5/5 motor both lower extremities Objective Labs Result Diagrams: 11/28/19 06:44 Labs: Laboratory Results - last 24 hr 11/28/19 06:44 Hgb 10.8 L Hct 31.7 L Assessment & Plan Post-op Postoperative Procedures: Procedures Operation Date: 11/27/19 17:15 Actual Procedures Side Surgeon p Revision posterior lumbar fusion L4-5 Zane Richard MD He is doing great. Plan is to discharge to the [facility] for respite care prior to going home.
[2019-11-29 08:00] VITALS: BP 131/68; PULSE 67; RESP 18; TEMP 36.3; O2SAT 100
--- NOTE | 2019-11-29 09:07 | CM.DPC ---
Addendum entered by Anuja Barreto LPN 11/29/19 12:18: Irais/[facility] stopped in as pt had left his hearing aides at their facility and she was returning them to him in prep for his d/c today. Original Note: DCP: continued: Case received, d/c order noted. EMR with focus on DCPlanner's note. Followed up on DCP needs: met with pt who confirmed his plan for a d/c to [facility] at the [facility] setting. His Veronica in on her way to the hospital and hopes to return on the 2:10 ferry to [place]. OT Gayathri is working with pt now, confirms that the therapy team will assist him into the car and LONG TERM staff will help him get out and into their building. DC summary will be sent to the facility and is also sent to [facility]. [place]/[facility] says her team sees many patients at this facility and can open pt to service tomorrow. Will follow prn until pt leaves to facilitate smooth process.
[2019-11-29] MEDS: SODIUM CHLORIDE 0.9% FLUSH 10 ML IV (09:34)
[2019-11-29] MEDS: CELECOXIB 200 MG CAPSULE PO (09:34)
[2019-11-29] MEDS: DOCUSATE 100 MG CAPSULE PO (09:34)
[2019-11-29] MEDS: LOSARTAN 50 MG TABLET 100 MG PO (09:34)
[2019-11-29] MEDS: CARBIDOPA-LEVODOPA 25/100 TABLET 1.5 EACH PO (09:34)
[2019-11-29] MEDS: hydroCHLOROthiazide 12.5 MG CAPSULE PO (09:42)
--- NOTE | 2019-11-29 11:30 | PT.IPTN ---
Current Diagnoses Other forms of scoliosis, lumbar region (11/28/19) Spinal stenosis, lumbar region with neurogenic claudication (11/28/19) Other mechanical complication of other internal orthopedic devices, implants and grafts, initial encounter (11/28/19) Surgery Performed Operation Date: 11/27/19 17:15 Actual Procedures p Revision posterior lumbar fusion L4-5 - Zane Richard MD Physical Therapy Treatment Note M2 PT-IP Current Condition Start: 11/28/19 08:13 Freq: NEEDED Status: Discharge Protocol: Document 11/28/19 11:15 HH (Rec: 11/28/19 12:24 [id number]) Physical Therapy Current Condition Current Condition Evaluation Date 11/28/19 Treatment Diagnosis Revision post lumbar fusion L4 -L5, difficulty in walking, weakness Onset Date 11/27/19 Precautions Lumbar Precautions Log Roll,No Twisting,Limit Bending,Lifting Restriction of 10 lbs,Gait Belt above Incisional Area Weight Bearing Status Weight Bearing Status Weight Bear as Tolerated M3 PT-IP Subjective Start: 11/28/19 08:13 Freq: NEEDED Status: Discharge Protocol: Document 11/29/19 11:18 SP (Rec: 11/29/19 13:40 SP [email or web address]) Subjective Physical Therapy Visit Type Type Treatment Note Visit Start Time 11:18 Visit Stop Time 11:30 Total Visit Minutes 12 Number of POST CLOSER Visits 2 Physical Therapy Visit Comments Patient Comments Pt agreeable to working with PT. has not arrived yet for caregiver training, Patient Goals To DC to [facility] today for further rehab/ care until strong enough to return home with . Therapy Pain Assessment Pain Present Pain Present Denied Pain M4 PT-IP Mobility and Gait Start: 11/28/19 08:13 Freq: NEEDED Status: Discharge Protocol: Document 11/29/19 11:18 SP (Rec: 11/29/19 13:40 SP [email or web address]) PT-Transfer Assessment Sit to and From Stand Sit to and from Stand Contact Guard Assistance,Use of Upper Extremities Equipment Transfer Assistive Device 4 Wheeled Walker Orthotic/Prosthetic Devices or Brace: No Transfers Transfer Technique Pt ambulated with tripod wheeled walker Transfer Ability Level of Assist Standby Assistance,Contact Guard Assistance,Use of Upper Extremities Comments Mobility Comments Pt was up in chair when arrived. Pt's was not present for caregiver training , OT stated was planning on being present for caregiver training and car transfer with when arrived. Sit <> stand from chair SBA, good 3WW break mgt prior to stand and sit, good upright trunk posture. Pt ambulated around nursing station and back. Up in chair with all needs, call light and chair alarm on when left. Gait Assessment Gait Gait Assistance Required: Standby Assistance,Contact Guard Assist Distance (Feet) 212 Able to Maintain Weight Bearing Status Yes During Gait Assistive Devices Assistive Device Gait Belt,Front Wheeled Walker Orthotic/Prosthetic Devices or Brace: No Gait Deviations General Gait Pattern Antalgic,Decreased Stride Length,Decreased Feet Clearance,Lateral Trunk Lean Factors Limiting Gait Function Factors Limiting Gait Function Decreased Activity Tolerance, Decreased Strength,Limited Range of Motion,Pain,Poor Balance,Poor Safety Awareness Comments Gait Comments Pt impulsive during gait using 3WW required SBA with occasional CGA and cuing for closer to 3WW for upright posture and slower pacing for safety mgt. Educated use of brake mgt for assist slower pacing as needed for safety. No LOB, decreased strengthen and endurance, required 2 stopped standing rests and commented wow this is a much further distance than has been doing and could use a place to sit down. Approx 212 ft. POST CLOSER instructed patient assimulation threshold entering home while using 3WW over shower lip, impulsive, cued slower pacing and use of brake mgt each tire and foot positioning for safety mgt CGA provided. Recommended use of FWW for slower safe pacing at this time. Stair Climbing Assessment Comments Stair Climbing Comments Did not assess, see gait comments using shower lip to assimulate front door enterance and recommend FWW for safety, impulsive using FWW, no LOB. PT-Balance Assessment Sitting Balance and Reactions Static Sitting Balance Ability Good Dynamic Sitting Balance Ability Good Standing Balance and Reactions Static Standing Balance Ability Fair Dynamic Standing Balance Ability Poor Device Used 3WW M5 PT-IP Objective Assessments Start: 11/28/19 08:13 Freq: NEEDED Status: Discharge Protocol: Document 11/28/19 11:15 (Rec: 11/28/19 12:24 [email or web address]) Orientation Orientation/Cognition Level of Alertness Alert Orientation Name,Age,Birthday,Month,Date, Year,Day of Week,Place, Situation Language Function Ability No Deficits Noted Safety Awareness Understands Safety Issues Memory Description No Deficits Noted Gross Range of Motion Upper Extremity ROM Assessment Within Functional Limits Lower Extremity ROM Assessment Within Functional Limits Strength Upper Extremity Strength Assessment Within Functional Limits Lower Extremity Strength Assessment Within Functional Limits Coordination Assessment Gross Coordination Gross Coordination WNL Sensation Assessment Sensation Gross Sensation WNL Light Touch Intact Proprioception (Position) Intact Muscle Tone Muscle Tone WNL Yes M6 PT-IP Treatment Start: 11/28/19 08:13 Freq: NEEDED Status: Discharge Protocol: Document 11/29/19 11:18 SP (Rec: 11/29/19 13:40 SP [email or web address]) Physical Therapy Treatment Education Education Provided Precautions,Weight Bearing Status,Safety M7 PT-IP Assessment and Plan Start: 11/28/19 08:13 Freq: NEEDED Status: Discharge Protocol: Document 11/29/19 11:18 SP (Rec: 11/29/19 13:40 SP [email or web address]) PT Summary Assessment and Plan Potential Rehabilitation Potential Good Status of Condition at Evaluation Evolving Summary Impairments Pain,ROM,Strength,Balance, Coordination,Bed Mobility, Transfers,Gait,Activity Tolerance Assessment Summary Pt impulsive using 3WW, good brake mgt but requires cues for slow pacing during gait and assimulate front door threshod using shower lip SBA- CGA required for safety during gait and sit to stand from chair. Recommended use of FWW for safety at this time. not available for caregiver training, OT completing cargiver training when arrives to include car transfer. PT recommends SNF DC for further strengthening, safety mgt trng with LRAD, to work toward functional independence when medically stable. Goals Bed Mobility Goal Standby Assistance Transfer Goal Standby Assistance,Front Wheeled Walker Gait Goal Standby Assistance,Front Wheel Walker Gait Distance 200 Other Goals 1 JALIL to front entrance- completed using FWW 11/28/19 Min A Days to Meet Goals 5 Frequency of Treatment Frequency Of Treatment Twice a Day Treatment Plan Physical Therapy Treatment Plan Bed Mobility Training,Transfer Training,Gait Training, Therapeutic Exercise,Balance Retraining,Post Op Education, Discharge Planning,Hot or Cold Pack,Neuromuscular Re-ed Other Recommendations and Next Treatment log roll Focus bed mob transfer and gait training with FWW >150 1 step traning to be completed by caregiver/ prior to DC home Recommendations To Nursing Amount of Assist Needed Standby Assistance Discharge Recommendations PT Discharge Recommendations Home with Assistance,Home Health Equipment Needed for Home Before FWW if go home Discharge Transportation Needs at Discharge Private Vehicle
--- NOTE | 2019-11-29 12:23 | PC.NURSE ---
Day shift: Pt off unit at approx 1225. Taken to car driven by his spouse by MARGOT [facility] in . Paperwork signed and all questions answered. Pt has MD scrips as well as all personal belongings. Pt has d/c packet that will be given to assisted living staff.
--- NOTE | 2019-11-29 12:30 | OT.IP.TRT ---
Current Diagnoses Other forms of scoliosis, lumbar region (11/28/19) Spinal stenosis, lumbar region with neurogenic claudication (11/28/19) Other mechanical complication of other internal orthopedic devices, implants and grafts, initial encounter (11/28/19) Surgery Performed Operation Date: 11/27/19 17:15 Actual Procedures p Revision posterior lumbar fusion L4-5 - Zane Richard MD Occupational Therapy Treatment Note M3 OT- IP Subjective and Pain Start: 11/28/19 15:10 Freq: Status: Active Protocol: Document 11/29/19 12:30 PJM (Rec: 11/29/19 17:37 PJM [id number]) OT- Subjective Occupational Therapy Visit Type Type Treatment Note Visit Start Time 12:16 Visit Stop Time 12:30 Occupational Therapy Visit Comments Patient Comments 'I want to get out of here. Patient/Caregiver Goals to return to [facility] today OT Pain Assessment Pain When Pain Assessed After Treatment Pain Present Pain Present Pain Reported Location back Intensity 2 Scale Used Numeric (1 - 10) Description Aching,Acute M7 OT- IP Mobility and Balance Start: 11/28/19 15:10 Freq: Status: Active Protocol: Document 11/29/19 12:30 PJM (Rec: 11/29/19 17:37 PJM [id number]) OT-Transfer Assessment Sit to and From Stand Sit to and from Stand Contact Guard Assistance Transfers Transfer Ability Minimal Assistance Technique Transfer Destination Car Transfer Technique Stand Step Pivot Devices Transfer Assistive Devices Gait Belt Comments Mobility Comments Pt using 3 wheel walker to transfer to w/c for transport down to his care. Provided education to pt and re: car transfer technique using sit/swivel method. Pt needs min assist for balance and to get BLE's into vehicle. OT- Balance Assessment Sitting Balance and Reactions Static Sitting Balance Ability Good Dynamic Sitting Balance Ability Fair Standing Balance and Reactions Static Standing Balance Ability Good Dynamic Standing Balance Ability Fair M9 OT- IP Assessment and Plan Start: 11/28/19 15:10 Freq: Status: Active Protocol: Document 11/29/19 12:30 PJM (Rec: 11/29/19 17:37 PJM [id number]) OT Summary Assessment and Plan Summary Progress Towards Goals Safe For Discharge,Goals Met Assessment Summary Pt to d/c today to [facility] with OT/PT services there with longterm goal of returning home with when able. Frequency of Treatment Frequency Of Treatment Discharge Discharge Recommendations OT Discharge Recommendations Home Health Other Discharge Recommendations [facility] respite bed Transportation Needs at Discharge Private Vehicle
== END 2019-11-29 12:30 ==
LOC: OR 14:17
PROVIDERS: Admitting Provider Orthopaedic Surgery; PCP Family Medicine; Visit Provider Orthopaedic Surgery
PROC: (CPT 22899; principal; 2019-11-27 17:15)
DX: T84.498A Other mechanical complication of other internal orthopedic devices, implants and grafts, initial encounter (principal); M48.062 Spinal stenosis, lumbar region with neurogenic claudication; M41.86 Other forms of scoliosis, lumbar region
CPT/HCPCS: 22899; 36415; 72100; 76000; 85014; 85018; 97116; 97161; 97165; 97530; 97535; C1776; G0378; C9290; J0690; J1100; J2405; J2704; J3010

== ENCOUNTER 2019-12-10 11:02 | Inpatient (IN) | payer MEDICARE, OTHER, SELFPAY ==
[2019-11-27 21:10] VITALS: BMI 28.8
[2019-12-10 11:51] VITALS: BMI 26.3
[2019-12-10] MEDS: ACETAMINOPHEN 325 MG TABLET 650 MG PO ×2 (13:26→20:04)
[2019-12-10] MEDS: CARBIDOPA-LEVODOPA 25/100 TABLET 1.5 EACH PO ×2 (13:27→20:04)
[2019-12-10] MEDS: HYDROCODONE/ACET 5/325 TABLET 1 TAB PO (13:27)
[2019-12-10] MEDS: LACTATED RINGERS 1,000 ML 100 ML IV (13:28)
[2019-12-10 14:24] VITALS: BP 125/60; PULSE 71; RESP 16; TEMP 36.4; O2SAT 97
[2019-12-10] MEDS: OXYCODONE IR 5 MG TABLET PO ×3 (15:37→23:29)
[2019-12-10 15:50] VITALS: BP 138/61; PULSE 64; RESP 17; TEMP 36.9; O2SAT 100
[2019-12-10 19:40] VITALS: BP 118/55; PULSE 63; RESP 17; TEMP 37.1; O2SAT 98
[2019-12-10] MEDS: TELMISARTAN 40 MG TABLET 80 MG PO (20:03)
[2019-12-10] MEDS: CELECOXIB 200 MG CAPSULE PO (20:04)
[2019-12-10] MEDS: TAMSULOSIN 0.4 MG CAPSULE PO (20:04)
[2019-12-10] MEDS: PANTOPRAZOLE 20 MG TABLET PO (20:04)
[2019-12-10] MEDS: DOCUSATE 100 MG CAPSULE PO (20:04)
[2019-12-10] MEDS: hydroCHLOROthiazide 12.5 MG CAPSULE 25 MG PO (20:13)
[2019-12-10 23:30] VITALS: BP 141/72; PULSE 62; RESP 20; TEMP 37; O2SAT 97
[2019-12-11] VITALS (16 sets, daily range): BP systolic 92–182; BP diastolic 37–69; PULSE 56–83; RESP 9–18; TEMP 36.2–37.1; O2SAT 95–100; BMI 26.3
--- NOTE | 2019-12-11 | DI.RAD.S_ITS ---
PROCEDURE: XR LUMBAR SPINE 2-3V INDICATIONS: SCOLIOSIS SHAN CHANGE TECHNIQUE: 4 intraoperative fluoroscopic spot views of the lumbar spine were acquired. COMPARISON: [facility], , XR LUMBAR SPINE 2-3V, 11/27/2019, 19:35. FINDINGS: Transpedicular screws are present at multiple levels. Craniocaudal fixation rods are seen. The correlate with intended position of hardware. IMPRESSION: Intraoperative fluoroscopy for hardware replacement. Dictated by: Roz Hermosillo M.D. on 12/11/2019 at 20:11 Approved by: Roz Hermosillo M.D. on 12/11/2019 at 20:13
[2019-12-11] MEDS: LACTATED RINGERS 1,000 ML 100 ML IV ×2 (00:42→11:03)
[2019-12-11] MEDS: OXYCODONE IR 5 MG TABLET PO ×3 (03:15→12:03)
--- NOTE | 2019-12-11 07:20 | PM.PN.1 ---
Subjective Subjective Date Patient Seen: 12/11/19 Time Patient Seen: 07:20 Interval history: He is comfortable just waiting in bed Exam Vital Signs (past 8 hours): - 12/10/19 23:30 12/11/19 03:30 Temperature 98.6 F 98.7 F Pulse Rate 62 58 L Respiratory Rate 20 16 Blood Pressure 141/72 H 139/58 L Pulse Oximetry 97 100 Oxygen Flow Rate 0 Const Orientation: alert and oriented x3 Back/Spine/Pelvis Other: 5/5 motor both lower extremities Assessment & Plan Assessment & Plan narrative: Plan for return to the operating room today for changing our hardware when a room is available this afternoon. Quality VTE Deep Vein Thrombosis/Pulmonary Embolism Present on Admission: No
[2019-12-11] MEDS: CARBIDOPA-LEVODOPA 25/100 TABLET 1.5 EACH PO ×2 (07:53→20:48)
[2019-12-11] MEDS: ACETAMINOPHEN 325 MG TABLET 650 MG PO ×2 (07:53→20:48)
[2019-12-11] MEDS: CELECOXIB 200 MG CAPSULE PO ×2 (07:54→20:48)
[2019-12-11] MEDS: DOCUSATE 100 MG CAPSULE PO ×2 (07:55→22:19)
--- NOTE | 2019-12-11 11:16 | CM.DANOTE ---
DCP: Case received, EMR reviewed and met with patient Introduced self and role. Patient remembered this embedded case manager's name, for he was here before. Was able to get some information regarding living situation and health history from patient, as well as , Veronica, via phone, with patient's permission. DCP assessment completed with information currently available. Patient is a 73 year old male who admitted yesterday morning to the care of the orthopedic team. PCP: Dr. eRed. Payer: confirmed: Medicare/[facility]. Patient came to the hospital, was sent from orthopedics for back surgery for hard ricks replacement. Met with patient in his room. He is alert and oriented, remembered this embedded case manager's name from before. He was here recently with back surgery, and went to [facility] in [facility]. Prior to that, he came here from [place], and did not want him to return there. Patient is alert and oriented. Mentioned that [place]. Spoke to over the phone with patient's permission, and she does not want him going back to rehab, she feels that they have made his back worse. Patient is to be having surgery today. P: DCP to continue to follow. Will be available for any resources needed. He may get orders for P.T. as well after surgery. Carmen Jones RN/Resident Hall Director
--- NOTE | 2019-12-11 15:33 | PM.PREOP ---
Pre-operative Note Interval Note History & Physical reviewed/Exam performed by Physician: Yes Changes to H&P: No
--- NOTE | 2019-12-11 15:57 | PC.NURSE ---
Shift summary: Late entry Alert and oriented X3. Denied paresthesias. Pain control was an issue, but improved as the day went along. NPO since 0800. Voiding without issue. Up to BR with 1-person assist and FWW. Taken off floor @ approx 1500 to surgery. Surgery crew made aware that consent still needs to be witnessed.
[2019-12-11] MEDS: CEFAZOLIN 2 GM/100 ML FROZ.PIGGY IV ×2 (16:17→23:30)
--- NOTE | 2019-12-11 17:11 | SUR.OPER ---
Prone on spine table, head in foam head support, padded chest and pelvic supports, gel pad at knees, lower legs supported by pillows; nipples, genitalia and toes free of pressure, arms secured on foam padded arm boards at <90 degrees abduction Right arm down along side with left arm positioned up towards. Tape over blanket at thigh secured to table.
[2019-12-11] MEDS: SODIUM CHLORIDE 0.9% 1,000 ML, GENTAMICIN 80 MG IRR (17:27)
[2019-12-11] MEDS: BUPIVACAINE 0.25% W/ EPI 30 ML VIAL INJ (17:28)
[2019-12-11] MEDS: BUPIVACAINE LIPOSOME 266 MG/20 ML VIAL INJ (17:29)
[2019-12-11] MEDS: VANCOMYCIN 1,000 MG VIAL 1000 MG TOP (18:00)
--- NOTE | 2019-12-11 18:16 | PM.OP.1 ---
Operative Date/Time/Diagnoses Date of procedure: 12/11/19 Time of procedure: 18:17 Pre-op diagnosis: Scoliosis Loosening of scoliosis hardware Post-op diagnosis: same Procedure & Clinicians Procedure: Exchange of L5 and S1 screws on the left Removal of old ramsey and placement of new ramsey from T10 through S1 Same procedure as scheduled: Yes Indications: 74-year-old male who underwent a 2 level osteotomy and anterior posterior instrumented fusion for scoliosis. His ramsey had come loose and he had recurrence of severe radicular pain going down his legs. His felt that this was due to the instability of his back pivoting at this level. He was admitted to the hospital with plans for surgery to reattached at the bottom level of L4 as well as put in a longer ramsey all the way down to S1. Risks and benefits surgery discussed and appropriate consents were obtained. Surgeon: Zane Richard Fish [employer] Wildlife Biologist: Charley Salmon Anesthesia Type: General Operative Notes Findings: None Closure Type: primary Specimen(s): none sent Prosthetic devices, grafts, tissues, transplants, or devices: NuVasive Reline screws Applied: catheter Estimated Blood Loss (mL): 50 Procedure in detail: Patient brought to the operating room and intubated on the table. He was rolled over the well-padded prone position on the Loi table with care to protect his shoulders. His right arm was tucked to his side as it did not move well. The back was prepped and draped in the standard sterile fashion. Preoperative antibiotics were given. Time-out was performed. We opened up the previous 4 cm incision on the left and extended this all the way to the level of T10. Bovie used to come down to expose the hardware. We then split the muscle along the course of his ramsey all the way up to T10. We exposed the previous screws at L5 and S1. A metal cutting bur was used to cut through the middle of the ramsey at L5-S1 and then we helicoptered the screws out. We tapped with neural monitoring and then placed a size larger Nuvasive Reline screw also with neural monitoring. We then cut a much longer ramsey and conformed to fit along the path of his screws. The ramsey was placed down. We confirmed that we had 8-10 mm of ramsey going past the S1 screw. It was long cephalad but we had a good fixation with temporary screw and I did not want to remove this and cut it any further as we had good alignment. We then placed all of our set screws and locked them down. Final x-rays were taken showing good positioning of the ramsey locked into all the screws from T10 through S1. The wound was irrigated. The fascia was closed in layers. Vancomycin powder was placed in the wound. Superficial and skin were closed. Sterile dressing was placed. He was then rolled over, extubated, and brought to recovery with no complications. Complications: none Post-operative Condition: stable Disposition: PACU Plan for aftercare: He is inpatient for pain control as well as mobility for the next few days. I am also going to get him a TLSO with thigh extension to get support that will go all the way down to the sacrum.
[2019-12-11] MEDS: HYDROMORPHONE 2 MG INJ IV ×2 (19:02→19:08)
--- NOTE | 2019-12-11 19:02 | PC.NURSE ---
1700- Pt still in OR/PACU at this time. 1330-A/O x 4, LAC LR @ 10 infusing, 98% RA, LS clear, Bradycardic-56 with HTN 189/69, deies SOB or chest pain. Using urinal, 1330- pt taken down to OR.
--- NOTE | 2019-12-11 19:27 | SUR.PHASEI ---
Gave patient IV pain medication for increased restlessness. Patient states pain is tolerable.
[2019-12-11] MEDS: LACTATED RINGERS 1,000 ML 125 ML IV (20:30)
[2019-12-11] MEDS: TAMSULOSIN 0.4 MG CAPSULE PO (20:49)
[2019-12-11] MEDS: SENNOSIDES 8.6 MG TABLET 17.2 MG PO (22:19)
[2019-12-11] MEDS: ATORVASTATIN 10 MG TABLET PO (22:20)
[2019-12-11] MEDS: hydroCHLOROthiazide 25 MG TABLET PO (22:20)
[2019-12-11] MEDS: TELMISARTAN 40 MG TABLET 80 MG PO ×2 (22:20→22:35)
[2019-12-12] MEDS: LACTATED RINGERS 1,000 ML 125 ML IV (02:23)
[2019-12-12] MEDS: TRIAZOLAM 0.125 MG TABLET 0.175 MG PO (02:39)
--- NOTE | 2019-12-12 02:46 | PC.NURSE ---
Patient agitated by IV pump, reported to SCRIPT SUPERVISOR that he was going to rip this IV right out and to this RN that he can't get any sleep like this and demanding to know who wrote the order for the IV. Educated patient that the surgeon wrote the order for the IV and fluids and that they need to remain and he wants a note made that he wishes to speak to the surgeon first thing in the morning. Medicated the patient per MAR with home sleep meds, put in foamie ear plugs, and other attempts to silence the noise he is hearing. Before this RN could finish putting in ear plugs patient reporting he could still hear IV pump clear as day and reports the noise after both plugs are in place. SCRIPT SUPERVISOR attempting to offer music or white noise to patient to assist in distracting from focus on IV pump. Will continue to monitor to make sure patient does not discharge IV in agitation.
[2019-12-12 06:15] VITALS: BP 100/47; PULSE 63; RESP 20; TEMP 36.9; O2SAT 97
[2019-12-12 06:33] LABS: Hematocrit 27.5 % (41-53); Hemoglobin 9.2 g/dL (13.5-17.5)
[2019-12-12 07:54] VITALS: BP 131/49; PULSE 70; RESP 17; TEMP 36.3; O2SAT 99
[2019-12-12] MEDS: CEFAZOLIN 2 GM/100 ML FROZ.PIGGY IV (08:17)
[2019-12-12] MEDS: CARBIDOPA-LEVODOPA 25/100 TABLET 1.5 EACH PO ×3 (08:18→21:32)
[2019-12-12] MEDS: ACETAMINOPHEN 325 MG TABLET 650 MG PO ×3 (08:18→21:30)
[2019-12-12] MEDS: DOCUSATE 100 MG CAPSULE PO ×2 (08:19→21:29)
[2019-12-12] MEDS: CELECOXIB 200 MG CAPSULE PO ×2 (08:19→21:29)
--- NOTE | 2019-12-12 09:17 | PM.PNPO.1 ---
Subjective Subjective Date Patient Seen: 12/12/19 Time Patient Seen: 09:17 Interval history: He is doing much better. The back pain is manageable. The leg pain is much better. Exam Vital Signs (past 8 hours): - 12/12/19 06:15 12/12/19 07:54 Temperature 98.5 F 97.4 F L Pulse Rate 63 70 Respiratory Rate 20 17 Blood Pressure 100/47 L 131/49 L Pulse Oximetry 97 99 Oxygen Delivery Method Room Air Oxygen Flow Rate 0 Const Orientation: alert and oriented x3 Back/Spine/Pelvis Other: Moderate drainage saturating the bottom half the dressing. 5/5 motor both lower extremities except for mild 4/5 right AT/EHL Objective Labs Result Diagrams: 12/12/19 06:10 Labs: Laboratory Results - last 24 hr 12/12/19 06:10 Hgb 9.2 L Hct 27.5 L Assessment & Plan Post-op Postoperative Procedures: Procedures Operation Date: 12/11/19 17:30 Actual Procedures Side Surgeon p L5-S1 SCREW CHANGE AND REVISION T10-S1 SHAN ON LEFT Zane Richard MD he is doing much better after revision of his instrumentation yesterday. Very minimal activity today. We're waiting on a TLSO with thigh extension to be able to stabilize the lower levels. He is to wear the brace when out of bed but does not need it while in bed or if he is standing for showering. I anticipate him being here for the next several days. Plan is to discharge back to the [facility], which is an assisted living that he has been staying at prior to transitioning home. I've discussed this with social work and they are starting to make arrangements. Quality VTE Deep Vein Thrombosis/Pulmonary Embolism Present on Admission: No
[2019-12-12] MEDS: OXYCODONE IR 5 MG TABLET PO ×2 (09:42→14:08)
[2019-12-12 11:45] VITALS: BP 91/37; PULSE 66; RESP 16; TEMP 36.9; O2SAT 99
--- NOTE | 2019-12-12 12:18 | PT-IP ANOTE ---
Received doctor's order to TLSO with L thigh extension. called [facility] regarding TLSO and informed that the brace will be custom made and pt will be measured this afternoon and the brace will be delivered by tuesday or tuesday. Dr. Lindsay's order is for pt to have the brace on when out of bed. Called Dr. lindsay to clarify if pt can start PT even without the brace and stated that he does not want pt to do much but just transfers. Checked on pt and pt refused PT. stated that he just wants to stay in bed. Asked pt if he wants PT to check in the afternoon and pt refused. stated that he plans to stay in bed for the whole day. informed nurse.
--- NOTE | 2019-12-12 14:11 | PC.NURSE ---
Patient denies urge to urinate yet, states he will try later. Urinal placed within reach. Continue to monitor.
--- NOTE | 2019-12-12 14:50 | OT.IP.TRT ---
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, initial encounter (12/10/19) Surgery Performed Operation Date: 12/11/19 17:30 Actual Procedures p L5-S1 SCREW CHANGE AND REVISION T10-S1 SHAN ON LEFT - Zane Richard MD Occupational Therapy Administrative Note M3 OT- IP Subjective and Pain Start: 12/12/19 14:48 Freq: Status: Active Protocol: Document 12/12/19 14:50 PJM (Rec: 12/12/19 14:52 PJM [id number]) OT- Subjective Occupational Therapy Visit Type Type Administrative Note Visit Start Time 14:50 Notes OT referral received. Pt currently awaiting custom TLSO brace with L thigh extension from [employer] that won't be here until 12/14 or 12/17/19. Per Dr Richard, pt okay for transfers out of bed to chair without brace, but pt declining any activity out of bed today. Will attempt again in AM. No charge.
--- NOTE | 2019-12-12 15:25 | CM.DPC ---
DCP Cont: Per Purvi RANDOLPH, placed much longer ramsey so that hardware will not have the chance to pop out again. Pt could likely be stable for d/c by Tuesday but spouse has concerns that she will not be able to get off [facility] early enough on Tuesday to get pt back to [facility] the [facility] in time due to the holiday weekend. Purvi RANDOLPH requesting to inquire if [facility] can accept pt back over the weekend if pt discharges on Tuesday rather than Tuesday. DARIUS called [facility] ([phone]) and spoke to GONZALO Foss regarding pt and he states that they are also recommending SNF at d/c before returning back to their assisted living facility for the daily therapy. Pipo states they plan to encourage spouse to be willing to consider [facility] or another SNF in [facility] first especially since a hospital bed has been recommended and it will take at least until Tuesday before they could get one delivered at the earliest. Pipo states they will talk to spouse early tomorrow regarding their recommendation before SW talks to pt and spouse about d/c plan. Pipo confirms that [facility] has been working with pt at their facility and can continue if pt is to discharge back to them. Pipo states that ideally pt go to SNF and give them time to get hospital bed but that if pt discharges Tuesday or Tuesday, they could make it work to accept pt but that it would not be ideal. Per PT/OT, brace recommended for pt prior to mobilizing and pt to be fitted soon but brace will likely not be ready until 14th or 17th and pt to only transfer until brace fitted. Therefore, pt likely may not d/c until brace available?? Plan: SW to follow closely to determine if brace needed prior to d/c and ongoing coordination with [facility] in the morning to confirm they discussed their recommendation of [facility] SNF with spouse prior to discussing d/c plans with spouse tomorrow. Resume [facility] needed if pt continues to refuse SNF and discharges back to [facility] BONITACARL Sharp
[2019-12-12 15:30] VITALS: BP 118/55; PULSE 68; RESP 18; TEMP 37.1; O2SAT 98
--- NOTE | 2019-12-12 18:58 | PC.NURSE ---
Patient refused bilateral foot SCDs. The patient was educated on the importance of using SCDs post surgery, however patient still refused the SCDs due to discomfort and irritation of wearing them. Continuing encouragement and education will be given. Patient doing foot pumps while in bed.
[2019-12-12 19:55] VITALS: BP 128/54; PULSE 80; RESP 16; TEMP 37.4; O2SAT 97
[2019-12-12] MEDS: PANTOPRAZOLE 20 MG TABLET PO (21:29)
[2019-12-12] MEDS: ATORVASTATIN 10 MG TABLET PO (21:31)
[2019-12-12] MEDS: TAMSULOSIN 0.4 MG CAPSULE PO (21:31)
[2019-12-12] MEDS: SENNOSIDES 8.6 MG TABLET 17.2 MG PO (21:31)
[2019-12-12] MEDS: hydroCHLOROthiazide 25 MG TABLET PO (21:31)
[2019-12-13 00:30] VITALS: BP 111/48; PULSE 78; RESP 16; TEMP 37.3; O2SAT 98
[2019-12-13] MEDS: OXYCODONE IR 5 MG TABLET PO (00:30)
[2019-12-13 05:20] VITALS: BP 127/61; PULSE 67; RESP 16; TEMP 36.4; O2SAT 98
--- NOTE | 2019-12-13 06:30 | PC.NURSE ---
Pt doing well. Reports minimal pain; given 5mg Oxycodone once with good relief. ambulating well to BR voiding in urinal
[2019-12-13] MEDS: ACETAMINOPHEN 325 MG TABLET 650 MG PO ×3 (07:59→19:54)
[2019-12-13] MEDS: CELECOXIB 200 MG CAPSULE PO ×2 (07:59→19:52)
[2019-12-13 08:00] VITALS: BP 132/66; PULSE 69; RESP 15; TEMP 36.4; O2SAT 100
[2019-12-13] MEDS: CARBIDOPA-LEVODOPA 25/100 TABLET 1.5 EACH PO ×3 (08:00→19:53)
[2019-12-13] MEDS: DOCUSATE 100 MG CAPSULE PO ×2 (08:00→19:55)
--- NOTE | 2019-12-13 08:17 | P.PN_ITS ---
Subjective Subjective Date Patient Seen: 12/13/19 Time Patient Seen: 08:17 Interval history: Patient's pain has been mild to severe. He did not participate with physical therapy yesterday because he feel he needed to ?rest?. Denies fever chills. No nausea vomiting. Exam Vital Signs (past 8 hours): - 12/13/19 00:30 12/13/19 05:20 Temperature 99.2 F 97.6 F Pulse Rate 78 67 Respiratory Rate 16 16 Blood Pressure 111/48 L 127/61 Pulse Oximetry 98 98 Oxygen Delivery Method Room Air Oxygen Flow Rate 0 Narrative Exam Narrative: Seven 4-year-old male resting comfortably in bed having breakfast in no apparent distress. Motor functions intact bilateral lower extremities. Sensation grossly intact to light touch bilateral lower extremities. Both legs are warm and dry. The lower aspect of the dressing is moist and will be changed out today. Objective Labs Result Diagrams: 12/12/19 06:10 Assessment & Plan Post-op Postoperative Procedures: Procedures Operation Date: 12/11/19 17:30 Actual Procedures Side Surgeon p L5-S1 SCREW CHANGE AND REVISION T10-S1 SHAN ON LEFT Zane Richard MD Postop day 2. Waiting on TLSO. He is to wear the brace when out of bed but does not need it while in bed or if he is standing for showering. Plan is to discharge back to the [facility] which is an assisted living that he has been staying at prior to transitioning home. Patient has been slow to participate with physical therapy and will likely need a couple more days prior to discharge. Quality VTE Deep Vein Thrombosis/Pulmonary Embolism Present on Admission: No
--- NOTE | 2019-12-13 09:16 | PT.IIE ---
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, initial encounter (12/10/19) Surgery Performed Operation Date: 12/11/19 17:30 Actual Procedures p L5-S1 SCREW CHANGE AND REVISION T10-S1 SHAN ON LEFT - Zane Richard MD Surgical History (Last Updated 11/26/19 @ 10:05 by Rebecca Cho RN) H/O vasectomy (Acute) History of arthroplasty of left shoulder (Acute) History of arthroscopy of both knees (Acute) History of bilateral total hip arthroplasty (Acute) History of lumbar fusion (Acute ~2011) History of lumbar fusion (Acute 11/06/19) Hx of tonsillectomy (Acute) Status post correction of deviated nasal septum (Acute) Medical History (Last Updated 11/26/19 @ 10:04 by Rebecca Cho RN) Atherosclerotic heart disease of [place] coronary artery without angina pectoris (Acute) Back pain (Acute) Hearing impaired (Acute) HLD (hyperlipidemia) (Acute) HTN (hypertension) (Acute) Memory deficit (Acute) Osteoarthritis (Acute) Parkinson's disease (Acute) Postoperative anemia (Acute 11/06/19) Sciatica (Acute) Spinal stenosis (Acute) Physical Therapy Inpatient Evaluation/Re-Eval M1 PT/OT-IP Prior Functional Status Start: 12/13/19 13:11 Freq: NEEDED Status: Active Protocol: Document 12/13/19 09:16 AB (Rec: 12/13/19 13:46 AB [id number]) Medical Review Prior Functional Status Medical History Reviewed Yes Communication able to make needs known Mobility and Gait pt stated that prior to first surgery in 11/06/2019, he was modified independent with ambulation using 3WW. Prior Functional Level (Other details) Pt has been in and out of the hospital for back surgery: Pt underwent fusion/lami 2019. pt d/c'd to [facility] but pt came back to the hospital 11/12/2019 due to LBP . Pt discharged to another SNF afterwards but had a revision of back fusion and admitted to the hospital 11/28. pt discharged to [facility]. Pt admitted recently 2019 again for another revision for fusion. Social History Household Members spouse Living Arrangements House Number of Floors (Floors) Two Floors Number of Stairs To Enter/Railing? 1 step to enter 7steps R rail ascending + landing+ 7 steps with bilateral rails to 2nd level bedroom: pt stated that he uses the rail and quad cane for the stairs Home Environment High Toilet,Walk in Shower Home Equipment Quad Cane,Shower Seat with Backrest,Grab Bars Near Toilet ,Grab Bars In Shower Additional Social History Comment pt stated that he has bedcanes on the R M2 PT-IP Current Condition Start: 12/13/19 13:11 Freq: NEEDED Status: Active Protocol: Document 12/13/19 09:16 AB (Rec: 12/13/19 13:46 AB [id number]) Physical Therapy Current Condition Current Condition Evaluation Date 12/13/19 Treatment Diagnosis s/p L5S1 L screws exchange;T10 -S1 removal old shan & replace; diff in walking Onset Date 12/11/2019 Precautions Lumbar Precautions Log Roll,No Twisting,Limit Bending,Lifting Restriction of 10 lbs,Gait Belt above Incisional Area Other Precautions Per Dr. Richard 12/12/2019: limit activity to transfers only until TLSO brace available M3 PT-IP Subjective Start: 12/13/19 13:11 Freq: NEEDED Status: Active Protocol: Document 12/13/19 09:16 AB (Rec: 12/13/19 13:46 AB [id number]) Subjective Physical Therapy Visit Type Type Initial Evaluation Visit Start Time 09:16 Visit Stop Time 09:43 Total Visit Minutes 27 Number of RESTAURANT EXPEDITOR Visits 0 Physical Therapy Visit Comments Patient Comments pt agreeable to do PT Therapy Pain Assessment Pain When Pain Assessed At Rest Pain Present Pain Present Pain Reported Location Right Leg Intensity 2 Scale Used Numeric (1 - 10) M4 PT-IP Mobility and Gait Start: 12/13/19 13:11 Freq: NEEDED Status: Active Protocol: Document 12/13/19 09:16 AB (Rec: 12/13/19 13:46 AB [id number]) PT-Bed Mobility Assessment Rolling Type of Rolling Log Rolling Level of Assist Standby Assistance Supine to Sit Supine to Sit Minimal Assistance,Moderate Assistance,1 Person Assistance ,Bedrails PT-Transfer Assessment Sit to and From Stand Sit to and from Stand Contact Guard Assistance,1 Person Assistance,Use of Upper Extremities Equipment Transfer Assistive Device Gait Belt,Front Wheeled Walker Orthotic/Prosthetic Devices or Brace: No Transfers Transfer Destination Chair Transfer Technique Stand Step Pivot Transfer Ability Level of Assist Contact Guard Assistance,1 Person Assistance,Use of Upper Extremities Comments Mobility Comments reviewed back precautions and log roll bed mobility. pt completed supine to sit min A and cues using rail. pt required increase time to complete task. pt was able to sit on EOB SBA. completed sit to stand CGA and completed step transfer using FWW CGA to chair. No ambulation at this time. Per conversation with Dr. Richard yesterday , limit activity of pt and no ambulation until TLSO brace but can transfer pt . positioned pt on the chair. call light and table placed within reach. M5 PT-IP Objective Assessments Start: 12/13/19 13:11 Freq: NEEDED Status: Active Protocol: Document 12/13/19 09:16 AB (Rec: 12/13/19 13:46 AB [id number]) Orientation Orientation/Cognition Level of Alertness Alert Orientation Name,Age,Birthday,Place, Situation Safety Awareness Decreased Safety Awareness Gross Range of Motion Lower Extremity ROM Assessment Within Functional Limits Strength Lower Extremity Strength Assessment Right Impaired Hip 3+/5 Knee 3+/5 Coordination Assessment Gross Coordination Gross Coordination WNL Sensation Assessment Sensation Gross Sensation WNL Muscle Tone Muscle Tone WNL Yes M6 PT-IP Treatment Start: 12/13/19 13:11 Freq: NEEDED Status: Active Protocol: Document 12/13/19 09:16 AB (Rec: 12/13/19 13:46 AB [id number]) Physical Therapy Treatment Education Education Provided Precautions,Weight Bearing Status,Safety M7 PT-IP Assessment and Plan Start: 12/13/19 13:11 Freq: NEEDED Status: Active Protocol: Document 12/13/19 09:16 AB (Rec: 12/13/19 13:46 AB [id number]) PT Summary Assessment and Plan Potential Rehabilitation Potential Good Status of Condition at Evaluation Stable Summary Impairments Pain,ROM,Strength,Balance, Coordination,Sensation,Tone, Cognition,Bed Mobility, Transfers,Gait,Activity Tolerance Assessment Summary pt requires mod A with bed mobility, CGA and cues for transfers. Ambulation not conducted per doctor's order. TLSO brace on process and possibly available by tomorrow per vendor/home health administrator. Pt does not want to go back to SNF and wants to just go back to [facility]. informed pt regarding TLSO brace with thigh extension and assistance needed for donning/doffing. If [facility] is able to provide pt the necessary assistance, pt may go back to [facility], otherwise, pt will require SNF rehab. will continue to assess progress. Goals Bed Mobility Goal Independent Transfer Goal Independent,Front Wheeled Walker Gait Goal Independent,Front Wheel Walker Gait Distance 200 Other Goals improve ambulation 150 ft using 3WW mod I improve stair climbing 1 step using 3WW SBA; 15 steps using R rail and quad cane SBA Days to Meet Goals 10 Frequency of Treatment Frequency Of Treatment Twice a Day Treatment Plan Physical Therapy Treatment Plan Bed Mobility Training,Transfer Training,Gait Training, Therapeutic Exercise,Balance Retraining,Post Op Education, Discharge Planning,Hot or Cold Pack,Neuromuscular Re-ed, Coordination Retraining,Manual Therapy Recommendations To Nursing Amount of Assist Needed 1 Person Assist Discharge Recommendations PT Discharge Recommendations Home with 23/05 Assist,Home Health,SNF Rehab Other Discharge Recommendations SNF vs [facility] and home health PT Transportation Needs at Discharge Private Vehicle,Wheelchair/ Cabulance
[2019-12-13] MEDS: SODIUM CHLORIDE 0.9% FLUSH 10 ML IV (09:23)
--- NOTE | 2019-12-13 13:52 | OT.IP.EVAL ---
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, initial encounter (12/10/19) Surgery Performed Operation Date: 12/11/19 17:30 Actual Procedures p L5-S1 SCREW CHANGE AND REVISION T10-S1 SHAN ON LEFT - Zane Richard MD Past Medical History (Last Updated 11/26/19 @ 10:04 by Rebecca Cho, RN) Atherosclerotic heart disease of [place] coronary artery without angina pectoris (Acute) Back pain (Acute) Hearing impaired (Acute) HLD (hyperlipidemia) (Acute) HTN (hypertension) (Acute) Memory deficit (Acute) Osteoarthritis (Acute) Parkinson's disease (Acute) Postoperative anemia (Acute 11/06/19) Sciatica (Acute) Spinal stenosis (Acute) Surgical History (Last Updated 11/26/19 @ 10:05 by Rebecca Cho RN) H/O vasectomy (Acute) History of arthroplasty of left shoulder (Acute) History of arthroscopy of both knees (Acute) History of bilateral total hip arthroplasty (Acute) History of lumbar fusion (Acute ~2011) History of lumbar fusion (Acute 11/06/19) Hx of tonsillectomy (Acute) Status post correction of deviated nasal septum (Acute) Occupational Therapy Inpatient Evaluation/Re-Eval M1 PT/OT-IP Prior Functional Status Start: 12/13/19 13:11 Freq: NEEDED Status: Active Protocol: Document 12/13/19 13:52 ASHLEY (Rec: 12/13/19 16:43 ASHLEY [id number]) Medical Review Prior Functional Status Medical History Reviewed Yes Diet/Fluid Consistency Regular Communication WNL Mobility and Gait Pt states that prior to first surgery in 11/06/2019, he was modified independent with ambulation using 3WW. He climbed 7+7 stairs daily to access his second floor bedroom, bathroom and office. Activities of Daily Living and IADL's Pt states he was independent with all self care including showering prior to first back surgery. His does IADLS. Pt states he still drives. Prior Functional Level (Other details) Pt s/p T10-L4 fusion/lami 11/06/19. Pt d/c'd to [facility] but pt came back to the hospital 11/12/2019 due to L4 radiculopathy for steroids. Pt discharged to [facility] but was readmitted for revision of back fusion . Pt declined to return to either SNF and discharged to [facility] in Tuesday. Pt readmitted 12/10/19 for second revision of fusion on 12/11/19. Social History Household Members spouse Living Arrangements House Number of Floors (Floors) Two Floors Number of Stairs To Enter/Railing? 1 step to enter 7steps R rail ascending + landing+ 7 steps with bilateral rails to 2nd level bedroom, bathroom and office. Pt stated that he uses the rail and quad cane for the stairs and keeps second walker upstairs Home Environment High Toilet,Walk in Shower Home Equipment Quad Cane,Shower Seat with Backrest,Long Handled Sponge, Long Handled Shoe Horn,Electroneurodiagnostic Technician ,Sock Aid,Grab Bars Near Toilet,Grab Bars In Shower Employment Status Retired Additional Social History Comment Pt stated that he has bed canes on the R side of bed at home. M2 OT-IP Current Condition Start: 12/12/19 14:48 Freq: Status: Active Protocol: Document 12/13/19 13:52 PJM (Rec: 12/13/19 16:43 [facility] [id number]) Occupational Therapy Current Condition Current Condition Evaluation Date 12/13/19 Treatment Diagnosis decreased ADLS, mobility s/p 2nd revision of T10-L4 fusion Diagnosis Onset Date 12/11/19 Post Operative Precautions Lumbar Precautions Log Roll,No Twisting,Limit Bending,Lifting Restriction of 10 lbs,Gait Belt above Incisional Area Other Precautions Pt currently awaiting arrival of custom TLSO brace with L thigh attachment. He is limited to transfers only per Dr Richard until brace arrives. Pt can have brace off in bed and when standing or sitting in shower. M3 OT- IP Subjective and Pain Start: 12/12/19 14:48 Freq: Status: Active Protocol: Document 12/13/19 13:52 PJM (Rec: 12/13/19 16:43 PJ [id number]) OT- Subjective Occupational Therapy Visit Type Type Initial Evaluation Visit Start Time 13:40 Visit Stop Time 13:52 Total Visit Minutes 12 Occupational Therapy Visit Comments Patient Comments I don't want to go to a retirement over here. I want to go back to the [facility] in Tuesday because it is close to home. Patient/Caregiver Goals to resume prior level of independence living in his own home, have less pain in his back OT Pain Assessment Pain When Pain Assessed After Treatment Pain Present Pain Present Pain Reported Location back Intensity 3 Scale Used Numeric (1 - 10) Description Aching,Acute Management Techniques Distraction,Timing of Activity with Medications M4 OT- IP ADL's Start: 12/12/19 14:48 Freq: Status: Active Protocol: Document 12/13/19 13:52 PJM (Rec: 12/13/19 16:43 [facility] [id number]) OT [id number] General Evaluation Self-Feeding Ability Independent OT ADL-Grooming General Evaluation Grooming Ability Standby Assistance Areas Needing Assistance Retrieving/Set-up of Grooming Items,Face Washing Comments OT Grooming Comments seated in chair OT ADL-Oral Care Comments Oral Care Comments did not occur this session OT ADL-Dressing Assistive Devices Dressing Assistive Devices Long Handled Shoe Horn,Electroneurodiagnostic Technician ,Sock Aid Comments OT Dressing Comments Pt has been educated re: use of lower body dressing equipment during previous admits but needs practice to ensure he is following precautions during task. OT ADL-Toileting Comments OT Toileting Comments did not occur this session OT ADL-Bathing Comments OT Bathing Comments to be assessed after brace arrives M5 OT- IP IADL's Start: 12/12/19 14:48 Freq: Status: Active Protocol: Document 12/13/19 13:52 PJ (Rec: 12/13/19 16:43 [facility] [id number]) OT-Instrumental Activities of Daily Living Deficits IADL Deficits Identified Deficits Home Safety Awareness Awareness of Need for Assistance at Home Decreased Awareness Medication Management Medication Management Caregiver Provides Supervision Money Management Money Management Caregiver Provides Supervision Meal Preparation Meal Preparation Caregiver Provides Assist Stave Machine Tender Stave Machine Tender Caregiver Provides Assist Driving Driving Caregiver Provides Assist Driving Comments pt drove until 11/04/19 per his report M6 OT- IP Functional Cognition Start: 12/12/19 14:48 Freq: Status: Active Protocol: Document 12/13/19 13:52 PJ (Rec: 12/13/19 16:43 [facility] [id number]) Cognitive Factors Limiting Selfcare Function Cognitive Ability Level of Alertness Alert Patient Orientation Name,Age,Birthday,Month,Date, Year,Day of Week,Place, Situation Attention Span Ability Capable of Focused Attention Ability to Follow Commands Able to Follow One Step Commands Safety Awareness Decreased Ability to Apply Precautions,Underestimates Need for Assistance Problem Solving Ability Unable to Identify Errors, Needs Assist to Identify Solutions Executive Function Ability Unable to Remember Details Cognitive Comments Cognitive Assessment Comments Pt impulsive at times and suspect he is not consistently following lumbar spine precautions as pt needs min to mod verbal cues to avoid bending and twisting when testing engineer for objects in room. OT- Vision and Hearing OT- Hearing Assessment OT- Hearing Assessment WFL OT- Vision Assessment Visual Acuity Glasses All The Time M7 OT- IP Mobility and Balance Start: 12/12/19 14:48 Freq: Status: Active Protocol: Document 12/13/19 13:52 PJM (Rec: 12/13/19 16:43 PJM [id number]) OT-Transfer Assessment Comments Mobility Comments see P.T. notes; pt up in recliner this session OT- Gait Assessment Comments Gait Ability Comments pt unbale to ambulate until custom TLSO brace with thigh attachment arrives OT- Balance Assessment Sitting Balance and Reactions Static Sitting Balance Ability Good Comments Other Balance Tests/Deviations/Treatment see P.T. notes : M8 OT- IP Objective Assessments Start: 12/12/19 14:48 Freq: Status: Active Protocol: Document 12/13/19 13:52 PJM (Rec: 12/13/19 16:43 PJM [id number]) OT Gross Range of Motion Upper Extremity Range of Motion Assessment Left Impaired ROM Impairments L shoulder active scaption to 90 degrees s/p L TSA RUE WFL OT Strength Comments Strength Comments BUE WFL for self care OT- Coordination Assessment Comments Coordination Comments BUE WFL with no tremors noted this session OT-Muscle Tone Assessment Comments Muscle Tone Comments slight rigidity noted due to Parkinsons OT Sensation Assessment Comments Summary Comments Pt denies deficits in BUE's Edema Edema Absent M9 OT- IP Assessment and Plan Start: 12/12/19 14:48 Freq: Status: Active Protocol: Document 12/13/19 13:52 PJM (Rec: 12/13/19 16:43 PJM [id number]) OT Summary Assessment and Plan Potential Rehabilitation Potential Good Analytic Complexity at Evaluation Low Summary OT Impairments Pain,Balance,Functional Cognition,Functional Mobility, Grooming,Dressing,Toileting, Bathing,Toilet Transfers, Shower Transfers,Activity Tolerance Progress Towards Goals Slow Progress due to Medical Issues Assessment Summary Low complexity OT assessment completed on this 74 yr old male now s/p 2 revisions of T10-L4 fusion originally done on 11/06/19. See details above. Pt awaiting arrival of custom TLSO with L thigh attachment and can do transfers only at this time per MD orders. Pt currently has performance deficits in all functional mobility/transfers, lower body dressing, standing grooming, bathing and toileting. Pt recalls lumbar spine precautions but is impulsive and needs min to mod verbal cues to follow them during functional tasks. New TLSO should assist with pt following precautions. Pt would benefit from cognitive screening to clarify possible cognitive deficits. Pt would like to d/c back to [facility] in Tuesday with home health services , but may need higher level of care at SNF for further rehab services depending on his progress/ safety with new brace. Note pt/ have not been satisified with care at 2 previous SNF's. Goals Grooming Goal Standby Assistance Dressing Goal Standby Assistance Toileting Goal Standby Assistance Bathing Goal Minimal Assistance,Grab Bars, Hand Held Shower Sprayer,Long Handled Sponge or [place] Toilet Transfer Goal Standby Assistance,ADA High Toilet,Grab Bars Shower Transfer Goal Contact Guard Assistance,Walk- in Shower,Shower Chair,Grab Bars Patient/Caregiver Education Goal Demonstrate Post-Op Precautions,Demonstrate Energy Conservation and Pacing OT-Other Goals Pt to don TLSO brace with mod assist sitting or standing. Days to Meet Goals 7 Frequency of Treatment Frequency Of Treatment Once a Day Treatment Plan OT Treatment Plan ADL Training,Functional Mobility,Patient/Family Education,Discharge Planning Discharge Recommendations OT Discharge Recommendations SNF Rehab Other Discharge Recommendations vs [facility] with OT/PT pending progress
--- NOTE | 2019-12-13 15:18 | PT.IPTN ---
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, initial encounter (12/10/19) Surgery Performed Operation Date: 12/11/19 17:30 Actual Procedures p L5-S1 SCREW CHANGE AND REVISION T10-S1 SHAN ON LEFT - Zane Richard MD Physical Therapy Treatment Note M2 PT-IP Current Condition Start: 12/13/19 13:11 Freq: NEEDED Status: Active Protocol: Document 12/13/19 09:16 AB (Rec: 12/13/19 13:46 AB [id number]) Physical Therapy Current Condition Current Condition Evaluation Date 12/13/19 Treatment Diagnosis s/p L5S1 L screws exchange;T10 -S1 removal old shan & replace; diff in walking Onset Date 12/11/2019 Precautions Lumbar Precautions Log Roll,No Twisting,Limit Bending,Lifting Restriction of 10 lbs,Gait Belt above Incisional Area Other Precautions Per Dr. Richard 12/12/2019: limit activity to transfers only until TLSO brace available M3 PT-IP Subjective Start: 12/13/19 13:11 Freq: NEEDED Status: Active Protocol: Document 12/13/19 13:15 HH (Rec: 12/13/19 15:18 HH [email or web address]) Subjective Physical Therapy Visit Type Type Treatment Note Visit Start Time 13:15 Visit Stop Time 13:32 Total Visit Minutes 17 Number of QUALITY ENGINEER MEDICAL DEVICE Visits 0 Physical Therapy Visit Comments Patient Comments pt agreeable to do PT Therapy Pain Assessment Pain When Pain Assessed At Rest Pain Present Pain Present Pain Reported M4 PT-IP Mobility and Gait Start: 12/13/19 13:11 Freq: NEEDED Status: Active Protocol: Document 12/13/19 13:15 HH (Rec: 12/13/19 15:18 HH [email or web address]) PT-Bed Mobility Assessment Rolling Type of Rolling Log Rolling,Roll to Right Level of Assist Standby Assistance Supine to Sit Supine to Sit Contact Guard Assistance,1 Person Assistance,Bedrails PT-Transfer Assessment Sit to and From Stand Sit to and from Stand Contact Guard Assistance,1 Person Assistance,Use of Upper Extremities Equipment Transfer Assistive Device Gait Belt,Front Wheeled Walker ,4 Wheeled Walker Orthotic/Prosthetic Devices or Brace: No Transfers Transfer Destination Chair Transfer Technique Stand Step Pivot Transfer Ability Level of Assist Contact Guard Assistance,1 Person Assistance,Use of Upper Extremities Comments Mobility Comments Reviewed back precautions and log roll bed mobility. Pt completed log roll and supine to sit with CGA. He needed time to get from SL to sit with UE push off through bed and bed rail. He then completed STS with his 3 wheel walker x 5 with CGA. He then stand step pivot with 3 wheel walker to chair on his left side. He was able to transfer 3 times between bed and chair with CGA, but he did have difficulty getting up from low chair who tends to lean his trunk beyond precations. Educated pt again with his precautions. Pt rested in chair after with call light within reach. M5 PT-IP Objective Assessments Start: 12/13/19 13:11 Freq: NEEDED Status: Active Protocol: Document 12/13/19 09:16 AB (Rec: 12/13/19 13:46 AB [id number]) Orientation Orientation/Cognition Level of Alertness Alert Orientation Name,Age,Birthday,Place, Situation Safety Awareness Decreased Safety Awareness Gross Range of Motion Lower Extremity ROM Assessment Within Functional Limits Strength Lower Extremity Strength Assessment Right Impaired Hip 3+/5 Knee 3+/5 Coordination Assessment Gross Coordination Gross Coordination WNL Sensation Assessment Sensation Gross Sensation WNL Muscle Tone Muscle Tone WNL Yes M6 PT-IP Treatment Start: 12/13/19 13:11 Freq: NEEDED Status: Active Protocol: Document 12/13/19 09:16 AB (Rec: 12/13/19 13:46 AB [id number]) Physical Therapy Treatment Education Education Provided Precautions,Weight Bearing Status,Safety M7 PT-IP Assessment and Plan Start: 12/13/19 13:11 Freq: NEEDED Status: Active Protocol: Document 12/13/19 13:15 HH (Rec: 12/13/19 15:18 HH [email or web address]) PT Summary Assessment and Plan Potential Rehabilitation Potential Good Status of Condition at Evaluation Stable Summary Impairments Pain,ROM,Strength,Balance, Coordination,Sensation,Tone, Cognition,Bed Mobility, Transfers,Gait,Activity Tolerance Assessment Summary Pt overall showed improved mobility with CGA for bed mobility and transfers with his personal 3 wheeled walker. However, he is still impulsive sometimes who tends to forget his precautions during mobility. TLSO with hip extension brace is still pending before pt could actually amb. In addition, SW called [facility] ) and spoke to GONZALO Foss regarding pt and he states that they are also recommending SNF at d/c before returning back to their assisted living facility for the daily therapy. Pipo states they plan to encourage spouse to be willing to consider [facility] or another SNF in [place] first especially since a hospital bed has been recommended and it will take at least until Tuesday before they could get one delivered at the earliest. Goals Bed Mobility Goal Independent Transfer Goal Independent,Front Wheeled Walker Gait Goal Independent,Front Wheel Walker Gait Distance 200 Other Goals improve ambulation 150 ft using 3WW mod I improve stair climbing 1 step using 3WW SBA; 15 steps using R rail and quad cane SBA Days to Meet Goals 10 Frequency of Treatment Frequency Of Treatment Twice a Day Treatment Plan Physical Therapy Treatment Plan Bed Mobility Training,Transfer Training,Gait Training, Therapeutic Exercise,Balance Retraining,Post Op Education, Discharge Planning,Hot or Cold Pack,Neuromuscular Re-ed, Coordination Retraining,Manual Therapy Recommendations To Nursing Amount of Assist Needed 1 Person Assist Discharge Recommendations PT Discharge Recommendations Home with 24/ Assist,Home Health,SNF Rehab Other Discharge Recommendations SNF vs [facility] and home health PT Transportation Needs at Discharge Private Vehicle,Wheelchair/ Cabulance
[2019-12-13 15:20] VITALS: BP 130/57; PULSE 72; RESP 16; TEMP 36.7; O2SAT 100
--- NOTE | 2019-12-13 16:01 | PC.NURSE ---
Dayshift summary: VSS, reports minimal pain to back today. Dressing was changed and remains CDI. Patient seen by PT, awaiting TLSO brace to be brought in prior to doing ambulation, patient transferring to chair with assistance and walker, and tolerating well. Urinal within reach, had BM today. Tolerating meals. Call light within reach, bed alarm active for safety.
[2019-12-13 19:22] VITALS: BP 139/64; PULSE 80; RESP 16; TEMP 37.4; O2SAT 100
[2019-12-13] MEDS: TAMSULOSIN 0.4 MG CAPSULE PO (19:52)
[2019-12-13] MEDS: SENNOSIDES 8.6 MG TABLET 17.2 MG PO (19:52)
[2019-12-13] MEDS: ATORVASTATIN 10 MG TABLET PO (19:55)
[2019-12-13] MEDS: PANTOPRAZOLE 20 MG TABLET PO (19:55)
[2019-12-13] MEDS: hydroCHLOROthiazide 25 MG TABLET PO (19:56)
[2019-12-13] MEDS: TELMISARTAN 40 MG TABLET 80 MG PO (19:57)
[2019-12-13] MEDS: TRIAZOLAM 0.125 MG TABLET 0.175 MG PO (23:03)
[2019-12-14] VITALS (7 sets, daily range): BP systolic 132–157; BP diastolic 55–78; PULSE 66–90; RESP 13–19; TEMP 36.3–37.5; O2SAT 95–99
--- NOTE | 2019-12-14 06:43 | PC.NURSE ---
Pt. is .very forgetful and impulsive, does not call for help, however he is easily directable and is cooperative, denies pain. Back matthewg. CD&I.
[2019-12-14] MEDS: CELECOXIB 200 MG CAPSULE PO ×2 (08:53→20:09)
[2019-12-14] MEDS: CARBIDOPA-LEVODOPA 25/100 TABLET 1.5 EACH PO ×3 (08:54→20:08)
[2019-12-14] MEDS: SODIUM CHLORIDE 0.9% FLUSH 10 ML IV ×2 (08:54→20:11)
[2019-12-14] MEDS: DOCUSATE 100 MG CAPSULE PO ×2 (08:54→20:09)
[2019-12-14] MEDS: ACETAMINOPHEN 325 MG TABLET 650 MG PO ×3 (08:54→20:08)
--- NOTE | 2019-12-14 09:15 | PT.IPTN ---
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, initial encounter (12/10/19) Surgery Performed Operation Date: 12/11/19 17:30 Actual Procedures p L5-S1 SCREW CHANGE AND REVISION T10-S1 SHAN ON LEFT - Zane Richard MD Physical Therapy Treatment Note M2 PT-IP Current Condition Start: 12/13/19 13:11 Freq: NEEDED Status: Active Protocol: Document 12/13/19 09:16 AB (Rec: 12/13/19 13:46 AB [id number]) Physical Therapy Current Condition Current Condition Evaluation Date 12/13/19 Treatment Diagnosis s/p L5S1 L screws exchange;T10 -S1 removal old shan & replace; diff in walking Onset Date 12/11/2019 Precautions Lumbar Precautions Log Roll,No Twisting,Limit Bending,Lifting Restriction of 10 lbs,Gait Belt above Incisional Area Other Precautions Per Dr. Richard 12/12/2019: limit activity to transfers only until TLSO brace available M3 PT-IP Subjective Start: 12/13/19 13:11 Freq: NEEDED Status: Active Protocol: Document 12/14/19 09:15 AB (Rec: 12/14/19 14:48 AB [id number]) Subjective Physical Therapy Visit Type Type Treatment Note Visit Start Time 09:15 Visit Stop Time 10:03 Total Visit Minutes 48 Number of MECHANISM INSPECTOR Visits 0 Physical Therapy Visit Comments Patient Comments pt in room and abstractor present for brace fitting M4 PT-IP Mobility and Gait Start: 12/13/19 13:11 Freq: NEEDED Status: Active Protocol: Document 12/14/19 09:15 AB (Rec: 12/14/19 14:48 AB [id number]) PT-Bed Mobility Assessment Rolling Type of Rolling Log Rolling,Bilateral Level of Assist Moderate Assistance,1 Person Assistance Supine to Sit Supine to Sit Moderate Assistance,1 Person Assistance Sit to Supine Sit to Supine Moderate Assistance PT-Transfer Assessment Sit to and From Stand Sit to and from Stand Moderate Assistance,1 Person Assistance,Use of Upper Extremities Equipment Transfer Assistive Device Gait Belt,Front Wheeled Walker Orthotic/Prosthetic Devices or Brace: Yes Comments Mobility Comments TLSO brace fitting with abstractor conducted. pt completed several log rolling for proper positioning of TLSO requiring mod A for rolling. pt with confusion and requires one step instructions with all tasks. educated nurse on donning TLSO completed sit to stand x 2 reps from EOB mod A and cues. pt seems shaky today requiring mod A for steadiness . ambulated in room using FWW with TLSO on mod A and max cues ~ 25 ft. pt refused to sit up on the chair and wants to go back to bed. PT about to take TLSO off in bed but pt refused and prefers TLSO on. positioned pt in bed. call light and table placed within reach. informed pt regarding brace donning/doffing and will need assistance. informed pt that PT can do caregiver education with spouse but pt stated that spouse cannot come in for training until day of d/c. also informed pt that homehealth PT will be recommended and HHPT/OT can also do caregiver training for donning/doffing of TLSO. pt's spouse called and talked to PT. informed spouse that pt will need assist with TLSO and spouse asked who will assist him with the brace since they do not want pt to go to SNF rehab. informed spouse that PT already talked to pt regarding training her and spouse stated that she cannot do it right away because it will take her more than 2 hours to get here and spouse also does not know when she can come in. Spouse has other concerns regarding restrictions of the TLSO and when asked about what she means by restriction, spouse stated that nobody told her anything about the brace. informed spouse to talked to the doctor regarding TLSO order and stated that she already did. Also informed spouse to talk to the test case developer but spouse stated that she does not want to talk to the rehabilitation case coordinator here in the hospital. informed spouse that we can do donning/doffing TLSO training with her. Gait Assessment Gait Gait Assistance Required: Moderate Assistance Distance (Feet) 25 Able to Maintain Weight Bearing Status Yes During Gait Assistive Devices Assistive Device Gait Belt,Front Wheeled Walker Orthotic/Prosthetic Devices or Brace: No Gait Deviations General Gait Pattern Antalgic,Decreased Stride Length,Decreased Feet Clearance,Step-to Gait Factors Limiting Gait Function Factors Limiting Gait Function Decreased Activity Tolerance, Decreased Strength,Difficulty Following Directions,Limited Range of Motion,Pain,Poor Balance,Poor Safety Awareness Comments Gait Comments pls refer to mobility section for details M5 PT-IP Objective Assessments Start: 12/13/19 13:11 Freq: NEEDED Status: Active Protocol: Document 12/13/19 09:16 AB (Rec: 02/13/20 13:46 AB [id number]) Orientation Orientation/Cognition Level of Alertness Alert Orientation Name,Age,Birthday,Place, Situation Safety Awareness Decreased Safety Awareness Gross Range of Motion Lower Extremity ROM Assessment Within Functional Limits Strength Lower Extremity Strength Assessment Right Impaired Hip 3+/5 Knee 3+/5 Coordination Assessment Gross Coordination Gross Coordination WNL Sensation Assessment Sensation Gross Sensation WNL Muscle Tone Muscle Tone WNL Yes M6 PT-IP Treatment Start: 12/13/19 13:11 Freq: NEEDED Status: Active Protocol: Document 12/14/19 09:15 AB (Rec: 12/14/19 14:48 AB [id number]) Physical Therapy Treatment Education Education Provided Precautions,Weight Bearing Status,Safety M7 PT-IP Assessment and Plan Start: 12/13/19 13:11 Freq: NEEDED Status: Active Protocol: Document 12/14/19 09:15 AB (Rec: 12/14/19 14:48 AB [id number]) PT Summary Assessment and Plan Potential Rehabilitation Potential Good Summary Impairments Pain,ROM,Strength,Balance, Coordination,Sensation,Tone, Cognition,Bed Mobility, Transfers,Gait,Activity Tolerance Progress Towards Goals Slow Progress due to Medical Issues,Slow Progress due to Activity Tolerance Assessment Summary Pt received TLSO brace. pt requiring mod A today and with confusion. pt and spouse refuse pt to go to SNF. pt requires 24/7 assist at this time. If [employer] can provide pt the necessary assistance, pt may go back to [facility] and homehealth PT recommended. pt will need a FWW at this time. Goals Bed Mobility Goal Independent Transfer Goal Independent,Front Wheeled Walker Gait Goal Independent,Front Wheel Walker Gait Distance 200 Other Goals improve ambulation 150 ft using 3WW mod I improve stair climbing 1 step using 3WW SBA; 15 steps using R rail and quad cane SBA Days to Meet Goals 10 Frequency of Treatment Frequency Of Treatment Twice a Day Treatment Plan Physical Therapy Treatment Plan Bed Mobility Training,Transfer Training,Gait Training, Therapeutic Exercise,Balance Retraining,Post Op Education, Discharge Planning,Hot or Cold Pack,Neuromuscular Re-ed, Coordination Retraining,Manual Therapy Recommendations To Nursing Amount of Assist Needed 1 Person Assist Discharge Recommendations PT Discharge Recommendations SNF Rehab Other Discharge Recommendations SNF vs [facility] and home health PT Equipment Needed for Home Before FWW if not safe with 3WW Discharge Transportation Needs at Discharge Private Vehicle,Wheelchair/ Cabulance
--- NOTE | 2019-12-14 09:27 | P.PN_ITS ---
Subjective Subjective Date Patient Seen: 12/14/19 Time Patient Seen: 09:27 Interval history: Per nurse, this AM patient had visual hallucination of person in room. Patient has hx of Parkinson's and taking Sinemet. Patient denies any hallucinations this AM, admits to hallucinations in past with Sinemet, denies hallucinations with narcotics but admits to confusion. TLSO brace arrived and was fitted for patient. Patient complained of pain, but was wearing it in bed. Patient is to wear brace at all times except for in bed or when standing in shower. Talked on phone with significant other concerning discharge - Prefers [facility] Per SO, does not accept admissions over weekend and needs hospital bed that won't arrive until next Tuesday. Would consider [facility] in [place]. [facility]. Patient has minimal pain in lower back, has improved since yesterday. Has not mobilized with PT yet because of wait for TLSO brace. Voiding without difficulty or assistance. Patient denies fever, chills, chest pain, shortness of breath, numbness, tingling, urinary/bowel incontinence Exam Vital Signs (past 8 hours): - 12/14/19 03:58 Temperature 98.0 F Pulse Rate 71 Respiratory Rate 18 Blood Pressure 157/76 H Pulse Oximetry 99 Oxygen Delivery Method Room Air Oxygen Flow Rate 0 Narrative Exam Narrative: 74 year old male is lying comfortably in bed, in no apparent distress. A&Ox3. RR 16, Eyes PERRLA. Dressing CDI, SCDs not in place. Sensory function grossly intact to light touch in LE BL. Dorsalis pedis 2+BL. Able to actively dorsiflex/plantar flex BL. Calves warm, soft, compressible, non tender to palpation. Objective Labs Result Diagrams: 12/12/19 06:10 Assessment & Plan Post-op Postoperative Procedures: Procedures Operation Date: 12/11/19 17:30 Actual Procedures Side Surgeon p L5-S1 SCREW CHANGE AND REVISION T10-S1 SHAN ON LEFT Zane Richard MD Postoperative status: doing well Postoperative plan narrative: Hallucination - Discussed with hospitalist, most likely secondary to Sinemet. Patient needs to follow up with PCP. Continue current pain management Continue SCDs for DVT prophylaxis Restrictions - TLSO at all times except in bed or standing in shower. May bend hips but minimal waist lumbar bend. Mobilize with PT Discharge to SNF or [facility] likely Time Spent With Patient Time with patient: less than 15 minutes Quality VTE Deep Vein Thrombosis/Pulmonary Embolism Present on Admission: No
--- NOTE | 2019-12-14 10:13 | OT.IP.EVAL ---
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, initial encounter (12/10/19) Surgery Performed Operation Date: 12/11/19 17:30 Actual Procedures p L5-S1 SCREW CHANGE AND REVISION T10-S1 SHAN ON LEFT - Zane Richard MD Past Medical History (Last Updated 11/26/19 @ 10:04 by Rebecca Cho, RN) Atherosclerotic heart disease of [place] coronary artery without angina pectoris (Acute) Back pain (Acute) Hearing impaired (Acute) HLD (hyperlipidemia) (Acute) HTN (hypertension) (Acute) Memory deficit (Acute) Osteoarthritis (Acute) Parkinson's disease (Acute) Postoperative anemia (Acute 11/06/19) Sciatica (Acute) Spinal stenosis (Acute) Surgical History (Last Updated 11/26/19 @ 10:05 by Rebecca Cho RN) H/O vasectomy (Acute) History of arthroplasty of left shoulder (Acute) History of arthroscopy of both knees (Acute) History of bilateral total hip arthroplasty (Acute) History of lumbar fusion (Acute ~2011) History of lumbar fusion (Acute 11/06/19) Hx of tonsillectomy (Acute) Status post correction of deviated nasal septum (Acute) Occupational Therapy Inpatient Evaluation/Re-Eval M1 PT/OT-IP Prior Functional Status Start: 12/13/19 13:11 Freq: NEEDED Status: Active Protocol: Document 12/13/19 13:52 ASHLEY (Rec: 12/13/19 16:43 ASHLEY [id number]) Medical Review Prior Functional Status Medical History Reviewed Yes Diet/Fluid Consistency Regular Communication WNL Mobility and Gait Pt states that prior to first surgery in 11/06/2019, he was modified independent with ambulation using 3WW. He climbed 7+7 stairs daily to access his second floor bedroom, bathroom and office. Activities of Daily Living and IADL's Pt states he was independent with all self care including showering prior to first back surgery. His does IADLS. Pt states he still drives Prior Functional Level (Other details) Pt s/p T10-L4 fusion/lami 11/06. Pt d/c'd to [facility] but pt came back to the hospital 11/12/2019 due to L4 radiculopathy for steroids. Pt discharged [facility] but was readmitted for revision of back fusion . Pt delcined to return to either SNF and discharged to [facility] in Tuesday. Pt readmitted for second revision of fusion on 12/11/19. Social History Household Members spouse Living Arrangements House Number of Floors (Floors) Two Floors Number of Stairs To Enter/Railing? 1 step to enter 7steps R rail ascending + landing+ 7 steps with bilateral rails to 2nd level bedroom, bathroom and office. Pt stated that he uses the rail and quad cane for the stairs and keeps second walker upstairs Home Environment High Toilet,Walk in Shower Home Equipment Quad Cane,Shower Seat with Backrest,Long Handled Sponge, Long Handled Shoe Horn,Thread Winder ,Sock Aid,Grab Bars Near Toilet,Grab Bars In Shower Employment Status Retired Additional Social History Comment Pt stated that he has bed canes on the R side of bed at home. M2 OT-IP Current Condition Start: 12/12/19 14:48 Freq: Status: Active Protocol: Document 12/13/19 13:52 PJM (Rec: 12/13/19 16:43 PJM [id number]) Occupational Therapy Current Condition Current Condition Evaluation Date 12/13/19 Treatment Diagnosis decreased ADLS, mobility s/p 2nd revision of T10-L4 fusion Diagnosis Onset Date 12/11/19 Post Operative Precautions Lumbar Precautions Log Roll,No Twisting,Limit Bending,Lifting Restriction of 10 lbs,Gait Belt above Incisional Area Other Precautions Pt currently awaiting arrival of custom TLSO brace with L thigh attachment. He is limited to transfers only per Dr Richard until brace arrives. Pt can have brace off in bed and when standing or sitting in shower. M3 OT- IP Subjective and Pain Start: 12/12/19 14:48 Freq: Status: Active Protocol: Document 12/14/19 09:58 CCC (Rec: 12/14/19 10:13 [facility] [id number]) OT- Subjective Occupational Therapy Visit Type Type Treatment Note Visit Start Time 08:58 Visit Stop Time 09:51 Total Visit Minutes 53 Notes Bullard Machine Operator here for fitting of TLSo and PT also present for part of the session. Occupational Therapy Visit Comments Patient Comments Pt cooperative and wanting to sponge off. Patient/Caregiver Goals To go back to his [facility] on [address]. OT Pain Assessment Pain When Pain Assessed At Rest Pain Present Pain Present Denied Pain M4 OT- IP ADL's Start: 12/12/19 14:48 Freq: Status: Active Protocol: Document 12/14/19 09:58 [facility] (Rec: 12/14/19 10:13 [facility] [id number]) OT [id number] Comments OT Self-Feeding Comments Not at meal time. OT ADL-Grooming Comments OT Grooming Comments Not performed. OT ADL-Dressing General Eval Upper Body Dressing Ability Maximum Assistance Comments OT Dressing Comments Assist to ana undergarment for back brace and for TLSO. Began education for pt for TLSO management and also able to educate nursing for TLSO needs. OT ADL-Toileting Comments OT Toileting Comments did not occur this session OT ADL-Bathing Bathing Type Bathing Type Sponge Bath General Evaluation Bathing Ability Maximal Assistance Comments OT Bathing Comments Pt able to do sponge bathing from BSC next to the bed. Pt able to wash his chest,arms and face and needing assist for completeness for perciare needs, back and legs. M5 OT- IP IADL's Start: 12/12/19 14:48 Freq: Status: Active Protocol: Document 12/13/19 13:52 PJM (Rec: 12/13/19 16:43 PJM [id number]) OT-Instrumental Activities of Daily Living Deficits IADL Deficits Identified Deficits Home Safety Awareness Awareness of Need for Assistance at Home Decreased Awareness Medication Management Medication Management Caregiver Provides Supervision Money Management Money Management Caregiver Provides Supervision Meal Preparation Meal Preparation Caregiver Provides Assist Lathe Sander Lathe Sander Caregiver Provides Assist Driving Driving Caregiver Provides Assist Driving Comments pt drove until 11/04/19 per his report M6 OT- IP Functional Cognition Start: 12/12/19 14:48 Freq: Status: Active Protocol: Document 12/14/19 09:58 [facility] (Rec: 12/14/19 10:13 [facility] [id number]) Cognitive Factors Limiting Selfcare Function Cognitive Ability Level of Alertness Alert Patient Orientation Name,Age,Birthday,Month,Date, Year,Day of Week,Place, Situation Attention Span Ability Capable of Focused Attention, Capable of Sustained Attention Ability to Follow Commands Able to Follow One Step Commands Safety Awareness Decreased Ability to Apply Precautions,Underestimates Need for Assistance Problem Solving Ability Unable to Identify Errors, Needs Assist to Identify Solutions Executive Function Ability Unable to Remember Details Cognitive Comments Cognitive Assessment Comments Pt a bit impulsive adn needing cues to slow down. Reminders to do log rolling and able to states all back precautions. M7 OT- IP Mobility and Balance Start: 12/12/19 14:48 Freq: Status: Active Protocol: Document 12/14/19 09:58 [facility] (Rec: 12/14/19 10:13 [facility] [id number]) OT- Bed Mobility Assessment Rolling Type of Rolling Roll to Right,Roll to Left Level of Assistance Standby Assistance,Minimal Assistance Supine to Sit Supine to Sit Assist Moderate Assistance,Maximum Assistance Sit to Supine Sit to Supine Assist Moderate Assistance OT-Transfer Assessment Sit to and From Stand Sit to and from Stand Minimal Assistance Transfers Transfer Ability Minimal Assistance Technique Transfer Destination Bed,Bedside Commode Devices Transfer Assistive Devices Gait Belt,Front Wheeled Walker Comments Mobility Comments It is much harder for pt to roll in the bed with back brace on and needing MOD to MAX A to help get upright and heavy use of arms on the grab bar. Pt LEONID with FWW for transfers. OT- Balance Assessment Sitting Balance and Reactions Static Sitting Balance Ability Good Standing Balance and Reactions Static Standing Balance Ability Fair Comments Other Balance Tests/Deviations/Treatment Pt at times tends to lean : backwards with TLSO on, reminders to lean forwards and after Bullard Machine Operator able to adjust /modify the brace able to sit up better. M8 OT- IP Objective Assessments Start: 12/12/19 14:48 Freq: Status: Active Protocol: Document 12/13/19 13:52 PJM (Rec: 12/13/19 16:43 PJM [id number]) OT Gross Range of Motion Upper Extremity Range of Motion Assessment Left Impaired ROM Impairments L shoulder active scaption to 90 degrees s/p L TSA RUE WFL OT Strength Comments Strength Comments BUE WFL for self care OT- Coordination Assessment Comments Coordination Comments BUE WFL with no tremors noted this session OT-Muscle Tone Assessment Comments Muscle Tone Comments slight rigidity noted due to Parkinsons OT Sensation Assessment Comments Summary Comments Pt denies deficits in BUE's Edema Edema Absent M9 OT- IP Assessment and Plan Start: 12/12/19 14:48 Freq: Status: Active Protocol: Document 12/14/19 09:58 [facility] (Rec: 12/14/19 10:13 [facility] [id number]) OT Summary Assessment and Plan Potential Rehabilitation Potential Good Analytic Complexity at Evaluation Low Summary OT Impairments Pain,Balance,Functional Cognition,Functional Mobility, Grooming,Dressing,Toileting, Bathing,Toilet Transfers, Shower Transfers,Activity Tolerance Progress Towards Goals Progressing Toward Goals Assessment Summary Bullard Machine Operator states surgeon states no thigh part needed for TLSO however, the left side is a little longer extending down to his left hip to help keep the brace in place. Pt will require increased assist as [facility] if looking to go home and would be beneficial for his to come for caregiver training. Pt states can come when on the day he will be leaving to hopefully go back home. Goals Grooming Goal Standby Assistance Dressing Goal Standby Assistance Toileting Goal Minimal Assistance Bathing Goal Minimal Assistance,Grab Bars, Hand Held Shower Sprayer,Long Handled Sponge or [place] Toilet Transfer Goal Standby Assistance,ADA High Toilet,Grab Bars Shower Transfer Goal Contact Guard Assistance,Walk- in Shower,Shower Chair,Grab Bars Patient/Caregiver Education Goal Demonstrate Post-Op Precautions,Demonstrate Energy Conservation and Pacing OT-Other Goals Pt to don TLSO brace with mod assist sitting or standing. Days to Meet Goals 6 Frequency of Treatment Frequency Of Treatment Once a Day Treatment Plan OT Treatment Plan ADL Training,Functional Mobility,Patient/Family Education,Discharge Planning Discharge Recommendations OT Discharge Recommendations SNF Rehab Other Discharge Recommendations vs [facility] with OT /PT pending progress and caregiver training. Transportation Needs at Discharge Private Vehicle
--- NOTE | 2019-12-14 11:00 | OT.IP.TRT ---
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, initial encounter (12/10/19) Surgery Performed Operation Date: 12/11/19 17:30 Actual Procedures p L5-S1 SCREW CHANGE AND REVISION T10-S1 SHAN ON LEFT - Zane Richard MD Occupational Therapy Treatment Note M2 OT-IP Current Condition Start: 12/12/19 14:48 Freq: Status: Active Protocol: Document 12/13/19 13:52 PJM (Rec: 12/13/19 16:43 PJM [id number]) Occupational Therapy Current Condition Current Condition Evaluation Date 12/13/19 Treatment Diagnosis decreased ADLS, mobility s/p 2nd revision of T10-L4 fusion Diagnosis Onset Date 12/11/19 Post Operative Precautions Lumbar Precautions Log Roll,No Twisting,Limit Bending,Lifting Restriction of 10 lbs,Gait Belt above Incisional Area Other Precautions Pt currently awaiting arrival of custom TLSO brace with L thigh attachment. He is limited to transfers only per Dr Richard until brace arrives. Pt can have brace off in bed and when standing or sitting in shower. M3 OT- IP Subjective and Pain Start: 12/12/19 14:48 Freq: Status: Active Protocol: Document 12/14/19 11:00 [facility] (Rec: 12/14/19 12:53 [facility] [id number]) OT- Subjective Occupational Therapy Visit Type Type Treatment Note Visit Start Time 11:00 Visit Stop Time 11:10 Total Visit Minutes 10 Occupational Therapy Visit Comments Patient Comments Pt states that he is having pain and that his hands are getting cold. Noted TLSO on the bed and padding digging into axillary area as the brace was riding up while lying down. Re-educated pt that the brace can be taken off when in bed or shower. Patient/Caregiver Goals To go back to his [facility] on Tuesday. OT Pain Assessment Pain When Pain Assessed At Rest Pain Present Pain Present Pain Reported Location Right Leg Intensity 10 Scale Used Numeric (1 - 10) M4 OT- IP ADL's Start: 12/12/19 14:48 Freq: Status: Active Protocol: Document 12/14/19 11:00 [facility] (Rec: 12/14/19 12:53 [facility] [id number]) OT [id number] Comments OT Self-Feeding Comments Not at meal time. OT ADL-Grooming Comments OT Grooming Comments Not performed. OT ADL-Dressing General Eval Upper Body Dressing Ability Maximum Assistance Comments OT Dressing Comments Assist to help undo the velcro as pt unable to reach due to limited shoulder mobility. Therefore pt will require assist to help ana/doff the brace. Able to educate nursing aid how to ana/doff the TLSO. M5 OT- IP IADL's Start: 12/12/19 14:48 Freq: Status: Active Protocol: Document 12/13/19 13:52 PJM (Rec: 12/13/19 16:43 PJM [id number]) OT-Instrumental Activities of Daily Living Deficits IADL Deficits Identified Deficits Home Safety Awareness Awareness of Need for Assistance at Home Decreased Awareness Medication Management Medication Management Caregiver Provides Supervision Money Management Money Management Caregiver Provides Supervision Meal Preparation Meal Preparation Caregiver Provides Assist Associate Pathologist Associate Pathologist Caregiver Provides Assist Driving Driving Caregiver Provides Assist Driving Comments pt frove until 11/04/19 per his report M6 OT- IP Functional Cognition Start: 12/12/19 14:48 Freq: Status: Active Protocol: Document 12/14/19 11:00 [facility] (Rec: 12/14/19 12:53 [facility] [id number]) Cognitive Factors Limiting Selfcare Function Cognitive Ability Level of Alertness Alert Patient Orientation Name,Age,Birthday,Month,Date, Year,Day of Week,Place, Situation Attention Span Ability Capable of Focused Attention, Capable of Sustained Attention Ability to Follow Commands Able to Follow One Step Commands Memory Description Short Term Impaired Safety Awareness Decreased Ability to Apply Precautions,Underestimates Need for Assistance Problem Solving Ability Unable to Identify Errors, Needs Assist to Identify Solutions Executive Function Ability Unable to Remember Details Cognitive Comments Cognitive Assessment Comments Pt needing step by step cues for log rolling. Pt not remembering that he is not to have the brace on while in bed . Only to be worn when up. M7 OT- IP Mobility and Balance Start: 12/12/19 14:48 Freq: Status: Active Protocol: Document 12/14/19 11:00 [facility] (Rec: 12/14/19 12:53 [facility] [id number]) OT- Bed Mobility Assessment Rolling Type of Rolling Roll to Right Level of Assistance Minimal Assistance Supine to Sit Supine to Sit Assist Maximum Assistance Sit to Supine Sit to Supine Assist Moderate Assistance OT-Transfer Assessment Comments Mobility Comments Pt needing MAXA to help get upright due to wearing the brace and ramsey for the pt to do bed mobilty. OT- Balance Assessment Sitting Balance and Reactions Static Sitting Balance Ability Good Comments Other Balance Tests/Deviations/Treatment Initially, pt still leans : backwards when sitting upright . M8 OT- IP Objective Assessments Start: 12/12/19 14:48 Freq: Status: Active Protocol: Document 12/13/19 13:52 PJM (Rec: 12/13/19 16:43 PJM [id number]) OT Gross Range of Motion Upper Extremity Range of Motion Assessment Left Impaired ROM Impairments L shoulder active scaption to 90 degrees s/p L TSA RUE WFL OT Strength Comments Strength Comments BUE WFL for self care OT- Coordination Assessment Comments Coordination Comments BUE WFL with no tremors noted this session OT-Muscle Tone Assessment Comments Muscle Tone Comments slight rigidity noted due to Parkinsons OT Sensation Assessment Comments Summary Comments Pt denies deficits in BUE's Edema Edema Absent M9 OT- IP Assessment and Plan Start: 12/12/19 14:48 Freq: Status: Active Protocol: Document 12/14/19 11:00 [facility] (Rec: 12/14/19 12:53 [facility] [id number]) OT Summary Assessment and Plan Potential Rehabilitation Potential Good Analytic Complexity at Evaluation Low Summary OT Impairments Pain,Balance,Functional Cognition,Functional Mobility, Grooming,Dressing,Toileting, Bathing,Toilet Transfers, Shower Transfers,Activity Tolerance Progress Towards Goals Slow Progress due to Cognition Assessment Summary Pt luis not be able to ana/ doff the TLSO on his own and will need to have the assist. Therefore pending caregiver training for TLSO and assist for bed mobility pt may benefit from skilled rehab vs home with home health and increased assist. Goals Grooming Goal Standby Assistance Dressing Goal Standby Assistance Toileting Goal Minimal Assistance Bathing Goal Minimal Assistance,Grab Bars, Hand Held Shower Sprayer,Long Handled Sponge or [place] Toilet Transfer Goal Standby Assistance,ADA High Toilet,Grab Bars Shower Transfer Goal Contact Guard Assistance,Walk- in Shower,Shower Chair,Grab Bars Patient/Caregiver Education Goal Demonstrate Post-Op Precautions,Demonstrate Energy Conservation and Pacing OT-Other Goals Pt to don TLSO brace with mod assist sitting or standing. Days to Meet Goals 5 Frequency of Treatment Frequency Of Treatment Twice a Day Treatment Plan OT Treatment Plan ADL Training,Functional Mobility,Patient/Family Education,Discharge Planning Discharge Recommendations OT Discharge Recommendations SNF Rehab Other Discharge Recommendations vs [facility] with HH OT /PT pending progress and caregiver training. Transportation Needs at Discharge Private Vehicle
--- NOTE | 2019-12-14 11:20 | CM.DPC ---
Addendum entered by Anuja Barreto LPN 12/14/19 15:59: total of 3+ hours spend on this case today. Addendum entered by Anuja Barreto LPN 12/14/19 15:49: wonder about a referral to [facility] acute rehab unit? Veronica is continually expressing concern re the lack of physician oversite at the snf level....Due to lateness of hour cannot follow on this and have not discussed with Veronica or care team members....Will defer to the DCP team to consider tomorrow. Addendum entered by Anuja Barreto LPN 12/14/19 15:39: Have updated Veronica now on the intial referral. She wants to make it clear to the DCP team and the hospital that she has not decided on this plan and does not want him d/c'd there without her agreement to do so. Addendum entered by Anuja Barreto LPN 12/14/19 15:09: Initial referral info in faxed now to [facility] hospital nurse liaison Allison: fx: [phone] facility phone # is [phone]. Called the facility and was directed to Deisy's vm: left a message re the referral. Addendum entered by Anuja Barreto LPN 12/14/19 14:49: Spoke at length now with Veronica. She was home and the conversation seemed much smoother. She is considering snf setting and would like initial referral packet to go to [facility] in [place]. She is not certain they will accept this but would like to tour the facility or speak with someone there by phone re her overall concerns. She will wait for ENOC Block to call her but she does say that Dr. Richard assured her that her would not leave before he was ready and she feels strongly that he is not. She states that she thinks her was d/c'd too early with his last 2 admissions and does not wish this to happen again. Acknowledged her concerns and plans. Explained again that the role of CM d/c materials planner/production planner is to take direction from the provider on d/c readiness and at the same time to advocate for pt and family as part of the process of a safe and appropriate d/c plan. Encouraged her to share her concerns with Umair and she plans to do this. She plans also to obtain her 's medical records for his recent and current stay and she is directed to the Medical Records dept for assist with this. DCP team will continue to follow. Addendum entered by Anuja Barreto LPN 12/14/19 13:27: Received a call from Veronica just now. She expressed her frustration over her husbands POC, said she is not coming in today and is angry that the d/c planning team has spoken with the facility in which pt was staying and to which he expects to return. She said she will not discuss d/c plans further until she is home (she was in her car) and I have my notes in front of me. She stated that she is her 's caregiver and no decisions should be make with anyone other than her. Agreed to speak with her in about an hour when she is home and settled to continue the d/c dispo discussion. Ortho ENOC Block is now in the office to check in..he is updated. Will not be d/c'ing pt today and he will call pt's this afternoon from his clinic to update her on her 's plan and to provide clarity re anticipated d/c date. Addendum entered by Anuja Barreto LPN 12/14/19 12:05: Attempted to talk with pt's Veronica by phone and have left messages for her on home: [phone] and cell: [phone]. Spoke with Pipo, account administrator at the [facility]. [phone]. He stated that Veronica had been there earlier today and that he and his team had talked to her at length re their recommendation for a snf stay and that they have heard [facility] in [place] is good. She was non-committal he said, saying she wanted to discuss this first with pt. Pipo confirms that the hospital bed has not yet been ordered. He can have it expedited from [facility] and is willing to do this if he must. He says he does understand the pt's desire to return to his setting and says they will make it work if they must. DCP team will continue to follow. Original Note: DCP: continued. Case received and discussed in Team Rounds yesterday and again this morning. A specialty fitted TLSO has been ordered and OT/PT were not to fully work with pt until this was delivered. Met now with pt after hearing from Ortho ENOC Block that the brace had been delivered this morning. Pt is found lying in bed, TLSO in chair (he is to wear the brace when out of bed at all times. Brace is to remain off when he is in bed and he is ok to not use it in the shower, per orthopedic note of yesterday). Pt stated he is unhappy with the brace as it is uncomfortable. OT Latoya states that this is because pt had the brace on in bed. She notes that pt does seem to have some problems recalling details. She has updated ENOC Block. Pt's is back in [place], will call her now. Pt's understanding of his plan is that he is to return to the [facility] and continue HH services at d/c.
--- NOTE | 2019-12-14 12:55 | OT.IP.TRT ---
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, initial encounter (12/10/19) Surgery Performed Operation Date: 12/11/19 17:30 Actual Procedures p L5-S1 SCREW CHANGE AND REVISION T10-S1 SHAN ON LEFT - Zane Richard MD Occupational Therapy Treatment Note M2 OT-IP Current Condition Start: 12/12/19 14:48 Freq: Status: Active Protocol: Document 12/13/19 13:52 PJM (Rec: 12/13/19 16:43 PJM [id number]) Occupational Therapy Current Condition Current Condition Evaluation Date 12/13/19 Treatment Diagnosis decreased ADLS, mobility s/p 2nd revision of T10-L4 fusion Diagnosis Onset Date 12/11/19 Post Operative Precautions Lumbar Precautions Log Roll,No Twisting,Limit Bending,Lifting Restriction of 10 lbs,Gait Belt above Incisional Area Other Precautions Pt currently awaiting arrival of custom TLSO brace with L thigh attachment. He is limited to transfers only per Dr Richard until brace arrives. Pt can have brace off in bed and when standing or sitting in shower. M3 OT- IP Subjective and Pain Start: 12/12/19 14:48 Freq: Status: Active Protocol: Document 12/14/19 11:00 [facility] (Rec: 12/14/19 12:53 [facility] [id number]) OT- Subjective Occupational Therapy Visit Type Type Treatment Note Visit Start Time 11:00 Visit Stop Time 11:10 Total Visit Minutes 10 Occupational Therapy Visit Comments Patient Comments Pt states that he is having pain and that his hands are getting cold. Noted TLSO on the bed and padding digging into axillary area as the brace was riding up while lying down. Re-educated pt that the brace can be taken off when in bed or shower. Patient/Caregiver Goals To go back to his [facility] on Tuesday. OT Pain Assessment Pain When Pain Assessed At Rest Pain Present Pain Present Pain Reported Location Right Leg Intensity 10 Scale Used Numeric (1 - 10) M4 OT- IP ADL's Start: 12/12/19 14:48 Freq: Status: Active Protocol: Document 12/14/19 11:00 [facility] (Rec: 12/14/19 12:53 [facility] [id number]) OT [id number] Comments OT Self-Feeding Comments Not at meal time. OT ADL-Grooming Comments OT Grooming Comments Not performed. OT ADL-Dressing General Eval Upper Body Dressing Ability Maximum Assistance Comments OT Dressing Comments Assist to help undo the velcro as pt unable to reach due to limited shoulder mobility. Therefore pt will require assist to help ana/doff the brace. Able to educate nursing aid how to ana/doff the TLSO. M5 OT- IP IADL's Start: 12/12/19 14:48 Freq: Status: Active Protocol: Document 12/13/19 13:52 PJM (Rec: 12/13/19 16:43 PJM [id number]) OT-Instrumental Activities of Daily Living Deficits IADL Deficits Identified Deficits Home Safety Awareness Awareness of Need for Assistance at Home Decreased Awareness Medication Management Medication Management Caregiver Provides Supervision Money Management Money Management Caregiver Provides Supervision Meal Preparation Meal Preparation Caregiver Provides Assist Supervisor Stave Cutting Supervisor Stave Cutting Caregiver Provides Assist Driving Driving Caregiver Provides Assist Driving Comments pt frove until 11/04/19 per his report M6 OT- IP Functional Cognition Start: 12/12/19 14:48 Freq: Status: Active Protocol: Document 12/14/19 11:00 [facility] (Rec: 12/14/19 12:53 [facility] [id number]) Cognitive Factors Limiting Selfcare Function Cognitive Ability Level of Alertness Alert Patient Orientation Name,Age,Birthday,Month,Date, Year,Day of Week,Place, Situation Attention Span Ability Capable of Focused Attention, Capable of Sustained Attention Ability to Follow Commands Able to Follow One Step Commands Memory Description Short Term Impaired Safety Awareness Decreased Ability to Apply Precautions,Underestimates Need for Assistance Problem Solving Ability Unable to Identify Errors, Needs Assist to Identify Solutions Executive Function Ability Unable to Remember Details Cognitive Comments Cognitive Assessment Comments Pt needing step by step cues for log rolling. Pt not remembering that he is not to have the brace on while in bed . Only to be worn when up. M7 OT- IP Mobility and Balance Start: 12/12/19 14:48 Freq: Status: Active Protocol: Document 12/14/19 11:00 [facility] (Rec: 12/14/19 12:53 [facility] [id number]) OT- Bed Mobility Assessment Rolling Type of Rolling Roll to Right Level of Assistance Minimal Assistance Supine to Sit Supine to Sit Assist Maximum Assistance Sit to Supine Sit to Supine Assist Moderate Assistance OT-Transfer Assessment Comments Mobility Comments Pt needing MAXA to help get upright due to wearing the brace and ramsey for the pt to do bed mobilty. OT- Balance Assessment Sitting Balance and Reactions Static Sitting Balance Ability Good Comments Other Balance Tests/Deviations/Treatment Initially, pt still leans : backwards when sitting upright . M8 OT- IP Objective Assessments Start: 12/12/19 14:48 Freq: Status: Active Protocol: Document 12/13/19 13:52 [facility] (Rec: 12/13/19 16:43 PJM [id number]) OT Gross Range of Motion Upper Extremity Range of Motion Assessment Left Impaired ROM Impairments L shoulder active scaption to 90 degrees s/p L TSA RUE WFL OT Strength Comments Strength Comments BUE WFL for self care OT- Coordination Assessment Comments Coordination Comments BUE WFL with no tremors noted this session OT-Muscle Tone Assessment Comments Muscle Tone Comments slight rigidity noted due to Parkinsons OT Sensation Assessment Comments Summary Comments Pt denies deficits in BUE's Edema Edema Absent M9 OT- IP Assessment and Plan Start: 12/12/19 14:48 Freq: Status: Active Protocol: Document 12/14/19 11:00 [facility] (Rec: 12/14/19 12:53 [facility] [id number]) OT Summary Assessment and Plan Potential Rehabilitation Potential Good Analytic Complexity at Evaluation Low Summary OT Impairments Pain,Balance,Functional Cognition,Functional Mobility, Grooming,Dressing,Toileting, Bathing,Toilet Transfers, Shower Transfers,Activity Tolerance Progress Towards Goals Slow Progress due to Cognition Assessment Summary Pt luis not be able to ana/ doff the TLSO on his own and will need to have the assist. Therefore pending caregiver training for TLSO and assist for bed mobility pt may benefit from skilled rehab vs home with home health and increased assist. Goals Grooming Goal Standby Assistance Dressing Goal Standby Assistance Toileting Goal Minimal Assistance Bathing Goal Minimal Assistance,Grab Bars, Hand Held Shower Sprayer,Long Handled Sponge or [place] Toilet Transfer Goal Standby Assistance,ADA High Toilet,Grab Bars Shower Transfer Goal Contact Guard Assistance,Walk- in Shower,Shower Chair,Grab Bars Patient/Caregiver Education Goal Demonstrate Post-Op Precautions,Demonstrate Energy Conservation and Pacing OT-Other Goals Pt to don TLSO brace with mod assist sitting or standing. Days to Meet Goals 5 Frequency of Treatment Frequency Of Treatment Twice a Day Treatment Plan OT Treatment Plan ADL Training,Functional Mobility,Patient/Family Education,Discharge Planning Discharge Recommendations OT Discharge Recommendations SNF Rehab Other Discharge Recommendations vs [place] [facility] with HH OT /PT pending progress and caregiver training. Transportation Needs at Discharge Private Vehicle
--- NOTE | 2019-12-14 15:39 | PC.NURSE ---
SHIFT SUMMARY: EARLY THIS AM PATIENT HAD SOME HALLUCINATIONS, AFEBRILE AND OTHERWISE COMPLETELY ALERT AND ORIENTED. ORTHO PA NOTIFIED. OKAY TO CONTINUE TO GIVE HIS OXYCODONE IF NEEDED. PA ATTRIBUTES HALLUCINATIONS TO HIS HX OF PARKINSON'S. PATIENT'S TSLO BRACE ARRIVED THIS MORNING. PHYSICAL THERAPY AND OCCUPATIONAL THERAPY AT BEDSIDE WHEN ARRIVED. ORTHO PA NOTIFIED TSLO BRACE HAD ARRIVED. PATIENT'S PAIN 2-3/10 ALL SHIFT WITH TYLENOL. STATES HIS PAIN LEVELS ARE THE .BEST THEY HAVE BEEN IN A WHILE
--- NOTE | 2019-12-14 16:35 | PT.IPTN ---
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, initial encounter (12/10/19) Surgery Performed Operation Date: 12/11/19 17:30 Actual Procedures p L5-S1 SCREW CHANGE AND REVISION T10-S1 SHAN ON LEFT - Zane Richard MD Physical Therapy Treatment Note M2 PT-IP Current Condition Start: 12/13/19 13:11 Freq: NEEDED Status: Active Protocol: Document 12/13/19 09:16 [facility] (Rec: 12/13/19 13:46 [facility] [id number]) Physical Therapy Current Condition Current Condition Evaluation Date 12/13/19 Treatment Diagnosis s/p L5S1 L screws exchange;T10 -S1 removal old shan & replace; diff in walking Onset Date 12/11/2019 Precautions Lumbar Precautions Log Roll,No Twisting,Limit Bending,Lifting Restriction of 10 lbs,Gait Belt above Incisional Area Other Precautions Per Dr. Richard 12/12/2019: limit activity to transfers only until TLSO brace available M3 PT-IP Subjective Start: 12/13/19 13:11 Freq: NEEDED Status: Active Protocol: Document 12/14/19 16:12 [facility] (Rec: 12/14/19 17:42 [facility] [id number]) Subjective Physical Therapy Visit Type Type Treatment Note Visit Start Time 16:12 Visit Stop Time 16:35 Total Visit Minutes 23 Number of FARM INSTRUCTOR Visits 1 Physical Therapy Visit Comments Patient Comments Pt in room and nursing present upon arrival from therapy. Therapy Pain Assessment Pain When Pain Assessed After Treatment Pain Present Pain Present Denied Pain M4 PT-IP Mobility and Gait Start: 12/13/19 13:11 Freq: NEEDED Status: Active Protocol: Document 12/14/19 16:12 [facility] (Rec: 12/14/19 17:42 [facility] [id number]) PT-Bed Mobility Assessment Rolling Type of Rolling Log Rolling,Roll to Right Level of Assist Standby Assistance Supine to Sit Supine to Sit Contact Guard Assistance, Minimal Assistance,1 Person Assistance Sit to Supine Sit to Supine Contact Guard Assistance,1 Person Assistance Scooting Scooting to Edge of Bed Contact Guard Assistance, Minimal Assistance PT-Transfer Assessment Sit to and From Stand Sit to and from Stand Contact Guard Assistance,1 Person Assistance,Use of Upper Extremities Equipment Transfer Assistive Device Gait Belt,Front Wheeled Walker Orthotic/Prosthetic Devices or Brace: Yes Transfers Transfer Destination Bed Transfer Technique Pt ambulated w/ FWW Transfer Ability Level of Assist Contact Guard Assistance,1 Person Assistance,Use of Upper Extremities Comments Mobility Comments Pt in bed upon arrival from therapy and nursing in room. Pt able to recall 3/3 precautions. SBA for logroll to R, CGA to Min A for sidelying to sit and scooting EOB. TLSO brace applied while pt sitting, CGA for sit<.stand from bed w/ FWW, Pt then ambulated ~240 ft w/ TLSO and FWW and CGA w/cues for upright posture and FWW management. Pt had ER feet and short stride and reported slight fatigue during approach back to room. CGA for stand<>sit EOB and logroll back into bed. Pt left in bed w/ all needs in reach. Gait Assessment Gait Gait Assistance Required: Contact Guard Assist,1 Person Assist Distance (Feet) 240 Able to Maintain Weight Bearing Status Yes During Gait Assistive Devices Assistive Device Gait Belt,Front Wheeled Walker Orthotic/Prosthetic Devices or Brace: No Gait Deviations General Gait Pattern Antalgic,Decreased Stride Length,Decreased Feet Clearance Factors Limiting Gait Function Factors Limiting Gait Function Decreased Activity Tolerance, Decreased Strength,Difficulty Following Directions,Limited Range of Motion,Pain,Poor Balance,Poor Safety Awareness Comments Gait Comments Please see mobility section for details. M5 PT-IP Objective Assessments Start: 12/13/19 13:11 Freq: NEEDED Status: Active Protocol: Document 12/13/19 09:16 [facility] (Rec: 12/13/19 13:46 AB [id number]) Orientation Orientation/Cognition Level of Alertness Alert Orientation Name,Age,Birthday,Place, Situation Safety Awareness Decreased Safety Awareness Gross Range of Motion Lower Extremity ROM Assessment Within Functional Limits Strength Lower Extremity Strength Assessment Right Impaired Hip 3+/5 Knee 3+/5 Coordination Assessment Gross Coordination Gross Coordination WNL Sensation Assessment Sensation Gross Sensation WNL Muscle Tone Muscle Tone WNL Yes M6 PT-IP Treatment Start: 12/13/19 13:11 Freq: NEEDED Status: Active Protocol: Document 12/14/19 16:12 [facility] (Rec: 12/14/19 17:42 [facility] [id number]) Physical Therapy Treatment Education Education Provided Precautions,Weight Bearing Status,Safety M7 PT-IP Assessment and Plan Start: 12/13/19 13:11 Freq: NEEDED Status: Active Protocol: Document 12/14/19 16:12 [facility] (Rec: 12/14/19 17:42 [facility] [id number]) PT Summary Assessment and Plan Potential Rehabilitation Potential Good Summary Impairments Pain,ROM,Strength,Balance, Coordination,Sensation,Tone, Cognition,Bed Mobility, Transfers,Gait,Activity Tolerance Progress Towards Goals Progressing Toward Goals,Slow Progress due to Medical Issues Assessment Summary Pt showed improvements w/ mobility and ambulation this afternoon. Able to recall 3/3 precautions, complete safe logroll to R SBA, Min A for sidelying to sit and scooting EOB, CGA for sit<>stand and ambulation w/ FWW. Occasional cues required for upright posture and staying inside FWW during ambulation. Pt denied any pain following treatment. Goals Bed Mobility Goal Independent Transfer Goal Independent,Front Wheeled Walker Gait Goal Independent,Front Wheel Walker Gait Distance 200 Other Goals improve ambulation 150 ft using 3WW mod I improve stair climbing 1 step using 3WW SBA; 15 steps using R rail and quad cane SBA Days to Meet Goals 10 Frequency of Treatment Frequency Of Treatment Twice a Day Treatment Plan Physical Therapy Treatment Plan Bed Mobility Training,Transfer Training,Gait Training, Therapeutic Exercise,Balance Retraining,Post Op Education, Discharge Planning,Hot or Cold Pack,Neuromuscular Re-ed, Coordination Retraining,Manual Therapy Recommendations To Nursing Amount of Assist Needed 1 Person Assist Discharge Recommendations PT Discharge Recommendations Home with Assistance,Home with 23/05 Assist,Home Health,SNF Rehab Equipment Needed for Home Before FWW if not safe with 3WW Discharge Transportation Needs at Discharge Private Vehicle,Wheelchair/ Cabulance
--- NOTE | 2019-12-14 17:39 | PC.NURSE ---
Addendum entered by Dominique Mooney R.N. 12/14/19 18:45: Brace placed on pt per SCEN[employer]S SUPERVISOR and pt ambulating in hallway with walker and standby assistance. Original Note: Pt resting quietly in bed alert and awake. States pain, not too bad. Rates incisional pain to back 12/10. P.T. enters room to mobilize pt. Pt observes log rolling technique well and is able to move self to edge of bed. Brace placed by P.T. and pt able to stand and ambulate with walker and assistance into hallway. Returned to bed following ambulation. Refuses to wear scd's, but is actively ankle waving and calf pumping. Palpable post tib pulses BL. Admits to full sensation to BL LE's. Dressing to back is dry and intact.
[2019-12-14] MEDS: ATORVASTATIN 10 MG TABLET PO (20:08)
[2019-12-14] MEDS: SENNOSIDES 8.6 MG TABLET 17.2 MG PO (20:09)
[2019-12-14] MEDS: hydroCHLOROthiazide 25 MG TABLET PO (20:09)
[2019-12-14] MEDS: PANTOPRAZOLE 20 MG TABLET PO (20:09)
[2019-12-14] MEDS: TELMISARTAN 40 MG TABLET 80 MG PO (20:11)
[2019-12-14] MEDS: TAMSULOSIN 0.4 MG CAPSULE PO (20:11)
[2019-12-14] MEDS: TRIAZOLAM 0.125 MG TABLET 0.175 MG PO (22:14)
[2019-12-15] VITALS (8 sets, daily range): BP systolic 99–169; BP diastolic 45–72; PULSE 60–73; RESP 16–19; TEMP 36.3–36.9; O2SAT 96–99
[2019-12-15] MEDS: ACETAMINOPHEN 325 MG TABLET 650 MG PO ×3 (07:43→21:07)
[2019-12-15] MEDS: SODIUM CHLORIDE 0.9% FLUSH 10 ML IV ×2 (07:43→14:23)
[2019-12-15] MEDS: CARBIDOPA-LEVODOPA 25/100 TABLET 1.5 EACH PO ×3 (07:44→21:09)
[2019-12-15] MEDS: DOCUSATE 100 MG CAPSULE PO (07:44)
[2019-12-15] MEDS: CELECOXIB 200 MG CAPSULE PO ×2 (07:44→21:07)
--- NOTE | 2019-12-15 10:20 | PT.IPTN ---
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, initial encounter (12/10/19) Surgery Performed Operation Date: 12/11/19 17:30 Actual Procedures p L5-S1 SCREW CHANGE AND REVISION T10-S1 SHAN ON LEFT - Zane Richard MD Physical Therapy Treatment Note M2 PT-IP Current Condition Start: 12/13/19 13:11 Freq: NEEDED Status: Active Protocol: Document 12/13/19 09:16 AB (Rec: 12/13/19 13:46 AB [id number]) Physical Therapy Current Condition Current Condition Evaluation Date 12/13/19 Treatment Diagnosis s/p L5S1 L screws exchange;T10 -S1 removal old shan & replace; diff in walking Onset Date 12/11/2019 Precautions Lumbar Precautions Log Roll,No Twisting,Limit Bending,Lifting Restriction of 10 lbs,Gait Belt above Incisional Area Other Precautions Per Dr. Richard 12/12/2019: limit activity to transfers only until TLSO brace available M3 PT-IP Subjective Start: 12/13/19 13:11 Freq: NEEDED Status: Active Protocol: Document 12/15/19 10:57 [facility] (Rec: 12/15/19 12:53 [facility] [id number]) Subjective Physical Therapy Visit Type Type Treatment Note Visit Start Time 10:57 Visit Stop Time 11:20 Total Visit Minutes 23 Number of THERAPY DIRECTOR Visits 2 Physical Therapy Visit Comments Patient Comments Pt agreeable to work w/ therapy. Therapy Pain Assessment Pain When Pain Assessed After Treatment Pain Present Pain Present Pain Reported Location Right Leg Intensity 2 Scale Used Numeric (1 - 10) Pain Management Techniques Re-positioning M4 PT-IP Mobility and Gait Start: 12/13/19 13:11 Freq: NEEDED Status: Active Protocol: Document 12/15/19 10:57 [facility] (Rec: 12/15/19 12:53 [facility] [id number]) PT-Bed Mobility Assessment Scooting Scooting to Edge of Bed Contact Guard Assistance, Minimal Assistance PT-Transfer Assessment Sit to and From Stand Sit to and from Stand Contact Guard Assistance, Minimal Assistance,1 Person Assistance,Use of Upper Extremities Equipment Transfer Assistive Device Gait Belt,Front Wheeled Walker Orthotic/Prosthetic Devices or Brace: Yes Transfers Transfer Destination Chair Transfer Technique Pt ambulated w/ FWW Transfer Ability Level of Assist Contact Guard Assistance,1 Person Assistance,Use of Upper Extremities Comments Mobility Comments Pt was sitting in chair upon arrival from therapy w/ TLSO brace on. Pt required CGA to Min A and cues for scooting to edge of chair as well as for sit<>stand w/ FWW and cues for hand placement. Pt then ambulated w/ FWW and CGA and returned to room and sat back in chair. Pt was fatigued, BP assessed after sittin/41, taken again w/ chair reclined 102/47. Pt left in room w/ OT in room. Gait Assessment Gait Gait Assistance Required: Contact Guard Assist,1 Person Assist Distance (Feet) 300 Able to Maintain Weight Bearing Status Yes During Gait Assistive Devices Assistive Device Gait Belt,Front Wheeled Walker Orthotic/Prosthetic Devices or Brace: No Gait Deviations General Gait Pattern Antalgic,Decreased Stride Length,Decreased Feet Clearance Factors Limiting Gait Function Factors Limiting Gait Function Decreased Activity Tolerance, Decreased Strength,Difficulty Following Directions,Limited Range of Motion,Pain,Poor Balance,Poor Safety Awareness Comments Gait Comments Pt ambulated ~300 ft w/ FWW and CGA today. Pt required 2x standing rest breaks during bout of ambulation. Pt began to fatigue ~50 ft from room and required cues for deep breathing. Pt stated that he wanted to keep walking, but THERAPY DIRECTOR took him back to room. Pt needed frequent cues for staying inside FWW. M5 PT-IP Objective Assessments Start: 12/13/19 13:11 Freq: NEEDED Status: Active Protocol: Document 12/13/19 09:16 AB (Rec: 12/13/19 13:46 AB [id number]) Orientation Orientation/Cognition Level of Alertness Alert Orientation Name,Age,Birthday,Place, Situation Safety Awareness Decreased Safety Awareness Gross Range of Motion Lower Extremity ROM Assessment Within Functional Limits Strength Lower Extremity Strength Assessment Right Impaired Hip 3+/5 Knee 3+/5 Coordination Assessment Gross Coordination Gross Coordination WNL Sensation Assessment Sensation Gross Sensation WNL Muscle Tone Muscle Tone WNL Yes M6 PT-IP Treatment Start: 12/13/19 13:11 Freq: NEEDED Status: Active Protocol: Document 12/15/19 10:57 [facility] (Rec: 12/15/19 12:53 [facility] [id number]) Physical Therapy Treatment Education Education Provided Precautions,Safety M7 PT-IP Assessment and Plan Start: 12/13/19 13:11 Freq: NEEDED Status: Active Protocol: Document 12/15/19 10:57 [facility] (Rec: 12/15/19 12:53 [facility] [id number]) PT Summary Assessment and Plan Potential Rehabilitation Potential Good Summary Impairments Pain,ROM,Strength,Balance, Coordination,Sensation,Tone, Cognition,Bed Mobility, Transfers,Gait,Activity Tolerance Progress Towards Goals Progressing Toward Goals,Slow Progress due to Medical Issues Assessment Summary Pt is moving well, but needs assistance w/ scooting likely d/t TLSO brace. Pt is CGA to Min A for scooting and sit<> stand w/ cues for hand placement. CGA for ambulation w/ FWW w/ [id number] for FWW mgmt. Pt stated multiple times that he would like to keep walking, but was clearly fatigued so returned to room. CGA for stand<>sit in chair, pts BP assessed in sitting 87/41, then reassessed in reclined position 102/47, pt denied light headedness. Left in room w/ OT and all needs in reach. Goals Bed Mobility Goal Independent Transfer Goal Independent,Front Wheeled Walker Gait Goal Independent,Front Wheel Walker Gait Distance 200 Other Goals improve ambulation 150 ft using 3WW mod I improve stair climbing 1 step using 3WW SBA; 15 steps using R rail and quad cane SBA Days to Meet Goals 10 Frequency of Treatment Frequency Of Treatment Twice a Day Treatment Plan Physical Therapy Treatment Plan Bed Mobility Training,Transfer Training,Gait Training, Therapeutic Exercise,Balance Retraining,Post Op Education, Discharge Planning,Hot or Cold Pack,Neuromuscular Re-ed, Coordination Retraining,Manual Therapy Recommendations To Nursing Amount of Assist Needed 1 Person Assist Discharge Recommendations PT Discharge Recommendations Home with 23/05 Assist,Home Health,SNF Rehab Transportation Needs at Discharge Private Vehicle,Wheelchair/ Cabulance
--- NOTE | 2019-12-15 11:30 | OT.IP.TRT ---
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, initial encounter (12/10/19) Surgery Performed Operation Date: 12/11/19 17:30 Actual Procedures p L5-S1 SCREW CHANGE AND REVISION T10-S1 SHAN ON LEFT - Zane Richard MD Occupational Therapy Treatment Note M2 OT-IP Current Condition Start: 12/12/19 14:48 Freq: Status: Active Protocol: Document 12/13/19 13:52 [facility] (Rec: 12/13/19 16:43 [facility] [id number]) Occupational Therapy Current Condition Current Condition Evaluation Date 12/13/19 Treatment Diagnosis decreased ADLS, mobility s/p 2nd revision of T10-L4 fusion Diagnosis Onset Date 12/11/19 Post Operative Precautions Lumbar Precautions Log Roll,No Twisting,Limit Bending,Lifting Restriction of 10 lbs,Gait Belt above Incisional Area Other Precautions Pt currently awaiting arrival of custom TLSO brace with L thigh attachment. He is limited to transfers only per Dr Richard until brace arrives. Pt can have brace off in bed and when standing or sitting in shower. M3 OT- IP Subjective and Pain Start: 12/12/19 14:48 Freq: Status: Active Protocol: Document 12/15/19 11:02 [facility] (Rec: 12/15/19 11:30 [facility] [id number]) OT- Subjective Occupational Therapy Visit Type Type Treatment Note Visit Start Time 10:20 Visit Stop Time 10:58 Total Visit Minutes 38 Occupational Therapy Visit Comments Patient Comments Pt wanting to take a shower and just completed working with TOWEL INSPECTOR. Patient/Caregiver Goals Pt insistent in going home versus [facility], SNF, or any other rehab option. In addition, pt no open at this time to have any home health. I have not been home since October and I just want to go home. OT Pain Assessment Pain When Pain Assessed At Rest Pain Present Pain Present Pain Reported Location Right Leg Intensity 2 Scale Used Numeric (1 - 10) M4 OT- IP ADL's Start: 12/12/19 14:48 Freq: Status: Active Protocol: Document 12/15/19 11:02 [facility] (Rec: 12/15/19 11:30 [facility] [id number]) OT [id number] Comments OT Self-Feeding Comments Not at meal time. OT ADL-Grooming Comments OT Grooming Comments Not performed. OT ADL-Dressing Comments OT Dressing Comments Pt not wanting to wear the undergarment given to the pt to be worn under the TLSO, Pt states would rather just wear a gown underneath. OT ADL-Toileting Comments OT Toileting Comments Educated pt on irformation for toielt aid or that his will have to assist if going home. OT ADL-Bathing Comments OT Bathing Comments Attempted to have pt shower and see if able to shower on his own as he says he will be able to do on his own minus TLSO management. BP after sitting back down with legs down 87/41 after PT session and pt states only feeling tired, 94/45. sitting with legs up 102/72, sitting with legs down 106/37. M5 OT- IP IADL's Start: 12/12/19 14:48 Freq: Status: Active Protocol: Document 12/13/19 13:52 [facility] (Rec: 12/13/19 16:43 [facility] [id number]) OT-Instrumental Activities of Daily Living Deficits IADL Deficits Identified Deficits Home Safety Awareness Awareness of Need for Assistance at Home Decreased Awareness Medication Management Medication Management Caregiver Provides Supervision Money Management Money Management Caregiver Provides Supervision Meal Preparation Meal Preparation Caregiver Provides Assist Roller Skates Assembler Roller Skates Assembler Caregiver Provides Assist Driving Driving Caregiver Provides Assist Driving Comments pt frove until 11/04/19 per his report M6 OT- IP Functional Cognition Start: 12/12/19 14:48 Freq: Status: Active Protocol: Document 12/15/19 11:02 [facility] (Rec: 12/15/19 11:30 [facility] [id number]) Cognitive Factors Limiting Selfcare Function Cognitive Ability Level of Alertness Alert Patient Orientation Name,Age,Birthday,Month,Date, Year,Day of Week,Place, Situation Attention Span Ability Capable of Focused Attention, Capable of Sustained Attention Ability to Follow Commands Able to Follow Multi-Step Commands Memory Description Short Term Impaired Safety Awareness Decreased Ability to Apply Precautions,Underestimates Need for Assistance Problem Solving Ability Needs Assist to Identify Solutions Cognitive Tests SLUMS Pt scored 27/30 which implies normal cognition for pt. Cognitive Comments Cognitive Assessment Comments Pt however seems to have unrealistic ideas that he will be able to do everything on his own at home expect for TLSO management. Pt also feel that home health will not be needed and that his will be able to assist for all needs. M7 OT- IP Mobility and Balance Start: 02/12/20 14:48 Freq: Status: Active Protocol: Document 12/14/19 11:00 [facility] (Rec: 12/14/19 12:53 [facility] [id number]) OT- Bed Mobility Assessment Rolling Type of Rolling Roll to Right Level of Assistance Minimal Assistance Supine to Sit Supine to Sit Assist Maximum Assistance Sit to Supine Sit to Supine Assist Moderate Assistance OT-Transfer Assessment Comments Mobility Comments Pt needing MAXA to help get upright due to wearing the brace and hard for the pt to do bed mobility. OT- Balance Assessment Sitting Balance and Reactions Static Sitting Balance Ability Good Comments Other Balance Tests/Deviations/Treatment Initially, pt still leans : backwards when sitting upright . M8 OT- IP Objective Assessments Start: 12/12/19 14:48 Freq: Status: Active Protocol: Document 12/13/19 13:52 [facility] (Rec: 12/13/19 16:43 [facility] [id number]) OT Gross Range of Motion Upper Extremity Range of Motion Assessment Left Impaired ROM Impairments L shoulder active scaption to 90 degrees s/p L TSA RUE WFL OT Strength Comments Strength Comments BUE WFL for self care OT- Coordination Assessment Comments Coordination Comments BUE WFL with no tremors noted this session OT-Muscle Tone Assessment Comments Muscle Tone Comments slight rigidity noted due to Parkinsons OT Sensation Assessment Comments Summary Comments Pt denies deficits in BUE's Edema Edema Absent M9 OT- IP Assessment and Plan Start: 12/12/19 14:48 Freq: Status: Active Protocol: Document 12/15/19 11:02 [facility] (Rec: 12/15/19 11:30 [facility] [id number]) OT Summary Assessment and Plan Potential Rehabilitation Potential Good Analytic Complexity at Evaluation Low Summary OT Impairments Pain,Balance,Functional Cognition,Functional Mobility, Grooming,Dressing,Toileting, Bathing,Toilet Transfers, Shower Transfers,Activity Tolerance Progress Towards Goals Progressing Toward Goals Assessment Summary Today noted decreased BP and not able to do showering this morning with pt. To check back in PM for shower and to work on back precautions and safety awareness. Goals Grooming Goal Standby Assistance Dressing Goal Standby Assistance Toileting Goal Minimal Assistance Bathing Goal Minimal Assistance,Grab Bars, Hand Held Shower Sprayer,Long Handled Sponge or [place] Toilet Transfer Goal Standby Assistance,ADA High Toilet,Grab Bars Shower Transfer Goal Contact Guard Assistance,Walk- in Shower,Shower Chair,Grab Bars Patient/Caregiver Education Goal Demonstrate Post-Op Precautions,Demonstrate Energy Conservation and Pacing OT-Other Goals Pt to don TLSO brace with mod assist sitting or standing. Days to Meet Goals 4 Frequency of Treatment Frequency Of Treatment Twice a Day Treatment Plan OT Treatment Plan ADL Training,Functional Mobility,Patient/Family Education,Discharge Planning Discharge Recommendations OT Discharge Recommendations Home with Assistance,Home Health,SNF Rehab Other Discharge Recommendations [facility] with OT/PT versus SNF pending caregiver training. Transportation Needs at Discharge Private Vehicle
--- NOTE | 2019-12-15 11:53 | CM.DPC ---
Addendum entered by Carmen Jones R.N. 12/15/19 14:58: Spoke to JEREMY Colindres, and she did speak to patient's . Stated that the plan is for discharge Tuesday, either home, [facility], or long-term. Sent another referral to [facility] in [place] as well, for back up. Patient will continue to work with the P.T. team. They were also able to speak to regarding goals. Addendum entered by Carmen Jones R.N. 12/15/19 13:14: Spoke with JEREMY Colindres with ortho. She had spoken to Dr. Richard. Was noted that patient has exhibited some hypotension. He will be getting some IV bolus today, and his labs will be checked. Patient has also been having some difficulties with brace going to the rest room. Jeanine is wondering why patient will need a hospital bed before going to [facility]. She is planning on speaking to today. At this time, patient is not yet medically ready for discharge. Went ahead and sent some referrals out, in case patient needs long-term. [facility] does not have anyone in admissions today, but receptionist secretary stated that they do have beds available. Sent referral to [facility] for swing beds, and also sent referral to [facility]. This is to ensure that there is a plan in place in case patient can't go back to [facility]. Jeanine will update this manager of case after she speaks to . Original Note: DCP Cont: A message was noted on phone from [facility]. They have no beds available. Called and updated , Veronica, who was not happy that discharge planning called her. She asked for this manager of case's last name. She mentioned, you had no right to call [facility] without my permission. Let know that this manager of case was not here for a few days, and did not make phone call. also mentioned, I don't know why you called the other day to say that you wanted to reach out to me, that was not helpful, and frankly, I'm tired of your phone calls. stated, she is upset about discharge planning, for they made recommendations to skilled facilities that were lacking in care. Let her know that discharge planning does not normally make recommendations, and she stated, yes you did, and it's your fault that the care that he received was not aqequate, Asked about alternate facilities, such as [facility] beds. Attempted to explain where the facility is and what they do, and she stated, I don't care or want to know. She mentioned, [facility] can't take him back until Tuesday, because they ordered a hospital bed, and I'm not planning on coming over to see him for the week-end. She mentioned, If I have to take him home, so be it, but it's not going to be this week-end. Continued to attempt to reach out to , but did not want to converse any longer with this category planner. mentioned, you better believe that I'm going [place] about [place] hospital. hung up on this manager of case. Met briefly with patient. Stated, what are you all doing, I don't want to go to any facilities, I have already had bad experiences at two of the facilities. Patient stated, I just want to go home. He mentioned that he wanted JEREMY Solorzano to contact his when she arrives in patient's room. P.T. have already recommended skilled versus assisted living with home health. P.T. unsure that patient will be safe in home environment. Updated JEREMY Solorzano, on situation. She feels patient is medically ready for discharge, but needs safe discharge plan. This manager of case is willing to continue to look for facilities, but patient is not wanting to go to facility, and does not want to pursue any other facilities without her permission. Jeanine will call today in patient's room, and will update this manager of case. P: DCP to continue to follow. does not wish to talk to this manager of case. Will see what Jeanine's findings are and how conversation goes with . Carmen Jones RN/Critical Care Specialist
--- NOTE | 2019-12-15 13:59 | P.PN_ITS ---
Subjective Subjective Date Patient Seen: 12/15/19 Time Patient Seen: 13:59 Interval history: POD #4 s/p Exchange of L5 and S1 screws on the left, and removal of old shan and placement of new hsan from T10 through S1 with Dr. Richard. Patient has hx of Parkinson's and taking Sinemet. Patient denies any hallucinations this AM, admits to hallucinations in past with Sinemet, denies hallucinations with narcotics but admits to confusion. TLSO brace arrived and was fitted for patient. his complaint today is that he has difficulty toileting and cleaning himself while wearing it. Discussed with Dr. Richard that he does not need to use it for hygiene, and sleeping in bed. Talked on phone with his >30 minutes concerning discharge - Prefers [facility] ([facility] Per care management and , does not accept admissions over weekend and needs hospital bed that won't arrive until next Tuesday. She states that PT that has met him in past at [facility] is requesting the hospital bed. It was discussed with Dr. Richard, and PT that patient does not require hospital bed at current level of care. Patient has minimal pain in lower back, has improved since yesterday. He has started mobilizing with PT. He has become hypotensive throughout the day. He did have acute post-operative blood loss anemia following surgery but this has not been redrawn. Voiding without difficulty or assistance. Patient denies fever, chills, chest pain, shortness of breath, numbness, tingling, urinary/bowel incontinence Exam Vital Signs (past 8 hours): - 12/15/19 07:47 12/15/19 10:35 12/15/19 10:40 Temperature 97.7 F Pulse Rate 65 Respiratory Rate 16 Blood Pressure 150/70 H 99/45 L 102/72 Pulse Oximetry 96 12/15/19 10:57 12/15/19 11:26 Temperature 97.4 F L Pulse Rate 60 Respiratory Rate 16 Blood Pressure 104/45 L 105/45 L Pulse Oximetry 97 Oxygen Delivery Method Room Air Oxygen Flow Rate 0 Narrative Exam Narrative: Patient sitting in bedside chair in NAD. He is alert and oriented X3. Wearing well-fitting TLSO brace. Calves are soft, compressible, nontender bilaterally. Dorsalis pedis pulses symmetrical. He is able to act ively dorsiflex and plantar flex. Objective Labs Result Diagrams: 12/15/19 14:48 12/15/19 14:48 Assessment & Plan Post-op Postoperative Procedures: Procedures Operation Date: 12/11/19 17:30 Actual Procedures Side Surgeon p L5-S1 SCREW CHANGE AND REVISION T10-S1 SHAN ON LEFT Zane Richard MD Will recheck H&H and electrolytes today. Given 500 mL bolus. Patient will continue to mobilize with physical therapy today. Wear a TLSO brace when mobilizing. He does not need to wear it for hygiene and lying in bed. Per physical therapy and occupational therapy patient requires a lot of reminders and being told slow down. We discussed on the phone with that she needs to come in on Tuesday to work with the physical therapist for caregiver training. She should be here around 9:30. We discussed at length with the that this is different than his previous surgery to alleviate transfer and recovery concerns. Care management is going to look at Home Health and SNF options for Tuesday if patient is not safe to be home. I would anticipate that the patient will be able to go home with home health or to [facility] with [facility]. I do not think the patient needs a hospital bed at [facility] and this should not hinder patient leaving on Tuesday to [facility]. Care Management will need to call [facility] on Tuesday morning about hospital bed if family/patient needs to go to [facility]. Patient needs to be monitored for hypotensive episodes, hallucinations and any unstable mobilization from Parkinson's, and electrolyte results. I would anticipate patient being medically stable on Tuesday and we will be able to come up with a plan for discharge. Whether it is home with home health, [facility] with home health, or if he is really not safe with mobilization a SNF. Quality VTE Deep Vein Thrombosis/Pulmonary Embolism Present on Admission: No
--- NOTE | 2019-12-15 14:09 | OT.IP.TRT ---
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, initial encounter (12/10/19) Surgery Performed Operation Date: 12/11/19 17:30 Actual Procedures p L5-S1 SCREW CHANGE AND REVISION T10-S1 SHAN ON LEFT - Znae Richard MD Occupational Therapy Treatment Note M2 OT-IP Current Condition Start: 12/12/19 14:48 Freq: Status: Active Protocol: Document 12/13/19 13:52 PJM (Rec: 12/13/19 16:43 PJM [id number]) Occupational Therapy Current Condition Current Condition Evaluation Date 12/13/19 Treatment Diagnosis decreased ADLS, mobility s/p 2nd revision of T10-L4 fusion Diagnosis Onset Date 12/11/19 Post Operative Precautions Lumbar Precautions Log Roll,No Twisting,Limit Bending,Lifting Restriction of 10 lbs,Gait Belt above Incisional Area Other Precautions Pt to have brace off in bed, for toileting and showering needs. M3 OT- IP Subjective and Pain Start: 12/12/19 14:48 Freq: Status: Active Protocol: Document 12/15/19 14:16 [facility] (Rec: 12/15/19 14:27 [facility] [id number]) OT- Subjective Occupational Therapy Visit Type Type Treatment Note Visit Start Time 13:00 Visit Stop Time 14:09 Total Visit Minutes 69 Occupational Therapy Visit Comments Patient Comments Pt wanting to shower. PA present at the end of the session. PA spoke to pt's and determined either pt to go back to [facility] or home with and home health for either situation and that will be here to pick him up Tuesday morning and be present for caregiver training. Patient/Caregiver Goals Pt would like to go home and open to having home health now if needed. OT Pain Assessment Pain When Pain Assessed At Rest Pain Present Pain Present Pain Reported Location Right Leg Intensity 2 Scale Used Numeric (1 - 10) M4 OT- IP ADL's Start: 12/12/19 14:48 Freq: Status: Active Protocol: Document 12/15/19 14:16 [facility] (Rec: 12/15/19 14:27 [facility] [id number]) OT [id number] Comments OT Self-Feeding Comments Not at meal time. OT ADL-Grooming Comments OT Grooming Comments Educated to spit onto a cup or bend at hip to lean to the sink. OT ADL-Dressing General Eval Upper Body Dressing Ability Maximum Assistance Lower Body Dressing Ability Minimal Assistance Comments OT Dressing Comments Pt will continue to need MAX A for TLSO. Clarified with PA that pt doesn't not have to wear the undergarment provided with the TLSO. Pt able to use industrial truck operator and socks aid to ana underwear and socks. Pt just needing a little assistance to pull up brief in the back. OT ADL-Toileting General Evaluation Toileting Ability Standby Assistance Comments OT Toileting Comments Pt able to wipe as PA states brace can be off for toileting needs. OT ADL-Bathing Bathing Type Bathing Type Shower General Evaluation Bathing Ability Moderate Assistance Comments OT Bathing Comments Dressing covered to prevent from getting wet, after shower nursing able to reinforce the dressing. Pt needing assist to wash around the dressing and help dry his feet. CGA while standing to do pericare needs. M5 OT- IP IADL's Start: 12/12/19 14:48 Freq: Status: Active Protocol: Document 12/13/19 13:52 PJM (Rec: 12/13/19 16:43 PJM [id number]) OT-Instrumental Activities of Daily Living Deficits IADL Deficits Identified Deficits Home Safety Awareness Awareness of Need for Assistance at Home Decreased Awareness Medication Management Medication Management Caregiver Provides Supervision Money Management Money Management Caregiver Provides Supervision Meal Preparation Meal Preparation Caregiver Provides Assist Truck Washer Truck Washer Caregiver Provides Assist Driving Driving Caregiver Provides Assist Driving Comments pt frove until 11/04/19 per his report M6 OT- IP Functional Cognition Start: 12/12/19 14:48 Freq: Status: Active Protocol: Document 12/15/19 14:16 [facility] (Rec: 12/15/19 14:27 [facility] [id number]) Cognitive Factors Limiting Selfcare Function Cognitive Ability Level of Alertness Alert Patient Orientation Name,Age,Birthday,Month,Date, Year,Day of Week,Place, Situation Attention Span Ability Capable of Focused Attention, Capable of Sustained Attention Ability to Follow Commands Able to Follow Multi-Step Commands Memory Description Short Term Impaired Safety Awareness Decreased Ability to Apply Precautions,Underestimates Need for Assistance Problem Solving Ability Needs Assist to Identify Solutions Cognitive Comments Cognitive Assessment Comments Pt still needing vc for safety awareness to sit down while trying to wash his hair.. To sit and use of long handled sponge to wash his legs. VC not to twist as pt wanting to twist while stepping out of the shower and needing reminders to adhere to back precautions. M7 OT- IP Mobility and Balance Start: 12/12/19 14:48 Freq: Status: Active Protocol: Document 12/15/19 14:16 [facility] (Rec: 12/15/19 14:27 [facility] [id number]) OT- Bed Mobility Assessment Sit to Supine Sit to Supine Assist Standby Assistance,Bedrails OT-Transfer Assessment Sit to and From Stand Sit to and from Stand Standby Assistance,Contact Guard Assistance,Moderate Assistance Transfers Transfer Ability Standby Assistance,Contact Guard Assistance Technique Transfer Destination Bed,Chair,Shower Stall,Toilet Devices Transfer Assistive Devices Gait Belt,Front Wheeled Walker Comments Mobility Comments Pt needing MOD A to stand from lower surfaces otherwise if able to push up with armrests SBA to CGA. OT- Balance Assessment Sitting Balance and Reactions Static Sitting Balance Ability Normal Dynamic Sitting Balance Ability Good Standing Balance and Reactions Static Standing Balance Ability Good Dynamic Standing Balance Ability Fair M8 OT- IP Objective Assessments Start: 12/12/19 14:48 Freq: Status: Active Protocol: Document 12/13/19 13:52 PJM (Rec: 12/13/19 16:43 PJM [id number]) OT Gross Range of Motion Upper Extremity Range of Motion Assessment Left Impaired ROM Impairments L shoulder active scaption to 90 degrees s/p L TSA RUE WFL OT Strength Comments Strength Comments BUE WFL for self care OT- Coordination Assessment Comments Coordination Comments BUE WFL with no tremors noted this session OT-Muscle Tone Assessment Comments Muscle Tone Comments slight rigidity noted due to Parkinsons OT Sensation Assessment Comments Summary Comments Pt denies deficits in BUE's Edema Edema Absent M9 OT- IP Assessment and Plan Start: 12/12/19 14:48 Freq: Status: Active Protocol: Document 12/15/19 11:02 [facility] (Rec: 12/15/19 11:30 [facility] [id number]) OT Summary Assessment and Plan Potential Rehabilitation Potential Good Analytic Complexity at Evaluation Low Summary OT Impairments Pain,Balance,Functional Cognition,Functional Mobility, Grooming,Dressing,Toileting, Bathing,Toilet Transfers, Shower Transfers,Activity Tolerance Progress Towards Goals Progressing Toward Goals Assessment Summary Today noted decreased BP and not able to do showering this morning with pt. To check back in PM for shower and to work on back precautions and safety awareness. Pt able to tolerate shower in PM and doing better with ADl needs, mainly needing assist to stand from lower surfaces and vc for safety awareness of incorporation of back precautions for needs. Goals Grooming Goal Standby Assistance Dressing Goal Standby Assistance Toileting Goal Minimal Assistance Bathing Goal Minimal Assistance,Grab Bars, Hand Held Shower Sprayer,Long Handled Sponge or [place] Toilet Transfer Goal Standby Assistance,ADA High Toilet,Grab Bars Shower Transfer Goal Contact Guard Assistance,Walk- in Shower,Shower Chair,Grab Bars Patient/Caregiver Education Goal Demonstrate Post-Op Precautions,Demonstrate Energy Conservation and Pacing OT-Other Goals Pt to don TLSO brace with mod assist sitting or standing. Days to Meet Goals 4 Frequency of Treatment Frequency Of Treatment Twice a Day Treatment Plan OT Treatment Plan ADL Training,Functional Mobility,Patient/Family Education,Discharge Planning Discharge Recommendations OT Discharge Recommendations Home with Assistance,Home Health Other Discharge Recommendations [facility] with HH OT/PT versus home with and HH, caregiver training. Transportation Needs at Discharge Private Vehicle
[2019-12-15] MEDS: SODIUM CHLORIDE 0.9% 500 ML 1000 ML IV (14:21)
--- NOTE | 2019-12-15 14:36 | PC.NURSE ---
Shift summary: Alert and oriented X3. Forgetful, but has been calling appropriately today. Reports back pain well-managed with scheduled Tylenol. Dressing to mid back C/D/I, reinforced at top after shower (dressing had pulled apart at the very top but was not wet). CMS+, denies paresthesias. Was able to shower with OT assist and reports feeling really good afterwards. 500 ml NS bolus initiated after shower (for asymptomatic hypotension late morning). Patient resting in bed now, denies needs. Call light and belongings within reach, bed alarm on.
[2019-12-15 14:59] LABS: Add Manual Diff / Slide Review NO; Basophils Absolute Auto 0 /uL (0-100); Basophils Percent Auto 0.6 % (0-2); Eosinophils Absolute Auto 200 /uL (0-450); Eosinophils Percent Auto 3.1 % (2-4); Hematocrit 26.2 % (41-53); Hemoglobin 8.6 g/dL (13.5-17.5); Lymphocytes Absolute Auto 800 /uL (1100-4500); Lymphocytes Percent Auto 13.2 % (25-40); Mean Corpuscular Hemoglobin 29.7 PG (26-34); Mean Corpuscular Volume 89.9 fL (80-100); Monocytes Absolute Auto 500 /uL (0-900); Monocytes Percent Auto 9.2 % (3-14); Neutrophils Absolute Auto 4400 /uL (1500-7000); Neutrophils Percent Auto 73.9 % (50-75); Platelet Count 309 X10^3/uL (150-400); Red Blood Cell Count 2.91 X10^6/uL (4.5-5.9); Red Cell Distribution Width 13.4 % (11.6-14.8); White Blood Cell Count 5.9 X10^3/uL (4.5-11.0)
[2019-12-15 15:09] LABS: BUN Creatinine Ratio 28.9 (6-22); Blood Urea Nitrogen 26 mg/dL (9-20); Calcium 8.8 mg/dL (8.4-10.2); Carbon Dioxide 26 mmol/L (22-32); Chloride 103 mmol/L (98-107); Estimated Glomerular Filt Rate > 60.0 mL/min (>60); Glucose 141 mg/dL (80-110); HEMOLYSIS < 15 (0-50); Potassium 3.9 mmol/L (3.4-5.1); Sodium 138 mmol/L (137-145)
--- NOTE | 2019-12-15 15:42 | PT.IPTN ---
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, initial encounter (12/10/19) Surgery Performed Operation Date: 12/11/19 17:30 Actual Procedures p L5-S1 SCREW CHANGE AND REVISION T10-S1 SHAN ON LEFT - Zane Richard MD Physical Therapy Treatment Note M2 PT-IP Current Condition Start: 12/13/19 13:11 Freq: NEEDED Status: Active Protocol: Document 12/13/19 09:16 AB (Rec: 12/13/19 13:46 AB [id number]) Physical Therapy Current Condition Current Condition Evaluation Date 12/13/19 Treatment Diagnosis s/p L5S1 L screws exchange;T10 -S1 removal old shan & replace; diff in walking Onset Date 12/11/2019 Precautions Lumbar Precautions Log Roll,No Twisting,Limit Bending,Lifting Restriction of 10 lbs,Gait Belt above Incisional Area Other Precautions Per Dr. Richard 12/12/2019: limit activity to transfers only until TLSO brace available M3 PT-IP Subjective Start: 12/13/19 13:11 Freq: NEEDED Status: Active Protocol: Document 12/15/19 15:18 KS (Rec: 12/15/19 16:15 KS [id number]) Subjective Physical Therapy Visit Type Type Treatment Note Visit Start Time 15:18 Visit Stop Time 15:42 Total Visit Minutes 24 Number of ACID CONCENTRATOR Visits 3 Physical Therapy Visit Comments Patient Comments Pt agreeable to work w/ therapy. Therapy Pain Assessment Pain When Pain Assessed At Rest Pain Present Pain Present Pain Reported Location Right Leg Intensity 2 Scale Used Numeric (1 - 10) Pain Management Techniques Re-positioning M4 PT-IP Mobility and Gait Start: 12/13/19 13:11 Freq: NEEDED Status: Active Protocol: Document 12/15/19 15:18 KS (Rec: 12/15/19 16:15 KS [id number]) PT-Bed Mobility Assessment Rolling Type of Rolling Log Rolling,Roll to Right Level of Assist Standby Assistance,Contact Guard Assistance Supine to Sit Supine to Sit Contact Guard Assistance, Minimal Assistance,1 Person Assistance Sit to Supine Sit to Supine Contact Guard Assistance,1 Person Assistance Scooting Scooting to Edge of Bed Contact Guard Assistance PT-Transfer Assessment Sit to and From Stand Sit to and from Stand Contact Guard Assistance,1 Person Assistance,Use of Upper Extremities Equipment Transfer Assistive Device Gait Belt,Front Wheeled Walker Orthotic/Prosthetic Devices or Brace: Yes Transfers Transfer Destination Bed Transfer Technique Pt ambulated w/ FWW Transfer Ability Level of Assist Contact Guard Assistance, Minimal Assistance,1 Person Assistance,Use of Upper Extremities Comments Mobility Comments Pt was lying in bed upon arrival from therapy and agreed to ambulation and stair training. Pt performed logroll to R SBA and sidelying to sit CGA to Min A, CGA for scooting to EOB. Once EOB, TLSO brace donned and BP assessed 148/68. CGA for sit<> stand w/ FWW. Pt then ambulated CGA ~150 ft w/ FWW to stairs and back, returned to room and stand<>sit CGA. BP reassessed:135/60. Pt then performed logroll back into bed CGA and was able to reposition himself in bed SBA. Pt left in bed w/ all needs in reach and nursing present. Gait Assessment Gait Gait Assistance Required: Contact Guard Assist,1 Person Assist Distance (Feet) 150 Able to Maintain Weight Bearing Status Yes During Gait Assistive Devices Assistive Device Gait Belt,Front Wheeled Walker Orthotic/Prosthetic Devices or Brace: No Gait Deviations General Gait Pattern Antalgic,Decreased Stride Length,Decreased Feet Clearance Factors Limiting Gait Function Factors Limiting Gait Function Decreased Activity Tolerance, Decreased Strength,Difficulty Following Directions,Limited Range of Motion,Pain,Poor Balance,Poor Safety Awareness Comments Gait Comments Pt ambulated ~150 ft w/ FWW to stairs and back to room CGA. Min cues for FWW management/ staying inside FWW. Pt appeared fatigued, but denied after ambulation, was breathing heavier and given cues for deep breathing. Stair Climbing Assessment Evaluation Level of Assist On Stairs Contact Guard Assistance,1 Person Assistance Devices Stair Climbing Assistive Devices Left Railing,Right Railing Technique/Endurance Stair Climbing Direction Ascend and Descend Stair Climbing Technique Step to Step Number of Steps Climbed 3 Stair Climbing Set # Repetitions (reps) 1 Comments Stair Climbing Comments Pt able to safely ascend/descend 3 steps w/ bilat handrail and CGA step to gait pattern. Pt had no LOB during stair training and denied fatigue, or lightheadedness. M5 PT-IP Objective Assessments Start: 12/13/19 13:11 Freq: NEEDED Status: Active Protocol: Document 12/13/19 09:16 AB (Rec: 12/13/19 13:46 AB [id number]) Orientation Orientation/Cognition Level of Alertness Alert Orientation Name,Age,Birthday,Place, Situation Safety Awareness Decreased Safety Awareness Gross Range of Motion Lower Extremity ROM Assessment Within Functional Limits Strength Lower Extremity Strength Assessment Right Impaired Hip 3+/5 Knee 3+/5 Coordination Assessment Gross Coordination Gross Coordination WNL Sensation Assessment Sensation Gross Sensation WNL Muscle Tone Muscle Tone WNL Yes M6 PT-IP Treatment Start: 12/13/19 13:11 Freq: NEEDED Status: Active Protocol: Document 12/15/19 15:18 KS (Rec: 12/15/19 16:15 KS [id number]) Physical Therapy Treatment Education Education Provided Precautions,Safety M7 PT-IP Assessment and Plan Start: 12/13/19 13:11 Freq: NEEDED Status: Active Protocol: Document 12/15/19 15:18 KS (Rec: 12/15/19 16:15 KS [id number]) PT Summary Assessment and Plan Potential Rehabilitation Potential Good Summary Impairments Pain,ROM,Strength,Balance, Coordination,Sensation,Tone, Cognition,Bed Mobility, Transfers,Gait,Activity Tolerance Progress Towards Goals Progressing Toward Goals,Slow Progress due to Medical Issues Assessment Summary Pt able to complete logroll out of bed SBA, CGA for back into bed. CGA to Min A for sidelying<>sit, CGA for scooting EOB and sit<>stand w/ FWW. CGA for ambulation and stair training 3 steps ascend/ descend bilat handrails. Pt denied fatigue after ambulation and stairs. BP stable:148/68 before treatment , 135/60 after. CGA to for logroll back into bed. Pt would benefit from continued LE strengthening, stair training, and ambulation to assess strength deficits and low tolerance for activity. Goals Bed Mobility Goal Independent Transfer Goal Independent,Front Wheeled Walker Gait Goal Independent,Front Wheel Walker Gait Distance 200 Other Goals improve ambulation 150 ft using 3WW mod I improve stair climbing 1 step using 3WW SBA; 15 steps using R rail and quad cane SBA Days to Meet Goals 10 Frequency of Treatment Frequency Of Treatment Twice a Day Treatment Plan Physical Therapy Treatment Plan Bed Mobility Training,Transfer Training,Gait Training, Therapeutic Exercise,Balance Retraining,Post Op Education, Discharge Planning,Hot or Cold Pack,Neuromuscular Re-ed, Coordination Retraining,Manual Therapy Other Recommendations and Next Treatment Practice additional stair Focus training w/ 1 handrail, and ambulation w/ 3WW. Recommendations To Nursing Amount of Assist Needed 1 Person Assist Discharge Recommendations PT Discharge Recommendations Home with 24 Assist,Home Health,SNF Rehab Equipment Needed for Home Before FWW if not safe with 3WW Discharge Transportation Needs at Discharge Private Vehicle,Wheelchair/ Cabulance
[2019-12-15] MEDS: ATORVASTATIN 10 MG TABLET PO (21:06)
[2019-12-15] MEDS: TAMSULOSIN 0.4 MG CAPSULE PO (21:07)
[2019-12-15] MEDS: PANTOPRAZOLE 20 MG TABLET PO (21:07)
[2019-12-15] MEDS: hydroCHLOROthiazide 25 MG TABLET PO (21:09)
[2019-12-15] MEDS: TELMISARTAN 40 MG TABLET 80 MG PO (21:13)
[2019-12-15] MEDS: TRIAZOLAM 0.125 MG TABLET 0.175 MG PO (21:17)
[2019-12-16] MEDS: diphenhydrAMINE 25 MG TABLET PO ×2 (00:08→23:50)
--- NOTE | 2019-12-16 00:08 | PC.NURSE ---
C/O insomnia even after given Halcion @ ,. Requested Benadryl 25 mg. PO admin. Will cont. POC & monitor.
[2019-12-16 00:10] VITALS: BP 151/66; PULSE 65; RESP 14; TEMP 36.9; O2SAT 97
[2019-12-16] MEDS: ACETAMINOPHEN 325 MG TABLET 650 MG PO ×3 (06:51→20:22)
[2019-12-16 08:15] VITALS: BP 142/74; PULSE 64; RESP 16; TEMP 36.3; O2SAT 100
[2019-12-16] MEDS: DOCUSATE 100 MG CAPSULE PO ×2 (09:30→20:22)
[2019-12-16] MEDS: CARBIDOPA-LEVODOPA 25/100 TABLET 1.5 EACH PO ×3 (09:30→20:21)
[2019-12-16] MEDS: CELECOXIB 200 MG CAPSULE PO ×2 (09:30→20:22)
[2019-12-16] MEDS: SODIUM CHLORIDE 0.9% FLUSH 10 ML IV ×2 (09:33→20:25)
--- NOTE | 2019-12-16 10:07 | PT.IPTN ---
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, initial encounter (12/10/19) Surgery Performed Operation Date: 12/11/19 17:30 Actual Procedures p L5-S1 SCREW CHANGE AND REVISION T10-S1 SHAN ON LEFT - Zane Richard MD Physical Therapy Treatment Note M2 PT-IP Current Condition Start: 12/13/19 13:11 Freq: NEEDED Status: Active Protocol: Document 12/13/19 09:16 AB (Rec: 12/13/19 13:46 AB [id number]) Physical Therapy Current Condition Current Condition Evaluation Date 12/13/19 Treatment Diagnosis s/p L5S1 L screws exchange;T10 -S1 removal old shan & replace; diff in walking Onset Date 12/11/2019 Precautions Lumbar Precautions Log Roll,No Twisting,Limit Bending,Lifting Restriction of 10 lbs,Gait Belt above Incisional Area Other Precautions Per Dr. Richard 12/12/2019: limit activity to transfers only until TLSO brace available M3 PT-IP Subjective Start: 12/13/19 13:11 Freq: NEEDED Status: Active Protocol: Document 12/16/19 10:07 CLB (Rec: 12/16/19 12:17 CLB [id number]) Subjective Physical Therapy Visit Type Type Treatment Note Visit Start Time 10:07 Visit Stop Time 10:30 Total Visit Minutes 23 Number of FORESTRY WORKER Visits 4 Physical Therapy Visit Comments Patient Comments Pt agreeable to work w/ therapy. Therapy Pain Assessment Pain When Pain Assessed During Mobility Pain Present Pain Present Pain Reported M4 PT-IP Mobility and Gait Start: 12/13/19 13:11 Freq: NEEDED Status: Active Protocol: Document 12/16/19 10:07 CLB (Rec: 12/16/19 12:17 CLB [id number]) PT-Transfer Assessment Sit to and From Stand Sit to and from Stand Contact Guard Assistance, Minimal Assistance,1 Person Assistance,Use of Upper Extremities Equipment Transfer Assistive Device Gait Belt,Front Wheeled Walker Orthotic/Prosthetic Devices or Brace: Yes Transfers Transfer Destination Chair Transfer Technique Pt ambulated w/ FWW Transfer Ability Level of Assist Contact Guard Assistance, Minimal Assistance,1 Person Assistance,Use of Upper Extremities Comments Mobility Comments Pt in chair with TLSO brace on . Pt required Min A for sit- stand with cues for hand placement on arms of chair for safe push off. Pt then ambulated in [place] and climbed stairs before returning to room. Pt left with all needs within reach. Gait Assessment Gait Gait Assistance Required: Contact Guard Assist,1 Person Assist Distance (Feet) 220 Able to Maintain Weight Bearing Status Yes During Gait Assistive Devices Assistive Device Gait Belt,Front Wheeled Walker Orthotic/Prosthetic Devices or Brace: No Gait Deviations General Gait Pattern Antalgic,Decreased Stride Length,Decreased Feet Clearance Factors Limiting Gait Function Factors Limiting Gait Function Decreased Activity Tolerance, Decreased Strength,Difficulty Following Directions,Limited Range of Motion,Pain,Poor Balance,Poor Safety Awareness Comments Gait Comments Pt ambulated in [place] with 3WW requiring CGA and cues for safe pacing and posture as pt holds walker too far out and has difficulty with posture. At this time pt will benefit with continued use of FWW as pt's safety is increased with FWW. Stair Climbing Assessment Evaluation Level of Assist On Stairs Contact Guard Assistance,1 Person Assistance Devices Stair Climbing Assistive Devices Left Railing,Right Railing Technique/Endurance Stair Climbing Direction Ascend and Descend Stair Climbing Technique Step to Step Number of Steps Climbed 3 Stair Climbing Set # Repetitions (reps) 2 Comments Stair Climbing Comments Pt required CGA with stair climbing with cues for proper sequencing. M5 PT-IP Objective Assessments Start: 12/13/19 13:11 Freq: NEEDED Status: Active Protocol: Document 12/13/19 09:16 AB (Rec: 12/13/19 13:46 AB [id number]) Orientation Orientation/Cognition Level of Alertness Alert Orientation Name,Age,Birthday,Place, Situation Safety Awareness Decreased Safety Awareness Gross Range of Motion Lower Extremity ROM Assessment Within Functional Limits Strength Lower Extremity Strength Assessment Right Impaired Hip 3+/5 Knee 3+/5 Coordination Assessment Gross Coordination Gross Coordination WNL Sensation Assessment Sensation Gross Sensation WNL Muscle Tone Muscle Tone WNL Yes M6 PT-IP Treatment Start: 12/13/19 13:11 Freq: NEEDED Status: Active Protocol: Document 12/15/19 15:18 KS (Rec: 12/15/19 16:15 KS [id number]) Physical Therapy Treatment Education Education Provided Precautions,Safety M7 PT-IP Assessment and Plan Start: 12/13/19 13:11 Freq: NEEDED Status: Active Protocol: Document 12/16/19 10:07 CLB (Rec: 12/16/19 12:17 CLB [id number]) PT Summary Assessment and Plan Potential Rehabilitation Potential Good Summary Impairments Pain,ROM,Strength,Balance, Coordination,Sensation,Tone, Cognition,Bed Mobility, Transfers,Gait,Activity Tolerance Assessment Summary Pt required Min A to stand from low chair and cues for hand placement for safety. Pt ambulated in [place] with 3WW and at this time pt is safer with FWW as it improves pt posture , pacing and safety. Pt required CGA for stair climbing and would required further stair training for safe d/c if pt were going homw as his bedroom is upstairs and requires him to climb 14 steps. Goals Bed Mobility Goal Independent Transfer Goal Independent,Front Wheeled Walker Gait Goal Independent,Front Wheel Walker Gait Distance 200 Other Goals improve ambulation 150 ft using 3WW mod I improve stair climbing 1 step using 3WW SBA; 15 steps using R rail and quad cane SBA Days to Meet Goals 10 Frequency of Treatment Frequency Of Treatment Twice a Day Treatment Plan Physical Therapy Treatment Plan Bed Mobility Training,Transfer Training,Gait Training, Therapeutic Exercise,Balance Retraining,Post Op Education, Discharge Planning,Hot or Cold Pack,Neuromuscular Re-ed, Coordination Retraining,Manual Therapy Other Recommendations and Next Treatment bed mobility and ambulation. Focus Recommendations To Nursing Amount of Assist Needed 1 Person Assist Discharge Recommendations PT Discharge Recommendations Home with 23/05 Assist,Home Health,SNF Rehab Equipment Needed for Home Before FWW Discharge Transportation Needs at Discharge Private Vehicle,Wheelchair/ Cabulance
--- NOTE | 2019-12-16 10:08 | PM.PN.1 ---
Subjective Subjective Date Patient Seen: 12/16/19 Time Patient Seen: 10:08 Interval history: POD #5 s/p Exchange of L5 and S1 screws on the left, and removal of old ramsey and placement of new ramsey from T10 through S1 with Dr. Richard.Patient has hx of Parkinson's and taking Sinemet. Patient denies any hallucinations this AM, admits to hallucinations in past with Sinemet, denies hallucinations with narcotics but admits to confusion. TLSO brace fitting well. Patient has minimal pain in lower back, has improved since yesterday. He has started mobilizing with PT. He has become hypotensive throughout the day. He did have acute post-operative blood loss anemia following surgery but this has not been redrawn. Voiding without difficulty or assistance. Patient denies fever, chills, chest pain, shortness of breath, numbness, tingling, urinary/bowel incontinence Exam Vital Signs (past 8 hours): - 12/16/19 08:15 Temperature 97.4 F L Pulse Rate 64 Respiratory Rate 16 Blood Pressure 142/74 H Pulse Oximetry 100 Oxygen Delivery Method Room Air Oxygen Flow Rate 0 Narrative Exam Narrative: Patient sitting in bedside chair in NAD. He is alert and oriented X3. Wearing well-fitting TLSO brace. Calves are soft, compressible, nontender bilaterally. Dorsalis pedis pulses symmetrical. He is able to actively dorsiflex and plantar flex. Objective Labs Result Diagrams: 12/15/19 14:48 12/15/19 14:48 Labs: Laboratory Results - last 24 hr 12/15/19 12/15/19 14:48 14:48 WBC 5.9 RBC 2.91 L Hgb 8.6 L Hct 26.2 L MCV 89.9 MCH 29.7 MCHC 33.0 RDW 13.4 Plt Count 309 Neut % (Auto) 73.9 Lymph % (Auto) 13.2 L Saline % (Auto) 9.2 Eos % (Auto) 3.1 Baso % (Auto) 0.6 Neut # (Auto) 4400 Lymph # (Auto) 800 L Saline # (Auto) 500 Eos # (Auto) 200 Baso # (Auto) 0 Sodium 138 Potassium 3.9 Chloride 103 Carbon Dioxide 26 BUN 26 H Creatinine 0.90 Estimated GFR > 60.0 BUN/Creatinine Ratio 28.9 H Glucose 141 H Calcium 8.8 Assessment & Plan Assessment & Plan narrative: Patient will continue to mobilize with physical therapy today. Wear a TLSO brace when mobilizing. He does not need to wear it for hygiene and lying in bed. Per physical therapy and occupational therapy patient requires a lot of reminders and being told slow down. Talked on phone with his 2x concerning discharge. Patient's is very angry and became aggressive on the phone within 2 minuted of me talking with her. I told her that the plan was for him to discharge tomorrow. She wanted confirmation that this would occur. I told her I would call her back after verifying with discharge planning. She then stated that she didnt want to talk to DC planning because she was rude. I informed her that I would talk to DC planning and call her back. When I called the back to confirm DC home tomorrow she told me I didn't know how to talk to people'. She also informed me she would tell melo on the [facility] not to be seen by our group. She also asked if my signature would be on the DC paperwork because if things didn't go well with his DC or recovery you and your practice would pay. At this point I restated the plan for DC home tomorrow and ended the call. Care management is going to look at Home Health and SNF options for Tuesday if patient is not safe to be home. I would anticipate that the patient will be able to go home with home health or to [facility] with home health. The patient does not need a hospital bed at [facility] and this should not hinder patient leaving on Tuesday to [facility]. Care Management will need to call [facility] on Tuesday morning about hospital bed if family/patient needs to go to [facility]. Patient needs to be monitored for hypotensive episodes, hallucinations and any unstable mobilization from Parkinson's, and electrolyte results. Quality VTE Deep Vein Thrombosis/Pulmonary Embolism Present on Admission: No
--- NOTE | 2019-12-16 10:17 | PC.NURSE ---
PATIENT REPORTS BACK PAIN 12/10. WEARING TSLO BRACE WHEN OOB. ATE BREAKFAST IN RECLINER. AMBULATING IN [place] W/ PHYSICAL THERAPY. ALERT AND ORIENTED. MAKES NEEDS KNOWN. DR. ALEJANDRO HAS SEEN PATIENT. PLAN FOR DC HOME TOMORROW.
--- NOTE | 2019-12-16 11:08 | CM.DPC ---
Addendum entered by CARL Ballesteros 12/16/19 12:41: ADD: Return call from spouse Veronica stating that she is refusing to show up tomorrow until I can talk to Dr. Richard and confirm that my has a safe d/c plan. Spouse states she is aware that Dr. Richard will not be back in the office until Tuesday and today is Tuesday. Spouse was not satisfied with her discussion with Ortho MD Dr. Powell today as spouse feels like I have too many questions still unanswered. SW confirmed that spouse still has the options for providing complaint to the hospital due to her ongoing statements of frustration with pt's care and discharge planning from the hospital. SW also confirmed that she is aware of Contesting Discharge and phone number to call if pt is discharged tomorrow and she does not feel he is Medically stable to leave and spouse confirmed she has a copy of the [facility] at home with her. Spouse stated her frustration with contacting [facility] when pt was admitted as she feels that SW was meddling and caused [facility] to decide not to accept my back. SW discussed the purpose for coordinating care and discharge with facilities and need to know if they could accept admits over the weekend. Spouse confirmed that [facility] is stating they would like to have hospital bed in place for the pt prior to accepting him based on [facility] recommendation, not based on hospital recommendations. Spouse did state that she does not give permission for to further contact [facility] for coordination of care even if [facility] are requesting information to best meet pt's needs. Spouse states she plans to go to [facility] tomorrow morning to determine if they can accept pt back tomorrow or the next day and she is stating she wants Purvi RANDOLPH to call her cell phone to justify reasons for pt to discharge and answer questions and at this time she is still [place] planning [place] and be bedside tomorrow. SW encouraged spouse to provide feedback to the hospital on her frustrations, with Medicare, and with the Orthopedic office based on her many complaints. Plan: SW to follow closely tomorrow with pt and spouse after MD rounds to confirm pt is medically stable to d/c and likely plan of spouse contesting discharge through Medicare. CARL aBllesteros Original Note: DCP Cont: Per Purvi RANDOLPH, spoke with pt's spouse via phone and updated that pt will be stable for d/c tomorrow by 1100. SW received a voicemail from pt's spouse Veronica stating that she is aware that pt will be stable for d/c tomorrow by 1100 at that she will not be present and so other arrangements will need to be made. SW attempted to contact spouse via phone at home and cell phone and left msgs on both requesting call back to clarify the barriers to other arrangements needing to be made. SW then met bedside with pt and explained role and he confirms that spouse will not be bedside today or coming off [facility] today and states that spouse's concern had been that they were under the impression that pt would have to leave the hospital by 1100 tomorrow and [place] and in the car for around 5 hours after discharge before getting to the [facility]. SW discussed that the d/c time is flexible and the aim is for d/c around 1100 but that if a safer d/c is not leaving the hospital until around 1300 to catch the 1445 then this is an option and no specific time that pt has to leave tomorrow, just a reasonable amount of time to adequately get in line for their ferry home. Pt confirms that plan is to d/c back to the [facility] and requests that SW coordinate the care plans with his as he feels completely fine not being in the middle but having my and the hospital make the decisions and plans for me. SW encouraged pt to also update his spouse on the flexibility with discharge time for tomorrow and reminded him that SW left msg with call back number on her home phone and cell phone to further solidify discharge plans for tomorrow. Plan: SW/JANETTE to follow for return call from spouse to confirm d/c plans for pt discharge tomorrow. (Return to Respite at [facility] at the [facility] [address] [place] with [facility]) CARL Ballesteros
--- NOTE | 2019-12-16 11:57 | CM.DPC ---
DCP Cont: Diana at [facility] stated that they should be able to accept patient if he needs skilled. Deisy at [facility] as well. At this time, plan is for home, but if he needs [facility], there accepting facilities. P: DCP to continue to follow. Plan is for discharge home tomorrow. Carmen Jones RN/Director Of Golf
--- NOTE | 2019-12-16 12:21 | PC.NURSE ---
Patient's IV as per protocol, patient refused getting a new IV. Current IV flushes easily, asymptomatic, intact, and clean. Stated he would prefer to not be a pin cushion since he's supposed to be discharging tomorrow.
--- NOTE | 2019-12-16 13:09 | PC.NURSE ---
Patient's IV due to be DCed as per protocol. Patient states he does not want to be a pin cushion and refused to get a new IV since he is discharging tomorrow. Current IV is asymptomatic, patent and easily flushes.
--- NOTE | 2019-12-16 13:20 | PT.IPTN ---
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, initial encounter (12/10/19) Surgery Performed Operation Date: 12/11/19 17:30 Actual Procedures p L5-S1 SCREW CHANGE AND REVISION T10-S1 SHAN ON LEFT - Zane Richard MD Physical Therapy Treatment Note M2 PT-IP Current Condition Start: 12/13/19 13:11 Freq: NEEDED Status: Active Protocol: Document 12/13/19 09:16 AB (Rec: 12/13/19 13:46 AB [id number]) Physical Therapy Current Condition Current Condition Evaluation Date 12/13/19 Treatment Diagnosis s/p L5S1 L screws exchange;T10 -S1 removal old shan & replace; diff in walking Onset Date 12/11/2019 Precautions Lumbar Precautions Log Roll,No Twisting,Limit Bending,Lifting Restriction of 10 lbs,Gait Belt above Incisional Area Other Precautions Per Dr. Richard 12/12/2019: limit activity to transfers only until TLSO brace available M3 PT-IP Subjective Start: 12/13/19 13:11 Freq: NEEDED Status: Active Protocol: Document 12/16/19 13:20 CLB (Rec: 12/16/19 14:38 CLB [id number]) Subjective Physical Therapy Visit Type Type Treatment Note Visit Start Time 13:20 Visit Stop Time 13:44 Total Visit Minutes 24 Number of VARNISH MAKER Visits 5 Physical Therapy Visit Comments Patient Comments Pt agreeable to work w/ therapy. Therapy Pain Assessment Pain When Pain Assessed At Rest Pain Present Pain Present Pain Reported Location back Intensity 2 Scale Used Numeric (1 - 10) Pain Management Techniques Modification of Treatment,Re- positioning,Timing of Activity with Medications M4 PT-IP Mobility and Gait Start: 12/13/19 13:11 Freq: NEEDED Status: Active Protocol: Document 12/16/19 13:20 CLB (Rec: 12/16/19 14:38 CLB [id number]) PT-Bed Mobility Assessment Rolling Type of Rolling Log Rolling,Roll to Right Level of Assist Standby Assistance Supine to Sit Supine to Sit Contact Guard Assistance,1 Person Assistance Scooting Scooting to Edge of Bed Standby Assistance PT-Transfer Assessment Sit to and From Stand Sit to and from Stand Contact Guard Assistance,1 Person Assistance,Use of Upper Extremities Equipment Transfer Assistive Device Gait Belt,Front Wheeled Walker Orthotic/Prosthetic Devices or Brace: Yes Transfers Transfer Destination Chair Transfer Technique Pt ambulated w/ FWW Transfer Ability Level of Assist Contact Guard Assistance,1 Person Assistance,Use of Upper Extremities Comments Mobility Comments Pt required SBA for LR and CGA for supine-sit from flat bed. Pt able to sit on bed and assist with TLSO. Pt stood CGA from bed. Pt ambulated with FWW CGA with cues to watch obstacles on left side for safety. Pt climbed stairs using quad cane and right rail . Pt returned to room and sat in chair, pt left in chair with all needs within reach and chair alarm on. Gait Assessment Gait Gait Assistance Required: Contact Guard Assist,1 Person Assist Distance (Feet) 250 Able to Maintain Weight Bearing Status Yes During Gait Assistive Devices Assistive Device Gait Belt,Front Wheeled Walker Orthotic/Prosthetic Devices or Brace: No Gait Deviations General Gait Pattern Antalgic,Decreased Stride Length,Decreased Feet Clearance Factors Limiting Gait Function Factors Limiting Gait Function Decreased Activity Tolerance, Decreased Strength,Difficulty Following Directions,Limited Range of Motion,Pain,Poor Balance,Poor Safety Awareness Comments Gait Comments Pt ambulated in donnelly ~250ft with FWW CGA with cues for watching obstacles on left side of donnelly. Stair Climbing Assessment Evaluation Level of Assist On Stairs Contact Guard Assistance,1 Person Assistance Devices Stair Climbing Assistive Devices Small Base Quad Cane,Right Railing Technique/Endurance Stair Climbing Direction Ascend and Descend Stair Climbing Technique Step to Step Number of Steps Climbed 3 Stair Climbing Set # Repetitions (reps) 2 Comments Stair Climbing Comments Pt required CGA with stair climbing using small quad cane in left hand and right rail ascending and cane in right hand and left hand on rail descending. Pt gets fatigued with increased respirations after two sets of stairs. M5 PT-IP Objective Assessments Start: 12/13/19 13:11 Freq: NEEDED Status: Active Protocol: Document 12/13/19 09:16 AB (Rec: 12/13/19 13:46 AB [id number]) Orientation Orientation/Cognition Level of Alertness Alert Orientation Name,Age,Birthday,Place, Situation Safety Awareness Decreased Safety Awareness Gross Range of Motion Lower Extremity ROM Assessment Within Functional Limits Strength Lower Extremity Strength Assessment Right Impaired Hip 3+/5 Knee 3+/5 Coordination Assessment Gross Coordination Gross Coordination WNL Sensation Assessment Sensation Gross Sensation WNL Muscle Tone Muscle Tone WNL Yes M6 PT-IP Treatment Start: 12/13/19 13:11 Freq: NEEDED Status: Active Protocol: Document 12/15/19 15:18 KS (Rec: 12/15/19 16:15 KS [id number]) Physical Therapy Treatment Education Education Provided Precautions,Safety M7 PT-IP Assessment and Plan Start: 12/13/19 13:11 Freq: NEEDED Status: Active Protocol: Document 12/16/19 13:20 CLB (Rec: 12/16/19 14:38 CLB [id number]) PT Summary Assessment and Plan Potential Rehabilitation Potential Good Summary Impairments Pain,ROM,Strength,Balance, Coordination,Sensation,Tone, Cognition,Bed Mobility, Transfers,Gait,Activity Tolerance Assessment Summary Pt required SBA for log roll to right and CGA for supine to sit. Pt able to perform sit- stand CGA from bed with use of UE's. Pt ambulated ~250ft and climb stairs with CGA. Pt is safer with FWW and would benefit with continued use of FWW. Goals Bed Mobility Goal Independent Transfer Goal Independent,Front Wheeled Walker Gait Goal Independent,Front Wheel Walker Gait Distance 200 Other Goals improve ambulation 150 ft using 3WW mod I improve stair climbing 1 step using 3WW SBA; 15 steps using R rail and quad cane SBA Days to Meet Goals 10 Frequency of Treatment Frequency Of Treatment Twice a Day Treatment Plan Physical Therapy Treatment Plan Bed Mobility Training,Transfer Training,Gait Training, Therapeutic Exercise,Balance Retraining,Post Op Education, Discharge Planning,Hot or Cold Pack,Neuromuscular Re-ed, Coordination Retraining,Manual Therapy Other Recommendations and Next Treatment bed mobility and ambulation. Focus Recommendations To Nursing Amount of Assist Needed 1 Person Assist Discharge Recommendations PT Discharge Recommendations Home with 24/ Assist,Home Health,SNF Rehab Equipment Needed for Home Before FWW Discharge Transportation Needs at Discharge Private Vehicle,Wheelchair/ Cabulance
[2019-12-16 14:14] VITALS: BP 84/51; PULSE 66; RESP 16; TEMP 36.8; O2SAT 100
[2019-12-16 15:50] VITALS: BP 132/60; PULSE 66; RESP 17; TEMP 36.7; O2SAT 100
[2019-12-16 19:39] VITALS: BP 123/58; PULSE 69; RESP 16; TEMP 37.2; O2SAT 97
[2019-12-16] MEDS: hydroCHLOROthiazide 25 MG TABLET PO (20:21)
[2019-12-16] MEDS: TAMSULOSIN 0.4 MG CAPSULE PO (20:22)
[2019-12-16] MEDS: SENNOSIDES 8.6 MG TABLET 17.2 MG PO (20:22)
[2019-12-16] MEDS: ATORVASTATIN 10 MG TABLET PO (20:22)
[2019-12-16] MEDS: PANTOPRAZOLE 20 MG TABLET PO (20:22)
[2019-12-16] MEDS: TELMISARTAN 40 MG TABLET 80 MG PO (20:25)
[2019-12-16] MEDS: TRIAZOLAM 0.125 MG TABLET 0.175 MG PO (20:26)
--- NOTE | 2019-12-16 22:04 | PC.NURSE ---
pt denied any chest pain or sob. tele: SB. denied any dizziness or lightheadedness. nitro patch removed at 2144. scds on. voiding without difficulty. oriented pt to room. call light in reach.
[2019-12-16 23:50] VITALS: BP 139/66; PULSE 69; RESP 19; TEMP 36.4; O2SAT 99
--- NOTE | 2019-12-17 00:36 | PC.NURSE ---
Addendum entered by Marilyn Andino R.N. 12/17/19 05:21: Pt IV , pt refusing change of IV at this time. Plan to d/c today Addendum entered by Marilyn Andino R.N. 12/17/19 05:16: Bed alarm set Addendum entered by Marilyn Andino R.N. 12/17/19 05:16: Pt refusing to use brace when up OOB. Pt refusing to call before getting up out of bed. Instructed patient to use call light before getting OOB. Original Note: Pt alert and oriented x4. No pain reported at this time. Benedryl given to help patient sleep per pt request. Pt back dressing clean dry and intact. Pt has no complaints at this time
[2019-12-17 05:30] VITALS: BP 152/72; PULSE 70; RESP 19; TEMP 37.2; O2SAT 100
[2019-12-17 08:00] VITALS: BP 151/70; PULSE 67; RESP 18; TEMP 36.6; O2SAT 100
--- NOTE | 2019-12-17 08:48 | CM.DPC ---
Addendum entered by CARL Ballesteros 12/17/19 15:40: ADD: Per PT, pt was able to ambulate SBA 300 plus feet, do bed mobility and sit to stand independently and doesnt feel that pt requires 24/7 supervision. DARIUS called [facility] with pt present bedside and confirmed that they are still going to require an additional PP CG. SW supported pt in calling a local [facility] PP CG Yara to discuss if she is available to stay with pt overnight and for maybe a couple nights starting tomorrow around 1700 and she confirmed and has a list of other local PP CG who can likely help during the day. SW supported the pt in calling [facility] to confirm they will resume care on Tue12/19/19 and aware of his status and progress. Pt states his preference is to d/c home via taxi private pay and aware of the cost and confirms he has his own wallet and money here and requests SW to schedule for 1300 seed cone picker tomorrow to catch the 1410 ferry to [place]. SW called [facility] and currently they are full for tomorrow at that time. SW called [facility] and they likely can provide transport but will need to confirm adan in the morning. Pt spoke to his spouse via phone and attempted to have SW update spouse via phone but spouse stated I'm not talking to you and hung up the phone. SW called [facility] with update on plan for d/c tomorrow and they confirm they are agreeable. SW updated RN and Ortho PA who will update surgeon who will see pt bedside right away in the morning. Plan: SW to follow for confirmation from [facility] that they can provide transport at 1300 tomorrow to [facility] and [facility] CARL Ballesteros Addendum entered by CARL Ballesteros 12/17/19 13:37: ADD: SW met bedside with pt again and he confirms he just spoke to spouse and she is still being worked up in the ER at [facility]. SW discussed need to determine mode of transportation when discharged and discussed options of private vehicle, taxi as PT/OT approved this as safe, or cabulance. Pt states he thinks his would prefer cabulance. SW provided the quoted average cost of taxi around $275 from [facility], average of $500 from [employer], and likely couple thousand dollars for BLS transport and all pending company availability. SW also inquired about pp CG and that SW left ms for [facility] for caregiver list, called [facility] on [address] and they didn't have list so pt was agreeable with SW supporting him in calling [facility]. SW called [facility] bedside and received average quote of $34 hour for temporary live in and billed only 13 hours a day and they will check with their team if they have availability to set up within a day or two. Spouse called pt at this time and pt requested SW step out so they could discuss her health and above info. BF Addendum entered by CARL Ballesteros 12/17/19 10:58: ADD: Return call from Joshua at the [facility] stating they reviewed the clinicals and their concern is the 23/05 supervision due to impulsivity and that they will likely require pt/spouse to secure a PP CG which had previously been talked about and spouse had been agreeable. SW met bedside with pt and he confirmed that spouse was headed to the ER on [address] due to chest pains, stomach issues and will likely not be admitted and likely due to stress/anxiety. SW discussed above with pt and confirms that he refuses SNF option, which he is aware that he could d/c to easily today, and states he will only go to [facility] or home. Pt states he would be agreeable with PP CG at the [facility] until he can safely d/c back home and would be agreeable with SW attempting to get a list of caregivers for [place] and SW assist with calling the numbers. SW again discussed Medicare Right of appealing discharge and pt states he feels it's needed as his is having medical/anxiety issues and he is not agreeable to SNF and SENIOR CARE is not quite set up yet. Pt requested SW support with initiating appeal process and SW used bedside phone to call Richard to begin the process and pt made his own statement regarding the reason for appeal. Case i.d. [id number]. Richard will fax request for clinicals. SW called Mariann Leon ([employer] on vacation) and left ms regarding appeal initiated and likely need for the HINN letter. Pt requests SW call his spouse around 1200 today to discuss the PP CG list that she has in her possession and update her on the appeal and plan for possibly tomorrow. BF Original Note: DCP Discharge BONITA Per [facility] [employer], met with pt bedside and he is medically stable to d/c to Assisted Living Respite care with [facility] today. [facility] [employer] called spouse and left a msg with detailed information about d/c for today and then spoke directly to spouse via phone with update on pt status. SW called spouse next to follow up on d/c planning and spouse decision regarding appealing discharge. Spouse states she continues to be very upset and feels that she was not aware that pt would for sure be discharged today and continues to state that she cannot be present at the hospital today and provide transport. SW discussed possible options of taxi or w/c van if those companies have availability. SW inquired about pt's Medicare Rights (as discussed with spouse yesterday via phone) and inquired if spouse plans to contest discharge today based on d/c orders officially being in the computer and spouse states well its my right to Contest Discharge and lets just say that I will let you know once I decide if I'm going to Contest. Spouse confirmed again that she has the number to call from the [facility] in front of her at home. Spouse states that she called [facility] this morning and was told that they would like to coordinate with Care Management to confirm they can adequately meet his needs and spouse gives express permission for SW to now call [facility]. SW stated that [facility] would also be contacted by DARIUS to coordinate [facility] and spouse agreeable with SW contacting [place] as well. DARIUS called Joshua at [facility] and updated on pt status and medically stable to d/c and that hospital bed is not needed/recommended as a need from MD or PT/OT. Joshua states they can still accept the pt and request review of clinicals. DARIUS faxed clinicals (MD prog notes, med rec, PT/OT notes) to requested fax [phone] and will coordinate with Joshua after review. DARIUS called [facility] and updated that pt has d/c orders for today and working on seeing if pt will discharge today vs possibly tomorrow (if spouse contests discharge). Faxed d/c summary and PT/OT notes to review as well as [facility] orders. Plan: DARIUS to follow closely for [facility] review of the pt and further discussion with spouse to determine if safe d/c plan set up for discharge today and if spouse will pursue Contesting Discharge through Medicare. CARL Ballesteros
--- NOTE | 2019-12-17 08:50 | PT.IPTN ---
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, initial encounter (12/10/19) Surgery Performed Operation Date: 12/11/19 17:30 Actual Procedures p L5-S1 SCREW CHANGE AND REVISION T10-S1 SHAN ON LEFT - Zane Richard MD Physical Therapy Treatment Note M2 PT-IP Current Condition Start: 12/13/19 13:11 Freq: NEEDED Status: Active Protocol: Document 12/13/19 09:16 AB (Rec: 12/13/19 13:46 AB [id number]) Physical Therapy Current Condition Current Condition Evaluation Date 12/13/19 Treatment Diagnosis s/p L5S1 L screws exchange;T10 -S1 removal old shan & replace; diff in walking Onset Date 12/11/2019 Precautions Lumbar Precautions Log Roll,No Twisting,Limit Bending,Lifting Restriction of 10 lbs,Gait Belt above Incisional Area Other Precautions Per Dr. Richard 12/12/2019: limit activity to transfers only until TLSO brace available M3 PT-IP Subjective Start: 12/13/19 13:11 Freq: NEEDED Status: Active Protocol: Document 12/17/19 08:50 CLB (Rec: 12/17/19 09:31 CLB [email or web address]) Subjective Physical Therapy Visit Type Type Treatment Note Visit Start Time 08:50 Visit Stop Time 09:07 Total Visit Minutes 17 Number of MILITARY ADMINISTRATIVE TECHNICIAN Visits 6 Physical Therapy Visit Comments Patient Comments Pt agreeable to work w/ therapy. Pt states he is concerned about his as she had just called stating she wasn't feeling well and was going to take and ambulance to [facility] Tuesday. Therapy Pain Assessment Pain When Pain Assessed At Rest Pain Present Pain Present Pain Reported Location back Intensity 2 Scale Used Numeric (1 - 10) Pain Management Techniques Modification of Treatment,Re- positioning,Timing of Activity with Medications M4 PT-IP Mobility and Gait Start: 12/13/19 13:11 Freq: NEEDED Status: Active Protocol: Document 12/17/19 08:50 CLB (Rec: 12/17/19 09:31 CLB [id number]) PT-Bed Mobility Assessment Rolling Type of Rolling Log Rolling,Roll to Right Level of Assist Standby Assistance Supine to Sit Supine to Sit Contact Guard Assistance,1 Person Assistance Scooting Scooting to Edge of Bed Standby Assistance PT-Transfer Assessment Sit to and From Stand Sit to and from Stand Contact Guard Assistance,1 Person Assistance,Use of Upper Extremities Equipment Transfer Assistive Device Gait Belt,Front Wheeled Walker Orthotic/Prosthetic Devices or Brace: Yes Transfers Transfer Destination Chair Transfer Technique Pt ambulated w/ FWW Transfer Ability Level of Assist Contact Guard Assistance,1 Person Assistance,Use of Upper Extremities Comments Mobility Comments Pt continues to improve with supine- sit requiring CGA but did not need to use bed rail. Pt required assist with donning brace. Pt recalled 3/3 back precautions. Pt ambulated in donnelly ~220ft w/FWW /CGA. Pt sat in chair SBA. Left pt in chair with CM present. Chair alarm on and all needs within reach. Returned to the room to give pt phone numbers he requested to check on his . Gait Assessment Gait Gait Assistance Required: Contact Guard Assist,1 Person Assist Distance (Feet) 220 Able to Maintain Weight Bearing Status Yes During Gait Assistive Devices Assistive Device Gait Belt,Front Wheeled Walker Gait Deviations General Gait Pattern Antalgic,Decreased Stride Length,Decreased Feet Clearance Factors Limiting Gait Function Factors Limiting Gait Function Decreased Activity Tolerance, Decreased Strength,Difficulty Following Directions,Limited Range of Motion,Pain,Poor Balance,Poor Safety Awareness Comments Gait Comments Pt ambulated with good safety awareness today, pt was able to self monitor his pace and stayed inside the walker appropriately. Pt could have walked further but was concerned about his and wanted to go back to his room. M5 PT-IP Objective Assessments Start: 12/13/19 13:11 Freq: NEEDED Status: Active Protocol: Document 12/13/19 09:16 AB (Rec: 12/13/19 13:46 AB [id number]) Orientation Orientation/Cognition Level of Alertness Alert Orientation Name,Age,Birthday,Place, Situation Safety Awareness Decreased Safety Awareness Gross Range of Motion Lower Extremity ROM Assessment Within Functional Limits Strength Lower Extremity Strength Assessment Right Impaired Hip 3+/5 Knee 3+/5 Coordination Assessment Gross Coordination Gross Coordination WNL Sensation Assessment Sensation Gross Sensation WNL Muscle Tone Muscle Tone WNL Yes M6 PT-IP Treatment Start: 12/13/19 13:11 Freq: NEEDED Status: Active Protocol: Document 12/15/19 15:18 KS (Rec: 12/15/19 16:15 KS [id number]) Physical Therapy Treatment Education Education Provided Precautions,Safety M7 PT-IP Assessment and Plan Start: 12/13/19 13:11 Freq: NEEDED Status: Active Protocol: Document 12/17/19 08:50 CLB (Rec: 12/17/19 09:31 CLB [email or web address]) PT Summary Assessment and Plan Summary Impairments Pain,ROM,Strength,Balance, Coordination,Sensation,Tone, Cognition,Bed Mobility, Transfers,Gait,Activity Tolerance Assessment Summary Pt progressing well with log roll and supine-sit. Pt requires assist donning brace. Pt ambulated in donnelly ~220ft w /FWW/CGA with good self awareness and was able to self pace and correct placement inside walker for safety. Goals Bed Mobility Goal Independent Transfer Goal Independent,Front Wheeled Walker Gait Goal Independent,Front Wheel Walker Gait Distance 200 Other Goals improve ambulation 150 ft using 3WW mod I improve stair climbing 1 step using 3WW SBA; 15 steps using R rail and quad cane SBA Days to Meet Goals 10 Frequency of Treatment Frequency Of Treatment Twice a Day Treatment Plan Physical Therapy Treatment Plan Bed Mobility Training,Transfer Training,Gait Training, Therapeutic Exercise,Balance Retraining,Post Op Education, Discharge Planning,Hot or Cold Pack,Neuromuscular Re-ed, Coordination Retraining,Manual Therapy Recommendations To Nursing Amount of Assist Needed 1 Person Assist Discharge Recommendations PT Discharge Recommendations Home with 23/05 Assist,Home Health,SNF Rehab Equipment Needed for Home Before FWW Discharge Transportation Needs at Discharge Private Vehicle,Wheelchair/ Cabulance
[2019-12-17] MEDS: ACETAMINOPHEN 325 MG TABLET 650 MG PO ×3 (09:45→21:20)
[2019-12-17] MEDS: CARBIDOPA-LEVODOPA 25/100 TABLET 1.5 EACH PO ×3 (09:45→21:18)
[2019-12-17] MEDS: CELECOXIB 200 MG CAPSULE PO ×2 (09:46→21:21)
[2019-12-17] MEDS: SODIUM CHLORIDE 0.9% FLUSH 10 ML IV (09:47)
[2019-12-17] MEDS: DOCUSATE 100 MG CAPSULE PO ×2 (09:47→21:21)
[2019-12-17 12:00] VITALS: BP 132/61; PULSE 63; RESP 18; TEMP 36.5; O2SAT 100
--- NOTE | 2019-12-17 12:01 | P.PN_ITS ---
Subjective Subjective Date Patient Seen: 12/17/19 Time Patient Seen: 07:15 Interval history: POD #6 s/p Exchange of L5 and S1 screws on the left, and removal of old shan and placement of new shan from T10 through S1 with Dr. Richard. Patient has hx of Parkinson's and taking Sinemet. Patient denies any hallucinations this AM, admits to hallucinations in past with Sinemet, denies hallucinations with narcotics but admits to confusion. TLSO brace arrived and was fitted for patient. Patient has made significant progress with wearing brace and working with OT and PT. Discussed with Dr. Richard that he does not need to use it for hygiene, and sleeping in bed. Talked on phone with his >30 minutes concerning discharge - Prefers [facility] at [facility] She states that PT that has met him in past at [facility] is requesting the hospital bed. It was discussed with Dr. Richard, and PT that patient does not require hospital bed at current level of care. Care management will call [facility] today. Patient has minimal pain in lower back. He has started mobilizing with PT. He did have acute post-operative blood loss anemia following surgery. Voiding wit hout difficulty or assistance. Patient denies fever, chills, chest pain, shortness of breath, numbness, tingling, urinary/bowel incontinence Exam Vital Signs (past 8 hours): - 12/17/19 05:30 12/17/19 08:00 Temperature 98.9 F 97.8 F Pulse Rate 70 67 Respiratory Rate 19 18 Blood Pressure 152/72 H 151/70 H Pulse Oximetry 100 100 Oxygen Delivery Method Room Air Oxygen Flow Rate 0 Narrative Exam Narrative: Patient is sitting up in bed in no acute distress. Alert and orient x3. Dressing on back is CDI. Calves are soft, compressible, nontender bilaterally. Dorsalis pedis pulses are symmetrical. Objective Labs Result Diagrams: 12/15/19 14:48 12/15/19 14:48 Assessment & Plan Post-op Postoperative Procedures: Procedures Operation Date: 12/11/19 17:30 Actual Procedures Side Surgeon p L5-S1 SCREW CHANGE AND REVISION T10-S1 SHAN ON LEFT Zane Richard MD Patient's was called. She was advised of the plan of discharging today. She then told me that she was not made aware that he was discharging today, and that it is not possible for her to get a ferry today. Also, that we need to give her as much notice as possible as there are limited ferrys. I explained to her that we discussed at length on Tuesday about her needing to be here for caregiver training this morning. She stated that I was a liar about telling her he was going home today and she was not told this, and doesn't understand why she has to be here today. She suggests putting the patient in a cab on the ferry. She says she has the GI flu and is unable to make it today and if I wanted that to be spread around to other people. On Tuesday, I was on the p jose with her, and had Latoya from OT talk to her about her need for being here and why it was important for her to be here on Tuesday for caregiver training. On Tuesday, on the white board in the patients room, we put a note for everyone involved with patient's care, that his would be coming over on a ferry Tuesday, and to expect caregiver training at 9:30. I was told she would be getting on an 8:05 ferry. The told me that they would need to then get on the 12 ferry and that was noted as well on the white board. Her was present for all conversations on Tuesday and Tuesday morning and is able to make decisions as well. Patient is medically stable at this time. Based on his mobilizing last night and today, he is not completely independent at this time, and I cannot recommend he go home independently without his being here today for caregiver training. His mentioned multiple times that she cannot be home 24/7 and is very limited on what she can do as she gets queasy and has a bad hip. As of this morning, I am recommending the [facility] with home health so he has the option of having someone around 24/7 and he is still requiring instruction and supervision. states she will appeal discharge today. Discussion will be made with PT at end of day of patients progress. If he becomes independent, and it is deemed safe, then he could potentially discharge home with home health. But at this time I am recommending [facility] with home health with transport by cabulance. Quality VTE Deep Vein Thrombosis/Pulmonary Embolism Present on Admission: No
--- NOTE | 2019-12-17 12:42 | OT.IP.TRT ---
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, initial encounter (12/10/19) Surgery Performed Operation Date: 12/11/19 17:30 Actual Procedures p L5-S1 SCREW CHANGE AND REVISION T10-S1 SHAN ON LEFT - Zane Richard MD Occupational Therapy Treatment Note M2 OT-IP Current Condition Start: 12/12/19 14:48 Freq: Status: Active Protocol: Document 12/13/19 13:52 PJM (Rec: 12/13/19 16:43 PJM [id number]) Occupational Therapy Current Condition Current Condition Evaluation Date 12/13/19 Treatment Diagnosis decreased ADLS, mobility s/p 2nd revision of T10-L4 fusion Diagnosis Onset Date 12/11/19 Post Operative Precautions Lumbar Precautions Log Roll,No Twisting,Limit Bending,Lifting Restriction of 10 lbs,Gait Belt above Incisional Area Other Precautions Pt currently awaiting arrival of custom TLSO brace with L thigh attachment. He is limited to transfers only per Dr Richard until brace arrives. Pt can have brace off in bed and when standing or sitting in shower. M3 OT- IP Subjective and Pain Start: 12/12/19 14:48 Freq: Status: Active Protocol: Document 12/17/19 12:29 CCC (Rec: 12/17/19 12:42 [facility] [id number]) OT- Subjective Occupational Therapy Visit Type Type Treatment Note Visit Start Time 10:25 Visit Stop Time 11:09 Total Visit Minutes 44 Occupational Therapy Visit Comments Patient Comments Pt agreeable to do OT. Pt wanting to go home, however pt states feeling very anxious about him coming home versus go back to [facility]. Patient/Caregiver Goals To go home. OT Pain Assessment Pain When Pain Assessed At Rest Pain Present Pain Present Denied Pain M4 OT- IP ADL's Start: 12/12/19 14:48 Freq: Status: Active Protocol: Document 12/17/19 12:29 CCC (Rec: 12/17/19 12:42 [facility] [id number]) OT ADL-Grooming General Evaluation Grooming Ability Independent Areas Needing Assistance Retrieving/Set-up of Grooming Items Comments OT Grooming Comments Able to do while standing with FWW in front of him. OT ADL-Oral Care General Eval Oral Care Ability Independent OT ADL-Dressing General Eval Upper Body Dressing Ability Maximum Assistance Lower Body Dressing Ability Standby Assistance Comments OT Dressing Comments Pt still needing MAX A for TLSO, able to birdie the brace - as top chest piece needs to overlap the back piece. Pt just needing increased time to ana brief after use of the toilet . To issue blood bank laboratory professional to increase ease doff/ana LB dressing needs. Pt states has a sock aid at home. OT ADL-Toileting General Evaluation Toileting Ability Standby Assistance Devices Toileting Assistive Devices Grab Bars M5 OT- IP IADL's Start: 12/12/19 14:48 Freq: Status: Active Protocol: Document 12/13/19 13:52 PJM (Rec: 12/13/19 16:43 PJM [id number]) OT-Instrumental Activities of Daily Living Deficits IADL Deficits Identified Deficits Home Safety Awareness Awareness of Need for Assistance at Home Decreased Awareness Medication Management Medication Management Caregiver Provides Supervision Money Management Money Management Caregiver Provides Supervision Meal Preparation Meal Preparation Caregiver Provides Assist Hub Bander Hub Bander Caregiver Provides Assist Driving Driving Caregiver Provides Assist Driving Comments pt drove until 11/04/19 per his report M6 OT- IP Functional Cognition Start: 12/12/19 14:48 Freq: Status: Active Protocol: Document 12/17/19 12:29 [facility] (Rec: 12/17/19 12:42 [facility] [id number]) Cognitive Factors Limiting Selfcare Function Cognitive Ability Level of Alertness Alert Patient Orientation Name,Age,Birthday,Month,Date, Year,Day of Week,Place, Situation Attention Span Ability Capable of Focused Attention, Capable of Sustained Attention Ability to Follow Commands Able to Follow Multi-Step Commands Memory Description Short Term Impaired Safety Awareness Underestimates Need for Assistance Problem Solving Ability Needs Assist to Identify Solutions Cognitive Comments Cognitive Assessment Comments At times pt is a little impulsive and needing cues to slow down and think through safety awareness. For example to scoot forwards and push on the armrests of the recliner when coming to stand. Pt does not have any difficulty when coming to stand from higher surfaces. In addition vc for pt to keep his feet apart while walking to increase base of support and balance. M7 OT- IP Mobility and Balance Start: 12/12/19 14:48 Freq: Status: Active Protocol: Document 12/17/19 12:29 [facility] (Rec: 12/17/19 12:42 [facility] [email or web address]) OT-Transfer Assessment Sit to and From Stand Sit to and from Stand Standby Assistance,Minimal Assistance Transfers Transfer Ability Standby Assistance Technique Transfer Destination Chair,Toilet Devices Transfer Assistive Devices Gait Belt,Front Wheeled Walker Comments Mobility Comments LEONID from lower surfaces and no trouble from higher surfaces at this time. OT- Gait Assessment Comments Gait Ability Comments Once on his feet, pt is SBA with FWW in the room. OT- Balance Assessment Sitting Balance and Reactions Static Sitting Balance Ability Normal Dynamic Sitting Balance Ability Good Standing Balance and Reactions Static Standing Balance Ability Good Dynamic Standing Balance Ability Fair M8 OT- IP Objective Assessments Start: 12/12/19 14:48 Freq: Status: Active Protocol: Document 12/13/19 13:52 PJM (Rec: 12/13/19 16:43 PJM [id number]) OT Gross Range of Motion Upper Extremity Range of Motion Assessment Left Impaired ROM Impairments L shoulder active scaption to 90 degrees s/p L TSA RUE WFL OT Strength Comments Strength Comments BUE WFL for self care OT- Coordination Assessment Comments Coordination Comments BUE WFL with no tremors noted this session OT-Muscle Tone Assessment Comments Muscle Tone Comments slight rigidity noted due to Parkinsons OT Sensation Assessment Comments Summary Comments Pt denies deficits in BUE's Edema Edema Absent M9 OT- IP Assessment and Plan Start: 12/12/19 14:48 Freq: Status: Active Protocol: Document 12/17/19 12:29 [facility] (Rec: 12/17/19 12:42 [facility] [email or web address]) OT Summary Assessment and Plan Potential Rehabilitation Potential Good Analytic Complexity at Evaluation Low Summary OT Impairments Pain,Balance,Functional Cognition,Functional Mobility, Dressing,Toileting,Bathing, Toilet Transfers,Shower Transfers,Activity Tolerance Progress Towards Goals Progressing Toward Goals Assessment Summary Pt improving with overall activity tolerance and able to states good understanding to let others now how to ana/ doff the TLSO. Pt very motivated to go home, however per pt , pt's is anxious and would rather that he go to [facility]. Pt's has been called by case management, but has not come in for any caregiver training at this time, therefore best for pt to go back to [facility] versus home with pending caregiver training. Goals Grooming Goal Independent Dressing Goal Moderate Assistance Toileting Goal Independent Bathing Goal Minimal Assistance Toilet Transfer Goal Independent Shower Transfer Goal Contact Guard Assistance Patient/Caregiver Education Goal Demonstrate Post-Op Precautions,Caregiver Independent Assisting Patient Days to Meet Goals 5 Frequency of Treatment Frequency Of Treatment Twice a Day Treatment Plan OT Treatment Plan ADL Training,Functional Mobility,Patient/Family Education,Discharge Planning Discharge Recommendations OT Discharge Recommendations Home with Assistance,Home Health Other Discharge Recommendations [facility] with HH OT/PT versus home with and HH pending caregiver training. Transportation Needs at Discharge Private Vehicle
--- NOTE | 2019-12-17 13:02 | PC.NURSE ---
Addendum entered by Nuvia Finney R.N. 12/17/19 15:44: Patient's IV site is . I told patient we would have to do another IV and he said, no, I don't want another one, let's call it quits. Reminded patient that an IV may be required in the event of an emergency and he said, I'm going soon anyway, I don't need this. Communicated this to [place], she is OK with no further IV access. Communicated this in report since patient would not let me take his IV out once I had the order. Patient was on the phone at the time, very short with this nurse leave, just leave. Original Note: Patient resting in chair. Denies pain at this time. Patient ambulating to restroom with SBA.
--- NOTE | 2019-12-17 13:47 | PT.IPTN ---
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, initial encounter (12/10/19) Surgery Performed Operation Date: 12/11/19 17:30 Actual Procedures p L5-S1 SCREW CHANGE AND REVISION T10-S1 SHAN ON LEFT - Zane Richard MD Physical Therapy Treatment Note M2 PT-IP Current Condition Start: 12/13/19 13:11 Freq: NEEDED Status: Active Protocol: Document 12/13/19 09:16 AB (Rec: 12/13/19 13:46 [facility] [id number]) Physical Therapy Current Condition Current Condition Evaluation Date 12/13/19 Treatment Diagnosis s/p L5S1 L screws exchange;T10 -S1 removal old shan & replace; diff in walking Onset Date 12/11/2019 Precautions Lumbar Precautions Log Roll,No Twisting,Limit Bending,Lifting Restriction of 10 lbs,Gait Belt above Incisional Area Other Precautions Per Dr. Richard 12/12/2019: limit activity to transfers only until TLSO brace available M3 PT-IP Subjective Start: 12/13/19 13:11 Freq: NEEDED Status: Active Protocol: Document 12/17/19 13:47 [facility] (Rec: 12/17/19 14:58 [facility] [id number]) Subjective Physical Therapy Visit Type Type Treatment Note Visit Start Time 13:54 Visit Stop Time 14:17 Total Visit Minutes 23 Number of SALES PRODUCER Visits 7 Physical Therapy Visit Comments Patient Comments Pt willing to work with therapy. Therapy Pain Assessment Pain When Pain Assessed During Mobility Pain Present Pain Present Pain Reported Location back Intensity 2 Scale Used Numeric (1 - 10) Pain Management Techniques Modification of Treatment,Re- positioning,Timing of Activity with Medications M4 PT-IP Mobility and Gait Start: 12/13/19 13:11 Freq: NEEDED Status: Active Protocol: Document 12/17/19 13:47 [facility] (Rec: 12/17/19 14:58 [facility] [id number]) PT-Bed Mobility Assessment Rolling Type of Rolling Log Rolling,Roll to Right Level of Assist Standby Assistance Sit to Supine Sit to Supine Standby Assistance PT-Transfer Assessment Sit to and From Stand Sit to and from Stand Standby Assistance,Use of Upper Extremities Equipment Transfer Assistive Device Gait Belt,Front Wheeled Walker Orthotic/Prosthetic Devices or Brace: Yes Transfers Transfer Destination Bed Transfer Technique Pt ambulated w/ FWW Transfer Ability Level of Assist Standby Assistance,Use of Upper Extremities Comments Mobility Comments Pt improving with all mobility , pt required SBA for sit<> stand, ambulation and bed mobility. Pt requires assist to ana/doff TLSO brace. Pt able to perform sit-supine from flat bed then reverse log roll SBA. Pt left in bed with alarm on and all needs within reach, OT present in room. RN informed that pt requires SBA when up OOB and can use 3WW. Gait Assessment Gait Gait Assistance Required: Standby Assistance,1 Person Assist Distance (Feet) 350 Able to Maintain Weight Bearing Status Yes During Gait Assistive Devices Assistive Device Gait Belt,Front Wheeled Walker Orthotic/Prosthetic Devices or Brace: Yes Gait Deviations General Gait Pattern Antalgic,Decreased Stride Length,Decreased Feet Clearance Factors Limiting Gait Function Factors Limiting Gait Function Decreased Activity Tolerance, Decreased Strength,Difficulty Following Directions,Limited Range of Motion,Pain,Poor Balance,Poor Safety Awareness Comments Gait Comments Pt ambulated ~350ft with 3WW SBA. Pt stopped once to look out window then continued ambulation. Pt improved with use of 3WW and was able to control walker and improve posture. M5 PT-IP Objective Assessments Start: 12/13/19 13:11 Freq: NEEDED Status: Active Protocol: Document 12/13/19 09:16 AB (Rec: 12/13/19 13:46 [facility] [id number]) Orientation Orientation/Cognition Level of Alertness Alert Orientation Name,Age,Birthday,Place, Situation Safety Awareness Decreased Safety Awareness Gross Range of Motion Lower Extremity ROM Assessment Within Functional Limits Strength Lower Extremity Strength Assessment Right Impaired Hip 3+/5 Knee 3+/5 Coordination Assessment Gross Coordination Gross Coordination WNL Sensation Assessment Sensation Gross Sensation WNL Muscle Tone Muscle Tone WNL Yes M6 PT-IP Treatment Start: 12/13/19 13:11 Freq: NEEDED Status: Active Protocol: Document 12/15/19 15:18 [facility] (Rec: 12/15/19 16:15 [facility] [id number]) Physical Therapy Treatment Education Education Provided Precautions,Safety M7 PT-IP Assessment and Plan Start: 12/13/19 13:11 Freq: NEEDED Status: Active Protocol: Document 12/17/19 13:47 [facility] (Rec: 12/17/19 14:58 [facility] [id number]) PT Summary Assessment and Plan Potential Rehabilitation Potential Good Summary Assessment Summary Pt continues to progress with all mobility requiring SBA for all bed mobilty, sit<>stand and gait. Pt requires assist with ana/doffing brace. Pt is safe for ambulation with 3WW. Goals Bed Mobility Goal Independent Transfer Goal Independent,Front Wheeled Walker Gait Goal Independent,Front Wheel Walker Gait Distance 200 Other Goals improve ambulation 150 ft using 3WW mod I improve stair climbing 1 step using 3WW SBA; 15 steps using R rail and quad cane SBA Days to Meet Goals 10 Frequency of Treatment Frequency Of Treatment Twice a Day Treatment Plan Physical Therapy Treatment Plan Bed Mobility Training,Transfer Training,Gait Training, Therapeutic Exercise,Balance Retraining,Post Op Education, Discharge Planning,Hot or Cold Pack,Neuromuscular Re-ed, Coordination Retraining,Manual Therapy Other Recommendations and Next Treatment sit<>stand from chair, bed Focus mobility and gait. Recommendations To Nursing Amount of Assist Needed 1 Person Assist Discharge Recommendations PT Discharge Recommendations Home with Assistance,Home Health Equipment Needed for Home Before Pt refusing FWW stating he Discharge will not use it at home as he prefers using the 3WW. Pt has progressed with ambulation and is safe with 3WW.
--- NOTE | 2019-12-17 14:59 | OT.IP.TRT ---
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, initial encounter (12/10/19) Surgery Performed Operation Date: 12/11/19 17:30 Actual Procedures p L5-S1 SCREW CHANGE AND REVISION T10-S1 SHAN ON LEFT - Zane Richard MD Occupational Therapy Treatment Note M2 OT-IP Current Condition Start: 12/12/19 14:48 Freq: Status: Active Protocol: Document 12/13/19 13:52 PJM (Rec: 12/13/19 16:43 PJM [id number]) Occupational Therapy Current Condition Current Condition Evaluation Date 12/13/19 Treatment Diagnosis decreased ADLS, mobility s/p 2nd revision of T10-L4 fusion Diagnosis Onset Date 12/11/19 Post Operative Precautions Lumbar Precautions Log Roll,No Twisting,Limit Bending,Lifting Restriction of 10 lbs,Gait Belt above Incisional Area Other Precautions Pt currently awaiting arrival of custom TLSO brace with L thigh attachment. He is limited to transfers only per Dr Richard until brace arrives. Pt can have brace off in bed and when standing or sitting in shower. M3 OT- IP Subjective and Pain Start: 12/12/19 14:48 Freq: Status: Active Protocol: Document 12/17/19 15:02 [facility] (Rec: 12/17/19 15:15 [facility] [id number]) OT- Subjective Occupational Therapy Visit Type Type Treatment Note Visit Start Time 14:30 Visit Stop Time 14:59 Total Visit Minutes 29 Occupational Therapy Visit Comments Patient Comments Pt wiling to do cognitive assessment. Case management present during part of OT session as figuring out with pt for transportation and caregiving needs. Patient/Caregiver Goals Pt wants to go home, but will to go back to [facility] initially. OT Pain Assessment Pain When Pain Assessed At Rest Pain Present Pain Present Denied Pain M4 OT- IP ADL's Start: 12/12/19 14:48 Freq: Status: Active Protocol: Document 12/17/19 12:29 [facility] (Rec: 12/17/19 12:42 [facility] [id number]) OT ADL-Grooming General Evaluation Grooming Ability Independent Areas Needing Assistance Retrieving/Set-up of Grooming Items Comments OT Grooming Comments Able to do while standing with FWW in front of him. OT ADL-Oral Care General Eval Oral Care Ability Independent OT ADL-Dressing General Eval Upper Body Dressing Ability Maximum Assistance Lower Body Dressing Ability Standby Assistance Comments OT Dressing Comments Pt still needing MAX A for TLSO, able to birdie the brace - as top check piece overlaps the back piece. Pt just needing increased time to ana brief after use of the toilet . To issue parachute harness rigger to increase ease doff/ana LB dressing needs. OT ADL-Toileting General Evaluation Toileting Ability Standby Assistance Devices Toileting Assistive Devices Grab Bars M5 OT- IP IADL's Start: 12/12/19 14:48 Freq: Status: Active Protocol: Document 12/13/19 13:52 PJM (Rec: 12/13/19 16:43 PJM [id number]) OT-Instrumental Activities of Daily Living Deficits IADL Deficits Identified Deficits Home Safety Awareness Awareness of Need for Assistance at Home Decreased Awareness Medication Management Medication Management Caregiver Provides Supervision Money Management Money Management Caregiver Provides Supervision Meal Preparation Meal Preparation Caregiver Provides Assist Liquor Merchant Liquor Merchant Caregiver Provides Assist Driving Driving Caregiver Provides Assist Driving Comments pt frove until 11/04/19 per his report M6 OT- IP Functional Cognition Start: 12/12/19 14:48 Freq: Status: Active Protocol: Document 12/17/19 15:02 [facility] (Rec: 12/17/19 15:15 [facility] [id number]) Cognitive Factors Limiting Selfcare Function Cognitive Ability Level of Alertness Alert Patient Orientation Name,Age,Birthday,Month,Date, Year,Day of Week,Place, Situation Attention Span Ability Capable of Focused Attention, Capable of Sustained Attention Ability to Follow Commands Able to Follow Multi-Step Commands Memory Description Short Term Impaired Safety Awareness Underestimates Need for Assistance Cognitive Tests ACL Pt scored 5.2/6.0 which implies may lives alone with weekly checks to monitor safety and examine potential dangerous effects of impulsive behavior. Cognitive Comments Cognitive Assessment Comments Pt continues be a little impulsive and not thinking things through before answering questions. Pt asking if he could be able to change the cat litter from the floor . Suggested for his to handle those duties, otherwise use of long handled scoop or have the cat litter placed up higher by his so it would be easier for him to clean. Pt states, or I can just get down on all fours to clean it. Recommended that pt should not get on the floor at this time and talk to the doctor before trying to do activities that his can assist with. In addition pt asking, when he is able to drive. Again stressed that he should be talking to his surgeon, as the back brace would be limit him from twisting when changing lanes or backing up. Recommended no driving at this time and for pt to talk to his surgeon. M7 OT- IP Mobility and Balance Start: 12/12/19 14:48 Freq: Status: Active Protocol: Document 12/17/19 12:29 [facility] (Rec: 12/17/19 12:42 [facility] [id number]) OT-Transfer Assessment Sit to and From Stand Sit to and from Stand Standby Assistance,Minimal Assistance Transfers Transfer Ability Standby Assistance Technique Transfer Destination Chair,Toilet Devices Transfer Assistive Devices Gait Belt,Front Wheeled Walker Comments Mobility Comments LEONID from lower surfaces and no trouble from higher surfaces at this time. OT- Gait Assessment Comments Gait Ability Comments Once on his ffet, pt is SBA with FWW in the room. OT- Balance Assessment Sitting Balance and Reactions Static Sitting Balance Ability Normal Dynamic Sitting Balance Ability Good Standing Balance and Reactions Static Standing Balance Ability Good Dynamic Standing Balance Ability Fair M8 OT- IP Objective Assessments Start: 12/12/19 14:48 Freq: Status: Active Protocol: Document 12/13/19 13:52 PJM (Rec: 12/13/19 16:43 PJM [id number]) OT Gross Range of Motion Upper Extremity Range of Motion Assessment Left Impaired ROM Impairments L shoulder active scaption to 90 degrees s/p L TSA RUE WFL OT Strength Comments Strength Comments BUE WFL for self care OT- Coordination Assessment Comments Coordination Comments BUE WFL with no tremors noted this session OT-Muscle Tone Assessment Comments Muscle Tone Comments slight rigidity noted due to Parkinsons OT Sensation Assessment Comments Summary Comments Pt denies deficits in BUE's Edema Edema Absent M9 OT- IP Assessment and Plan Start: 12/12/19 14:48 Freq: Status: Active Protocol: Document 12/17/19 15:02 [facility] (Rec: 12/17/19 15:15 [facility] [id number]) OT Summary Assessment and Plan Potential Rehabilitation Potential Good Analytic Complexity at Evaluation Low Summary OT Impairments Pain,Balance,Functional Cognition,Functional Mobility, Dressing,Toileting,Bathing, Toilet Transfers,Shower Transfers,Activity Tolerance Progress Towards Goals Progressing Toward Goals Assessment Summary Pt doing better overall however needing cues to stop and think things through especially for his back precautions. Pt looking to go back to with initial 24/7 assist at [facility]. Goals Grooming Goal Independent Dressing Goal Moderate Assistance Toileting Goal Independent Bathing Goal Minimal Assistance Toilet Transfer Goal Independent Shower Transfer Goal Contact Guard Assistance Patient/Caregiver Education Goal Demonstrate Post-Op Precautions,Caregiver Independent Assisting Patient Days to Meet Goals 4 Frequency of Treatment Frequency Of Treatment Twice a Day Treatment Plan OT Treatment Plan ADL Training,Functional Mobility,Patient/Family Education,Discharge Planning Discharge Recommendations OT Discharge Recommendations Home with Assistance,Home Health Other Discharge Recommendations [facility] with OT/PT . Transportation Needs at Discharge Private Vehicle
[2019-12-17 15:30] VITALS: BP 155/80; PULSE 67; RESP 19; TEMP 36.4; O2SAT 98
--- NOTE | 2019-12-17 15:39 | OT.IPNOTE ---
PAC, Jeanine Salmon able to clarify that pt able to transfer from bed to BSC if placed right next to the bed without the brace. Otherwise pt needs to have the brace on when out of bed.
--- NOTE | 2019-12-17 15:49 | CM.DPNOTE ---
GREYSON MCCOY met bedside with pt and he is still agreeable with the appeal of his discharge and discussed the Detailed notice of Discharge and provided him a copy. CARL Ballesteros
[2019-12-17 21:00] VITALS: BP 151/71; PULSE 64; RESP 20; TEMP 36.3; O2SAT 100
[2019-12-17] MEDS: hydroCHLOROthiazide 25 MG TABLET PO (21:18)
[2019-12-17] MEDS: PANTOPRAZOLE 20 MG TABLET PO (21:18)
[2019-12-17] MEDS: TELMISARTAN 40 MG TABLET 80 MG PO (21:20)
[2019-12-17] MEDS: ATORVASTATIN 10 MG TABLET PO (21:20)
[2019-12-17] MEDS: SENNOSIDES 8.6 MG TABLET 17.2 MG PO (21:20)
[2019-12-17] MEDS: TAMSULOSIN 0.4 MG CAPSULE PO (21:21)
[2019-12-17 23:45] VITALS: BP 149/70; PULSE 63; RESP 16; TEMP 36.9; O2SAT 97
[2019-12-18 04:48] VITALS: BP 152/72; PULSE 67; RESP 16; TEMP 37; O2SAT 98
[2019-12-18 08:00] VITALS: BP 165/82; PULSE 69; RESP 18; TEMP 36.6; O2SAT 99
--- NOTE | 2019-12-18 08:50 | CM.DPC ---
DCP Discharge Home with HH Per Purvi RANDOLPH, pt remains stable for d/c today. SW met with pt and he states that he discussed plan of discharge home today via taxi, with his currently at home as well, and they have set up the Private Pay Caregiver to meet pt at home when he arrives to provide additional assist. Pt requesting SW support with setting up taxi from the hospital to home and is agreeable with private pay taxi to catch the [place] ferry. Pt requested SW not call spouse as she is aware of the plan and is still stressed and sick. SW called [facility] [employer] and confirmed that they cannot take pt all the way to his home on [place] but that they can [facility] and help get the ferry terminal w/c and into the terminal to buy his walk on ticket and ferry staff help get pt onto the ferry. [facility] can provide transport for pt at 1330 from ER entrance and confirms their support with w/c and getting pt to terminal. SW updated pt and he request SW contact [place] [employer] to set up transport from [facility] to home. SW called and left a msg with [employer] and then called [employer] and spoke to Gely and provided the information regarding pt's ambulation abilities and need from transport from [facility] to home and she confirms they can provide this service via their minivan transport. DARIUS met bedside with pt and updated and got Gely from [employer] on pt phone bedside and pt graciously talked to Gely regarding olive picker location, payment, and home address. DARIUS wrote down both taxi information and plan and provided to pt and he again confirms he is agreeable with this plan and states he will update spouse and again emphasizes the request for SW not to call and bother/upset his as she did not sleep well last night and still sick. DARIUS updated OT, PT (who will do stairs again today and see about getting pt showered prior to d/c), RN, manager payment regarding the plan and need to make sure pt's 3 wheeled walker goes with pt from his hospital room. DARIUS inquired if [facility] know the new plan of home with private pay caregiver today and pt states he updated them but agreeable if SW wants to inform them as well. Plan: SW to follow closely for plan of pt d/c today via [employer] at 1330 to catch the 1410 ferry to [place] with private pay caregiver to meet pt at home and [facility]. CARL Ballesteros
--- NOTE | 2019-12-18 09:14 | PT.IPTN ---
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, initial encounter (12/10/19) Surgery Performed Operation Date: 12/11/19 17:30 Actual Procedures p L5-S1 SCREW CHANGE AND REVISION T10-S1 SHAN ON LEFT - Zane Richard MD Physical Therapy Treatment Note M2 PT-IP Current Condition Start: 12/13/19 13:11 Freq: NEEDED Status: Active Protocol: Document 12/13/19 09:16 AB (Rec: 12/13/19 13:46 AB [id number]) Physical Therapy Current Condition Current Condition Evaluation Date 12/13/19 Treatment Diagnosis s/p L5S1 L screws exchange;T10 -S1 removal old shan & replace; diff in walking Onset Date 12/11/2019 Precautions Lumbar Precautions Log Roll,No Twisting,Limit Bending,Lifting Restriction of 10 lbs,Gait Belt above Incisional Area Other Precautions Per Dr. Richard 12/12/2019: limit activity to transfers only until TLSO brace available M3 PT-IP Subjective Start: 12/13/19 13:11 Freq: NEEDED Status: Active Protocol: Document 12/18/19 09:14 CLB (Rec: 12/18/19 12:43 CLB [id number]) Subjective Physical Therapy Visit Type Type Treatment Note Visit Start Time 09:14 Visit Stop Time 09:37 Total Visit Minutes 23 Number of HEALTH UNIT COORDINATOR Visits 8 Physical Therapy Visit Comments Patient Comments Pt willing to work with therapy. Therapy Pain Assessment Pain When Pain Assessed During Mobility Pain Present Pain Present Pain Reported Location back Intensity 2 Scale Used Numeric (1 - 10) Pain Management Techniques Modification of Treatment,Re- positioning,Timing of Activity with Medications M4 PT-IP Mobility and Gait Start: 12/13/19 13:11 Freq: NEEDED Status: Active Protocol: Document 12/18/19 09:14 CLB (Rec: 12/18/19 12:43 CLB [id number]) PT-Bed Mobility Assessment Rolling Type of Rolling Log Rolling,Roll to Right Level of Assist Standby Assistance Supine to Sit Supine to Sit Standby Assistance Scooting Scooting to Edge of Bed Standby Assistance PT-Transfer Assessment Sit to and From Stand Sit to and from Stand Standby Assistance,Use of Upper Extremities Equipment Transfer Assistive Device Gait Belt,Front Wheeled Walker Orthotic/Prosthetic Devices or Brace: Yes Transfers Transfer Destination Bed,Chair Transfer Technique Pt ambulated w/ 3WW Transfer Ability Level of Assist Standby Assistance,Use of Upper Extremities Comments Mobility Comments Pt is SBA for LR with good recall of sequencing. Pt able to transition from supine to sit from flat bed w/o use of bed rails. Pt required assist with putting on brace. Pt stood SBA recalling to put on brakes before standing. Pt ambulated to sink and combed his hair with good standing balance. Pt ambulated in donnelly and performed stair climbing. Pt returned to room and was left in chair with all needs within reach and chair alarm on. Gait Assessment Gait Gait Assistance Required: Standby Assistance Distance (Feet) 240 Assistive Devices Assistive Device Gait Belt,Front Wheeled Walker Orthotic/Prosthetic Devices or Brace: Yes Gait Deviations General Gait Pattern Antalgic,Decreased Stride Length,Decreased Feet Clearance Factors Limiting Gait Function Factors Limiting Gait Function Decreased Activity Tolerance, Decreased Strength,Difficulty Following Directions,Limited Range of Motion,Pain,Poor Balance,Poor Safety Awareness Comments Gait Comments Pt improving with bed mobilty able to perform LR and supine to sit with SBA. Pt ambulated ~240ft SBA with 3WW. Stair Climbing Assessment Evaluation Level of Assist On Stairs Standby Assistance,Contact Guard Assistance,1 Person Assistance Devices Stair Climbing Assistive Devices Small Base Quad Cane,Right Railing Technique/Endurance Stair Climbing Direction Ascend and Descend Stair Climbing Technique Step to Step Number of Steps Climbed 3 Stair Climbing Set # Repetitions (reps) 4 Comments Stair Climbing Comments Pt able to climb stairs with CGA to start with cues for sequencing and pacing. Then pt was able to climb stairs with SBA. M5 PT-IP Objective Assessments Start: 12/13/19 13:11 Freq: NEEDED Status: Active Protocol: Document 12/13/19 09:16 AB (Rec: 12/13/19 13:46 AB [id number]) Orientation Orientation/Cognition Level of Alertness Alert Orientation Name,Age,Birthday,Place, Situation Safety Awareness Decreased Safety Awareness Gross Range of Motion Lower Extremity ROM Assessment Within Functional Limits Strength Lower Extremity Strength Assessment Right Impaired Hip 3+/5 Knee 3+/5 Coordination Assessment Gross Coordination Gross Coordination WNL Sensation Assessment Sensation Gross Sensation WNL Muscle Tone Muscle Tone WNL Yes M6 PT-IP Treatment Start: 12/13/19 13:11 Freq: NEEDED Status: Active Protocol: Document 12/18/19 09:14 CLB (Rec: 12/18/19 12:43 CLB [id number]) Physical Therapy Treatment Other Treatments Other Treatment Performed Pt recalled 3/3 back precautions. Assisted pt donning TLSO brace. M7 PT-IP Assessment and Plan Start: 12/13/19 13:11 Freq: NEEDED Status: Active Protocol: Document 12/18/19 09:14 CLB (Rec: 12/18/19 12:43 CLB [id number]) PT Summary Assessment and Plan Summary Impairments Pain,ROM,Strength,Balance, Coordination,Sensation,Tone, Cognition,Bed Mobility, Transfers,Gait,Activity Tolerance Assessment Summary Pt improving with bed mobilty able to perform LR and supine to sit with SBA. Pt ambulated ~240ft SBA with 3WW. Pt performed stair climbing with one rail and quad cane requiring CGA then SBA with cues for step to step and pacing. Goals Bed Mobility Goal Independent Transfer Goal Independent,Front Wheeled Walker Gait Goal Independent,Front Wheel Walker Gait Distance 200 Other Goals improve ambulation 150 ft using 3WW mod I improve stair climbing 1 step using 3WW SBA; 15 steps using R rail and quad cane SBA Days to Meet Goals 10 Frequency of Treatment Frequency Of Treatment Twice a Day Treatment Plan Physical Therapy Treatment Plan Bed Mobility Training,Transfer Training,Gait Training, Therapeutic Exercise,Balance Retraining,Post Op Education, Discharge Planning,Hot or Cold Pack,Neuromuscular Re-ed, Coordination Retraining,Manual Therapy Recommendations To Nursing Amount of Assist Needed 1 Person Assist Discharge Recommendations PT Discharge Recommendations Home with Assistance,Home Health Equipment Needed for Home Before Pt will borrow walker Discharge from local provider. Transportation Needs at Discharge Private Vehicle,Wheelchair/ Cabulance
--- NOTE | 2019-12-18 10:15 | OT.IP.TRT ---
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, initial encounter (12/10/19) Surgery Performed Operation Date: 12/11/19 17:30 Actual Procedures p L5-S1 SCREW CHANGE AND REVISION T10-S1 SHAN ON LEFT - Zane Richard MD Occupational Therapy Treatment Note M2 OT-IP Current Condition Start: 12/12/19 14:48 Freq: Status: Active Protocol: Document 12/13/19 13:52 PJM (Rec: 12/13/19 16:43 PJM [id number]) Occupational Therapy Current Condition Current Condition Evaluation Date 12/13/19 Treatment Diagnosis decreased ADLS, mobility s/p 2nd revision of T10-L4 fusion Diagnosis Onset Date 12/11/19 Post Operative Precautions Lumbar Precautions Log Roll,No Twisting,Limit Bending,Lifting Restriction of 10 lbs,Gait Belt above Incisional Area M3 OT- IP Subjective and Pain Start: 12/12/19 14:48 Freq: Status: Active Protocol: Document 12/18/19 12:30 [facility] (Rec: 12/18/19 12:45 [facility] [id number]) OT- Subjective Occupational Therapy Visit Type Type Treatment Note Visit Start Time 10:15 Visit Stop Time 11:26 Total Visit Minutes 71 Occupational Therapy Visit Comments Patient Comments Pt wanting to shower. Plan has changed and now pt to go home by cab and caregiver will come to stay at the house to assist for needs. Patient/Caregiver Goals Pt wanting to go home and be able to sleep in his bed. OT Pain Assessment Pain When Pain Assessed At Rest Pain Present Pain Present Denied Pain M4 OT- IP ADL's Start: 12/12/19 14:48 Freq: Status: Active Protocol: Document 12/18/19 12:30 [facility] (Rec: 12/18/19 12:45 [facility] [id number]) OT [id number] Comments OT Self-Feeding Comments Not at meal time. OT ADL-Dressing General Eval Upper Body Dressing Ability Maximum Assistance Lower Body Dressing Ability Standby Assistance Comments OT Dressing Comments Pt able to give directions with good safety of how to ana/doff TLSo so able to let caregiver know. Initially back piece place on first and then the chest piece on top , lines marked for how snug to fit the two pieces together and straps through the loops to the line marked. To take off able to undo one side of the straps and the same side for the shoulder strap and then pull open like a clam shell to take off and then also to put back on. Pt needing cues to sit down to doff socks. Pt able to use behavioral modification assistant and sock aid appropriately. OT ADL-Toileting General Evaluation Toileting Ability Standby Assistance Devices Toileting Assistive Devices Grab Bars Comments OT Toileting Comments Pt able to do own hygiene needs after TLSo taken off when at the toilet. Pt OT ADL-Bathing Bathing Type Bathing Type Shower General Evaluation Bathing Ability Minimal Assistance Areas Needing Assistance Wash/Dry Back Comments OT Bathing Comments Pt mainly just wanting to rinse off in the shower. Pt needing assist to wash dry around the his back dressing with plastic over top. Nursing able to change out the dressing. M5 OT- IP IADL's Start: 12/12/19 14:48 Freq: Status: Active Protocol: Document 12/13/19 13:52 PJM (Rec: 12/13/19 16:43 PJM [id number]) OT-Instrumental Activities of Daily Living Deficits IADL Deficits Identified Deficits Home Safety Awareness Awareness of Need for Assistance at Home Decreased Awareness Medication Management Medication Management Caregiver Provides Supervision Money Management Money Management Caregiver Provides Supervision Meal Preparation Meal Preparation Caregiver Provides Assist Field Laboratory Operator Field Laboratory Operator Caregiver Provides Assist Driving Driving Caregiver Provides Assist Driving Comments pt frove until 11/04/19 per his report M6 OT- IP Functional Cognition Start: 12/12/19 14:48 Freq: Status: Active Protocol: Document 12/18/19 12:30 [facility] (Rec: 12/18/19 12:45 [facility] [id number]) Cognitive Factors Limiting Selfcare Function Cognitive Ability Level of Alertness Alert Patient Orientation Name,Age,Birthday,Month,Date, Year,Day of Week,Place, Situation Attention Span Ability Capable of Focused Attention, Capable of Sustained Attention Ability to Follow Commands Able to Follow Multi-Step Commands Memory Description Short Term Impaired Safety Awareness Underestimates Need for Assistance Cognitive Comments Cognitive Assessment Comments Pt continues to need occasional reminders to slow down and incorporate back precautions. Pt forgetting that the PA states that he can just be without the TLSO when in bed and having to just do a transfer from the bed to BSC next to the bed or use of urinal. TLSO can be taken off during toileting and bathing. M7 OT- IP Mobility and Balance Start: 12/12/19 14:48 Freq: Status: Active Protocol: Document 12/18/19 12:30 [facility] (Rec: 12/18/19 12:45 [facility] [id number]) OT- Bed Mobility Assessment Supine to Sit Supine to Sit Assist Standby Assistance,Bedrails Sit to Supine Sit to Supine Assist Standby Assistance,Bedrails OT-Transfer Assessment Sit to and From Stand Sit to and from Stand Standby Assistance Transfers Transfer Ability Standby Assistance Technique Transfer Destination Bed,Chair,Shower Stall,Toilet Devices Transfer Assistive Devices Gait Belt,Front Wheeled Walker Comments Mobility Comments Much better today with mobilty needs, mainly just needing SBA with FWW. CAse management came in to see pt to see if pt wanting to get a FWW versus just get one at Tuesday . Pt agreed best to get one at Tuesday so not having to have both FWW and 3WW [place]. Pt states the telecommunications cable jointer and staff at the ferry will assist him. OT- Balance Assessment Sitting Balance and Reactions Static Sitting Balance Ability Normal Dynamic Sitting Balance Ability Good Standing Balance and Reactions Static Standing Balance Ability Good Dynamic Standing Balance Ability Fair M8 OT- IP Objective Assessments Start: 12/12/19 14:48 Freq: Status: Active Protocol: Document 12/13/19 13:52 PJM (Rec: 12/13/19 16:43 PJM [id number]) OT Gross Range of Motion Upper Extremity Range of Motion Assessment Left Impaired ROM Impairments L shoulder active scaption to 90 degrees s/p L TSA RUE WFL OT Strength Comments Strength Comments BUE WFL for self care OT- Coordination Assessment Comments Coordination Comments BUE WFL with no tremors noted this session OT-Muscle Tone Assessment Comments Muscle Tone Comments slight rigidity noted due to Parkinsons OT Sensation Assessment Comments Summary Comments Pt denies deficits in BUE's Edema Edema Absent M9 OT- IP Assessment and Plan Start: 12/12/19 14:48 Freq: Status: Active Protocol: Document 12/18/19 12:30 [facility] (Rec: 12/18/19 12:45 [facility] [id number]) OT Summary Assessment and Plan Potential Rehabilitation Potential Good Analytic Complexity at Evaluation Low Summary OT Impairments Pain,Balance,Functional Cognition,Functional Mobility, Dressing,Toileting,Bathing, Toilet Transfers,Shower Transfers,Activity Tolerance Progress Towards Goals Progressing Toward Goals Assessment Summary Pt now going home and to have and private caregiver assist with his needs. Also recommend pt to have home health. Goals Grooming Goal Independent Dressing Goal Moderate Assistance Toileting Goal Independent Bathing Goal Minimal Assistance Toilet Transfer Goal Independent Shower Transfer Goal Contact Guard Assistance Patient/Caregiver Education Goal Demonstrate Post-Op Precautions,Caregiver Independent Assisting Patient Frequency of Treatment Frequency Of Treatment Once a Day Treatment Plan OT Treatment Plan ADL Training,Functional Mobility,Patient/Family Education,Discharge Planning Discharge Recommendations OT Discharge Recommendations Home with Assistance,Home Health Transportation Needs at Discharge Private Vehicle
--- NOTE | 2019-12-18 10:40 | P.PN_ITS ---
Subjective Subjective Date Patient Seen: 12/18/19 Time Patient Seen: 07:30 Interval history: He is doing much better. No pain. He is now able to get up and walk around the room and get on and off the toilet without any assistance. He had required a fair amount of assistance 2 days ago but has really turned the corner. Exam Vital Signs (past 8 hours): - 12/18/19 04:48 12/18/19 08:00 Temperature 98.6 F 97.8 F Pulse Rate 67 69 Respiratory Rate 16 18 Blood Pressure 152/72 H 165/82 H Pulse Oximetry 98 99 Oxygen Delivery Method Room Air Oxygen Flow Rate 0 Const Orientation: alert and oriented x3 Back/Spine/Pelvis Other: CDI. 5/5 motor both lower extremities Objective Labs Result Diagrams: 12/15/19 14:48 12/15/19 14:48 Assessment & Plan Post-op Postoperative Procedures: Procedures Operation Date: 12/11/19 17:30 Actual Procedures Side Surgeon p L5-S1 SCREW CHANGE AND REVISION T10-S1 SHAN ON LEFT Zane Richard MD He is doing tremendously better with the last few days in the hospital. He discuss this with his yesterday and at this point they want him to come home instead of going [place] [facility] as he is now independent. He feels c omfortable getting in and out of his TLSO, maneuvering on his own, and has very good pain control. In accordance with this, we are going to discharge him home at this point. Quality VTE Deep Vein Thrombosis/Pulmonary Embolism Present on Admission: No
[2019-12-18] MEDS: DOCUSATE 100 MG CAPSULE PO (10:54)
[2019-12-18] MEDS: CELECOXIB 200 MG CAPSULE PO (10:54)
[2019-12-18] MEDS: ACETAMINOPHEN 325 MG TABLET 650 MG PO (10:54)
[2019-12-18] MEDS: CARBIDOPA-LEVODOPA 25/100 TABLET 1.5 EACH PO (10:55)
--- NOTE | 2019-12-18 14:06 | PC.NURSE ---
Discharge: IV dc'd yesterday. Reviewed discharge instructions and home med list thoroughly. Reiterated importance of maintaining spine precautions and wearing brace as instructed. Given script for Oxycodone although he may not fill since his pain has been well-controlled with Tylenol. New Coversite dressing was replaced to mid back this morning per MD order. Incision was well-approximated with nadira, bruising around incision, no active bleeding or drainage noted. Instructed to cover dressing for showers to keep dry, and to leave on until follow up unless it becomes saturated or starts to come off (in which case he was instructed to call Dr Richard's office). Will follow up as previously scheduled. Verbalized understanding of all d/c instructions and stated no further questions. All personal belongings sent with patient including glasses, cellphone, walker, clothing, etc.. Wheeled out and seen into [facility] at 1330 by MARGOT.
--- NOTE | 2019-12-20 12:05 | CM.DPNOTE ---
Received determination from Barbara: Patient did not win the appeal. If he were still admitted, he would have been financially responsible for the hospitalization starting 12.20.19 CB info for Misty/Barbara : P# [phone] JW
--- NOTE | 2020-01-02 16:23 | P.DS_ITS ---
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 His ramsey had come loose and he had recurrence of severe radicular pain going down his legs. His felt that this was due to the instability of his back pivoting at this level. He was admitted to the hospital with plans for surgery to reattached at the bottom level of L4 as well as put in a longer ramsey all the way down to S1. Risks and benefits surgery discussed and appropriate consents were obtained. Please see progress note for HPI Discharge Providers Provider Date of admission: 12/10/19 11:02 Primary care physician: Mac Reed MD Consults: 12/11/19 20:23 Consult to Occupational Therapy Evaluate & Treat Comment: Physician Instructions: Evaluate and treat Consult to Physical Therapy Evaluate & Treat Comment: Physician Instructions: Evaluate and Treat 12/17/19 08:01 Consult to Home Health Routine Comment: DUPE surg, spinal ramsey Reason For Exam: [facility] for d/c on 12/17/19 Discharge provider: Miguel Thompson PA-C Summary Hospital Course Discharge Diagnosis: s/p Exchange of L5 and S1 screws on the left / Removal of old ramsey and placement of new ramsey from T10 through S1 Hospital Course: Patient was admitted to hospital s/p exchange of L5 and S1 screws on the left and removal of old ramsey and placement of new ramsey from T10 through S1 with Dr. Richard. POD#7 patient was ready for discharge home with home health services. Initially patient was unable to mobilize with PT because he did not have the necessary TLSO brace. POD#3 TLSO brace arrived and was fitted. Patient progressed slowly with PT secondary to Exam Vital Signs (past 8 hours): Oxygen Delivery Method Room Air Oxygen Flow Rate 0 Objective Labs Result Diagrams: 12/15/19 14:48 12/15/19 14:48 Discharge Plan Discharge Plan Patient Disposition: Home Health Service Discharge orders & Medications Prescriptions: New oxycodone 5 mg Tablet 5 mg PO Q4HR Qty: 30 RF: 0 sennosides [senna] 8.6 mg Tablet 17.2 mg PO BEDTIME Qty: 30 RF: 0 docusate sodium [DOK] 100 mg Capsule 100 mg PO BID Qty: 30 RF: 0 Continued celecoxib [Celebrex] 200 mg capsule 200 mg PO BID RF: 0 triazolam 0.25 mg Tablet 0.175 mg PO BEDTIME PRN (Reason: Sleep) RF: 0 omeprazole 10 mg Capsule,Delayed Release(Dr/Ec) 10 mg PO BEDTIME RF: 0 telmisartan-hydrochlorothiazid 80-25 mg Tablet 1 tab PO BEDTIME RF: 0 atorvastatin 10 mg Tablet 10 mg PO BEDTIME RF: 0 acetaminophen [Tylenol Extra Strength] 500 mg Tablet 500 mg PO TID RF: 0 tamsulosin 0.4 mg Capsule 0.4 mg PO BEDTIME RF: 0 carbidopa-levodopa 25-100 mg Tablet 1.5 tab PO TID RF: 0 docusate sodium [DOK] 100 mg Capsule 100 mg PO BID Qty: 40 RF: 0 Discontinued oxycodone-acetaminophen 5-325 mg Tablet 1 tab PO Q6H PRN (Reason: Pain (Scale Score 4-6)) RF: 0 Follow up/Referrals: Mac Reed MD [Primary Care Provider] - Zane Richard MD [Physician] - Diet/Activity/Treatments Diet: Diet as Tolerated Activity: Wear brace when OOB. Does not need brace in bed. may be out of bed w ithout it for hygiene purposes, including toileting, as needed. Skin/Wound/Dressing Care Report to your healthcare provider any signs of infection, such as:: chills, fever, night sweats, increased pain, unusual drainage and unusual redness Dressing: May shower and change dressing POD#5 (12/16/19) Visit Report/Discharge Packet Instructions: DI for Prescription Opioid Use, Senna, Stool Softeners, Oxycodone Stand Alone Forms: Surgery Discharge Discharge Data Primary Care Provider: Mac Reed Discharges patient from system. Discharge Date/Time: 12/18/19 14:12 Quality VTE Deep Vein Thrombosis/Pulmonary Embolism Present on Admission: No
== END 2019-12-18 14:12 | disposition home health service (06) | DRG 515 ==
PROVIDERS: Physician Assistant Surgical; Admitting Provider Orthopaedic Surgery; PCP Family Medicine; Referring Provider Orthopaedic Surgery; Visit Provider Orthopaedic Surgery
PROC: 0SH004Z Insertion of Internal Fixation Device into Lumbar Vertebral Joint, Open Approach (ICD-10-PCS; principal; 2019-12-11 17:30)
DX: T84.226A Displacement of internal fixation device of vertebrae, initial encounter (principal); G92 Toxic encephalopathy; M41.86 Other forms of scoliosis, lumbar region; G20 Parkinson's disease; M48.062 Spinal stenosis, lumbar region with neurogenic claudication; I10 Essential (primary) hypertension; T40.605A Adverse effect of unspecified narcotics, initial encounter; Y92.239 Unspecified place in hospital as the place of occurrence of the external cause
CPT/HCPCS: 36415; 72100; 76000; 80048; 85014; 85018; 85025; 97116; 97129; 97161; 97165; 97530; 97535; C1776; C9290; J0690; J1170; J2704; J3010

== ENCOUNTER → 2021-05-26 14:52 | Outpatient (CLI) | payer MEDICARE, OTHER, SELFPAY ==
[2021-03-16 16:44] VITALS: BMI 26.3
[2021-05-26 15:43] LABS: Add Manual Diff / Slide Review NO; Basophils Absolute Auto 0 /uL (0-100); Basophils Percent Auto 0.5 % (0-2); Eosinophils Absolute Auto 100 /uL (0-450); Eosinophils Percent Auto 1.6 % (2-4); Hematocrit 42.3 % (41-53); Hemoglobin 13.9 g/dL (13.5-17.5); Lymphocytes Absolute Auto 1600 /uL (1100-4500); Lymphocytes Percent Auto 20.5 % (25-40); Mean Corpuscular HGB Conc 32.9 % (30-36); Mean Corpuscular Hemoglobin 30.4 PG (26-34); Mean Corpuscular Volume 92.1 fL (80-100); Monocytes Absolute Auto 900 /uL (0-900); Neutrophils Absolute Auto 5200 /uL (1500-7000); Neutrophils Percent Auto 66.4 % (50-75); Platelet Count 250 X10^3/uL (150-400); Red Blood Cell Count 4.59 X10^6/uL (4.5-5.9); Red Cell Distribution Width 13.8 % (11.6-14.8); White Blood Cell Count 7.8 X10^3/uL (4.5-11.0)
[2021-05-26 16:14] LABS: Alanine Aminotransferase 12 IU/L (<50); Albumin 4.1 g/dL (3.5-5.0); Albumin Globulin Ratio 1.5 (1.0-2.8); Alkaline Phosphatase 116 U/L (38-126); Aspartate Aminotransferase 43 IU/L (17-59); BUN Creatinine Ratio 43.7 (6-22); Bilirubin Total 0.4 mg/dL (0.2-1.3); Blood Urea Nitrogen 38 mg/dL (9-20); Calcium 9.5 mg/dL (8.4-10.2); Carbon Dioxide 27 mmol/L (22-32); Chloride 107 mmol/L (98-107); Estimated Glomerular Filt Rate > 60.0 mL/min (>60); Globulin 2.8 g/dL (1.7-4.1); Glucose 85 mg/dL (80-110); HEMOLYSIS < 15 (0-50); Potassium 4.4 mmol/L (3.4-5.1); Sodium 142 mmol/L (137-145); Total Protein 6.9 g/dL (6.3-8.2)
[2021-05-26 16:29] LABS: Free T4, Direct Thyroxine 1.03 ng/dL (0.78-2.19)
[2021-05-26 16:43] LABS: Thyroid Stimulating Hormone 1.23 uIU/mL (0.47-4.68)
== END ==
PROVIDERS: PCP Family Medicine; Referring Provider Psychiatry & Neurology Psychiatry; Visit Provider Psychiatry & Neurology Psychiatry
DX: F31.9 Bipolar disorder, unspecified (principal)
CPT/HCPCS: 36415; 80053; 84439; 84443; 85025; 90792

== ENCOUNTER 2022-01-06 15:59 | Emergency (ER) | payer MEDICARE, OTHER, SELFPAY ==
[2021-03-16 16:44] VITALS: BMI 26.3
[2022-01-06] VITALS (10 sets, daily range): BP systolic 196–218; BP diastolic 86–104; PULSE 64–96; RESP 14–18; TEMP 36.6; O2SAT 95–99; BMI 28.3
--- NOTE | 2022-01-06 16:12 | DI.RAD.S_ITS ---
PROCEDURE: XR CHEST 1V INDICATIONS: chest pain TECHNIQUE: One view of the chest was acquired. COMPARISON: [facility], RG, XR CXR 2V, 03/16/2006, 14:59. FINDINGS: Surgical changes and devices: Partially visualized thoracolumbar spine fixation hardware and left shoulder arthroplasty. 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 Lungs and pleura: Patchy opacities noted in the medial aspect of the right lung base. No pleural effusions or pneumothorax. Mediastinum: Mediastinal contours appear normal. Heart size is normal. Bones and chest wall: No suspicious bony lesions. Overlying soft tissues appear unremarkable. IMPRESSION: Patchy opacities in the medial aspect right lung base suspicious for pneumonia. Dictated by: Fátima Black MD, PhD on 01/06/2022 at 17:46 Approved by: Fátima Black MD, PhD on 01/06/2022 at 17:48
[2022-01-06 16:22] LABS: Add Manual Diff / Slide Review NO; Basophils Absolute Auto 100 /uL (0-100); Basophils Percent Auto 0.5 % (0-2); Eosinophils Absolute Auto 100 /uL (0-450); Eosinophils Percent Auto 1.2 % (2-4); Hematocrit 44.5 % (41-53); Hemoglobin 14.7 g/dL (13.5-17.5); Lymphocytes Absolute Auto 1200 /uL (1100-4500); Lymphocytes Percent Auto 10.3 % (25-40); Mean Corpuscular Hemoglobin 30.2 PG (26-34); Mean Corpuscular Volume 91.4 fL (80-100); Monocytes Absolute Auto 1000 /uL (0-900); Monocytes Percent Auto 8.9 % (3-14); Neutrophils Absolute Auto 9100 /uL (1500-7000); Neutrophils Percent Auto 79.1 % (50-75); Platelet Count 274 X10^3/uL (150-400); Red Blood Cell Count 4.87 X10^6/uL (4.5-5.9); Red Cell Distribution Width 14.2 % (11.6-14.8); White Blood Cell Count 11.5 X10^3/uL (4.5-11.0)
[2022-01-06 16:48] LABS: INR 1.2 (0.9-1.3); Prothrombin Time 13.3 SECONDS (10.1-12.7)
[2022-01-06 16:50] LABS: PTT Partial Thromboplastin Tim 33 SECONDS (26.4-36.2)
--- NOTE | 2022-01-06 16:53 | DI.CT.S_ITS ---
PROCEDURE: CT HEAD/BRAIN WO CON INDICATIONS: fall, rt side head pain TECHNIQUE: Noncontrast 4.5 mm thick angled axial sections acquired from the foramen magnum to the vertex, with coronal and sagittal reformats. For radiation dose reduction, the following was used: automated exposure control, adjustment of mA and/or kV according to patient size. COMPARISON: None. FINDINGS: Image quality: Excellent. CSF spaces: Basal cisterns are patent. No extra-axial fluid collections. The ventricles are symmetric in size and shape. Brain: No intracranial bleeds or masses. There is cerebral volume loss for age, with resultant ventricular and sulcal prominence. There are periventricular and deep white matter chronic small vessel ischemic changes. There is intracranial internal carotid artery atherosclerosis. Skull and face: Calvarium and visualized facial bones appear intact, without suspicious lesions. Sinuses: Visualized sinuses and mastoids are clear. IMPRESSION: No acute intracranial disease process. Dictated by: Fátima Black MD, PhD on 01/06/2022 at 17:27 Approved by: Fátima Black MD, PhD on 01/06/2022 at 17:28
--- NOTE | 2022-01-06 16:55 | ED_ITS ---
HPI - Chest Pain <Erna Salgado, [facility] - Last Filed: 01/06/22 20:08> General Chief Complaint: Chest Pain Stated Complaint: states he needs a CT scan Time Seen by Provider: 01/06/22 16:16 Source: patient Mode of arrival: Wheelchair Limitations: no limitations History of Present Illness HPI narrative: 76-year-old male with history of Parkinson's disease, bipolar depression, and back pain presents to the emergency department on his doctor's recommendation after he had a ground level fall this morning and hit the back of his head on the right side. Patient now complains of right-sided face and shoulder pain, denies any numbness, denies any chest pain, shortness of breath, weakness, di zziness, loss of consciousness, nausea, emesis, or neck pain. Patient states that he has had more falls recently with a head injury last week due to his Parkinson's. He is not on any anticoagulants. He takes diclofenac for his chronic back pain. He states that he started with a productive cough when he choked on a pill this morning but did not have any emesis, difficulty swallowing, or difficulty breathing afterwards. He states he takes so many pills in a day sometimes if there dry they do not go down well. Patient denies any loss of consciousness, visual changes, alteration in his gait, or weakness. Patient states he did want to come into the ER but his doctor told him he might need a CT. He went to the urgent care initially and they sent him to the emergency department. He has clear speech, he is alert and oriented x3, pleasant, without any nausea. Patient states that his environmental allergies have been acting up lately and he has been congested but otherwise has not been ill. Related Data Home Medications Medication Instructions Recorded Confirmed atorvastatin 10 mg tablet 10 mg PO BEDTIME 10/23/19 01/06/22 acetaminophen 500 mg tablet 500 mg PO TID PRN 09/01/21 01/06/22 (Tylenol Extra Strength) carbidopa 25 mg-levodopa 100 mg 2 tab PO .five days a day tab 09/01/21 01/06/22 tablet cholecalciferol (vitamin D3) 50 100 mcg PO DAILY cap 09/01/21 01/06/22 mcg (2,000 unit) capsule diclofenac sodium 75 mg 75 mg PO BID 09/01/21 01/06/22 tablet,delayed release ivermectin 3 mg tablet 12 mg PO .3 times per week tab 09/01/21 01/06/22 mirtazapine 15 mg tablet 15 mg PO BEDTIME 09/01/21 01/06/22 Previous Rx's Medication Instructions Recorded acetaminophen 650 mg 650 mg PO Q8H PRN #20 tab 01/06/22 tablet,extended release (Tylenol 8 Hour) diclofenac sodium 1 % topical gel 4 g TOPICAL QID PRN #100 g 01/06/22 (Voltaren Arthritis Pain) doxycycline hyclate 100 mg tablet 100 mg PO BID 5 Days #10 tab 01/06/22 Review of Systems <CONY Pitts - Last Filed: 01/06/22 20:08> Review of Systems Narrative: General: denies fever, chills, malaise, sweats, fatigue Head/Neck: denies headache, neck pain, dizziness, denies LOC, denies mental status changes Eyes: denies visual changes, eye pain Cardio: denies chest pain, palpitations, edema Respiratory: denies dyspnea, cough, orthopnea GI: denies abdominal pain, nausea, vomiting, or diarrhea : denies dysuria, hematuria, urinary retention, frequency or incontinence MSK: denies joint pain, muscle weakness Skin: denies rash, itching, skin lesions or other Neuro: denies numbness, tingling, denies any symptoms at this time Patient History <CONY Pitts - Last Filed: 01/06/22 20:08> Medical History Atherosclerotic heart disease of [place] coronary artery without angina pectoris Back pain Hearing impaired HLD (hyperlipidemia) HTN (hypertension) Memory deficit Osteoarthritis Parkinson's disease Postoperative anemia (11/06/19) Sciatica Spinal stenosis Surgical History H/O vasectomy History of arthroplasty of left shoulder History of arthroscopy of both knees History of bilateral total hip arthroplasty History of lumbar fusion (~2011) History of lumbar fusion (11/06/19) Hx of tonsillectomy Status post correction of deviated nasal septum Social History household members: spouse Smoking Status: Former smoker alcohol intake: current Smoking Status: Former smoker alcohol intake frequency: holidays/special occasions only Substance Use Type: does not use Exam <CONY Pitts - Last Filed: 01/06/22 20:08> Narrative Exam Narrative: Independently reviewed vitals signs and nursing notes. General: Awake, alert, nontoxic, no cardiorespiratory distress Head/Neck: Atraumatic, neck full range of motion, no C-spine tenderness to palpation, no wound or bump to his head. Eyes: EOMI, conjunctiva normal, pupils equal round and reactive to light, no nystagmus Nose: nares patent, no rhinorrhea Mouth/Throat: moist mucus membranes, posterior pharynx normal, no oral lesions no open wound Cardio: Regular rate and rhythm, no peripheral edema Respiratory: respirations unlabored without wheezing, stridor, or rales. No retractions. GI: Abdomen soft, nontender MSK: Moves all extremities, neurovascularly intact Skin: Normal capillary refill, no rash Neuro: Normal speech and cognition, normal gait Initial Vital Signs Initial Vital Signs: Vital Signs Temperature 97.9 F 01/06/22 16:08 Pulse Rate 96 H 01/06/22 16:08 Respiratory Rate 14 01/06/22 16:08 Blood Pressure 196/86 H 01/06/22 16:08 Pulse Oximetry 96 01/06/22 16:08 <Ann Marie Anders DO - Last Filed: 01/07/22 07:04> Initial Vital Signs Initial Vital Signs: Vital Signs Temperature 97.9 F 01/06/22 16:08 Pulse Rate 96 H 01/06/22 16:08 Respiratory Rate 14 01/06/22 16:08 Blood Pressure 196/86 H 01/06/22 16:08 Pulse Oximetry 96 01/06/22 16:08 Scores <CONY Pitts - Last Filed: 01/06/22 20:08> [place] CT Head Rule Age <16 years old: No Patient on blood thinners: No Seizure after injury: No Exclusion: Patient NOT Excluded, Proceed to next steps GCS < 15 at 2 hr post trauma: No Suspected open or depressed skull fracture: No Any sign of basilar skull fracture (hemotympanum, raccoon eyes, Williamson's sign, CSF vandana-/rhinorrhea): No Two or more episodes of vomiting: No Age greater or equal to 65 years: Yes Retrograde amnesia to the event greater or equal to 30 min: No Dangerous Mechanism (pedestrian vs. mv, occupant ejected from mv, fall from >3 ft or > 5 stairs): No Recommendation: Consider CT. The [place] Head CT Rule cannot rule out need for Imaging. Nexus Score for C-Spine Focal Neurologic deficit present: No Midline spinal tenderness present: No Altered level of conciousness present: No Intoxication present: No Distracting Injury Present: No Nexus Criteria for C-spine: 0 <Ann Marie Anders DO - Last Filed: 01/07/22 07:04> Czech CT Head Rule Exclusion: Patient NOT Excluded, Proceed to next steps Recommendation: Consider CT. The [place] Head CT Rule cannot rule out need for Imaging. Nexus Score for C-Spine Nexus Criteria for C-spine: 0 Course <CONY Pitts - Last Filed: 01/06/22 20:08> Orders Ordered: Discontinued Medications Acetaminophen (Acetaminophen 325 Mg Tablet) 975 mg PO NOW ONE Stop: 01/06/22 17:39 Last Admin: 01/06/22 17:42 Dose: 975 mg Documented by: LIBERTY Diclofenac Sodium (Diclofenac 1% Gel 100 Gm) 1 applic TOP NOW ONE Stop: 01/06/22 16:54 Last Admin: 01/06/22 17:18 Dose: 1 applic Documented by: LIBERTY Doxycycline Hyclate (Doxycycline Hyclate 100 Mg Tablet) 100 mg PO NOW ONE Stop: 01/06/22 17:58 Last Admin: 01/06/22 18:00 Dose: 100 mg Documented by: LIBERTY Vital Signs Vital signs: Vital Signs - 8 hr 01/06/22 16:08 01/06/22 16:10 01/06/22 16:11 Temperature 97.9 F Pulse Rate 96 H 68 Respiratory Rate 14 Blood Pressure 196/86 H 196/86 H Pulse Oximetry 96 97 01/06/22 16:30 01/06/22 17:00 01/06/22 17:20 Temperature Pulse Rate 67 66 66 Respiratory Rate Blood Pressure Pulse Oximetry 98 98 97 01/06/22 17:30 01/06/22 17:35 01/06/22 17:39 Temperature Pulse Rate 64 72 69 Respiratory Rate 18 18 Blood Pressure 218/94 H Pulse Oximetry 95 97 99 01/06/22 17:57 Temperature Pulse Rate 70 Respiratory Rate 18 Blood Pressure 218/104 H Pulse Oximetry 96 <Ann Marie Anders DO - Last Filed: 01/07/22 07:04> Orders Ordered: Discontinued Medications Acetaminophen (Acetaminophen 325 Mg Tablet) 975 mg PO NOW ONE Stop: 01/06/22 17:39 Last Admin: 01/06/22 17:42 Dose: 975 mg Documented by: LIBERTY Diclofenac Sodium (Diclofenac 1% Gel 100 Gm) 1 applic TOP NOW ONE Stop: 01/06/22 16:54 Last Admin: 01/06/22 17:18 Dose: 1 applic Documented by: LIBERTY Doxycycline Hyclate (Doxycycline Hyclate 100 Mg Tablet) 100 mg PO NOW ONE Stop: 01/06/22 17:58 Last Admin: 01/06/22 18:00 Dose: 100 mg Documented by: LIBERTY Vital Signs Vital signs: Vital Signs - 8 hr 01/06/22 16:08 01/06/22 16:10 01/06/22 16:11 Temperature 97.9 F Pulse Rate 96 H 68 Respiratory Rate 14 Blood Pressure 196/86 H 196/86 H Pulse Oximetry 96 97 01/06/22 16:30 01/06/22 17:00 01/06/22 17:20 Temperature Pulse Rate 67 66 66 Respiratory Rate Blood Pressure Pulse Oximetry 98 98 97 01/06/22 17:30 01/06/22 17:35 01/06/22 17:39 Temperature Pulse Rate 64 72 69 Respiratory Rate 18 18 Blood Pressure 218/94 H Pulse Oximetry 95 97 99 01/06/22 17:57 Temperature Pulse Rate 70 Respiratory Rate 18 Blood Pressure 218/104 H Pulse Oximetry 96 MDM - Chest Pain <CONY Pitts - Last Filed: 01/06/22 20:08> Lab Data Result diagrams: 01/06/22 16:15 01/06/22 16:15 Labs: Lab Results 01/06/22 01/06/22 01/06/22 Range/Units 16:15 16:15 16:15 WBC 11.5 H (4.5-11.0) X10^3/uL RBC 4.87 (4.5-5.9) X10^6/uL Hgb 14.7 (13.5-17.5) g/dL Hct 44.5 (41-53) % MCV 91.4 (80-100) fL MCH 30.2 (26-34) PG MCHC 33.0 (30-36) % RDW 14.2 (11.6-14.8) % Plt Count 274 (150-400) X10^3/uL Neut % (Auto) 79.1 H (50-75) % Lymph % (Auto) 10.3 L (25-40) % [place] % (Auto) 8.9 (3-14) % Eos % (Auto) 1.2 L (2-4) % Baso % (Auto) 0.5 (0-2) % Neut # (Auto) 9100 H (0967-2670) /uL Lymph # (Auto) 1200 (1800-0589) /uL [place] # (Auto) 1000 H (0-900) /uL Eos # (Auto) 100 (0-450) /uL Baso # (Auto) 100 (0-100) /uL PT 13.3 H (10.1-12.7) SECONDS INR 1.2 (0.9-1.3) APTT 33 (26.4-36.2) SECONDS Sodium 139 (137-145) mmol/L Potassium 4.1 (3.4-5.1) mmol/L Chloride 103 (98-107) mmol/L Carbon Dioxide 30 (22-32) mmol/L BUN 26 H (9-20) mg/dL Creatinine 0.79 (0.66-1.25) mg/dL Estimated GFR > 60.0 (>60) mL/min BUN/Creatinine Ratio 32.9 H (6-22) Glucose 102 (80-110) mg/dL Calcium 9.7 (8.4-10.2) mg/dL Magnesium 2.1 (1.6-2.3) mg/dL Total Bilirubin 0.5 (0.2-1.3) mg/dL AST 37 (17-59) IU/L ALT 15 (<50) IU/L Alkaline Phosphatase 126 (38-126) U/L Total Creatine Kinase 157 (55-170) U/L CK-MB (CK-2) 4.32 H (<2.37) ng/mL CK-MB (CK-2) Rel Index 2.8 (1.5-5.0) % Troponin I < 0.012 (0.01-0.034) ng/mL Total Protein 7.6 (6.3-8.2) g/dL Albumin 4.6 (3.5-5.0) g/dL Globulin 3.0 (1.7-4.1) g/dL Albumin/Globulin Ratio 1.5 (1.0-2.8) Lipase 202 (23-300) U/L 01/06/22 Range/Units 17:50 WBC (4.5-11.0) X10^3/uL RBC (4.5-5.9) X10^6/uL Hgb (13.5-17.5) g/dL Hct (41-53) % MCV (80-100) fL MCH (26-34) PG MCHC (30-36) % RDW (11.6-14.8) % Plt Count (150-400) X10^3/uL Neut % (Auto) (50-75) % Lymph % (Auto) (25-40) % [place] % (Auto) (3-14) % Eos % (Auto) (2-4) % Baso % (Auto) (0-2) % Neut # (Auto) (6333-2519) /uL Lymph # (Auto) (1199-3706) /uL [place] # (Auto) (0-900) /uL Eos # (Auto) (0-450) /uL Baso # (Auto) (0-100) /uL PT (10.1-12.7) SECONDS INR (0.9-1.3) APTT (26.4-36.2) SECONDS Sodium (137-145) mmol/L Potassium (3.4-5.1) mmol/L Chloride (98-107) mmol/L Carbon Dioxide (22-32) mmol/L BUN (9-20) mg/dL Creatinine (0.66-1.25) mg/dL Estimated GFR (>60) mL/min BUN/Creatinine Ratio (6-22) Glucose (80-110) mg/dL Calcium (8.4-10.2) mg/dL Magnesium (1.6-2.3) mg/dL Total Bilirubin (0.2-1.3) mg/dL AST (17-59) IU/L ALT (<50) IU/L Alkaline Phosphatase (38-126) U/L Total Creatine Kinase 147 (55-170) U/L CK-MB (CK-2) 4.03 H (<2.37) ng/mL CK-MB (CK-2) Rel Index 2.7 (1.5-5.0) % Troponin I < 0.012 (0.01-0.034) ng/mL Total Protein (6.3-8.2) g/dL Albumin (3.5-5.0) g/dL Globulin (1.7-4.1) g/dL Albumin/Globulin Ratio (1.0-2.8) Lipase (23-300) U/L Imaging Data CT scan - head: Radiologist's Impression: PROCEDURE:? CT HEAD/BRAIN WO CON ? INDICATIONS:? fall, rt side head pain ? TECHNIQUE:? Noncontrast 4.5 mm thick angled axial sections acquired from the foramen magnum to the vertex, with coronal and sagittal reformats.? For radiation dose reduction, the following was used:? automated exposure control, adjustment of mA and/or kV according to patient size.? ? COMPARISON:? None. ? FINDINGS:? Image quality:? Excellent.? ? CSF spaces:? Basal cisterns are patent.? No extra-axial fluid collections.? The ventricles are symmetric in size and shape.? ? Brain:? No intracranial bleeds or masses.? There is cerebral volume loss for age, with resultant ventricular and sulcal prominence.? There are periventricular and deep white matter chronic small vessel ischemic changes.? There is intracranial internal carotid artery atherosclerosis.? ? Skull and face:? Calvarium and visualized facial bones appear intact, without suspicious lesions.? ? Sinuses:? Visualized sinuses and mastoids are clear.? ? IMPRESSION:? No acute intracranial disease process. ? ? Dictated by: Fátima Black MD, PhD on 01/06/2022 at 17:27 ? ? Approved by: Fátima Black MD, PhD on 01/06/2022 at 17:28 ? Chest x-ray: Radiologist's Impression: PROCEDURE:? XR CHEST 1V ? INDICATIONS:? chest pain ? TECHNIQUE:? One view of the chest was acquired.? ? COMPARISON:? [facility], RG, XR CXR 2V, 03/16/2006, 14:59. ? FINDINGS:? ? Surgical changes and devices:? Partially visualized thoracolumbar spine fixation hardware and left shoulder arthroplasty.? 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 ? Lungs and pleura:? Patchy opacities noted in the medial aspect of the right lung base.? No pleural effusions or pneumothorax.? ? Mediastinum:? Mediastinal contours appear normal.? Heart size is normal.? ? Bones and chest wall:? No suspicious bony lesions.? Overlying soft tissues appear unremarkable.? ? IMPRESSION:? Patchy opacities in the medial aspect right lung base suspicious for pneumonia. ? ? Dictated by: Fátima Black MD, PhD on 01/06/2022 at 17:46 ? ? Approved by: Fátima Black MD, PhD on 01/06/2022 at 17:48 ? ECG Data Interpretation: EKG reviewed by myself and Dr. Anders reveals normal sinus rhythm with regular axis and intervals. No STEMI, ST segment changes, arrhythmia, or acute ischemic changes. Core Measures AMI core measures followed: Yes MDM Narrative Medical decision making narrative: 76-year-old male with history of Parkinson's dementia, bipolar depression, chronic back pain presents to the emergency department for a fall which occurred this morning after he tripped and he the back of his head. He denies any LOC, he denies any mental status changes, denies taking any anticoagulants, denies any vision changes, nausea, vomiting, or headache. Patient endorses right-sided face pain and right shoulder pain after he hit the right side of his body. He does not have any open wounds. CT head obtained because patient states that he fell and hit his head last week as well. He has no midline C-spine tenderness, C-spine cleared by nexus criteria. CT head without any acute intracranial abnormalities chest x-ray obtained due to patient endorsing a productive cough which started yesterday he denies any fever, shortness of breath, wheezing, orthopnea, or fatigue. Chest x-ray shows patchy opacities in the medial basilar right lung which is suspicious for pneumonia. Opted to cover him with doxycycline due to his cough. Patient was extremely anxious to be discharged today. He did not want to wait for a head CT, he did not want wait for labs but was talked into staying to rule out intracranial bleed or cardiac problem. Lab work shows a mildly elevated leukocytosis at 11.5, INR 1.2, creatinine of 0.79, CK-MB was elevated at 4.03, he stated for recheck troponin and CK-MB which are pending. Patient had clear speech, no neuro deficits on exam, was able to ambulate with a steady gait, he did not have any vision changes, mental status changes, swelling difficulty or other. He requests to be discharged after his head Ct. recommend close follow-up with his primary care provider. Patient had hypertension in the emergency department today but he was also very agitated. <Ann Marie Anders, DO - Last Filed: 01/07/22 07:04> Lab Data Labs: Lab Results 01/06/22 01/06/22 01/06/22 Range/Units 16:15 16:15 16:15 WBC 11.5 H (4.5-11.0) X10^3/uL RBC 4.87 (4.5-5.9) X10^6/uL Hgb 14.7 (13.5-17.5) g/dL Hct 44.5 (41-53) % MCV 91.4 (80-100) fL MCH 30.2 (26-34) PG MCHC 33.0 (30-36) % RDW 14.2 (11.6-14.8) % Plt Count 274 (150-400) X10^3/uL Neut % (Auto) 79.1 H (50-75) % Lymph % (Auto) 10.3 L (25-40) % [place] % (Auto) 8.9 (3-14) % Eos % (Auto) 1.2 L (2-4) % Baso % (Auto) 0.5 (0-2) % Neut # (Auto) 9100 H (2809-8931) /uL Lymph # (Auto) 1200 (5040-4302) /uL [place] # (Auto) 1000 H (0-900) /uL Eos # (Auto) 100 (0-450) /uL Baso # (Auto) 100 (0-100) /uL PT 13.3 H (10.1-12.7) SECONDS INR 1.2 (0.9-1.3) APTT 33 (26.4-36.2) SECONDS Sodium 139 (137-145) mmol/L Potassium 4.1 (3.4-5.1) mmol/L Chloride 103 (98-107) mmol/L Carbon Dioxide 30 (22-32) mmol/L BUN 26 H (9-20) mg/dL Creatinine 0.79 (0.66-1.25) mg/dL Estimated GFR > 60.0 (>60) mL/min BUN/Creatinine Ratio 32.9 H (6-22) Glucose 102 (80-110) mg/dL Calcium 9.7 (8.4-10.2) mg/dL Magnesium 2.1 (1.6-2.3) mg/dL Total Bilirubin 0.5 (0.2-1.3) mg/dL AST 37 (17-59) IU/L ALT 15 (<50) IU/L Alkaline Phosphatase 126 (38-126) U/L Total Creatine Kinase 157 (55-170) U/L CK-MB (CK-2) 4.32 H (<2.37) ng/mL CK-MB (CK-2) Rel Index 2.8 (1.5-5.0) % Troponin I < 0.012 (0.01-0.034) ng/mL Total Protein 7.6 (6.3-8.2) g/dL Albumin 4.6 (3.5-5.0) g/dL Globulin 3.0 (1.7-4.1) g/dL Albumin/Globulin Ratio 1.5 (1.0-2.8) Lipase 202 (23-300) U/L 01/06/22 Range/Units 17:50 WBC (4.5-11.0) X10^3/uL RBC (4.5-5.9) X10^6/uL Hgb (13.5-17.5) g/dL Hct (41-53) % MCV (80-100) fL MCH (26-34) PG MCHC (30-36) % RDW (11.6-14.8) % Plt Count (150-400) X10^3/uL Neut % (Auto) (50-75) % Lymph % (Auto) (25-40) % [place] % (Auto) (3-14) % Eos % (Auto) (2-4) % Baso % (Auto) (0-2) % Neut # (Auto) (5993-6660) /uL Lymph # (Auto) (7517-0273) /uL [place] # (Auto) (0-900) /uL Eos # (Auto) (0-450) /uL Baso # (Auto) (0-100) /uL PT (10.1-12.7) SECONDS INR (0.9-1.3) APTT (26.4-36.2) SECONDS Sodium (137-145) mmol/L Potassium (3.4-5.1) mmol/L Chloride (98-107) mmol/L Carbon Dioxide (22-32) mmol/L BUN (9-20) mg/dL Creatinine (0.66-1.25) mg/dL Estimated GFR (>60) mL/min BUN/Creatinine Ratio (6-22) Glucose (80-110) mg/dL Calcium (8.4-10.2) mg/dL Magnesium (1.6-2.3) mg/dL Total Bilirubin (0.2-1.3) mg/dL AST (17-59) IU/L ALT (<50) IU/L Alkaline Phosphatase (38-126) U/L Total Creatine Kinase 147 (55-170) U/L CK-MB (CK-2) 4.03 H (<2.37) ng/mL CK-MB (CK-2) Rel Index 2.7 (1.5-5.0) % Troponin I < 0.012 (0.01-0.034) ng/mL Total Protein (6.3-8.2) g/dL Albumin (3.5-5.0) g/dL Globulin (1.7-4.1) g/dL Albumin/Globulin Ratio (1.0-2.8) Lipase (23-300) U/L Discharge Plan Departure Patient Disposition: Home Clinical Impression: Fall from ground level Head injury, closed Qualifiers: Encounter type: initial encounter Qualified Code(s): S09.90XA - Unspecified injury of head, initial encounter Pneumonia Qualifiers: Pneumonia type: due to unspecified organism Laterality: right Lung location: lower lobe of lung Qualified Code(s): J18.9 - Pneumonia, unspecified organism Instructions: DI for Pneumonia -- Adult, How to Prevent Falls, Closed Head Injury Activity Restrictions/Additional Instructions: *You have been diagnosed with a close head injury without any evidence of intracranial bleeding. I am sorry that you have had more falls recently. Please try and stay hydrated, eat food with your medications, follow-up with your primary doctor if these are increasing. Please use the voltaren gel and tylenol for your shoulder pain. Please continue taking your other medications as prescribed. Thank you for your patience, I hope that you are safe and do not continue to have falls at home. It appears that you may have a small pneumonia on the right side of your lung. Please follow-up with your primary care provider soon for recheck. Please take your antibiotics as prescribed, called her medications in to [facility]. *What to do: *Please continue to take your regular medications as directed. [x ] New medication prescriptions sent to your pharmacy: [[facility]] [ ] New medication written as a paper prescription [ ] No new medications given *Please follow up with your primary care provider in 2-3 days, call for an appointment. Let them know you were seen in the Emergency Department and that we ask that you be seen in follow up. We will electronically transmit a record of today's note if your PCP is in our system *If you do not have a primary care provider please contact the [facility] Resource line at [phone]. They will ask some questions about your medical history and help get you set up with a doctor in the community. *Return to Emergency Department if you should have any new, worsening or concerning symptoms, such as [fever greater than 101F, chills, worsening pain, persistent vomiting or other bothersome symptoms] Prescriptions: New acetaminophen [Tylenol 8 Hour] 650 mg tablet extended release 650 mg PO Q8H PRN (Reason: pain) Qty: 20 0RF diclofenac sodium [Voltaren Arthritis Pain] 1 % gel 4 g topical QID PRN (Reason: shoulder pain) Qty: 100 0RF Rx Instructions: apply to single knee, ankle, foot; for foot includes sole/toes/top of foot doxycycline hyclate 100 mg tablet 100 mg PO BID 5 Days Qty: 10 0RF No Action cholecalciferol (vitamin D3) 50 mcg (2,000 unit) capsule 100 mcg PO DAILY 0RF ivermectin 3 mg tablet 12 mg PO .3 times per week 0RF Rx Instructions: as a single dose mirtazapine 15 mg tablet 15 mg PO BEDTIME 0RF diclofenac sodium 75 mg tablet,delayed release (DR/EC) 75 mg PO BID 0RF atorvastatin 10 mg Tablet 10 mg PO BEDTIME 0RF acetaminophen [Tylenol Extra Strength] 500 mg tablet 500 mg PO TID PRN0RF carbidopa-levodopa 25-100 mg tablet 2 tab PO .five days a day 0RF Label Comments: TAKES 0800, 1400, 2000 Referrals: Mac Reed MD [Primary Care Provider] - <Ann Marie Anders DO - Last Filed: 01/07/22 07:04> [facility]: I was immediately available in the department for consultation. Documentation has been reviewed. I agree with assessment and plan.
[2022-01-06 17:01] LABS: Alanine Aminotransferase 15 IU/L (<50); Albumin 4.6 g/dL (3.5-5.0); Albumin Globulin Ratio 1.5 (1.0-2.8); Alkaline Phosphatase 126 U/L (38-126); Aspartate Aminotransferase 37 IU/L (17-59); BUN Creatinine Ratio 32.9 (6-22); Bilirubin Total 0.5 mg/dL (0.2-1.3); Blood Urea Nitrogen 26 mg/dL (9-20); Calcium 9.7 mg/dL (8.4-10.2); Carbon Dioxide 30 mmol/L (22-32); Chloride 103 mmol/L (98-107); Creatine Kinase 157 U/L (55-170); Estimated Glomerular Filt Rate > 60.0 mL/min (>60); Glucose 102 mg/dL (80-110); HEMOLYSIS < 15 (0-50); Lipase 202 U/L (23-300); Magnesium 2.1 mg/dL (1.6-2.3); Potassium 4.1 mmol/L (3.4-5.1); Sodium 139 mmol/L (137-145); Total Protein 7.6 g/dL (6.3-8.2)
[2022-01-06 17:13] LABS: Troponin I < 0.012 ng/mL (0.01-0.034)
[2022-01-06 17:16] LABS: CKMB % Relative Index 2.8 % (1.5-5.0); Creatine Kinase MB 4.32 ng/mL (<2.37)
[2022-01-06] MEDS: DICLOFENAC 1% GEL 100 GM 1 APPLIC TOP (17:18)
[2022-01-06] MEDS: ACETAMINOPHEN 325 MG TABLET 975 MG PO (17:42)
[2022-01-06] MEDS: DOXYCYCLINE HYCLATE 100 MG TABLET PO (18:00)
[2022-01-06 18:28] LABS: Creatine Kinase 147 U/L (55-170)
[2022-01-06 18:39] LABS: Troponin I < 0.012 ng/mL (0.01-0.034)
[2022-01-06 18:43] LABS: CKMB % Relative Index 2.7 % (1.5-5.0); Creatine Kinase MB 4.03 ng/mL (<2.37)
== END 2022-01-06 18:03 | disposition home or self-care (01) ==
PROVIDERS: Emergency Medicine; Emergency Provider Nurse Practitioner Critical Care Medicine; PCP Family Medicine
DX: S09.8XXA Other specified injuries of head, initial encounter (principal); J18.9 Pneumonia, unspecified organism; I10 Essential (primary) hypertension; W18.30XA Fall on same level, unspecified, initial encounter; Z91.81 History of falling; Z87.891 Personal history of nicotine dependence
CPT/HCPCS: 36415; 70450; 71045; 80053; 82550; 82553; 83690; 83735; 84484; 85025; 85610; 85730; 93005; 93010; 99284; 99285

== ENCOUNTER → 2022-03-08 12:25 | Outpatient (CLI) | payer MEDICARE, OTHER, SELFPAY ==
[2021-03-16 16:44] VITALS: BMI 26.3
--- NOTE | 2022-03-08 12:27 | DI.RAD.S_ITS ---
PROCEDURE: XR CHEST 2V INDICATIONS: cough TECHNIQUE: 2 views of the chest were acquired. COMPARISON: [facility], CR, XR CHEST 1V, 01/06/2022, 16:45. FINDINGS: Surgical changes and devices: Left shoulder arthroplasty. Extensive spine hardware partially visualized. Lungs and pleura: Mild retrocardiac streaky opacity. Right lower lobe medial opacity is decreased. No pleural effusions or pneumothorax. Mediastinum: Mediastinal contours are normal. Heart size is normal. Bones and chest wall: No suspicious bony abnormalities. Advanced right shoulder DJD. Soft tissues appear unremarkable. IMPRESSION: Right lower lobe medial opacity is decreased. Mild streaky retrocardiac opacity. These findings could be due to atelectasis or scarring. It is difficult to exclude pneumonia. Dictated by: Toño Mccormick M.D. on 03/08/2022 at 14:01 Approved by: Toño Mccormick M.D. on 03/08/2022 at 14:03
== END ==
PROVIDERS: PCP Family Medicine; Referring Provider Nurse Practitioner Family; Visit Provider Nurse Practitioner Family
DX: R05.9 Cough, unspecified (principal)
CPT/HCPCS: 71046

== ENCOUNTER 2022-03-16 14:10 | Emergency (ER) | payer MEDICARE, OTHER, SELFPAY ==
[2021-03-16 16:44] VITALS: BMI 26.3
[2022-03-16] VITALS (20 sets, daily range): BP systolic 192–235; BP diastolic 82–112; PULSE 60–77; RESP 17–28; TEMP 36.8; O2SAT 79–99; BMI 29.6
--- NOTE | 2022-03-16 14:23 | ED_ITS ---
HPI - Fall General Chief Complaint: Fall Stated Complaint: Trip and fall Time Seen by Provider: 03/16/22 14:14 Source: patient and EMS Mode of arrival: EMS History of Present Illness HPI Narrative: Patient is a 76-year-old male history of Parkinson's, bipolar presenting today after ground level fall. He states his his is getting his walker out from the car when he suddenly tripped and fell backwards. He does hit his head but no loss of consciousness. He is not on anti coagulation or anti-platelet medication. Denies any nausea vomiting. No numbness tingling or weakness. He was noted on seen and in the ED to have hypertension with a blood pressure 224/105. Related Data Home Medications Medication Instructions Recorded Confirmed atorvastatin 10 mg tablet 10 mg PO BEDTIME 10/23/19 03/08/22 acetaminophen 500 mg tablet 500 mg PO TID PRN 09/01/21 03/08/22 (Tylenol Extra Strength) carbidopa 25 mg-levodopa 100 mg 2 tab PO .five days a day tab 09/01/21 03/08/22 tablet cholecalciferol (vitamin D3) 50 100 mcg PO DAILY cap 09/01/21 03/08/22 mcg (2,000 unit) capsule diclofenac sodium 75 mg 75 mg PO BID 09/01/21 03/08/22 tablet,delayed release ivermectin 3 mg tablet 12 mg PO .3 times per week tab 09/01/21 03/08/22 mirtazapine 15 mg tablet 15 mg PO BEDTIME 09/01/21 03/08/22 Previous Rx's Medication Instructions Recorded acetaminophen 650 mg 650 mg PO Q8H PRN #20 tab 01/06/22 tablet,extended release (Tylenol 8 Hour) diclofenac sodium 1 % topical gel 4 g TOPICAL QID PRN #100 g 01/06/22 (Voltaren Arthritis Pain) benzonatate 100 mg capsule 100 mg PO BID PRN #20 cap 03/08/22 Allergies Allergy/AdvReac Type Severity Reaction Status Date / Time No Known Drug Allergies Allergy Unverified 03/08/22 11:58 Review of Systems Review of Systems Narrative: GENERAL: + fall Denies chills, fatigue, malaise, fever, sweats, travel HEENT: Denies sinus pain, ear pain, sore throat, difficulty swallowing, neck pain RESPIRATORY: Denies dyspnea, cough, wheezing, hemoptysis, sputum. CARDIOVASCULAR: Denies chest pain, palpitations, orthopnea, edema GASTROINTESTINAL: Denies nausea, vomiting, abdominal pain, diarrhea, constipation, melena. : Denies dysuria, frequency, incontinence, hematuria, urinary retention, flank pain. MUSCULOSKELETAL: Denies weakness, joint pain, or bony pain SKIN: No rash, no erythema, no pruritus NEUROLOGIC: Denies weakness, dizziness, headache, numbness, change in speech, confusion PSYCHIATRIC: No concerning psychosocial issues. 12 point review of systems is negative except for those stated above and HPI Patient History Medical History Atherosclerotic heart disease of [place] coronary artery without angina pectoris Back pain Hearing impaired HLD (hyperlipidemia) HTN (hypertension) Memory deficit Osteoarthritis Parkinson's disease Postoperative anemia (11/06/19) Sciatica Spinal stenosis Surgical History H/O vasectomy History of arthroplasty of left shoulder History of arthroscopy of both knees History of bilateral total hip arthroplasty History of lumbar fusion (~2011) History of lumbar fusion (11/06/19) Hx of tonsillectomy Status post correction of deviated nasal septum Social History household members: spouse Smoking Status: Former smoker alcohol intake: current Smoking Status: Former smoker alcohol intake frequency: holidays/special occasions only Substance Use Type: does not use Exam Initial Vital Signs Initial Vital Signs: Vital Signs Temperature 98.3 F 03/16/22 14:09 Pulse Rate 77 03/16/22 14:09 Respiratory Rate 20 03/16/22 14:09 Blood Pressure 224/105 H 03/16/22 14:09 Pulse Oximetry 99 03/16/22 14:09 GENERAL: Alert well-appearing 76-year-old male and in no acute distress. HEENT: Head abrasion posterior head,EOMI, pupils reactive, face symmetric, moist mucous membranes CARDIOVASCULAR: Regular rate and rhythm without murmurs, rubs or gallops. RESPIRATORY: Breath sounds equal bilaterally, no wheezes rales or rhonchi. ABDOMEN: Soft, nontender. Normoactive bowel sounds all 4 quadrants. No guarding or rebound. EXTREMITIES: Normal range of motion, no clubbing or edema. Neurovascularly intact NEUROLOGICAL: Alert and oriented x4.Normal gait and speech. Cranial nerves II through XII grossly intact. Good [id number], good [id number], strength equal bilaterally, no dysarthria or aphasia, sensation in tact to soft touch bilaterally, no visual changes, no facial droop SKIN: Warm, dry, no laceration, no petechiae, no rashes or lesions. Course Orders Ordered: ED Orders 03/16/22 14:27 Complete Blood Count AUTO DIFF Stat Comprehensive Metabolic Panel Stat Lipase Stat Partial Thromboplastin Time Stat Prothrombin Time INR Stat Troponin & CK Cardiac Panel Stat 03/16/22 14:31 CT head/brain wo con Stat XR chest 1V Stat EKG-12 Lead Stat Discontinued Medications Labetalol HCl (Labetalol 20 Mg/4 Ml Syringe) 10 mg IV NOW ONE Stop: 03/16/22 15:22 Last Admin: 03/16/22 15:49 Dose: 10 mg Documented by: RADHA Vital Signs Vital signs: Vital Signs - 8 hr 03/16/22 14:09 03/16/22 14:16 03/16/22 14:20 Temperature 98.3 F Pulse Rate 77 70 Respiratory Rate 20 Blood Pressure 224/105 H 224/105 H Pulse Oximetry 99 98 99 03/16/22 14:30 03/16/22 14:31 03/16/22 15:13 Temperature Pulse Rate 68 68 69 Respiratory Rate 28 H 25 H Blood Pressure 223/106 H Pulse Oximetry 99 99 79 L 03/16/22 15:22 03/16/22 15:30 03/16/22 15:49 Temperature Pulse Rate 66 66 70 Respiratory Rate 25 H 25 H Blood Pressure 235/99 H 217/91 H 217/91 H Pulse Oximetry 98 98 03/16/22 15:55 03/16/22 15:57 03/16/22 16:00 Temperature Pulse Rate 65 70 60 Respiratory Rate 21 26 H Blood Pressure 195/84 H 195/84 H 196/91 H Pulse Oximetry 98 97 03/16/22 16:03 03/16/22 16:11 03/16/22 16:21 Temperature Pulse Rate 61 62 64 Respiratory Rate 17 20 20 Blood Pressure 192/89 H 220/100 H 219/91 H Pulse Oximetry 97 98 98 03/16/22 16:22 03/16/22 16:30 03/16/22 16:40 Temperature Pulse Rate 63 62 63 Respiratory Rate 20 20 22 Blood Pressure 202/90 H 209/82 H 216/112 H Pulse Oximetry 97 98 98 03/16/22 16:50 03/16/22 17:00 Temperature Pulse Rate 62 63 Respiratory Rate 22 24 Blood Pressure 215/95 H 209/98 H Pulse Oximetry 98 98 MDM - Fall Lab Data Result diagrams: 03/16/22 14:27 03/16/22 14:27 Labs: Lab Results 03/16/22 03/16/22 03/16/22 Range/Units 14:27 14:27 14:27 WBC 9.0 (4.5-11.0) X10^3/uL RBC 4.75 (4.5-5.9) X10^6/uL Hgb 14.6 (13.5-17.5) g/dL Hct 42.7 (41-53) % MCV 90.0 (80-100) fL MCH 30.8 (26-34) PG MCHC 34.2 (30-36) % RDW 14.1 (11.6-14.8) % Plt Count 250 (150-400) X10^3/uL Neut % (Auto) 71.1 (50-75) % Lymph % (Auto) 18.0 L (25-40) % [place] % (Auto) 8.9 (3-14) % Eos % (Auto) 1.0 L (2-4) % Baso % (Auto) 1.0 (0-2) % Neut # (Auto) 6400 (2231-2138) /uL Lymph # (Auto) 1600 (3842-6632) /uL [place] # (Auto) 800 (0-900) /uL Eos # (Auto) 100 (0-450) /uL Baso # (Auto) 100 (0-100) /uL PT 14.0 H (10.1-12.7) SECONDS INR 1.2 (0.9-1.3) APTT 34 (26.4-36.2) SECONDS Sodium 139 (137-145) mmol/L Potassium 4.3 (3.4-5.1) mmol/L Chloride 106 (98-107) mmol/L Carbon Dioxide 27 (22-32) mmol/L BUN 27 H (9-20) mg/dL Creatinine 0.76 (0.66-1.25) mg/dL Estimated GFR > 60 (>60) mL/min BUN/Creatinine Ratio 35.5 H (6-22) Glucose 94 (80-110) mg/dL Calcium 9.3 (8.4-10.2) mg/dL Total Bilirubin 0.5 (0.2-1.3) mg/dL AST 30 (17-59) IU/L ALT 21 (<50) IU/L Alkaline Phosphatase 125 (38-126) U/L Total Creatine Kinase 65 (55-170) U/L CK-MB (CK-2) TNP CK-MB (CK-2) Rel Index TNP Troponin I < 0.012 (0.01-0.034) ng/mL Total Protein 7.4 (6.3-8.2) g/dL Albumin 4.5 (3.5-5.0) g/dL Globulin 2.9 (1.7-4.1) g/dL Albumin/Globulin Ratio 1.6 (1.0-2.8) Lipase 160 (23-300) U/L Imaging Data CT scan - head: Radiologist's Impression: RIANNA Navas [id number] CT Scan Report Signed Patient: Adis Goldstein MR#: [id number] : 1945 Acct:[id number] Age/Sex: 76 / M Date of Service: 03/16/22 Loc: ED Accession Number: [id number] ?? Procedure: CT head/brain wo con Ordering Provider: Ann Marie Anders D.O. PROCEDURE:? CT HEAD/BRAIN WO CON ? INDICATIONS:? fall ? TECHNIQUE:? Noncontrast 4.5 mm thick angled axial sections acquired from the foramen magnum to the vertex, with coronal and sagittal reformats.? For radiation dose reduction, the following was used:? automated exposure control, adjustment of mA and/or kV according to patient size.? ? COMPARISON:? [facility], CR, XR CHEST 1V, 03/16/2022, 14:49.? [facility], CT, CT HEAD/BRAIN WO CON, 01/06/2022, 17:05. ? FINDINGS:? Image quality:? Excellent.? ? CSF spaces:? Basal cisterns are patent.? No extra-axial fluid collections.? The ventricles are symmetric in size and shape.? ? Brain:? No intracranial bleeds or masses.? There is cerebral volume loss for age, with resultant ventricular and sulcal prominence.? There are periventricular and deep white matter chronic small vessel ischemic changes.? There is intracranial internal carotid artery atherosclerosis.? ? Skull and face:? There is a minimal left posterior scalp hematoma seen, as on series 2, image 27. No underlying calvarial fracture can be seen.? Calvarium and visualized facial bones appear intact, without suspicious lesions.? ? Sinuses:? Visualized sinuses and mastoids are clear.? ? IMPRESSION:? Minimal left posterior scalp hematoma, without an associated fracture. ? No acute intracranial hemorrhage is seen.? ? Normal intraoperative examination. ? ? Dictated by: Freddy Chatman M.D. on 03/16/2022 at 14:16 ? ? Approved by: Freddy Chatman M.D. on 03/16/2022 at 14:17? Chest x-ray: Radiologist's Impression: Adis nicole MR#: [id number] : 1945 Acct:[id number] Age/Sex: 76 / M Date of Service: 03/16/22 Loc: ED Accession Number: [id number] ?? Procedure: XR chest 1V Ordering Provider: Ann Marie Anders D.O. PROCEDURE:? XR CHEST 1V ? INDICATIONS:? chest pain ? TECHNIQUE:? One view of the chest was acquired.? ? COMPARISON:? [facility], CT, CT HEAD/BRAIN WO CON, 03/16/2022, 14:56.? [facility], CR, XR CHEST 1V, 01/06/2022, 16:45.? [facility], CR, XR CHEST 2V, 03/08/2022, 12:36. ? FINDINGS:? ? Surgical changes and devices:? Left shoulder postoperative change and thoracolumbar postoperative change is partially seen. ? Lungs and pleura:? An incomplete inspiratory result is noted, causing a crowded appearance to the lung markings.? Generalized interstitial prominence can be seen.? No focal infiltrates are seen.? No pneumothorax or significant pleural effusions are seen. ? ? ? Mediastinum:? Mediastinal contours appear normal.? Heart size is mildly enlarged.? ? Bones and chest wall:? No suspicious bony lesions.? Degenerative changes are seen throughout, which are worst involving the right shoulder.? Overlying soft tissues appear unremarkable.? IMPRESSION:? Mild cardiomegaly and generalized interstitial prominence.? Please consider CHF. ? Postoperative and degenerative changes are seen.? ? ? Dictated by: Freddy Chatman M.D. on 03/16/2022 at 14:14 ? ? ECG Data Interpretation: Normal sinus rhythm rate 68 LA interval 166 QRS 96 QTC 418 artifact noted Q-wave noted in lead 3 and AVF MDM Narrative Medical decision making narrative: Patient is found to have hypertension. He has no signs of end-organ damage. He is relatively asymptomatic. Head CT is negative. He has no prior history of hypertension he is not on any medications for it. However it remains relatively high throughout his stay. He is given 1 dose of labetalol. He initially said it was because his was in the room and they have been arguing all day. She left and blood pressure remains elevated. The patient is quite adamant that he be discharged. We discussed checking his blood pressure at and recording it. Because he may need blood pressure medications. Discharge Plan Departure Patient Disposition: Home Clinical Impression: Hypertension, Closed head injury Instructions: Essential Hypertension, Closed Head Injury Activity Restrictions/Additional Instructions: *You have been diagnosed with closed head injury, hypertension *What to do: Please check and monitor blood pressure at home. I recommend checking once a day either morning or night and recording it. You may need bl ood pressure medication discuss this with her primary care provider. *Continue to take medications as directed Tylenol 500 mg 3 times a day if needed for pain May apply antibiotic ointment to head *Follow up with your primary care provider in 2-3 days or call [phone] *Return to ER if you should have worsening headache nausea vomiting weakness numbness tingling or any new, worsening or concerning symptoms Prescriptions: No Action benzonatate 100 mg capsule 100 mg PO BID PRN (Reason: cough) Qty: 20 0RF cholecalciferol (vitamin D3) 50 mcg (2,000 unit) capsule 100 mcg PO DAILY 0RF ivermectin 3 mg tablet 12 mg PO .3 times per week 0RF Rx Instructions: as a single dose mirtazapine 15 mg tablet 15 mg PO BEDTIME 0RF diclofenac sodium 75 mg tablet,delayed release (DR/EC) 75 mg PO BID 0RF atorvastatin 10 mg Tablet 10 mg PO BEDTIME 0RF acetaminophen [Tylenol Extra Strength] 500 mg tablet 500 mg PO TID PRN0RF carbidopa-levodopa 25-100 mg tablet 2 tab PO .five days a day 0RF Label Comments: TAKES 0800, 1400, 2000 acetaminophen [Tylenol 8 Hour] 650 mg tablet extended release 650 mg PO Q8H PRN (Reason: pain) Qty: 20 0RF diclofenac sodium [Voltaren Arthritis Pain] 1 % gel 4 g topical QID PRN (Reason: shoulder pain) Qty: 100 0RF Rx Instructions: apply to single knee, ankle, foot; for foot includes sole/toes/top of foot Referrals: Ganesh Callaway MD [Primary Care Provider] -
--- NOTE | 2022-03-16 14:31 | DI.RAD.S_ITS ---
PROCEDURE: XR CHEST 1V INDICATIONS: chest pain TECHNIQUE: One view of the chest was acquired. COMPARISON: [facility], CT, CT HEAD/BRAIN WO CON, 03/16/2022, 14:56. [facility], CR, XR CHEST 1V, 01/06/2022, 16:45. [facility], CR, XR CHEST 2V, 03/08/2022, 12:36. FINDINGS: Surgical changes and devices: Left shoulder postoperative change and thoracolumbar postoperative change is partially seen. Lungs and pleura: An incomplete inspiratory result is noted, causing a crowded appearance to the lung markings. Generalized interstitial prominence can be seen. No focal infiltrates are seen. No pneumothorax or significant pleural effusions are seen. Mediastinum: Mediastinal contours appear normal. Heart size is mildly enlarged. Bones and chest wall: No suspicious bony lesions. Degenerative changes are seen throughout, which are worst involving the right shoulder. Overlying soft tissues appear unremarkable. IMPRESSION: Mild cardiomegaly and generalized interstitial prominence. Please consider CHF. Postoperative and degenerative changes are seen. Dictated by: Freddy Chatman M.D. on 03/16/2022 at 14:14 Approved by: Freddy Chatman M.D. on 03/16/2022 at 14:15
--- NOTE | 2022-03-16 14:31 | DI.CT.S_ITS ---
PROCEDURE: CT HEAD/BRAIN WO CON INDICATIONS: fall TECHNIQUE: Noncontrast 4.5 mm thick angled axial sections acquired from the foramen magnum to the vertex, with coronal and sagittal reformats. For radiation dose reduction, the following was used: automated exposure control, adjustment of mA and/or kV according to patient size. COMPARISON: [facility], CR, XR CHEST 1V, 03/16/2022, 14:49. [facility], CT, CT HEAD/BRAIN WO CON, 01/06/2022, 17:05. FINDINGS: Image quality: Excellent. CSF spaces: Basal cisterns are patent. No extra-axial fluid collections. The ventricles are symmetric in size and shape. Brain: No intracranial bleeds or masses. There is cerebral volume loss for age, with resultant ventricular and sulcal prominence. There are periventricular and deep white matter chronic small vessel ischemic changes. There is intracranial internal carotid artery atherosclerosis. Skull and face: There is a minimal left posterior scalp hematoma seen, as on series 2, image 27. No underlying calvarial fracture can be seen. Calvarium and visualized facial bones appear intact, without suspicious lesions. Sinuses: Visualized sinuses and mastoids are clear. IMPRESSION: Minimal left posterior scalp hematoma, without an associated fracture. No acute intracranial hemorrhage is seen. Normal intraoperative examination. Dictated by: Freddy Chatman M.D. on 03/16/2022 at 14:16 Approved by: Freddy Chatman M.D. on 03/16/2022 at 14:17
[2022-03-16 14:49] LABS: Add Manual Diff / Slide Review NO; Basophils Absolute Auto 100 /uL (0-100); Eosinophils Absolute Auto 100 /uL (0-450); Hematocrit 42.7 % (41-53); Hemoglobin 14.6 g/dL (13.5-17.5); Lymphocytes Absolute Auto 1600 /uL (1100-4500); Mean Corpuscular HGB Conc 34.2 % (30-36); Mean Corpuscular Hemoglobin 30.8 PG (26-34); Monocytes Absolute Auto 800 /uL (0-900); Monocytes Percent Auto 8.9 % (3-14); Neutrophils Absolute Auto 6400 /uL (1500-7000); Neutrophils Percent Auto 71.1 % (50-75); Platelet Count 250 X10^3/uL (150-400); Red Blood Cell Count 4.75 X10^6/uL (4.5-5.9); Red Cell Distribution Width 14.1 % (11.6-14.8)
[2022-03-16 15:00] LABS: INR 1.2 (0.9-1.3)
[2022-03-16 15:02] LABS: Alanine Aminotransferase 21 IU/L (<50); Albumin 4.5 g/dL (3.5-5.0); Albumin Globulin Ratio 1.6 (1.0-2.8); Alkaline Phosphatase 125 U/L (38-126); Aspartate Aminotransferase 30 IU/L (17-59); BUN Creatinine Ratio 35.5 (6-22); Bilirubin Total 0.5 mg/dL (0.2-1.3); Blood Urea Nitrogen 27 mg/dL (9-20); Calcium 9.3 mg/dL (8.4-10.2); Carbon Dioxide 27 mmol/L (22-32); Chloride 106 mmol/L (98-107); Creatine Kinase 65 U/L (55-170); Estimated Glomerular Filt Rate > 60 mL/min (>60); Globulin 2.9 g/dL (1.7-4.1); Glucose 94 mg/dL (80-110); HEMOLYSIS 18 (0-50); Lipase 160 U/L (23-300); Potassium 4.3 mmol/L (3.4-5.1); Sodium 139 mmol/L (137-145); Total Protein 7.4 g/dL (6.3-8.2)
[2022-03-16 15:03] LABS: PTT Partial Thromboplastin Tim 34 SECONDS (26.4-36.2)
[2022-03-16 15:13] LABS: Troponin I < 0.012 ng/mL (0.01-0.034)
[2022-03-16] MEDS: LABETALOL 20 MG/4 ML SYRINGE 10 MG IV (15:49)
--- NOTE | 2022-03-16 17:23 | PC.NURSE ---
PT aware that BP continues to be elevated. States I am stressed about losing my wallet this morning and the fight I had with my earlier. I know that's why it is high. I already called my doctor. Repeats that he wants to leave. Already called Cristel Loera for transport himself. MD notified. Discharge orders received/packet printed.
== END 2022-03-16 17:24 | disposition home or self-care (01) ==
PROVIDERS: Emergency Provider Emergency Medicine; PCP Family Medicine
DX: S09.90XA Unspecified injury of head, initial encounter (principal); R07.9 Chest pain, unspecified; I10 Essential (primary) hypertension; W19.XXXA Unspecified fall, initial encounter
CPT/HCPCS: 36415; 70450; 71045; 80053; 82550; 83690; 84484; 85025; 85610; 85730; 93005; 93010; 96374; 99284

== ENCOUNTER → 2022-03-23 10:47 | Outpatient (CLI) | payer MEDICARE, OTHER, SELFPAY ==
[2021-03-16 16:44] VITALS: BMI 26.3
[2022-03-24 17:42] LABS: Anti Thyroglobulin Antibody <1.0 IU/mL (0.0-0.9)
[2022-03-25 06:17] LABS: Thyroid Stimulating Immunoglob < 0.10 IU/L (0.00-0.55)
== END ==
PROVIDERS: PCP Family Medicine; Referring Provider Ophthalmology; Visit Provider Ophthalmology
DX: H50.0 Esotropia (principal)
CPT/HCPCS: 36415; 84445; 86800

== ENCOUNTER → 2022-04-16 15:24 | Outpatient (CLI) | payer MEDICARE, OTHER, SELFPAY ==
[2021-03-16 16:44] VITALS: BMI 26.3
[2022-04-17 03:26] LABS: Cholesterol 131 mg/dL (140-199); HDL Cholesterol 37 mg/dL (40-60); LDL Cholesterol Calculated 58 mg/dL (<100); Triglycerides 181 mg/dL (35-150)
[2022-04-17 03:56] LABS: TSH w/ Reflex to FT4 1.05 uIU/mL (0.47-4.68)
[2022-04-18 15:22] LABS: Prostate Specific Antigen 0.959 ng/mL (0.10-4.00)
== END ==
PROVIDERS: PCP Internal Medicine; Referring Provider Internal Medicine; Visit Provider Internal Medicine
DX: I10 Essential (primary) hypertension (principal); N13.8 Other obstructive and reflux uropathy; E78.2 Mixed hyperlipidemia; N40.1 Benign prostatic hyperplasia with lower urinary tract symptoms; Z71.89 Other specified counseling
CPT/HCPCS: 36415; 80061; 84153; 84443

== ENCOUNTER → 2022-06-01 08:44 | Outpatient (CLI) | payer MEDICARE, OTHER, SELFPAY ==
[2021-03-16 16:44] VITALS: BMI 26.3
--- NOTE | 2022-06-01 | DI.RAD.S_ITS ---
PROCEDURE: FL BARIUM SWALLOW W SPEECH INDICATIONS: PARKINSON'S DISEASE COMPARISON: None. TECHNIQUE: Examination was conducted in conjunction with speech pathology per standard protocol. In the lateral projection, filming was performed of the patient swallowing. AP projection filming may also be performed with patient swallowing. COMPARISON: FINDINGS: Function: The oral preparatory phase appears normal, with proper containment. The subsequent oral propulsive phase, pharyngeal phase, and esophageal phase of swallowing also appear normal with all proffered substances. No laryngotracheal penetration or aspiration. No pathologic vallecular pooling. Morphology: Large tertiary contraction waves noted in the mid and distal esophagus compatible with esophageal dysmotility. No cricopharyngeal bar is identified. No cervical esophageal webs. No Zenker's diverticulum. No strictures. IMPRESSION: No laryngotracheal penetration or aspiration. Severe esophageal dysmotility. Please see independent report generated by the speech pathologist for further detailed specifics and characterization of the modified speech swallow study. Dictated by: Fátima Black MD, PhD on 06/01/2022 at 10:57 Approved by: Fátima Black MD, PhD on 06/01/2022 at 10:58
--- NOTE | 2022-06-01 16:48 | ST.SWALLOW ---
Visit Care Team Role Provider Type Sunil Tovar MD Primary Care Provider Physician Specialty: Internal Medicine Address: [address] [place] [address], [id number] Email: [email or web address] Ganesh Callaway MD Attending Provider Non-Staff Referring Provider Specialty: Family Practice Address: [address] [place] [address], [address], [place], [address] Email: Modified Barium Swallow Study FLIGHT TEST DATA ACQUISITION TECHNICIAN Modified Barium Swallow Study Start: 06/01/22 17:08 Freq: Status: Active Protocol: Document 06/01/22 17:09 MAXINE (Rec: 06/01/22 17:09 MAXINE [id number]) Modified Barium Swallow Study Total Time Visit Start Time 09:30 Visit Stop Time 10:00 Total Visit Minutes [address] Ganesh Callaway Reason for Referral Dysphagia Setting Setting Outpatient Care Patient Information Identification Type Name,ID Card Patient History The pt is a 76-yr-old male currently being treated by this FLIGHT TEST DATA ACQUISITION TECHNICIAN in outpatient Speech Therapy targeting dysphagia and dysphonia secondary to Parkinson's disease. The pt c/o coughing with thin liquids, particularly at the start of meals. He has been performing exercises to improve swallow function and safety for ~2 mos but continues to have frequent coughing with thin liquids. Subjective Observations The pt arrived on time and self-ambulated with use of 4WW. He was assisted to fluoroscopy chair and the procedure was explained to him. He consented to proceed. Patient Positioning Position View Lat-A/P Imaging Lateral View Textures Administered Trials Presented Thin Liquid via Spoon,Thin Liquid via Cup,Nichols Liquid via Spoon,Nichols Liquid via Cup,Honey Liquid via Spoon, Dysphagia Blenderized Textures ,Regular Textures Oral Phase Source: MBSIMP (TM) (C) Bolus Specific Scoring Grid Lip Closure No Impairment (WNL) Tongue Control During Bolus Hold Moderate Impairment Bolus Prep/Mastication Mild Impairment Bolus Transport/Lingual Motion Mild Impairment A/P Lingual Propulsion Delay Yes: With barium paste and cookie trials Oral Residue Mild Impairment Residue Clearing No Impairment (WNL) Nasal Regurgitation No Additional Oral Phase Observations Oral Peripheral Exam: Symmetrical features. Moderate lingual weakness with lateral press against resistance. Pt has natural dentition with several molars missing bilaterally. Oral Prep and Swallow Phases: Moderate escape of liquid to the mouth floor was observed during bolus hold. Frequent lingual rocking was noted at start of a/p propulsion. During consecutive sips, delayed swallow trigger was observed. Once initiated, a/p propulsion was coleman. Mild oral residue was noted, not uncommon with barium trials. This cleared well with subsequent swallows. Mastication of cookie was WFL. Pharyngeal Phase Source: MBSIMP (TM) (C) Bolus Specific Scoring Grid Delayed Initiation of Pharyngeal Swallow Yes Number of Seconds Delayed (seconds) 3 Soft Palate Elevation No Impairment (WNL) Tongue Base Strength/Range of Motion WFL Residue Along the Tongue Base Yes: Trace Clearance of Residue Along Tongue Base No Impairment (WNL) Laryngeal Elevation No Impairment (WNL) Anterior Hyoid Movement Mild Impairment Epiglottic Range of Motion WFL Vallecular Residue Yes: Trace Clearance of Vallecular Residue No Impairment (WNL) Laryngeal Vestibular Closure No Impairment (WNL) Pharyngeal Stripping Wave Mild Impairment Posterior Pharyngeal Wall Residue No Upper Esophageal Sphincter Opening No Impairment (WNL) Residue in the Pyriform Sinuses Yes: Occasional trace Clearance of Residue in the Pyriform WFL Sinuses Esophageal Clearance Upright Position Mild Impairment Pharyngoesophageal Backflow Observed No Additional Pharyngeal Phase Observations No airway penetration or aspiration was observed. Mildly decreased pharyngeal stripping wave and anterior propulsion of hyolaryngeal complex was noted. The pt demonstrated good pharyngeal clearance with occasional trace residue along the tongue base, vallecula and pyriform sinuses. This all cleared with subsequent swallows. A/P View Textures Administered Trials Presented Nichols Liquid via Cup,Barium Tablet A/P View Observations Pharyngeal Contraction No Impairment (WNL) Esophageal Function Poor Motility,Stasis Esophageal Clearance Upright Position Severe Impairment Esophageal Observations Esophageal Function Per Radiologist report: Large tertiary contraction waves noted in the mid and distal esophagus compatible with esophageal dysmotility. Severe esophageal dysmotility. Clinical Impressions Dysphagia Type Mild Oropharyngeal Dysphagia Findings The pt presents with mild oropharyngeal dysphagia secondary to muscular weakness and likely impacted by Parkinson's disease. Reduced lingual strength and control resulted in bolus escape to the floor of the mouth with liquids and delayed and effortful a/p propulsion during oral prep phase. Reduced hyolaryngeal anterior movement increases the pt's risk of airway compromise, although none was observed during this study which took place in a quiet and structured environment. The pt was observed to take large sips of liquid and appeared quite fatigued by the end of the study. It is possible that in environments with greater distractions, these characteristics together may result in penetration or aspiration of liquids and cause the coughing that the pt experiences. Observations of esophageal dysmotility warrant referral to GI. Rehabilitation Potential Excellent Patient Appropriate for Therapy Yes: Continue current POC with outpatient therapy Recommendations Diet Liquids Order Thin Diet Order Regular Medication Recommendation As Tolerated Aspiration Precautions Recommended Precautions Upright at 90 Degrees,Small Bites/Sips Additional Precautions Reduce distractions Treatment Plan Therapy Recommendations Outpatient Speech Therapy Recommended Referrals GI Consult Compensatory Strategies Recommendations Sitting Upright (90 deg),Small Bites and Sips Short Term Goals Continue with swallow exercises and safe swallow strategy training. Marine Pilot Goals The pt will tolerate regular textures and thin liquids without overt s/sx of airway compromise and with increased comfort and confidence reported by pt.
== END ==
PROVIDERS: PCP Internal Medicine; Referring Provider Family Medicine; Visit Provider Family Medicine
DX: G20 Parkinson's disease (principal); K22.4 Dyskinesia of esophagus
CPT/HCPCS: 74230; 92611

== ENCOUNTER → 2022-06-17 11:55 | Outpatient (CLI) | payer MEDICARE, OTHER, SELFPAY ==
[2021-03-16 16:44] VITALS: BMI 26.3
--- NOTE | 2022-06-17 11:57 | DI.ECHO.S_ITS ---
[place] [facility]---------+ [facility] +---------+ : : [address] : : : : [place] : : : : [id number] : : : : Phone: [phone] Echocardiogram Report + + :Name: ROSALBA HERNÁNDEZ Study Date: 06/17/2022 Height: 64 in : :[facility] ReadingLocation: Weight: 170 lb : : Gender: Male BSA: 1.8 m2 : :: 1945 Age: 76 yrs BP: 204/99 mmHg: :Reason For Study: Abnormal ECG : :Ordering Physician: JIMMY, : :DANIS Performed By: Aron Henderson : :Referring: DANIS MARQUEZ : + + Interpretation Summary The left ventricle is normal in size. There is mild concentric left ventricular hypertrophy. The ejection fraction is estimated to be 60-65%. The right ventricle is normal in size and function. No significant valvular pathology seen. The IVC is of normal diameter and collapses greater than 50% with a sniff. This suggests a low right atrial pressure of 3 mm Hg. There is aortic root sclerosis/calcification. Mild atherosclerotic plaque(s) in the aortic arch. BP: 204/99 mmHg during the study I called patient's home and spoke to patient's who has a power of privacy attorney for this patient. I was told by the that patient is in assisted living facility. She was informed about high blood pressure. She will call assisted living facility to recheck the blood pressure and discuss with the medical team over there. Procedure: A two-dimensional transthoracic echocardiogram with color flow and Doppler was performed. There is no prior echocardiogram noted for this patient. The study quality was technically difficult. The patient was in normal sinus rhythm during the exam. Left Ventricle: The left ventricle is normal in size. There is mild concentric left ventricular hypertrophy. There is no thrombus. A false chord is noted (normal variant). Left ventricular systolic function is normal. The ejection fraction is estimated to be 60-65%. There are no focal wall motion abnormalities. MV E/A: 0.76 Med Peak E' Toan: 4.0 cm/sec E/E' med: 20.2. Right Ventricle: The right ventricle is normal in size and function. Atria: Both atria are normal in size. The interatrial septum grossly appears intact with no obvious evidence for an atrial septal defect. Mitral Valve: The mitral valve is normal in structure and function. There is trace mitral regurgitation. Aortic Valve: The aortic valve is trileaflet. The aortic valve opens well. The aortic valve is slightly calcified. There is no aortic valve stenosis. There is mild aortic regurgitation. Tricuspid Valve: The tricuspid valve is normal in structure and function. Pulmonary artery pressures cannot be estimated because of the lack of a measurable TR jet velocity. There is trace tricuspid regurgitation. Pulmonic Valve: The pulmonic valve is normal in structure and function. There is mild pulmonic regurgitation. Great Vessels: The aortic root is normal size. There is aortic root sclerosis/calcification. The dimensions of the ascending aorta are normal. Mild atherosclerotic plaque(s) in the aortic arch. The IVC is of normal diameter and collapses greater than 50% with a sniff. This suggests a low right atrial pressure of 3 mm Hg. Pericardium/ Pleura There is a trivial pericardial effusion noted. There is no pleural effusion. MMode/2D Measurements & Calculations LVIDd: 4.6 cm LVOT diam: 1.9 cm LVIDs: 3.0 cm Ao root diam: 3.2 cm FS: 34.8 % asc Aorta Diam: 3.2 cm IVSd: 1.2 cm LVPWd: 1.2 cm LV diaz. diameter/BSA (cm/m^2): 2.5 LV sys. diameter/BSA (cm/m^2): 1.6 LA dimension: 3.3 cm RA long axis: 6.1 cm LA A2 area: 16.1 cm2 LA A4 area: 16.6 cm2 LA length (vol): 5.5 cm LA vol: 41.4 ml LA vol index: 22.7 ml/m2 TAPSE_phl: 2.1 cm Doppler Measurements & Calculations Ao V2 max: 154.0 cm/sec LVOT Max Toan: 121.0 cm/sec Ao V2 mean: 107.0 cm/sec LV V1 max P.9 mmHg Ao max P.0 mmHg LV V1 VTI: 26.4 cm Ao mean P.0 mmHg NIKKY(I,D): 2.3 cm2 Ao V2 VTI: 33.2 cm NIKKY(V,D): 2.2 cm2 sev ratio: 0.80 NIKKY indexed to BSA (cm^2/m^2): 1.2 MV E max toan: 80.1 cm/sec SV(LVOT): 74.9 ml MV A max toan: 105.0 cm/sec MV E/A: 0.76 Med Peak E' Toan: 4.0 cm/sec E/E' med: 20.2 Lat Peak E' Toan: 5.5 cm/sec E/E' lat: 14.5 E/e' average: 17.4 MV dec time: 0.27 sec AV VR_phl: 0.79 MV P1/2t-pr_phl: 78.0 msec NIKKY(VTI)/BSA_phl: 1.2 Reading Physician:06:23 PM
== END ==
PROVIDERS: PCP Internal Medicine; Referring Provider Registered Nurse Diabetes Educator; Visit Provider Registered Nurse Diabetes Educator
DX: I35.1 Nonrheumatic aortic (valve) insufficiency (principal); R93.89 Abnormal findings on diagnostic imaging of other specified body structures; I70.0 Atherosclerosis of aorta; R03.0 Elevated blood-pressure reading, without diagnosis of hypertension
CPT/HCPCS: 93306

== ENCOUNTER 2022-06-18 07:36 | Emergency (ER) | payer MEDICARE, OTHER, SELFPAY ==
[2021-03-16 16:44] VITALS: BMI 26.3
[2022-06-18] VITALS (12 sets, daily range): BP systolic 178–221; BP diastolic 79–90; PULSE 55–81; RESP 18; TEMP 36.9; O2SAT 93–99; BMI 28.3
--- NOTE | 2022-06-18 07:50 | ED.GENADULT ---
HPI - General Adult General Chief complaint: Hypertension Stated complaint: High BP Time Seen by Provider: 06/18/22 07:50 Source: patient Mode of arrival: Ambulatory History of Present Illness HPI narrative: Patient is a 76-year-old male history of Parkinson's hyperlipidemia, bipolar, depression, CAD, presenting to have elevated blood pressure. He has a mild headache minimal shortness of breath. He says he had an outpatient echocardiogram done yesterday cardiology called him to tell blood pressure was 200/100. Blood pressure was checked this morning and it was 180/100, and is currently 221/100. He really has no chest pain, no numbness tingling or weakness. Overall does not feel poorly. Not Sure why outpatient echo ordered. Last note from PCP is 04/28/2022 for suture removal + Interpretation Summary The left ventricle is normal in size. There is mild concentric left ventricular hypertrophy. The ejection fraction is estimated to be 60-65%. ? The right ventricle is normal in size and function. ? No significant valvular pathology seen. ? The IVC is of normal diameter and collapses greater than 50% with a sniff. This suggests a low right atrial pressure of 3 mm Hg. ? There is aortic root sclerosis/calcification. Mild atherosclerotic plaque(s) in the aortic arch. ? BP: 204/99 mmHg during the study ? I called patient's home and spoke to patient's who has a power of compliance attorney for this patient. I was told by the that patient is in assisted living facility. She was informed about high blood pressure. She will call assisted living facility to recheck the blood pressure and discuss with the medical team over there. Related Data Home Medications Medication Instructions Recorded Confirmed atorvastatin 10 mg tablet 10 mg PO BEDTIME 10/23/19 04/28/22 acetaminophen 500 mg tablet 500 mg PO TID PRN 09/01/21 04/28/22 (Tylenol Extra Strength) diclofenac sodium 75 mg 75 mg PO BID 09/01/21 04/28/22 tablet,delayed release benzonatate 200 mg capsule 200 mg PO BID 04/16/22 04/28/22 carbidopa 25 mg-levodopa 100 mg 2 tab PO 5XD 04/16/22 04/28/22 tablet cholecalciferol (vitamin D3) 125 125 mcg PO DAILY 04/16/22 04/28/22 mcg (5,000 unit) capsule finasteride 5 mg tablet 5 mg PO DAILY 04/16/22 04/28/22 ivermectin 3 mg tablet 9 mg PO QWEEK 04/16/22 04/28/22 mirtazapine 15 mg tablet 30 mg PO BEDTIME 04/16/22 04/28/22 Previous Rx's Medication Instructions Recorded diclofenac sodium 1 % topical gel 4 g topical QID PRN shoulder pain 01/06/22 (Voltaren Arthritis Pain) #100 grams Allergies Allergy/AdvReac Type Severity Reaction Status Date / Time acetaminophen [From Percocet] AdvReac Mild Drowsy Verified 04/28/22 10:05 oxycodone AdvReac Mild Drowsy Verified 04/28/22 10:05 Review of Systems Review of Systems Narrative: GENERAL: Denies chills, fatigue, malaise, fever, sweats, travel HEENT: Denies sinus pain, ear pain, sore throat, difficulty swallowing, neck pain RESPIRATORY: Denies dyspnea, cough, wheezing, hemoptysis, sputum. CARDIOVASCULAR: Denies chest pain, palpitations, orthopnea, edema GASTROINTESTINAL: Denies nausea, vomiting, abdominal pain, diarrhea, constipation, melena. : Denies dysuria, frequency, incontinence, hematuria, urinary retention, flank pain. MUSCULOSKELETAL: Denies weakness, joint pain, or bony pain SKIN: No rash, no erythema, no pruritus NEUROLOGIC: Denies weakness, dizziness, headache, numbness, change in speech, confusion PSYCHIATRIC: No concerning psychosocial issues. 12 point review of systems is negative except for those stated above and HPI Patient History Medical History Advanced directives, counseling/discussion Back pain BPH w urinary obs/LUTS Essential hypertension Forehead laceration Hearing impaired HLD (hyperlipidemia) HTN (hypertension) Memory deficit Mixed hyperlipidemia Orthostatic hypotension Osteoarthritis Parkinson disease Parkinson's disease Postoperative anemia (11/06/19) Repeated falls Sciatica Spinal stenosis Surgical History H/O vasectomy History of arthroplasty of left shoulder History of arthroscopy of both knees History of bilateral total hip arthroplasty History of lumbar fusion (~2011) History of lumbar fusion (11/06/19) Hx of tonsillectomy Status post correction of deviated nasal septum Social History details: , living at [facility] due to falls ( in [place]) household members: spouse Smoking Status: Former smoker alcohol intake: current Smoking Status: Former smoker alcohol intake frequency: holidays/special occasions only Substance Use Type: does not use Exam Initial Vital Signs Initial Vital Signs: Vital Signs Temperature 98.5 F 06/18/22 07:40 Pulse Rate 81 06/18/22 07:40 Respiratory Rate 18 06/18/22 07:40 Blood Pressure 221/90 H 06/18/22 07:40 Pulse Oximetry 99 06/18/22 07:40 Oxygen Delivery Method 06/18/22 07:40 GENERAL: Alert pleasant 76-year-old male HEENT: Head atraumatic,EOMI, pupils reactive, face symmetric, moist mucous membranes CARDIOVASCULAR: Regular rate and rhythm without murmurs, rubs or gallops. RESPIRATORY: Breath sounds equal bilaterally, no wheezes rales or rhonchi. ABDOMEN: Soft, nontender. Normoactive bowel sounds all 4 quadrants. No guarding or rebound. EXTREMITIES: Normal range of motion, no clubbing or edema. Neurovascularly intact NEUROLOGICAL: Alert and oriented x4.Normal gait and speech. Insurance Marketing Specialist strength equal bilaterally SKIN: Warm, dry, no laceration, no petechiae, no rashes or lesions. Course Orders Ordered: ED Orders 06/18/22 07:54 EKG-12 Lead Stat 06/18/22 08:00 Complete Blood Count AUTO DIFF Stat Comprehensive Metabolic Panel Stat Lipase Stat Troponin & CK Cardiac Panel Stat 06/18/22 08:40 XR chest 1V Stat 06/18/22 09:53 Trop I [Troponin I] Stat 06/18/22 10:00 EKG-12 Lead Stat Discontinued Medications Artificial Tears (Polyvinyl Alcohol Drops) 1 drops EYE-BOTH PRN PRN PRN Reason: Dry Eye(s) Last Admin: 06/18/22 09:41 Dose: 1 drop Documented By: ANANDA Vital Signs Vital signs: Vital Signs - 8 hr 06/18/22 07:40 06/18/22 07:43 06/18/22 08:00 Temperature 98.5 F Pulse Rate 81 70 64 Respiratory Rate 18 Blood Pressure 221/90 H Pulse Oximetry 99 95 93 Oxygen Delivery Method Room Air 06/18/22 08:22 06/18/22 08:22 06/18/22 08:22 Temperature Pulse Rate 62 Respiratory Rate Blood Pressure 187/80 H 187/80 H Pulse Oximetry 94 Oxygen Delivery Method 06/18/22 08:30 06/18/22 08:30 06/18/22 09:00 Temperature Pulse Rate 64 Respiratory Rate Blood Pressure 178/80 H 193/87 H Pulse Oximetry 94 Oxygen Delivery Method 06/18/22 09:00 06/18/22 09:30 06/18/22 09:31 Temperature Pulse Rate 58 L 57 L Respiratory Rate 18 Blood Pressure 205/86 H Pulse Oximetry 96 96 Oxygen Delivery Method 06/18/22 09:31 06/18/22 10:00 06/18/22 10:01 Temperature Pulse Rate 56 L 57 L Respiratory Rate 18 Blood Pressure 206/88 H Pulse Oximetry 96 98 Oxygen Delivery Method 06/18/22 10:01 06/18/22 10:30 06/18/22 10:31 Temperature Pulse Rate 55 L 59 L Respiratory Rate Blood Pressure 185/79 H Pulse Oximetry 97 96 Oxygen Delivery Method 06/18/22 10:31 Temperature Pulse Rate 58 L Respiratory Rate Blood Pressure Pulse Oximetry 96 Oxygen Delivery Method Medical Decision Making Lab Data Result diagrams: 06/18/22 08:00 06/18/22 08:00 Labs: Lab Results 06/18/22 06/18/22 06/18/22 Range/Units 08:00 08:00 09:53 WBC 6.6 (4.5-11.0) X10^3/uL RBC 4.58 (4.5-5.9) X10^6/uL Hgb 14.1 (13.5-17.5) g/dL Hct 40.9 L (41-53) % MCV 89.2 (80-100) fL MCH 30.8 (26-34) PG MCHC 34.5 (30-36) % RDW 13.9 (11.6-14.8) % Plt Count 236 (150-400) X10^3/uL Neut % (Auto) 64.7 (50-75) % Lymph % (Auto) 20.2 L (25-40) % [place] % (Auto) 9.8 (3-14) % Eos % (Auto) 4.6 H (2-4) % Baso % (Auto) 0.7 (0-2) % Neut # (Auto) 4300 (3339-6519) /uL Lymph # (Auto) 1300 (0059-1972) /uL [place] # (Auto) 600 (0-900) /uL Eos # (Auto) 300 (0-450) /uL Baso # (Auto) 0 (0-100) /uL Sodium 141 (137-145) mmol/L Potassium 4.1 (3.4-5.1) mmol/L Chloride 105 (98-107) mmol/L Carbon Dioxide 29 (22-32) mmol/L BUN 24 H (9-20) mg/dL Creatinine 0.80 (0.66-1.25) mg/dL Estimated GFR > 60 (>60) mL/min BUN/Creatinine Ratio 30.0 H (6-22) Glucose 94 (80-110) mg/dL Calcium 9.0 (8.4-10.2) mg/dL Total Bilirubin 0.7 (0.2-1.3) mg/dL AST 29 (17-59) IU/L ALT 7 (<50) IU/L Alkaline Phosphatase 116 (38-126) U/L Total Creatine Kinase 88 (55-170) U/L CK-MB (CK-2) TNP CK-MB (CK-2) Rel Index TNP Troponin I 0.024 0.021 (0.01-0.034) ng/mL Total Protein 6.5 (6.3-8.2) g/dL Albumin 3.9 (3.5-5.0) g/dL Globulin 2.6 (1.7-4.1) g/dL Albumin/Globulin Ratio 1.5 (1.0-2.8) Lipase 369 H (23-300) U/L Imaging Data Chest x-ray: Radiologist's Impression: [place] [id number] XRay Report Signed Patient: Adis Goldstein MR#: [id number] : 1945 Acct:[id number] Age/Sex: 76 / M Date of Service: 06/18/22 Loc: ED Accession Number: [id number] ?? Procedure: XR chest 1V Ordering Provider: Ann Marie Anders D.O. PROCEDURE:? XR CHEST 1V ? INDICATIONS:? chest pain ? TECHNIQUE:? One view of the chest was acquired.? ? COMPARISON:? [facility], CR, XR CHEST 1V, 01/06/2022, 16:45.? [facility], CR, XR CHEST 2V, 03/08/2022, 12:36.? [facility], CR, XR CHEST 1V, 03/16/2022, 14:49. ? FINDINGS:? ? Surgical changes and devices:? Left shoulder arthroplasty hardware is partially seen.? Thoracolumbar fixation hardware is partially seen. ? Lungs and pleura:? An incomplete inspiratory result is noted, causing a crowded appearance to the lung markings.? No focal infiltrates are seen.? No pneumothorax or significant pleural effusions are seen. ? ? Mediastinum:? Mediastinal contours appear normal.? Heart size is the upper limits of normal.? ? Bones and chest wall:? No suspicious bony lesions.? Advanced degenerative change can be seen of right shoulder.? Milder, age-appropriate degenerative changes can be seen elsewhere.? Overlying soft tissues appear unremarkable.? ? ? IMPRESSION:? ? Limited portable chest examination, without a significant cardiopulmonary abnormality identified.? ? ? Dictated by: Freddy Chatman M.D. on 06/18/2022 at 8:12? ECG Data Interpretation: Normal sinus rhythm rate 66 KS interval 160 QRS [address] changes Q-wave noted in lead 3 with T-wave inversions similar to prior EKG in February of 2022 EKG 2. Sinus rhythm rate p.r. interval 170 QRS 94 QTC 419 similar to previous EKG without ischemic changes MDM Narrative Medical decision making narrative: The patient blood pressure is really quite light bowel. It goes down to the 170s and up to the 200s. He overall is completely asymptomatic. He has no signs of end-organ damage. At this time I recommend he continue to monitor his blood pressure once daily and gave him parameters when to return to ED. multiple medications interfere with carbidopa levodopa so will defer to patient's PCP for management. During his previous ED visit in February of 2022 he was noted to have severely elevated blood pressure at that time as well. Discharge Plan Departure Patient Disposition: Home Clinical Impression: Essential hypertension Instructions: DI for High Blood Pressure Activity Restrictions/Additional Instructions: *You have been diagnosed with high blood pressure *What to do: At this time please check your blood pressure once daily and record it. He will likely need to be on some blood pressure medication. Talked your primary care provider. Your blood pressure is fluctuating quite a bit *Continue to take medications as directed *Follow up with your primary care provider in 2-3 days or call [phone] *Return to ER if you should have persistent blood pressure greater than 190/100, chest pain shortness of breath headache numbness tingling or weakness [or] any new, worsening or concerning symptoms Prescriptions: No Action ivermectin 3 mg tablet 9 mg PO QWEEK Rx Instructions: as a single dose diclofenac sodium 75 mg tablet,delayed release (DR/EC) 75 mg PO BID mirtazapine 15 mg tablet 30 mg PO BEDTIME finasteride 5 mg tablet 5 mg PO DAILY Label Comments: take 1 tablet by mouth at bedtime benzonatate 200 mg capsule 200 mg PO BID Label Comments: take 1 capsule by mouth twice a day if needed for cough cholecalciferol (vitamin D3) 125 mcg (5,000 unit) capsule 125 mcg PO DAILY atorvastatin 10 mg Tablet 10 mg PO BEDTIME acetaminophen [Tylenol Extra Strength] 500 mg tablet 500 mg PO TID PRN carbidopa-levodopa 25-100 mg tablet 2 tab PO 5XD Label Comments: TAKES 0800, 1400, 2000 diclofenac sodium [Voltaren Arthritis Pain] 1 % gel 4 g topical QID PRN (Reason: shoulder pain) Qty: 100 0RF Rx Instructions: apply to single knee, ankle, foot; for foot includes sole/toes/top of foot Referrals: Sunil Tovar MD [Primary Care Provider] - Visit Report Forms: Patient Portal/API
--- NOTE | 2022-06-18 08:40 | DI.RAD.S_ITS ---
PROCEDURE: XR CHEST 1V INDICATIONS: chest pain TECHNIQUE: One view of the chest was acquired. COMPARISON: [facility], CR, XR CHEST 1V, 01/06/2022, 16:45. [facility], CR, XR CHEST 2V, 03/08/2022, 12:36. [facility], CR, XR CHEST 1V, 03/16/2022, 14:49. FINDINGS: Surgical changes and devices: Left shoulder arthroplasty hardware is partially seen. Thoracolumbar fixation hardware is partially seen. Lungs and pleura: An incomplete inspiratory result is noted, causing a crowded appearance to the lung markings. No focal infiltrates are seen. No pneumothorax or significant pleural effusions are seen. Mediastinum: Mediastinal contours appear normal. Heart size is the upper limits of normal. Bones and chest wall: No suspicious bony lesions. Advanced degenerative change can be seen of right shoulder. Milder, age-appropriate degenerative changes can be seen elsewhere. Overlying soft tissues appear unremarkable. IMPRESSION: Limited portable chest examination, without a significant cardiopulmonary abnormality identified. Dictated by: Freddy Chatman M.D. on 06/18/2022 at 8:12 Approved by: Freddy Chatman M.D. on 06/18/2022 at 8:15
[2022-06-18 08:47] LABS: Add Manual Diff / Slide Review NO; Basophils Absolute Auto 0 /uL (0-100); Basophils Percent Auto 0.7 % (0-2); Eosinophils Absolute Auto 300 /uL (0-450); Eosinophils Percent Auto 4.6 % (2-4); Hematocrit 40.9 % (41-53); Hemoglobin 14.1 g/dL (13.5-17.5); Lymphocytes Absolute Auto 1300 /uL (1100-4500); Lymphocytes Percent Auto 20.2 % (25-40); Mean Corpuscular HGB Conc 34.5 % (30-36); Mean Corpuscular Hemoglobin 30.8 PG (26-34); Mean Corpuscular Volume 89.2 fL (80-100); Monocytes Absolute Auto 600 /uL (0-900); Monocytes Percent Auto 9.8 % (3-14); Neutrophils Absolute Auto 4300 /uL (1500-7000); Neutrophils Percent Auto 64.7 % (50-75); Platelet Count 236 X10^3/uL (150-400); Red Blood Cell Count 4.58 X10^6/uL (4.5-5.9); Red Cell Distribution Width 13.9 % (11.6-14.8); White Blood Cell Count 6.6 X10^3/uL (4.5-11.0)
[2022-06-18 08:52] LABS: Alanine Aminotransferase 7 IU/L (<50); Albumin 3.9 g/dL (3.5-5.0); Albumin Globulin Ratio 1.5 (1.0-2.8); Alkaline Phosphatase 116 U/L (38-126); Aspartate Aminotransferase 29 IU/L (17-59); Bilirubin Total 0.7 mg/dL (0.2-1.3); Blood Urea Nitrogen 24 mg/dL (9-20); Carbon Dioxide 29 mmol/L (22-32); Chloride 105 mmol/L (98-107); Creatine Kinase 88 U/L (55-170); Estimated Glomerular Filt Rate > 60 mL/min (>60); Globulin 2.6 g/dL (1.7-4.1); Glucose 94 mg/dL (80-110); HEMOLYSIS < 15 (0-50); Lipase 369 U/L (23-300); Potassium 4.1 mmol/L (3.4-5.1); Sodium 141 mmol/L (137-145); Total Protein 6.5 g/dL (6.3-8.2)
[2022-06-18 09:05] LABS: Troponin I 0.024 ng/mL (0.01-0.034)
[2022-06-18] MEDS: POLYVINYL ALCOHOL DROPS 1 DROPS EYE-BOTH (09:41)
[2022-06-18 10:22] LABS: Troponin I 0.021 ng/mL (0.01-0.034)
== END 2022-06-18 10:52 | disposition home or self-care (01) ==
PROVIDERS: Emergency Provider Emergency Medicine; PCP Internal Medicine
DX: I10 Essential (primary) hypertension (principal); R07.9 Chest pain, unspecified
CPT/HCPCS: 36415; 71045; 80053; 82550; 83690; 84484; 85025; 93005; 93010; 99283; 99284

== ENCOUNTER → 2022-09-16 08:14 | Outpatient (CLI) | payer MEDICARE, OTHER, SELFPAY ==
[2022-06-30 11:17] VITALS: BMI 26.3
--- NOTE | 2022-09-16 08:14 | DI.MRI.S_ITS ---
PROCEDURE: MR STROKE Pre- and post-contrast brain MRI, non-contrast brain MR angiogram, pre- and postcontrast neck MR angiogram INDICATIONS: left-sided weakness TECHNIQUE: Brain: Noncontrast axial T1 spin echo, axial T2 fast spin echo, sagittal and axial FLAIR, coronal T2 fast spin echo, axial gradient echo, axial diffusion and ADC through the brain. After the administration of contrast, axial 3D VIBE of the cranial vasculature and brain. Brain MRA: Non-contrast 3-D time of flight MR angiogram, with multiple grbxlkn-zssjlufni-vljcfkoerf (MIP) reformats performed. Neck MRA: Axial and sagittal TruFISP through the neck. Coronal dynamic MR angiogram during administration of contrast in the arterial and venous phases, with 3-dimenstional dmngpfv-xhydskfgz-vxyseoqsca (MIP) reformats constructed from subtraction images. COMPARISON: [facility], CT, CT HEAD/BRAIN WO CON, 03/16/2022, 14:56. FINDINGS: Image quality: Excellent. BRAIN: No restricted diffusion to indicate recent ischemia. Mild global cerebral volume loss similar to the previous exam. Moderate chronic microvascular ischemic changes are also similar. No abnormal intracranial enhancement or susceptibility. The ventricular system and basilar cisterns are patent. No findings of mass effect or midline shift. BRAIN MR ANGIOGRAM: Anterior circulation: Intracranial internal carotid arteries are normal in size and enhancement. The flow within the paired anterior cerebral arteries is normal and symmetric. The flow within the middle cerebral arteries is normal and symmetric. The anterior communicating artery is seen. No stenoses, occlusions, or aneurysms. Posterior circulation: The visualized portions of the vertebral arteries demonstrate normal caliber, and join to form a normal appearing basilar artery. The flow within the posterior cerebral arteries is normal and symmetric. No stenoses, occlusions, or aneurysms. NECK MR ANGIOGRAM: Carotids: Great vessels demonstrate a conventional anatomy as they arise from the aortic arch. The origins of the common carotid arteries appear patent. The calibers and courses of both common carotid arteries are normal. The bifurcation regions appear normal bilaterally. The internal carotid arteries demonstrate normal course and caliber. Posterior circulation: The origins of the vertebral arteries appear patent. More superior portions of both vertebral arteries demonstrate normal course and caliber, and join to form a normal appearing basilar artery. Miscellaneous: Subclavian arteries appear patent. Pre-contrast images through the neck show no soft tissue abnormalities. IMPRESSION: BRAIN MRI: No acute intracranial abnormality. No recent infarct demonstrated. Mild global cerebral volume loss and chronic microvascular ischemic changes. BRAIN MR ANGIOGRAM: No occlusion or hemodynamically significant stenosis of the major intracranial arterial circulation. NECK MR ANGIOGRAM: No evidence of significant carotid or vertebral artery atherosclerotic narrowing. Dictated by: Javier Rossi M.D. on 09/16/2022 at 11:09 Approved by: Javier Rossi M.D. on 09/16/2022 at 11:12
== END ==
PROVIDERS: PCP Internal Medicine; Referring Provider Internal Medicine; Visit Provider Internal Medicine
DX: I67.9 Cerebrovascular disease, unspecified (principal); R29.898 Other symptoms and signs involving the musculoskeletal system
CPT/HCPCS: 70548; 70553; 99214

== ENCOUNTER 2022-10-01 08:57 | Emergency (ER) | payer MEDICARE, OTHER, SELFPAY ==
[2022-06-30 11:17] VITALS: BMI 26.3
[2022-10-01 09:05] VITALS: BP 182/89; PULSE 70; RESP 14; TEMP 36.2; O2SAT 99; BMI 30.9
--- NOTE | 2022-10-01 09:20 | DI.CT.S_ITS ---
PROCEDURE: CT HEAD/BRAIN WO CON INDICATIONS: fall/injury TECHNIQUE: Noncontrast 4.5 mm thick angled axial sections acquired from the foramen magnum to the vertex, with coronal and sagittal reformats. For radiation dose reduction, the following was used: automated exposure control, adjustment of mA and/or kV according to patient size. COMPARISON: [facility], CT, CT HEAD/BRAIN WO CON, 03/16/2022, 14:56. FINDINGS: Image quality: Excellent. CSF spaces: Basal cisterns are patent. No extra-axial fluid collections. The ventricles are symmetric in size and shape. Brain: No intracranial bleeds or masses. There is cerebral volume loss for age, with resultant ventricular and sulcal prominence. There are periventricular and deep white matter chronic small vessel ischemic changes. There is intracranial internal carotid artery atherosclerosis. Skull and face: Calvarium and visualized facial bones appear intact, without suspicious lesions. Sinuses: Visualized sinuses and mastoids are clear. IMPRESSION: 1. No CT evidence of acute intracranial abnormalities 2. No significant changes from previous studies. Dictated by: Gurpreet Stallings M.D. on 10/01/2022 at 10:12 Approved by: Gurpreet Stallings M.D. on 10/01/2022 at 10:13
--- NOTE | 2022-10-01 09:20 | DI.CT.S_ITS ---
PROCEDURE: CT CERVICAL SPINE WO CON INDICATIONS: Fall/injury TECHNIQUE: Noncontrast 3 mm thick sections acquired from the skull base to the T4 level. Sagittal and coronal reformats were then constructed. For radiation dose reduction, the following was used: automated exposure control, adjustment of mA and/or kV according to patient size. COMPARISON: None. FINDINGS: Image quality: Excellent. Bones: There is reversal of normal cervical lordosis centered at C5 level. 3 mm anterolisthesis of C4 on C5 and 5 mm retrolisthesis of C5 on C6 is seen. No acute fractures or dislocations. Degenerative endplate changes, loss of disc height and bilateral facet hypertrophic changes are noted throughout cervical spine most notably at C5-6 and C6-7 levels causing [id number] central canal stenosis and mild bilateral neural foraminal narrowing Visualized superior ribs are intact. Soft tissues: Prevertebral soft tissues are normal in thickness. No paravertebral hematomas. No apical pneumothoraces. IMPRESSION: 1. No gross acute cervical spine fracture or dislocation. 2. Degenerative disc disease throughout cervical spine as described above. Dictated by: Gurpreet Stallings M.D. on 10/01/2022 at 10:13 Approved by: Gurpreet Stallings M.D. on 10/01/2022 at 10:18
--- NOTE | 2022-10-01 09:21 | ED.FALL ---
HPI - Fall General Chief Complaint: Fall Stated Complaint: fell 5x M/T/W hit head each time has headache Time Seen by Provider: 10/01/22 09:12 Source: patient Mode of arrival: Wheelchair History of Present Illness HPI Narrative: Patient here for multiple falls this past week. Had 2 on Tuesday, 2 on Tuesday, and 1 on Tuesday. Patient has history of multiple falls in the past. Is not on any blood thinners. He did not lose any consciousness. He falls backwards when he falls. Patient has long history of Parkinson's. Patient sees [facility] neurology. Patient to [facility] primary care, Dr Tovar, September 09, 2022 for multiple falls. Blood pressure medication was changed. Please see below. Head MRI on September 16. Of the brain. Please see report below. Patient in no distress. He denies denies any pre of bed chest pain headache dizziness palpitations dyspnea back pain abdominal pain. He states he loses balance and falls backwards. Has abrasion to the forehead which he says he used his forehead to try to get up and got a rug burn. His injury is abrasion/contusion to the back of the head. Denies any neck pain. Denies denies any other injury or pain below the head. No neck pain no chest pain no abdominal pain or back pain no limb pain no arm pain no hip pelvis or leg or extremity pain. No confusion. No altered mental status. No nausea or vomiting. No recent illness. No cough cold congestion fever chills. No diarrhea. No urinary complaints. Blood pressure noted. He has not taken his amlodipine this morning. Primary care provider has already given referral to restart his physical therapy for his balance issues. Plan It was very nice to meet with you today! Your?blood pressure is inadequately controlled. STOP diltiazem and START: Amlodipine 10mg daily.?Let us know if you have any problems. Wear 20mmHg compression?stockings?from rising in the morning until retiring at night to keep your blood pressure from dropping when you stand up (orthostatic hypotension). Limit salt intake and sodium intake as measured on food labels to less than 2000mg daily. Call [phone] to schedule a brain MRI scan to evaluate for a possible old stroke. You will need to compensate for your?loss of balance?by paying more attention to where you are, for example, looking at the ground for uneven surfaces, removing throw rugs and other obstacles in your home, and using a walker at all times to help restore your sense of position. This will reduce your risk of falls, which is the major concern in those with this problem. Additionally, vitamin D3 800 units daily significantly reduces your risk of falling and is highly recommended. Followup in October as planned. ? ? ? Medications: New amlodipine 10 mg PO DAILY 90 tabs 3RF ? ? Discontinued diltiazem HCl (Cardizem CD) ?? Discontinued Reason:? Provider's Order 120 mg? PO QAM [address] [place] [id number] Magnetic Resonance Report Signed Patient: Adis Goldstein MR#: [id number] : 1945 Acct:[id number] Age/Sex: 76 / M Date of Service: 09/16/22 Loc: MRI Accession Number: [id number] ?? Procedure: MR stroke Ordering Provider: Sunil Tovar MD PROCEDURE:? MR STROKE Pre- and post-contrast brain MRI, non-contrast brain MR angiogram, pre- and postcontrast neck MR angiogram ? INDICATIONS:? left-sided weakness ? TECHNIQUE:? Brain:? Noncontrast axial T1 spin echo, axial T2 fast spin echo, sagittal and axial FLAIR, coronal T2 fast spin echo, axial gradient echo, axial diffusion and ADC through the brain.? After the administration of contrast, axial 3D VIBE of the cranial vasculature and brain.? Brain MRA:? Non-contrast 3-D time of flight MR angiogram, with multiple drlybxe-ygjtsukwl-fmeedinwah (MIP) reformats performed.? Neck MRA:? Axial and sagittal TruFISP through the neck.? Coronal dynamic MR angiogram during administration of contrast in the arterial and venous phases, with 3-dimenstional hgaclke-yjushtubs-mnsuhxtlps (MIP) reformats constructed from subtraction images.? ? COMPARISON:? [facility], CT, CT HEAD/BRAIN WO CON, 03/16/2022, 14:56. ? FINDINGS:? Image quality:? Excellent.? ? BRAIN:? No restricted diffusion to indicate recent ischemia.? Mild global cerebral volume loss similar to the previous exam.? Moderate chronic microvascular ischemic changes are also similar.? No abnormal intracranial enhancement or susceptibility.? The ventricular system and basilar cisterns are patent.? No findings of mass effect or midline shift. ? BRAIN MR ANGIOGRAM:? Anterior circulation:? Intracranial internal carotid arteries are normal in size and enhancement.? The flow within the paired anterior cerebral arteries is normal and symmetric.? The flow within the middle cerebral arteries is normal and symmetric.? The anterior communicating artery is seen.? No stenoses, occlusions, or aneurysms.? Posterior circulation:? The visualized portions of the vertebral arteries demonstrate normal caliber, and join to form a normal appearing basilar artery.? The flow within the posterior cerebral arteries is normal and symmetric.? No stenoses, occlusions, or aneurysms.? ? NECK MR ANGIOGRAM:? Carotids:? Great vessels demonstrate a conventional anatomy as they arise from the aortic arch.? The origins of the common carotid arteries appear patent.? The calibers and courses of both common carotid arteries are normal.? The bifurcation regions appear normal bilaterally.? The internal carotid arteries demonstrate normal course and caliber. ? Posterior circulation:? The origins of the vertebral arteries appear patent.? More superior portions of both vertebral arteries demonstrate normal course and caliber, and join to form a normal appearing basilar artery.? Miscellaneous:? Subclavian arteries appear patent.? Pre-contrast images through the neck show no soft tissue abnormalities.? ? IMPRESSION:? ? BRAIN MRI:? No acute intracranial abnormality.? No recent infarct demonstrated.? Mild global cerebral volume loss and chronic microvascular ischemic changes. ? BRAIN MR ANGIOGRAM:? No occlusion or hemodynamically significant stenosis of the major intracranial arterial circulation. ? NECK MR ANGIOGRAM:? No evidence of significant carotid or vertebral artery atherosclerotic narrowing. ? ? Dictated by: Javier Rossi M.D. on 09/16/2022 at 11:09 ? ? Approved by: Javier Rossi M.D. on 09/16/2022 at 11:12 ? Related Data Home Medications Medication Instructions Recorded Confirmed atorvastatin 10 mg tablet 10 mg PO BEDTIME 10/23/19 09/08/22 acetaminophen 500 mg tablet 500 mg PO TID PRN 09/01/21 09/08/22 (Tylenol Extra Strength) diclofenac sodium 75 mg 75 mg PO BID 09/01/21 09/08/22 tablet,delayed release cholecalciferol (vitamin D3) 125 125 mcg PO DAILY 04/16/22 09/08/22 mcg (5,000 unit) capsule ivermectin 3 mg tablet 9 mg PO QWEEK 04/16/22 09/08/22 ascorbic acid (vitamin C) 500 mg 500 mg PO DAILY 07/07/22 09/08/22 tablet carbidopa 25 mg-levodopa 100 mg 2 tab PO QID 07/07/22 09/08/22 tablet zinc gluconate 50 mg tablet 50 mg PO DAILY 07/07/22 09/08/22 prednisolone acetate 1 % eye 1 drp EYE-BOTH BID PRN 09/08/22 09/08/22 drops,suspension Previous Rx's Medication Instructions Recorded diclofenac sodium 1 % topical gel 4 g topical QID PRN shoulder pain 01/06/22 (Voltaren Arthritis Pain) #100 grams Lightweight wheelchair #1 ea 07/07/22 finasteride 5 mg tablet 5 mg PO DAILY #90 tabs 08/25/22 mirtazapine 15 mg tablet 30 mg PO BEDTIME #90 tabs 08/25/22 amlodipine 10 mg tablet 10 mg PO DAILY #90 tabs 09/08/22 losartan 50 mg tablet 50 mg PO DAILY #90 tabs 10/04/22 eszopiclone 1 mg tablet 1 mg PO BEDTIME #30 tabs 10/06/22 Allergies Allergy/AdvReac Type Severity Reaction Status Date / Time No Known Drug Allergies Allergy Verified 10/01/22 09:22 Review of Systems Review of Systems Narrative: GENERAL: negative chills, fatigue, malaise, fever, sweats. HEENT: negative sinus pain, ear pain, sore throat RESPIRATORY: negative dyspnea, cough CARDIOVASCULAR: negative chest pain, palpitations GASTROINTESTINAL: negative nausea, vomiting, abdominal pain : negative dysuria, frequency, hematuria MUSCULOSKELETAL: Positive muscle or bony pain SKIN: negative rash, skin lesions NEUROLOGIC: negative weakness, numbness ROS Unobtainable: All systems reviewed & are unremarkable except as noted in HPI and below Patient History Medical History Back pain BPH w urinary obs/LUTS Cerebrovascular disease Essential hypertension Forehead laceration Hearing impaired HLD (hyperlipidemia) HTN (hypertension) Memory deficit Mixed hyperlipidemia Orthostatic hypotension Osteoarthritis Parkinson disease Parkinson's disease Postoperative anemia (11/06/19) Repeated falls Sciatica Spinal stenosis Surgical History H/O vasectomy History of arthroplasty of left shoulder History of arthroscopy of both knees History of bilateral total hip arthroplasty History of lumbar fusion (~2011) History of lumbar fusion (11/06/19) Hx of tonsillectomy Status post correction of deviated nasal septum Social History details: , living at [facility] due to falls ( in [place]) household members: spouse Smoking Status: Former smoker alcohol intake: current Smoking Status: Former smoker alcohol intake frequency: holidays/special occasions only Substance Use Type: does not use Exam Narrative Exam Narrative: GENERAL: in no distress, not toxic not dyspneic HEAD: Normocephalic. Healing abrasion to the mid forehead. There are 3 areas of abrasion to the mid occiput of the scalp. Nontender. No crepitus or step-off. EYES: Pupils equal round No scleral icterus. ENT: Mucous membranes moist. NECK: Trachea midline. No midline tenderness step-off of the cervical thoracic or lumbar spine. No bruising abrasion seen on the back CARDIOVASCULAR: Regular rate and rhythm without murmurs RESPIRATORY: Clear to auscultation. Breath sounds equal bilaterally. No wheezes, rales, or rhonchi. GASTROINTESTINAL: Abdomen soft, non-tender EXTREMITIES: No gross deformities. Grossly nontender bilateral shoulders elbows wrists pelvis hips knees ankles BACK: No flank tenderness. No bruising or abrasion seen on the back NEURO: AOx4. Clear speech no facial droop. Strong equal executive director SKIN: Warm and dry PSYCH: Not anxious, is cooperative Initial Vital Signs Initial Vital Signs: Vital Signs Temperature 97.1 F L 10/01/22 09:05 Pulse Rate 70 10/01/22 09:05 Respiratory Rate 14 10/01/22 09:05 Blood Pressure 182/89 H 10/01/22 09:05 Pulse Oximetry 99 10/01/22 09:05 Oxygen Delivery Method 10/01/22 09:05 Course Course Course Narrative: No new issues during course of stay Orders Ordered: Discontinued Medications Amlodipine Besylate (Amlodipine 5 Mg Tablet) 10 mg PO NOW ONE Stop: 10/01/22 09:20 Last Admin: 10/01/22 09:38 Dose: 10 mg Documented By: KLS Carbidopa/Levodopa (Carbidopa-Levodopa 25/100 Tablet) 2 each PO NOW ONE Stop: 10/01/22 10:01 Last Admin: 10/01/22 10:20 Dose: 2 each Documented By: JANINE Reevaluation(s) Reevaluation #1: Patient agrees at this time no blood work or EKG indicated. Patient has had multiple falls is not new. Time: 09:26 Reevaluation #2: Blood pressures improved 149/67. Pulse 66. No new issues during course of stay. CT imaging results are pending Time: 10:21 Reevaluation #3: Updated patient CT scan imaging. They are reassuring. Patient is up-to-date with tetanus shot. Return precautions reviewed patient. He agrees with treatment plan and discharge home and follow-up with primary care and physical therapy. He desires discharge home Time: 10:29 Vital Signs Vital signs: Vital Signs - 8 hr 10/01/22 09:05 10/01/22 09:27 10/01/22 09:31 Temperature 97.1 F L Pulse Rate 70 66 Respiratory Rate 14 16 Blood Pressure 182/89 H 149/67 H Pulse Oximetry 99 81 L 99 Oxygen Delivery Method Room Air Room Air MDM - Fall Differential Diagnosis Differential diagnosis: Likely other (Scalp contusion/head injury/intracranial bleed/and exacerbation of Parkinson's) Imaging Data CT scan - head: Radiologist's Impression: [place] [address] CT Scan Report Signed Patient: Adis Goldstein MR#: [id number] : 1945 Acct:[id number] Age/Sex: 76 / M Date of Service: 10/01/22 Loc: ED Accession Number: [id number] ?? Procedure: CT head/brain wo con Ordering Provider: Zane Lozano MD PROCEDURE:? CT HEAD/BRAIN WO CON ? INDICATIONS:? fall/injury ? TECHNIQUE:? Noncontrast 4.5 mm thick angled axial sections acquired from the foramen magnum to the vertex, with coronal and sagittal reformats.? For radiation dose reduction, the following was used:? automated exposure control, adjustment of mA and/or kV according to patient size.? ? COMPARISON:? [facility], CT, CT HEAD/BRAIN WO CON, 03/16/2022, 14:56. ? FINDINGS:? Image quality:? Excellent.? ? CSF spaces:? Basal cisterns are patent.? No extra-axial fluid collections.? The ventricles are symmetric in size and shape.? ? Brain:? No intracranial bleeds or masses.? There is cerebral volume loss for age, with resultant ventricular and sulcal prominence.? There are periventricular and deep white matter chronic small vessel ischemic changes.? There is intracranial internal carotid artery atherosclerosis.? ? Skull and face:? Calvarium and visualized facial bones appear intact, without suspicious lesions.? ? Sinuses:? Visualized sinuses and mastoids are clear.? ? IMPRESSION:? 1. No CT evidence of acute intracranial abnormalities 2. No significant changes from previous studies.? ? ? Dictated by: Gurpreet Stallings M.D. on 10/01/2022 at 10:12 ? ? Approved by: Gurpreet Stallings M.D. on 10/01/2022 at 10:13 ? CT - cervical spine: Radiologist's Impression: [place] [address] CT Scan Report Signed Patient: Adis Goldstein MR#: [id number] : 1945 Acct:[id number] Age/Sex: 76 / M Date of Service: 10/01/22 Loc: ED Accession Number: [id number] ?? Procedure: CT cervical spine wo con Ordering Provider: Zane Lozano MD PROCEDURE:? CT CERVICAL SPINE WO CON ? INDICATIONS:? Fall/injury ? TECHNIQUE:? Noncontrast 3 mm thick sections acquired from the skull base to the T4 level.? Sagittal and coronal reformats were then constructed.? For radiation dose reduction, the following was used:? automated exposure control, adjustment of mA and/or kV according to patient size.? ? COMPARISON:? None. ? FINDINGS:? Image quality:? Excellent.? ? Bones:? There is reversal of normal cervical lordosis centered at C5 level.? 3 mm anterolisthesis of C4 on C5 and 5 mm retrolisthesis of C5 on C6 is seen.? No acute fractures or dislocations.? Degenerative endplate changes, loss of disc height and bilateral facet hypertrophic changes are noted throughout cervical spine most notably at C5-6 and C6-7 levels causing [id number] central canal stenosis and mild bilateral neural foraminal narrowing Visualized superior ribs are intact.? ? Soft tissues:? Prevertebral soft tissues are normal in thickness.? No paravertebral hematomas.? No apical pneumothoraces.? ? ? IMPRESSION:? 1. No gross acute cervical spine fracture or dislocation. 2. Degenerative disc disease throughout cervical spine as described above. ? ? Dictated by: Gurpreet Stallings M.D. on 10/01/2022 at 10:13 ? ? Approved by: Gurpreet Stallings M.D. on 10/01/2022 at 10:18 ? MDM Narrative Medical decision making narrative: Appropriate for discharge home. Exam and imaging are reassuring. Patient agrees no blood work or EKG indicated this time. Patient has had multiple falls is not new. Patient receive an MRI 2 weeks ago from primary care. Blood pressure medication change by primary care last month as well. Return precautions reviewed patient. Patient states primary care has already given referral to restart physical therapy Patient present here for falls this past week. Has complaints of injury to the occiput of the scalp. Denies any other injuries. Differential diagnosis does include but not limited to intracranial bleed subdural hematoma epidural hematoma skull fracture abrasion/contusion. I did review the CT scan imaging and they do look reassuring. I did review results with patient and agree with treatment plan for follow-up with primary care. He does have appropriate follow-up for restarting physical therapy for primary care. His frequent falls are not new and are related to his ongoing Parkinson's. Return precautions reviewed with him. He desires discharge home. Patient just had primary care visit last month with medication changes and updated MRI of the brain. No new findings. Discharge Plan Departure Patient Disposition: Home Clinical Impression: Contusion of scalp, Abrasion of scalp without infection Activity Restrictions/Additional Instructions: Return if worsening questions or concerns. Today's CT scan imaging results are reassuring. Please do follow-up with primary care as far as referral for your physical therapy to restart this. This will evaluate for your balance needs. Please continue balance instructions provided by family doctor last month. May continue home medications. Prescriptions: No Action ivermectin 3 mg tablet 9 mg PO QWEEK Rx Instructions: as a single dose diclofenac sodium 75 mg tablet,delayed release (DR/EC) 75 mg PO BID mirtazapine 15 mg tablet 30 mg PO BEDTIME Qty: 90 0RF finasteride 5 mg tablet 5 mg PO DAILY Qty: 90 0RF eszopiclone 1 mg tablet 1 mg PO BEDTIME Qty: 30 1RF losartan 50 mg tablet 50 mg PO DAILY Qty: 90 3RF cholecalciferol (vitamin D3) 125 mcg (5,000 unit) capsule 125 mcg PO DAILY ascorbic acid (vitamin C) 500 mg tablet 500 mg PO DAILY zinc gluconate 50 mg tablet 50 mg PO DAILY (DME) Lightweight wheelchair See Rx Instructions .Route .MEDSUPPLY Qty: 1 0RF Rx Instructions: As directed prednisolone acetate 1 % drops,suspension 1 drp EYE-BOTH BID PRN amlodipine 10 mg tablet 10 mg PO DAILY Qty: 90 3RF atorvastatin 10 mg Tablet 10 mg PO BEDTIME acetaminophen [Tylenol Extra Strength] 500 mg tablet 500 mg PO TID PRN carbidopa-levodopa 25-100 mg tablet 2 tab PO QID diclofenac sodium [Voltaren Arthritis Pain] 1 % gel 4 g topical QID PRN (Reason: shoulder pain) Qty: 100 0RF Rx Instructions: apply to single knee, ankle, foot; for foot includes sole/toes/top of foot Referrals: Sunil Tovar MD [Primary Care Provider] - Visit Report Forms: Patient Portal/API
[2022-10-01 09:27] VITALS: O2SAT 81
[2022-10-01 09:31] VITALS: BP 149/67; PULSE 66; RESP 16; O2SAT 99
[2022-10-01] MEDS: AMLODIPINE 5 MG TABLET 10 MG PO (09:38)
[2022-10-01 09:52] VITALS: BP 194/85; PULSE 66; O2SAT 99
[2022-10-01 10:00] VITALS: BP 181/87; PULSE 71; O2SAT 98
[2022-10-01] MEDS: CARBIDOPA-LEVODOPA 25/100 TABLET 2 EACH PO (10:20)
[2022-10-01 10:29] VITALS: BP 204/88; PULSE 69; RESP 16; O2SAT 98
== END 2022-10-01 10:46 | disposition home or self-care (01) ==
PROVIDERS: Emergency Provider Emergency Medicine; PCP Internal Medicine
DX: S00.03XA Contusion of scalp, initial encounter (principal); S00.01XA Abrasion of scalp, initial encounter; R51.9 Headache, unspecified; W18.30XA Fall on same level, unspecified, initial encounter; Z79.899 Other long term (current) drug therapy; G20 Parkinson's disease
CPT/HCPCS: 70450; 72125; 99284

== ENCOUNTER 2022-10-10 11:03 | Emergency (ER) | payer MEDICARE, OTHER, SELFPAY ==
[2022-06-30 11:17] VITALS: BMI 26.3
[2022-10-10] VITALS (21 sets, daily range): BP systolic 125–168; BP diastolic 58–79; PULSE 62–88; RESP 16–38; TEMP 36.7; O2SAT 93–98
--- NOTE | 2022-10-10 11:18 | ED_ITS ---
HPI - Fall General Chief Complaint: Fall Stated Complaint: GLF, COVID+ Time Seen by Provider: 10/10/22 11:10 Source: patient and EMS Mode of arrival: EMS Limitations: no limitations History of Present Illness HPI Narrative: Patient is a 76-year-old male was brought in by EMS. Three days ago was diagnosed with COVID. Also has a history of Parkinson's disease. Review of his medical record shows that he has had issues with balance and has had multiple falls in the past. Was seen recently. Had a very extensive workup to include CT scans. He did have an abrasion to his head. He comes emergency department today because he continues to have falls. He states that he does not actually fall he just slides down to the ground. EMS have been out to his facility multiple times over the past couple days to help him up and he is refused to come until today. He reports no injuries from these events. He states he does not get lightheaded nor have chest pain prior to them. He states that he slips with his socks. He has seen physical therapy in the past for this but he states that the sessions ran out secondary to insurance. He is scheduled to start physical therapy again tomorrow. Related Data Home Medications Medication Instructions Recorded Confirmed atorvastatin 10 mg tablet 10 mg PO BEDTIME 10/23/19 09/08/22 acetaminophen 500 mg tablet 500 mg PO TID PRN 09/01/21 09/08/22 (Tylenol Extra Strength) diclofenac sodium 75 mg 75 mg PO BID 09/01/21 09/08/22 tablet,delayed release cholecalciferol (vitamin D3) 125 125 mcg PO DAILY 04/16/22 09/08/22 mcg (5,000 unit) capsule ivermectin 3 mg tablet 9 mg PO QWEEK 04/16/22 09/08/22 ascorbic acid (vitamin C) 500 mg 500 mg PO DAILY 07/07/22 09/08/22 tablet carbidopa 25 mg-levodopa 100 mg 2 tab PO QID 07/07/22 09/08/22 tablet zinc gluconate 50 mg tablet 50 mg PO DAILY 07/07/22 09/08/22 prednisolone acetate 1 % eye 1 drp EYE-BOTH BID PRN 09/08/22 09/08/22 drops,suspension Previous Rx's Medication Instructions Recorded diclofenac sodium 1 % topical gel 4 g topical QID PRN shoulder pain 01/06/22 (Voltaren Arthritis Pain) #100 grams Lightweight wheelchair #1 ea 07/07/22 finasteride 5 mg tablet 5 mg PO DAILY #90 tabs 08/25/22 mirtazapine 15 mg tablet 30 mg PO BEDTIME #90 tabs 08/25/22 amlodipine 10 mg tablet 10 mg PO DAILY #90 tabs 09/08/22 losartan 50 mg tablet 50 mg PO DAILY #90 tabs 10/04/22 eszopiclone 1 mg tablet 1 mg PO BEDTIME #30 tabs 10/06/22 nirmatrelvir 300 mg (150 mg See Rx Instructions PO .COMPLEX 10/07/22 x2)-ritonavir 100 mg tablet,dose #30 ea pack(EUA) (Paxlovid) Allergies Allergy/AdvReac Type Severity Reaction Status Date / Time No Known Drug Allergies Allergy Verified 10/01/22 09:22 Review of Systems Constitutional Constitutional: Denies fever(s) Cardiovascular Cardiovascular: Reports system reviewed and no additional complaints, except as documented Respiratory Respiratory: Reports system reviewed and no additional complaints, except as documented Gastrointestinal Gastrointestinal: Reports system reviewed and no additional complaints, except as documented Musculoskeletal Musculoskeletal: Reports system reviewed and no additional complaints, except as documented Integumentary/Breasts Skin/Breast: Reports system reviewed and no additional complaints, except as documented Neurologic Neurologic: Reports system reviewed and no additional complaints, except as documented Hematologic/Lymphatic On Anticoagulants: No Patient History Medical History Back pain BPH w urinary obs/LUTS Cerebrovascular disease Essential hypertension Forehead laceration Hearing impaired HLD (hyperlipidemia) HTN (hypertension) Memory deficit Mixed hyperlipidemia Orthostatic hypotension Osteoarthritis Parkinson disease Parkinson's disease Postoperative anemia (11/06/19) Repeated falls Sciatica Spinal stenosis Surgical History H/O vasectomy History of arthroplasty of left shoulder History of arthroscopy of both knees History of bilateral total hip arthroplasty History of lumbar fusion (~2011) History of lumbar fusion (11/06/19) Hx of tonsillectomy Status post correction of deviated nasal septum Social History details: , living at [facility] due to falls ( in [place]) household members: spouse Smoking Status: Former smoker alcohol intake: current Smoking Status: Former smoker alcohol intake frequency: holidays/special occasions only Substance Use Type: does not use Exam Initial Vital Signs Initial Vital Signs: Vital Signs Temperature 98.1 F 10/10/22 11:11 Pulse Rate 69 10/10/22 11:11 Respiratory Rate 24 10/10/22 11:11 Blood Pressure 148/68 H 10/10/22 11:11 Pulse Oximetry 97 10/10/22 11:11 Oxygen Delivery Method 10/10/22 11:11 Const General: cooperative, comfortable and No ill appearing HENMT Head: contusion (Forehead) Resp Effort & Inspection: normal respiratory effort Auscultation: clear to auscultation bilaterally Cardio Rate: regular rate Rhythm: regular rhythm GI Inspection: normal to inspection Skin Other: Abrasion to forehead. This is not new. This was present during his last ED visit Neuro General: patient alert, patient awake and moves all extremities Speech: speech normal Extrem General: normal to inspection and capillary refill normal Psych Appearance: grossly normal Course Orders Ordered: ED Orders 10/10/22 11:19 Blood Culture Stat Complete Blood Count AUTO DIFF Stat Comprehensive Metabolic Panel Stat Lipase Stat 10/10/22 11:20 XR chest 1V Stat NT-proBNP (BNP-Adult 18+) Stat Procalcitonin Stat Troponin & CK Cardiac Panel Stat EKG-12 Lead Stat Sodium Chloride (Normal Saline 0.9%) 1,000 mls @ 500 mls/hr IV BOLUS ONE Stop: 10/10/22 13:18 Last Admin: 10/10/22 11:34 Dose: 500 mls/hr Discontinued Medications Albuterol (Albuterol 2.5 Mg/3 Ml Neb (Adult)) 2.5 mg INH NOW ONE Stop: 10/10/22 11:13 Last Admin: 10/10/22 11:16 Dose: 2.5 mg Documented By: SAT Vital Signs Vital signs: Vital Signs - 8 hr 10/10/22 11:11 10/10/22 11:23 10/10/22 11:30 Temperature 98.1 F Pulse Rate 69 70 Respiratory Rate 24 38 H Blood Pressure 148/68 H 133/62 Pulse Oximetry 97 93 Oxygen Delivery Method Room Air 10/10/22 11:30 10/10/22 11:45 10/10/22 11:45 Temperature Pulse Rate 68 63 Respiratory Rate 25 H 30 H Blood Pressure 125/58 L Pulse Oximetry 94 95 Oxygen Delivery Method 10/10/22 12:00 10/10/22 12:00 10/10/22 12:17 Temperature Pulse Rate 62 69 Respiratory Rate 25 H Blood Pressure 134/65 Pulse Oximetry 96 97 Oxygen Delivery Method 10/10/22 12:21 Temperature Pulse Rate 88 Respiratory Rate 16 Blood Pressure Pulse Oximetry 96 Oxygen Delivery Method MDM - Fall Lab Data Result diagrams: 10/10/22 11:15 10/10/22 11:15 Labs: Lab Results 10/10/22 10/10/22 10/10/22 Range/Units 11:15 11:15 11:15 WBC 4.9 (4.5-11.0) X10^3/uL RBC 4.62 (4.5-5.9) X10^6/uL Hgb 13.9 (13.5-17.5) g/dL Hct 41.4 (41-53) % MCV 89.5 (80-100) fL MCH 30.1 (26-34) PG MCHC 33.6 (30-36) % RDW 14.3 (11.6-14.8) % Plt Count 204 (150-400) X10^3/uL Neut % (Auto) 68.0 (50-75) % Lymph % (Auto) 18.6 L (25-40) % [place] % (Auto) 10.7 (3-14) % Eos % (Auto) 1.1 L (2-4) % Baso % (Auto) 1.6 (0-2) % Neut # (Auto) 3300 (0744-4882) /uL Lymph # (Auto) 900 L (2776-9114) /uL [place] # (Auto) 500 (0-900) /uL Eos # (Auto) 100 (0-450) /uL Baso # (Auto) 100 (0-100) /uL Sodium 144 (137-145) mmol/L Potassium 3.6 (3.4-5.1) mmol/L Chloride 106 (98-107) mmol/L Carbon Dioxide 28 (22-32) mmol/L BUN 31 H (9-20) mg/dL Creatinine 0.84 (0.66-1.25) mg/dL Estimated GFR > 60 (>60) mL/min BUN/Creatinine Ratio 36.9 H (6-22) Glucose 110 (80-110) mg/dL Calcium 9.1 (8.4-10.2) mg/dL Total Bilirubin 0.5 (0.2-1.3) mg/dL AST 40 (17-59) IU/L ALT 12 (<50) IU/L Alkaline Phosphatase 119 (38-126) U/L Total Creatine Kinase 237 H (55-170) U/L CK-MB (CK-2) 3.63 H (<2.37) ng/mL CK-MB (CK-2) Rel Index 1.5 (1.5-5.0) % Troponin I 0.021 (0.01-0.034) ng/mL NT-Pro-B Natriuret Pep 123 (<450) pg/mL Total Protein 6.7 (6.3-8.2) g/dL Albumin 3.9 (3.5-5.0) g/dL Globulin 2.8 (1.7-4.1) g/dL Albumin/Globulin Ratio 1.4 (1.0-2.8) Lipase 174 (23-300) U/L Procalcitonin 0.10 (<0.5) ng/mL Imaging Data Chest x-ray: Radiologist's Impression: [address] [address] XRay Report Signed Patient: Adis Goldstein MR#: [id number] : 1945 Acct:[id number] Age/Sex: 76 / M Date of Service: 10/10/22 Loc: ED Accession Number: [id number] ?? Procedure: XR chest 1V Ordering Provider: Elio Real D.O. PROCEDURE:? XR CHEST 1V ? INDICATIONS:? SOB ? TECHNIQUE:? One view of the chest was acquired.? ? COMPARISON:? [facility], RAY, XR CHEST 1V, 06/18/2022, 8:55. ? FINDINGS:? ? Surgical changes and devices:? Severe right shoulder are STIR arthritis.? Left shoulder arthroplasty.? Thoracolumbar fusion hardware. ? Lungs and pleura:? Mild patchy bilateral perihilar opacity.? No pleural effusions or pneumothorax.? ? Mediastinum:? Mediastinal contours appear normal.? Heart size is normal.? ? Bones and chest wall:? No suspicious bony lesions.? Overlying soft tissues appear unremarkable.? ? IMPRESSION:? Mild atypical pneumonia. ? ? Dictated by: Wade Urbano M.D. on 10/10/2022 at 10:36 ? ? Approved by: Wade Urbano M.D. on 10/10/2022 at 10:37?? ECG Data Attestation: I personally reviewed and interpreted this ECG as follows: Interpretation: Sinus rhythm Ventricular rate is 70 Incomplete right bundle-branch block Normal QRS Normal QTC No ST T wave changes MDM Narrative Medical decision making narrative: Patient is alert oriented. He reports no injuries from his ?falls ?today. He states that he actually did not fall but he just slid to the ground. He has known COVID. Is not hypoxic. His lungs are clear. Not tachypneic. He has reported history of balance issues. Has seen his primary doctor. Has had exte nsive workup. Has also been under the care of physical therapy. Patient was able to stand at bedside use a walker. He was able to take a few steps. No indication for admission to the hospital. No indication for antibiotics. Have him continue to take all his medications and contact his primary provider for follow-up. Discharge Plan Departure Patient Disposition: Home Clinical Impression: COVID-19, Parkinson disease, Repeated falls Instructions: How to Prevent Falls Activity Restrictions/Additional Instructions: I recommend that you continue to take all of your medications as directed. You can continue to take the Tylenol for any fevers or body aches. Contact your primary doctor for follow-up. Prescriptions: No Action ivermectin 3 mg tablet 9 mg PO QWEEK Rx Instructions: as a single dose diclofenac sodium 75 mg tablet,delayed release (DR/EC) 75 mg PO BID mirtazapine 15 mg tablet 30 mg PO BEDTIME Qty: 90 0RF finasteride 5 mg tablet 5 mg PO DAILY Qty: 90 0RF eszopiclone 1 mg tablet 1 mg PO BEDTIME Qty: 30 1RF losartan 50 mg tablet 50 mg PO DAILY Qty: 90 3RF Paxlovid (EUA) 300 mg (150 mg x 2)-100 mg tablets,dose pack See Rx Instructions PO .COMPLEX Qty: 30 0RF Rx Instructions: take TWO 150 mg tablets of nirmatrelvir with ONE 100 mg tablet of ritonavir twice daily for 5 days PO cholecalciferol (vitamin D3) 125 mcg (5,000 unit) capsule 125 mcg PO DAILY ascorbic acid (vitamin C) 500 mg tablet 500 mg PO DAILY zinc gluconate 50 mg tablet 50 mg PO DAILY (DME) Lightweight wheelchair See Rx Instructions .Route .MEDSUPPLY Qty: 1 0RF Rx Instructions: As directed prednisolone acetate 1 % drops,suspension 1 drp EYE-BOTH BID PRN amlodipine 10 mg tablet 10 mg PO DAILY Qty: 90 3RF atorvastatin 10 mg Tablet 10 mg PO BEDTIME acetaminophen [Tylenol Extra Strength] 500 mg tablet 500 mg PO TID PRN carbidopa-levodopa 25-100 mg tablet 2 tab PO QID diclofenac sodium [Voltaren Arthritis Pain] 1 % gel 4 g topical QID PRN (Reason: shoulder pain) Qty: 100 0RF Rx Instructions: apply to single knee, ankle, foot; for foot includes sole/toes/top of foot Referrals: Sunil Tovar MD [Primary Care Provider] -
--- NOTE | 2022-10-10 11:20 | DI.RAD.S_ITS ---
PROCEDURE: XR CHEST 1V INDICATIONS: SOB TECHNIQUE: One view of the chest was acquired. COMPARISON: [facility], CR, XR CHEST 1V, 06/18/2022, 8:55. FINDINGS: Surgical changes and devices: Severe right shoulder are STIR arthritis. Left shoulder arthroplasty. Thoracolumbar fusion hardware. Lungs and pleura: Mild patchy bilateral perihilar opacity. No pleural effusions or pneumothorax. Mediastinum: Mediastinal contours appear normal. Heart size is normal. Bones and chest wall: No suspicious bony lesions. Overlying soft tissues appear unremarkable. IMPRESSION: Mild atypical pneumonia. Dictated by: Wade Urbano M.D. on 10/10/2022 at 10:36 Approved by: Wade Urbano M.D. on 10/10/2022 at 10:37
--- NOTE | 2022-10-10 11:22 | PC.NURSE ---
Expiratory wheezes noted bilaterally upon assessment. RT at bedside to give breathing treatment.
[2022-10-10 11:32] LABS: Add Manual Diff / Slide Review NO; Basophils Absolute Auto 100 /uL (0-100); Basophils Percent Auto 1.6 % (0-2); Eosinophils Absolute Auto 100 /uL (0-450); Eosinophils Percent Auto 1.1 % (2-4); Hematocrit 41.4 % (41-53); Hemoglobin 13.9 g/dL (13.5-17.5); Lymphocytes Absolute Auto 900 /uL (1100-4500); Lymphocytes Percent Auto 18.6 % (25-40); Mean Corpuscular HGB Conc 33.6 % (30-36); Mean Corpuscular Hemoglobin 30.1 PG (26-34); Mean Corpuscular Volume 89.5 fL (80-100); Monocytes Absolute Auto 500 /uL (0-900); Monocytes Percent Auto 10.7 % (3-14); Neutrophils Absolute Auto 3300 /uL (1500-7000); Platelet Count 204 X10^3/uL (150-400); Red Blood Cell Count 4.62 X10^6/uL (4.5-5.9); Red Cell Distribution Width 14.3 % (11.6-14.8); White Blood Cell Count 4.9 X10^3/uL (4.5-11.0)
[2022-10-10] MEDS: SODIUM CHLORIDE 0.9% 1,000 ML 500 ML IV (11:34)
[2022-10-10 11:36] LABS: Alanine Aminotransferase 12 IU/L (<50); Albumin 3.9 g/dL (3.5-5.0); Albumin Globulin Ratio 1.4 (1.0-2.8); Alkaline Phosphatase 119 U/L (38-126); Aspartate Aminotransferase 40 IU/L (17-59); BUN Creatinine Ratio 36.9 (6-22); Bilirubin Total 0.5 mg/dL (0.2-1.3); Blood Urea Nitrogen 31 mg/dL (9-20); Calcium 9.1 mg/dL (8.4-10.2); Carbon Dioxide 28 mmol/L (22-32); Chloride 106 mmol/L (98-107); Creatine Kinase 237 U/L (55-170); Estimated Glomerular Filt Rate > 60 mL/min (>60); Globulin 2.8 g/dL (1.7-4.1); Glucose 110 mg/dL (80-110); HEMOLYSIS < 15 (0-50); Lipase 174 U/L (23-300); Potassium 3.6 mmol/L (3.4-5.1); Sodium 144 mmol/L (137-145); Total Protein 6.7 g/dL (6.3-8.2)
[2022-10-10 11:48] LABS: NT-proBNP (BNP-Adult 18+) 123 pg/mL (<450); Troponin I 0.021 ng/mL (0.01-0.034)
[2022-10-10 11:51] LABS: CKMB % Relative Index 1.5 % (1.5-5.0); Creatine Kinase MB 3.63 ng/mL (<2.37)
== END 2022-10-10 15:31 | disposition home or self-care (01) ==
PROVIDERS: Emergency Provider Emergency Medicine; PCP Internal Medicine
DX: U07.1 COVID-19 (principal); R29.6 Repeated falls; G20 Parkinson's disease; R07.9 Chest pain, unspecified; W18.30XA Fall on same level, unspecified, initial encounter
CPT/HCPCS: 36415; 71045; 80053; 82550; 82553; 83690; 83880; 84145; 84484; 85025; 87040; 93005; 96360; 99284; J7613

== ENCOUNTER → 2022-11-19 16:32 | Outpatient (CLI) | payer MEDICARE, OTHER, SELFPAY ==
[2022-06-30 11:17] VITALS: BMI 26.3
--- NOTE | 2022-11-19 16:33 | DI.RAD.S_ITS ---
PROCEDURE: XR CHEST 2V INDICATIONS: cough TECHNIQUE: 2 views of the chest were acquired. COMPARISON: [facility], CR, XR CHEST 1V, 10/10/2022, 11:20. [facility], CR, XR CHEST 1V, 06/18/2022, 8:55. FINDINGS: Surgical changes and devices: Left shoulder arthroplasty. Lower spine hardware. Lungs and pleura: Lungs are clear. No pleural effusions or pneumothorax. Mediastinum: Mediastinal contours are normal. Heart size is normal. Bones and chest wall: No suspicious bony abnormalities. Dysplastic right glenohumeral joint. Soft tissues appear unremarkable. IMPRESSION: No acute cardiopulmonary abnormality. Dictated by: Toño Mccormick M.D. on 11/19/2022 at 17:14 Approved by: Toño Mccormick M.D. on 11/19/2022 at 17:21
== END ==
PROVIDERS: PCP Internal Medicine; Referring Provider Internal Medicine; Visit Provider Internal Medicine
DX: J20.9 Acute bronchitis, unspecified (principal); R13.10 Dysphagia, unspecified
CPT/HCPCS: 71046

== ENCOUNTER 2022-11-28 07:48 | Emergency (ER) | payer MEDICARE, OTHER, SELFPAY ==
[2022-06-30 11:17] VITALS: BMI 26.3
--- NOTE | 2022-11-28 07:58 | ED.RECABL ---
HPI - Recheck/Abnormal Lab/Rx General Stated Complaint: medical complaint/ does not remember reason Time Seen by Provider: 11/28/22 07:55 History of Present Illness HPI narrative: Patient is 76-year-old male history of Parkinson's hyperlipidemia hypertension presenting for an unknown reason today. He lives at [address] he called himself a taxi cab got here and does not remember why he is here. He now no longer wants to be seen. He says sometimes he hallucinates and called for transport. He thinks that is what happened. He is adamant he does not have any chest pain fever shortness of breath numbness tingling or weakness no headache. He would like to go home. No longer wanting to be seen not wanting vitals or to be cared for. Related Data Home Medications Medication Instructions Recorded Confirmed atorvastatin 10 mg tablet 10 mg PO BEDTIME 10/23/19 11/19/22 acetaminophen 500 mg tablet 500 mg PO TID PRN 09/01/21 11/19/22 (Tylenol Extra Strength) cholecalciferol (vitamin D3) 125 125 mcg PO DAILY 04/16/22 11/19/22 mcg (5,000 unit) capsule ascorbic acid (vitamin C) 500 mg 500 mg PO DAILY 07/07/22 11/19/22 tablet carbidopa 25 mg-levodopa 100 mg 2 tab PO QID 07/07/22 11/19/22 tablet zinc gluconate 50 mg tablet 50 mg PO DAILY 07/07/22 11/19/22 prednisolone acetate 1 % eye 1 drp EYE-BOTH BID PRN 09/08/22 11/19/22 drops,suspension cholecalciferol (vitamin D3) 50 50 mcg PO DAILY 11/08/22 11/19/22 mcg (2,000 unit) capsule cyanocobalamin (vitamin B-12) 100 100 mcg PO DAILY 11/08/22 11/19/22 mcg tablet Previous Rx's Medication Instructions Recorded diclofenac sodium 1 % topical gel 4 g topical QID PRN shoulder pain 01/06/22 (Voltaren Arthritis Pain) #100 grams Lightweight wheelchair #1 ea 07/07/22 finasteride 5 mg tablet 5 mg PO DAILY #90 tabs 08/25/22 amlodipine 10 mg tablet 10 mg PO DAILY #90 tabs 09/08/22 mirtazapine 15 mg tablet 15 mg PO BEDTIME #90 tabs 10/18/22 diclofenac sodium 75 mg 75 mg PO BID #60 tabs 11/04/22 tablet,delayed release azithromycin 250 mg tablet See Rx Instructions PO .COMPLEX #6 11/19/22 tabs Allergies Allergy/AdvReac Type Severity Reaction Status Date / Time No Known Drug Allergies Allergy Verified 11/19/22 15:56 Patient History Medical History Back pain BPH w urinary obs/LUTS Dysphagia Essential hypertension Forehead laceration Hearing impaired HLD (hyperlipidemia) HTN (hypertension) Memory deficit Mixed hyperlipidemia Orthostatic hypotension Osteoarthritis Parkinson disease Parkinson's disease Postoperative anemia (11/06/19) Repeated falls Sciatica Spinal stenosis Surgical History H/O vasectomy History of arthroplasty of left shoulder History of arthroscopy of both knees History of bilateral total hip arthroplasty History of lumbar fusion (~2011) History of lumbar fusion (11/06/19) Hx of tonsillectomy Status post correction of deviated nasal septum Social History details: , living at [facility] due to falls ( in [place]) household members: spouse Smoking Status: Former smoker alcohol intake: current Smoking Status: Former smoker alcohol intake frequency: holidays/special occasions only Substance Use Type: does not use Exam Initial Vital Signs Initial Vital Signs: GENERAL: Alert well-appearing 76-year-old male CARDIOVASCULAR: peripheral pulses in tact, cap refill <2 sec RESPIRATORY: No respiratory distress, speaks in full sentences without difficulty EXTREMITIES: Normal range of motion, no clubbing or edema. Neurovascularly intact NEUROLOGICAL: Cranial nerves II through XII grossly intact. Normal gait and speech. SKIN: Warm, dry, no petechiae, no rashes or lesions. MDM - Recheck/Abnormal Lab/Rx MDM Narrative Medical decision making narrative: Patient wanting to be seen. Medical screening exam and questioning no concern for need for further workup Discharge Plan Departure Prescriptions: No Action finasteride 5 mg tablet 5 mg PO DAILY Qty: 90 0RF mirtazapine 15 mg tablet 15 mg PO BEDTIME Qty: 90 0RF diclofenac sodium 75 mg tablet,delayed release (DR/EC) 75 mg PO BID Qty: 60 12RF cholecalciferol (vitamin D3) 125 mcg (5,000 unit) capsule 125 mcg PO DAILY azithromycin 250 mg tablet See Rx Instructions PO .COMPLEX Qty: 6 0RF Rx Instructions: For 250 mg dose pack: take 500 mg today (day 1), then 250 mg for 4 days (days 2-5) PO cholecalciferol (vitamin D3) 50 mcg (2,000 unit) capsule 50 mcg PO DAILY cyanocobalamin (vitamin B-12) 100 mcg tablet 100 mcg PO DAILY ascorbic acid (vitamin C) 500 mg tablet 500 mg PO DAILY zinc gluconate 50 mg tablet 50 mg PO DAILY (DME) Lightweight wheelchair See Rx Instructions .Route .MEDSUPPLY Qty: 1 0RF Rx Instructions: As directed prednisolone acetate 1 % drops,suspension 1 drp EYE-BOTH BID PRN amlodipine 10 mg tablet 10 mg PO DAILY Qty: 90 3RF atorvastatin 10 mg Tablet 10 mg PO BEDTIME acetaminophen [Tylenol Extra Strength] 500 mg tablet 500 mg PO TID PRN carbidopa-levodopa 25-100 mg tablet 2 tab PO QID diclofenac sodium [Voltaren Arthritis Pain] 1 % gel 4 g topical QID PRN (Reason: shoulder pain) Qty: 100 0RF Rx Instructions: apply to single knee, ankle, foot; for foot includes sole/toes/top of foot Referrals: Sunil Tovar MD [Primary Care Provider] -
--- NOTE | 2022-11-28 08:15 | PC.NURSE ---
pt arrived to Er . checked in .ox3. reports he doesn't remember why he took a taxi to the Er. Pt refused to be seen. Pt states he hallucinates some times and states he will take a taxi back home. I had Dr. Anders come evaluate patient in the ER lobby. pt refused vital signs and refused to be seen.
== END 2022-11-28 08:07 | disposition left against medical advice (07) ==
LOC: ED 08:20
PROVIDERS: Emergency Provider Emergency Medicine; PCP Internal Medicine
DX: Z13.9 Encounter for screening, unspecified (principal)

== ENCOUNTER 2023-02-06 13:16 | Emergency (ER) | payer MEDICARE, OTHER, SELFPAY ==
[2022-06-30 11:17] VITALS: BMI 26.3
[2023-02-06] VITALS (9 sets, daily range): BP systolic 145–194; BP diastolic 70–88; PULSE 67–78; RESP 10–39; TEMP 36.3; O2SAT 92–99; BMI 28.8
--- NOTE | 2023-02-06 13:27 | DI.CT.S_ITS ---
PROCEDURE: CT CERVICAL SPINE WO CON INDICATIONS: fall (Modified Trauma) hit right temperal area TECHNIQUE: Noncontrast 3 mm thick sections acquired from the skull base to the T4 level. Sagittal and coronal reformats were then constructed. For radiation dose reduction, the following was used: automated exposure control, adjustment of mA and/or kV according to patient size. COMPARISON: [facility], CT, CT CERVICAL SPINE WO CON, 10/01/2022, 9:42. FINDINGS: Image quality: Excellent. Bones: No fracture or dislocation. There is stable alignment of the cervical spine with focal reversal centered C4. There is stable anterior listhesis of C4 on C5 and retrolisthesis of C5 on C6. Fusion of C2 and C3. Advanced degenerative changes of the cervical spine without least mild spinal canal stenosis posterior to C6-C7 and C5-C6. Varying degrees of neural foraminal stenosis which is most prominent and at moderate to severe in nature at C4-C5 through C7-T1. No significant interval change. Soft tissues: Prevertebral soft tissues are normal in thickness. No paravertebral hematomas. No apical pneumothoraces. Carotid vascular calcifications noted at the carotid bifurcations. Punctate calcification within the left parotid gland. The parotid glands, submandibular glands, and thyroid gland are otherwise unremarkable. Lung apices are clear. IMPRESSION: No acute fracture. Advanced degenerative changes of the cervical spine. Dictated by: Rosendo Mascorro D.O. on 02/06/2023 at 12:57 Approved by: Rosendo Mascorro D.O. on 02/06/2023 at 13:03
--- NOTE | 2023-02-06 13:37 | DI.CT.S_ITS ---
PROCEDURE: CT HEAD/BRAIN WO CON INDICATIONS: fall (Modified Trauma) hit right temperal area TECHNIQUE: Noncontrast 4.5 mm thick angled axial sections acquired from the foramen magnum to the vertex, with coronal and sagittal reformats. For radiation dose reduction, the following was used: automated exposure control, adjustment of mA and/or kV according to patient size. COMPARISON: [facility], CT, CT HEAD/BRAIN WO CON, 10/01/2022, 9:42. FINDINGS: Image quality: Excellent. CSF spaces: Basal cisterns are patent. No extra-axial fluid collections. The ventricles are symmetric in size and shape. Brain: No intracranial bleeds or masses. There is cerebral volume loss for age, with resultant ventricular and sulcal prominence. There are periventricular and deep white matter chronic small vessel ischemic changes. There atherosclerosis within the proximal intracranial vasculature. Skull and face: Calvarium and visualized facial bones appear intact, without suspicious lesions. Sinuses: Visualized sinuses and mastoids are clear. IMPRESSION: Findings most consistent microvascular ischemic changes without acute intracranial abnormality. Dictated by: Rosendo Mascorro D.O. on 02/06/2023 at 12:53 Approved by: Rosendo Mascorro D.O. on 02/06/2023 at 12:57
--- NOTE | 2023-02-06 15:05 | ED.HEATRA ---
HPI - Head Injury <Elio DawkinsCONY barkley - Last Filed: 02/06/23 15:23> General Chief complaint: Head Injury Stated complaint: fell hit head Time Seen by Provider: 02/06/23 14:08 Source: patient Mode of arrival: Wheelchair History of Present Illness HPI Narrative: 77-year-old male, with history of Parkinson's disease, presents to the emergency department after feeling lightheaded earlier today. Patient states that he got up around 0 200 to use the restroom, thought he was in his wheelchair, and fell hitting the left side of his head. Patient patched up the wound and went back to sleep. During breakfast, patient noticed that he just was not feeling right and was brought to the emergency department for evaluation. Patient lives at [facility]. Related Data Home Medications Medication Instructions Recorded Confirmed atorvastatin 10 mg tablet 10 mg PO BEDTIME 10/23/19 01/26/23 acetaminophen 500 mg tablet 500 mg PO TID PRN 09/01/21 01/26/23 (Tylenol Extra Strength) ascorbic acid (vitamin C) 500 mg 500 mg PO DAILY 07/07/22 01/26/23 tablet carbidopa 25 mg-levodopa 100 mg 2 tab PO QID 07/07/22 01/26/23 tablet prednisolone acetate 1 % eye 1 drp EYE-BOTH BID PRN 09/08/22 01/26/23 drops,suspension cholecalciferol (vitamin D3) 50 50 mcg PO DAILY 11/08/22 01/26/23 mcg (2,000 unit) capsule cyanocobalamin (vitamin B-12) 100 100 mcg PO DAILY 11/08/22 01/26/23 mcg tablet Previous Rx's Medication Instructions Recorded diclofenac sodium 1 % topical gel 4 g topical QID PRN shoulder pain 01/06/22 (Voltaren Arthritis Pain) #100 grams finasteride 5 mg tablet 5 mg PO DAILY #90 tabs 08/25/22 amlodipine 10 mg tablet 10 mg PO DAILY #90 tabs 09/08/22 diclofenac sodium 75 mg 75 mg PO BID #60 tabs 11/04/22 tablet,delayed release Lightweight wheelchair #1 ea 12/23/22 doxepin 10 mg capsule 10 mg PO BEDTIME #30 caps 01/19/23 Allergies Allergy/AdvReac Type Severity Reaction Status Date / Time No Known Drug Allergies Allergy Verified 01/26/23 11:03 <Yael Crooks DO - Last Filed: 02/06/23 18:22> History of Present Illness HPI Narrative: 77-year-old male, with history of Parkinson's disease, presents to the emergency department after feeling lightheaded earlier today. Patient states that he got up around 0200 to use the restroom, thought he was in his wheelchair, and fell hitting the left side of his head. Patient patched up the wound and went back to sleep. During breakfast, patient noticed that he just was not feeling right and was brought to the emergency department for evaluation. Patient lives at [facility]. Review of Systems <CONY Grace - Last Filed: 02/06/23 15:23> Review of Systems Narrative: Narrative: See HPI. GENERAL: Denies chills, fatigue, fever, sweats. HEENT: Denies sinus pain, ear pain, sore throat, difficulty swallowing, dizziness. RESPIRATORY: Denies dyspnea, cough, wheezing, sputum. CARDIOVASCULAR: Denies chest pain, palpitations, edema. GASTROINTESTINAL: Denies nausea, vomiting, abdominal pain, diarrhea, constipation. : Denies dysuria, frequency, incontinence, hematuria, urinary retention, flank pain. MSK: Denies weakness, joint pain, or bony pain. SKIN: Denies rash, skin lesions, or pruritis. Endorses laceration right eyebrow. NEUROLOGIC: Denies current weakness, dizziness, headache, numbness, confusion. PSYCHIATRIC: No concerning psychosocial issues. Patient History <CONY Grace - Last Filed: 02/06/23 15:23> Medical History Back pain BPH w urinary obs/LUTS Dysphagia Essential hypertension Forehead laceration Hearing impaired HLD (hyperlipidemia) HTN (hypertension) Memory deficit Mixed hyperlipidemia Orthostatic hypotension Osteoarthritis Parkinson disease Parkinson's disease Postoperative anemia (11/06/19) Repeated falls Sciatica Spinal stenosis Surgical History H/O vasectomy History of arthroplasty of left shoulder History of arthroscopy of both knees History of bilateral total hip arthroplasty History of lumbar fusion (~2011) History of lumbar fusion (11/06/19) Hx of tonsillectomy Status post correction of deviated nasal septum Social History details: , living at [facility] due to falls ( in [place]) household members: spouse Smoking Status: Former smoker alcohol intake: current Smoking Status: Former smoker alcohol intake frequency: holidays/special occasions only Substance Use Type: does not use Exam <CONY Grace - Last Filed: 02/06/23 15:23> Narrative Exam Narrative: Exam Narrative: GENERAL: This is a well-nourished, well-developed patient, in no acute distress. HEAD: Normocephalic. 1 cm laceration right lateral eyebrow. EYES: Pupils equal round and reactive. Extraocular motions intact. No scleral icterus, injection or drainage. ENT: Nose without bleeding, purulent drainage. Throat without erythema, tonsillar hypertrophy or exudate. Uvula midline. Airway patent. TMs and canals clear. No sinus tenderness. NECK: Trachea midline. No JVD or lymphadenopathy. Nontender. No C-spine tenderness. CARDIOVASCULAR: Regular rate and rhythm without murmurs, peripheral pulses intact, cap refill <2 sec. RESPIRATORY: Breath sounds equal and clear bilaterally. No wheezes, rales, or rhonchi. No cough. No increased respiratory effort. No accessory muscle use. GASTROINTESTINAL: Abdomen soft, non-tender, nondistended without guarding or rebound. No suprapubic pain. No CVA tenderness. MSK: Moves all extremities. Normal range of motion, no clubbing or edema. Neurovascularly intact. NEURO: A&O x 3. SKIN: Warm, dry, no rashes or lesions noted. Initial Vital Signs Initial Vital Signs: Vital Signs Temperature 97.4 F L 02/06/23 13:19 Pulse Rate 72 02/06/23 13:19 Respiratory Rate 18 02/06/23 13:19 Blood Pressure 152/70 H 02/06/23 13:19 Pulse Oximetry 97 02/06/23 13:19 Oxygen Delivery Method Room Air 02/06/23 13:19 Reviewed <Yael Crooks DO - Last Filed: 02/06/23 18:22> Initial Vital Signs Initial Vital Signs: Vital Signs Temperature 97.4 F L 02/06/23 13:19 Pulse Rate 72 02/06/23 13:19 Respiratory Rate 18 02/06/23 13:19 Blood Pressure 152/70 H 02/06/23 13:19 Pulse Oximetry 97 02/06/23 13:19 Oxygen Delivery Method Room Air 02/06/23 13:19 Procedures <CONY Grace - Last Filed: 02/06/23 15:23> Laceration Repair Laceration 1: Time of procedure: 15:00 Site: face Side (If applicable): right Size (cm): 1 Description: linear Depth: simple, single layer Local Anesthetic: lidocaine 1% Amount of anesthesia used (mL): 2 Skin layer closed with: nylon Skin layer suture size: 5-0 Number of sutures: 3 Technique: simple, interrupted Course <CONY Grace - Last Filed: 02/06/23 15:23> Orders Ordered: ED Orders 02/06/23 13:27 CT cervical spine wo con Stat 02/06/23 13:37 CT head/brain wo con Stat Vital Signs Vital signs: Vital Signs - 8 hr 02/06/23 13:19 02/06/23 13:27 02/06/23 13:29 Temperature 97.4 F L Pulse Rate 72 78 69 Respiratory Rate 18 39 H 33 H Blood Pressure 152/70 H Pulse Oximetry 97 92 99 Oxygen Delivery Method Room Air 02/06/23 13:29 02/06/23 13:44 02/06/23 14:00 Temperature Pulse Rate 67 69 Respiratory Rate 10 L 30 H Blood Pressure 178/84 H Pulse Oximetry 98 99 Oxygen Delivery Method 02/06/23 14:09 02/06/23 14:09 02/06/23 14:30 Temperature Pulse Rate 69 Respiratory Rate 24 Blood Pressure 169/79 H 194/88 H Pulse Oximetry 98 Oxygen Delivery Method 02/06/23 14:30 02/06/23 15:00 02/06/23 15:01 Temperature Pulse Rate 67 67 67 Respiratory Rate 16 12 18 Blood Pressure Pulse Oximetry 97 96 96 Oxygen Delivery Method 02/06/23 15:01 Temperature Pulse Rate Respiratory Rate Blood Pressure 145/77 H Pulse Oximetry Oxygen Delivery Method <Yael Crooks DO - Last Filed: 02/06/23 18:22> Orders Ordered: ED Orders 02/06/23 13:27 CT cervical spine wo con Stat 02/06/23 13:37 CT head/brain wo con Stat Vital Signs Vital signs: Vital Signs - 8 hr 02/06/23 13:19 02/06/23 13:27 02/06/23 13:29 Temperature 97.4 F L Pulse Rate 72 78 69 Respiratory Rate 18 39 H 33 H Blood Pressure 152/70 H Pulse Oximetry 97 92 99 Oxygen Delivery Method Room Air 02/06/23 13:29 02/06/23 13:44 02/06/23 14:00 Temperature Pulse Rate 67 69 Respiratory Rate 10 L 30 H Blood Pressure 178/84 H Pulse Oximetry 98 99 Oxygen Delivery Method 02/06/23 14:09 02/06/23 14:09 02/06/23 14:30 Temperature Pulse Rate 69 Respiratory Rate 24 Blood Pressure 169/79 H 194/88 H Pulse Oximetry 98 Oxygen Delivery Method 02/06/23 14:30 02/06/23 15:00 02/06/23 15:01 Temperature Pulse Rate 67 67 67 Respiratory Rate 16 12 18 Blood Pressure Pulse Oximetry 97 96 96 Oxygen Delivery Method 02/06/23 15:01 Temperature Pulse Rate Respiratory Rate Blood Pressure 145/77 H Pulse Oximetry Oxygen Delivery Method MDM - Head Injury <CONY Grace - Last Filed: 02/06/23 15:23> Differential Diagnosis Differential diagnosis: Likely concussion without loss of consciousness, epidural hematoma, closed head injury, subarachnoid hematoma and subdural hematoma Lab Data Labs: Urine Dip Bedside Urine Glucose Negative Bedside Urine Bilirubin - Negative Bedside Urine Ketone - Negative Urine Specific [place] 1.020 Bedside Urine Occult Blood - Negative Bedside Urine pH 6.0 Bedside Urine Protein - Negative Bedside Urine Urobilinogen - Negative Bedside Urine Nitrite - Negative Bedside Urine Leukocytes - Negative Esterase Imaging Data CT scan - head: Radiologist's Impression: [place] [address] CT Scan Report Signed Patient: Adis Goldstein MR#: [id number] : 1945 Acct:[id number] Age/Sex: 77 / M Date of Service: 02/06/23 Loc: ED Accession Number: [id number] ?? Procedure: CT head/brain wo con Ordering Provider: Yael Crooks D.O. PROCEDURE:? CT HEAD/BRAIN WO CON ? INDICATIONS:? fall (Modified Trauma) hit right temperal area ? TECHNIQUE:? Noncontrast 4.5 mm thick angled axial sections acquired from the foramen magnum to the vertex, with coronal and sagittal reformats.? For radiation dose reduction, the following was used:? automated exposure control, adjustment of mA and/or kV according to patient size.? ? COMPARISON:? [facility], CT, CT HEAD/BRAIN WO CON, 10/01/2022, 9:42. ? FINDINGS:? Image quality:? Excellent.? ? CSF spaces:? Basal cisterns are patent.? No extra-axial fluid collections.? The ventricles are symmetric in size and shape.? ? Brain:? No intracranial bleeds or masses.? There is cerebral volume loss for age, with resultant ventricular and sulcal prominence.? There are periventricular and deep white matter chronic small vessel ischemic changes.? There atherosclerosis within the proximal intracranial vasculature. ? Skull and face:? Calvarium and visualized facial bones appear intact, without suspicious lesions.? ? Sinuses:? Visualized sinuses and mastoids are clear.? ? IMPRESSION:? ? Findings most consistent microvascular ischemic changes without acute intracranial abnormality. ? ? Dictated by: Rosendo Mascorro D.O. on 02/06/2023 at 12:53 ? ? Approved by: Rosendo Mascorro D.O. on 02/06/2023 at 12:57 ? CT - cervical spine: Radiologist's Impression: [place] [address] CT Scan Report Signed Patient: Adis Goldstein MR#: [id number] : 1945 Acct:[id number] Age/Sex: 77 / M Date of Service: 02/06/23 Loc: ED Accession Number: [id number] ?? Procedure: CT cervical spine wo con Ordering Provider: Yael Crooks D.O. PROCEDURE:? CT CERVICAL SPINE WO CON ? INDICATIONS:? fall (Modified Trauma) hit right temperal area ? TECHNIQUE:? Noncontrast 3 mm thick sections acquired from the skull base to the T4 level.? Sagittal and coronal reformats were then constructed.? For radiation dose reduction, the following was used:? automated exposure control, adjustment of mA and/or kV according to patient size.? ? COMPARISON:? [facility], CT, CT CERVICAL SPINE WO CON, 10/01/2022, 9:42. ? FINDINGS:? Image quality:? Excellent.? ? Bones:? No fracture or dislocation.? There is stable alignment of the cervical spine with focal reversal centered C4.? There is stable anterior listhesis of C4 on C5 and retrolisthesis of C5 on C6.? Fusion of C2 and C3.? Advanced degenerative changes of the cervical spine without least mild spinal canal stenosis posterior to C6-C7 and C5-C6.? Varying degrees of neural foraminal stenosis which is most prominent and at moderate to severe in nature at C4-C5 through C7-T1.? No significant interval change. ? Soft tissues:? Prevertebral soft tissues are normal in thickness.? No paravertebral hematomas.? No apical pneumothoraces.? Carotid vascular calcifications noted at the carotid bifurcations.? Punctate calcification within the left parotid gland.? The parotid glands, submandibular glands, and thyroid gland are otherwise unremarkable.? Lung apices are clear. ? ? IMPRESSION:? ? No acute fracture. ? Advanced degenerative changes of the cervical spine. ? ? ? Dictated by: Rosendo Mascorro D.O. on 02/06/2023 at 12:57 ? ? Approved by: Rosendo Mascorro D.O. on 02/06/2023 at 13:03 ? MDM Narrative Medical decision making narrative: 77-year-old male with closed head injury. Assessment was encouraging as patient is not experiencing any symptoms at this time. Head and neck CT were both negative. 1 cm laceration right eyebrow was repaired with 3 sutures. Instructed patient on proper wound care and to follow up with family doctor in 5-7 days for suture removal. Discussed plan of care and return precautions with patient, who verbalized understanding and was agreeable with course of action. <Yael Crooks, - Last Filed: 02/06/23 18:22> Lab Data Labs: Urine Dip Bedside Urine Glucose Negative Bedside Urine Bilirubin - Negative Bedside Urine Ketone - Negative Urine Specific [place] 1.020 Bedside Urine Occult Blood - Negative Bedside Urine pH 6.0 Bedside Urine Protein - Negative Bedside Urine Urobilinogen - Negative Bedside Urine Nitrite - Negative Bedside Urine Leukocytes - Negative Esterase Discharge Plan Departure Patient Disposition: Home Clinical Impression: Closed head injury Instructions: DI for Closed Head Injury Activity Restrictions/Additional Instructions: *You have been diagnosed with a closed-head injury. My assessment was encouraging and Your CT was negative. I have closed up the laceration of your right eyebrow and you should follow up with your family doctor in 5-7 days for suture removal. Please watch for signs of infection that include increased redness, swelling or yellow discharge. If this occurs, please follow-up with your family doctor for possible antibiotic therapy. For any worsening symptoms that include blurry vision, increased lightheadedness, etc. please return to the emergency department. *What to do: *Please continue to take your regular medications as directed. [ ] New medication prescriptions sent to your pharmacy: [ ] [ ] New medication written as a paper prescription [x ] No new medications given *Please follow up with your primary care provider in 2-3 days, call for an appointment. Let them know you were seen in the Emergency Department and that we ask that you be seen in follow up. We will electronically transmit a record of today's note if your PCP is in our system *If you do not have a primary care provider please contact the [facility] Resource line at [phone]. They will ask some questions about your medical history and help get you set up with a doctor in the community. ? Return to ER if you should have any new, worsening or concerning symptoms, such as worsening pain, severe headache, confusion, chest pain, difficulty breathing, fever greater than 101 F, shaking chills, persistent vomiting to the point that you cannot drink fluids, or other new or worsening symptoms. Prescriptions: No Action finasteride 5 mg tablet 5 mg PO DAILY Qty: 90 0RF doxepin 10 mg capsule 10 mg PO BEDTIME Qty: 30 1RF diclofenac sodium 75 mg tablet,delayed release (DR/EC) 75 mg PO BID Qty: 60 12RF (DME) Lightweight wheelchair See Rx Instructions .Route .MEDSUPPLY Qty: 1 0RF Rx Instructions: As directed cholecalciferol (vitamin D3) 50 mcg (2,000 unit) capsule 50 mcg PO DAILY cyanocobalamin (vitamin B-12) 100 mcg tablet 100 mcg PO DAILY ascorbic acid (vitamin C) 500 mg tablet 500 mg PO DAILY prednisolone acetate 1 % drops,suspension 1 drp EYE-BOTH BID PRN amlodipine 10 mg tablet 10 mg PO DAILY Qty: 90 3RF atorvastatin 10 mg Tablet 10 mg PO BEDTIME acetaminophen [Tylenol Extra Strength] 500 mg tablet 500 mg PO TID PRN carbidopa-levodopa 25-100 mg tablet 2 tab PO QID diclofenac sodium [Voltaren Arthritis Pain] 1 % gel 4 g topical QID PRN (Reason: shoulder pain) Qty: 100 0RF Rx Instructions: apply to single knee, ankle, foot; for foot includes sole/toes/top of foot Referrals: Sunil Tovar MD [Primary Care Provider] - Stand Alone Forms: Patient Portal/API <Yael Crooks DO - Last Filed: 02/06/23 18:22> Cosign ED Attending Cosignature Attestation: I was immediately available in the department for consultation.
== END 2023-02-06 15:20 | disposition home or self-care (01) ==
PROVIDERS: Emergency Provider Registered Nurse; PCP Internal Medicine
DX: S09.90XA Unspecified injury of head, initial encounter (principal); S01.01XA Laceration without foreign body of scalp, initial encounter; W18.30XA Fall on same level, unspecified, initial encounter; G20 Parkinson's disease
CPT/HCPCS: 12001; 70450; 72125; 81003; 99283; 99284

== ENCOUNTER 2023-04-17 17:56 | Emergency (ER) | payer MEDICARE, OTHER, SELFPAY ==
[2022-06-30 11:17] VITALS: BMI 26.3
[2023-04-17 18:01] VITALS: BP 167/77; PULSE 74; RESP 19; TEMP 36.6; O2SAT 95; BMI 29.2
--- NOTE | 2023-04-17 18:12 | DI.RAD.S_ITS ---
PROCEDURE: XR CHEST 2V INDICATIONS: cough SOB TECHNIQUE: 2 views of the chest were acquired. COMPARISON: [facility], CR, XR CHEST 2V, 11/19/2022, 17:43. FINDINGS: Surgical changes and devices: Status post left total shoulder arthroplasty. Severe degenerative changes of the right shoulder. Long segment posterior spinal fusion of the thoracolumbar spine. Visualized hardware appears intact. Lungs and pleura: Diffuse interstitial prominence. Suggestion of mild perihilar airway thickening. No focal consolidation. No substantial pleural effusion. No pneumothorax. Mediastinum: Mediastinal contours are normal. Heart size is normal. Bones and chest wall: No suspicious bony abnormalities. Soft tissues appear unremarkable. IMPRESSION: Diffuse interstitial prominence with mild perihilar airway thickening. Findings may represent bronchitis either infectious or inflammatory in etiology. No focal consolidation seen. Dictated by: Lg Irvin M.D. on 04/17/2023 at 18:57 Approved by: Lg Irvin M.D. on 04/17/2023 at 18:58
[2023-04-17 18:53] LABS: COVID-19 CEPHEID 4-PLEX PCR Negative (Negative); Influenza A - CEPHEID Flu A NEGATIVE (NEGATIVE); Influenza B - CEPHEID Flu B NEGATIVE (NEGATIVE); Respiratory Syncytial Virus Negative (Negative)
[2023-04-17] MEDS: BENZONATATE 100 MG CAPSULE PO (20:11)
--- NOTE | 2023-04-17 20:39 | ED_ITS ---
HPI - General Adult General Chief complaint: Upper Respiratory Symptoms Stated complaint: SOB, Cough Time Seen by Provider: 04/17/23 18:14 Source: patient Mode of arrival: Family Vehicle History of Present Illness HPI narrative: 77-year-old gentleman with a history of Parkinson's since disease, chronic dysphagia, hyperlipidemia, BPH, cognitive issues and hypertension presents complaining of chronic cough. He is had a full workup for this including swallow evaluation, barium swallow, working with a speech therapist he currently eats thickened food he very clearly explains the techniques that he is using to try to prevent any chronic aspiration all of which seem very appropriate. This evening he was simply more frustrated and comes in to see if there were any other options. He has an appointment with Dr. Mahan, Ear Nose and Throat coming up in the next week or 2, an appointment with his primary care doctor later this week. He is not complaining of fever or chills. He does not feel sick he is just coughing and continues to do so from his chronic aspiration. Related Data Home Medications Medication Instructions Recorded Confirmed atorvastatin 10 mg tablet 10 mg PO BEDTIME 10/23/19 03/14/23 acetaminophen 500 mg tablet 500 mg PO TID PRN 09/01/21 03/14/23 (Tylenol Extra Strength) ascorbic acid (vitamin C) 500 mg 500 mg PO DAILY 07/07/22 03/14/23 tablet carbidopa 25 mg-levodopa 100 mg 2 tab PO QID 07/07/22 03/14/23 tablet prednisolone acetate 1 % eye 1 drp EYE-BOTH BID PRN 09/08/22 03/14/23 drops,suspension cholecalciferol (vitamin D3) 50 50 mcg PO DAILY 11/08/22 03/14/23 mcg (2,000 unit) capsule cyanocobalamin (vitamin B-12) 100 100 mcg PO DAILY 11/08/22 03/14/23 mcg tablet memantine 5 mg tablet 5 mg PO DAILY 02/21/23 03/14/23 Previous Rx's Medication Instructions Recorded diclofenac sodium 1 % topical gel 4 g topical QID PRN shoulder pain 01/06/22 (Voltaren Arthritis Pain) #100 grams finasteride 5 mg tablet 5 mg PO DAILY #90 tabs 08/25/22 diclofenac sodium 75 mg 75 mg PO BID #60 tabs 11/04/22 tablet,delayed release Lightweight wheelchair #1 ea 12/23/22 telmisartan 20 mg tablet (Micardis) 20 mg PO DAILY #14 tabs 03/14/23 benzonatate 100 mg capsule 100 mg PO .hs PRN cough 14 days 04/17/23 #14 caps Allergies Allergy/AdvReac Type Severity Reaction Status Date / Time No Known Drug Allergies Allergy Verified 04/17/23 18:05 Review of Systems Review of Systems Narrative: Pertinent positive and negative findings as per HPI Patient History Medical History Back pain BPH w urinary obs/LUTS Dysphagia Essential hypertension Forehead laceration Hearing impaired HLD (hyperlipidemia) HTN (hypertension) Memory deficit Mixed hyperlipidemia Orthostatic hypotension Osteoarthritis Parkinson disease Parkinson's disease Postoperative anemia (11/06/19) Repeated falls Sciatica Spinal stenosis Surgical History H/O vasectomy History of arthroplasty of left shoulder History of arthroscopy of both knees History of bilateral total hip arthroplasty History of lumbar fusion (~2011) History of lumbar fusion (11/06/19) Hx of tonsillectomy Status post correction of deviated nasal septum Social History details: , living at [facility] due to falls ( in [place]) household members: spouse Smoking Status: Former smoker alcohol intake: current Smoking Status: Former smoker alcohol intake frequency: holidays/special occasions only Substance Use Type: does not use Exam Initial Vital Signs Initial Vital Signs: Vital Signs Temperature 97.8 F 04/17/23 18:01 Pulse Rate 74 04/17/23 18:01 Respiratory Rate 19 04/17/23 18:01 Blood Pressure 167/77 H 04/17/23 18:01 Pulse Oximetry 95 04/17/23 18:01 Oxygen Delivery Method Room Air 04/17/23 18:01 General: Chronically ill appearing, in no acute distress. Able to give a complete and coherent history. Well-nourished well-developed HEENT: Moist mucous membranes, normal sclera with reactive pupils, slightly hoarse. Neck: supple Respiratory: Lungs with scattered rhonchi left more than the right. No significant wheezing. Cardiac: Regular rate and rhythm no murmurs no bruits Abdomen: Soft, nontender, good bowel tones, no flank pain Skin: Warm and dry, no rashes Neurologic: Parkinson's disease with symptoms relatively controlled at this point Extremities: No trauma, well perfused Psych: Cooperative, appropriate insight and affect Course Orders Ordered: ED Orders 04/17/23 18:07 Covid-19 + FLU A/B + RSV - PCR Stat 04/17/23 18:12 XR chest 2V Stat Discontinued Medications Benzonatate (Benzonatate 100 Mg Capsule) 100 mg PO NOW ONE Stop: 04/17/23 20:09 Last Admin: 04/17/23 20:11 Dose: 100 mg Documented By: ALL Vital Signs Vital signs: Vital Signs - 8 hr 04/17/23 18:01 Temperature 97.8 F Pulse Rate 74 Respiratory Rate 19 Blood Pressure 167/77 H Pulse Oximetry 95 Oxygen Delivery Method Room Air Medical Decision Making Lab Data Labs: Lab Results 04/17/23 Range/Units 18:07 SARS-CoV-2 (PCR) Negative (Negative) Influenza A (RT-PCR) Flu a negative (NEGATIVE) Influenza B (RT-PCR) Flu b negative (NEGATIVE) RSV (PCR) Negative (Negative) MDM Narrative Medical decision making narrative: CC: Chronic cough. This is an acute exacerbation of chronic problem with uncer tain prognosis Complicating co-morbidities: Chronic aspiration with Parkinson's disease Data collected from: patient, Social determinants of health that may influence the patients condition: Cur rently lives at [facility] living Medical records reviewed: Recent primary care notes reviewed Differential considered: Chronic cough secondary to aspiration, aspiration pneumonia, viral pneumonia, postnasal drip, chronic reflux exacerbating cough Exam documented above, pertinent findings include: Patient continues to have irritating persistent dry cough with scattered rhonchi left greater than right but no signs of acute infection and certainly not toxic. Lab Test results independently reviewed as above. Pertinent findings: Independently reviewed EKG as above Imaging studies independently reviewed: Consultations: Brief discussion with Respiratory therapy. Nebulized saline with some pulmonary toilet was attempted. Respiratory therapist did suggest some suggestions for helping to clear his upper airways as well. Treatments: Nebulize saline with some pulmonary toilet is attempted with respiratory therapy. He also was given a Tessalon Perle which did seem to sup press his cough. This may be helpful at night so it he is at least able to get some sleep. Re-evaluations: Patient is slightly improved from his baseline. Discussion: 77-year-old gentleman with Parkinson's disease chronic dysphagia and chronic cough. No evidence of acute infection at this time. The Tessalon did seem to help suppress cough so that he feels he is at least able to sleep. The nebulized saline and pulmonary toilet was also slightly effective. He has all appropriate follow-up is doing all appropriate physical techniques including thickening liquids. At this point there is no indication for hospitalization or further workup. Encouraged him to keep all appointments with providers as scheduled. Questions are answered and he is safe for discharge home Discharge Plan Departure Patient Disposition: Home Clinical Impression: Parkinson disease, Chronic cough Dysphagia Qualifiers: Dysphagia type: unspecified Qualified Code(s): R13.10 - Dysphagia, unspecified Chronic pulmonary aspiration Qualifiers: Encounter type: initial encounter Qualified Code(s): T17.908A - Unspecified foreign body in respiratory tract, part unspecified causing other injury, initial encounter Instructions: DI for Oropharyngeal Dysphagia Activity Restrictions/Additional Instructions: Thank you for coming in tonight I am sorry you are continuing to suffer with this chronic cough. You are doing everything correctly with the thickened fluids tipping your chin forward, trying to focus on only eating when you are eating. In the emergency department we tried some nebulized saline to see if we can at least get some of the debris up tonight to help you sleep. I also gave you a Tessalon Perle to try and suppress the cough slightly. Overall, you do need to continue to cough to make sure that there is no debris that remains in your upper airway. Using Tessalon at night so the you are at least able to get a bit of sleep may make some sense. A prescription for Tessalon Perles was electronically transmitted to [facility] for you. If you find that you are getting worse, develop a fever or other symptoms please feel free to return to the emergency department in the meantime please make sure you keep your follow-up appointments with your primary care doctor and the ear nose and throat physician. Prescriptions: New benzonatate 100 mg capsule 100 mg PO .hs PRN (Reason: cough) 14 Days Qty: 14 0RF No Action finasteride 5 mg tablet 5 mg PO DAILY Qty: 90 0RF diclofenac sodium 75 mg tablet,delayed release (DR/EC) 75 mg PO BID Qty: 60 12RF (DME) Lightweight wheelchair See Rx Instructions .Route .MEDSUPPLY Qty: 1 0RF Rx Instructions: As directed telmisartan [Micardis] 20 mg tablet 20 mg PO DAILY Qty: 14 0RF cholecalciferol (vitamin D3) 50 mcg (2,000 unit) capsule 50 mcg PO DAILY cyanocobalamin (vitamin B-12) 100 mcg tablet 100 mcg PO DAILY ascorbic acid (vitamin C) 500 mg tablet 500 mg PO DAILY prednisolone acetate 1 % drops,suspension 1 drp EYE-BOTH BID PRN memantine 5 mg tablet 5 mg PO DAILY atorvastatin 10 mg Tablet 10 mg PO BEDTIME acetaminophen [Tylenol Extra Strength] 500 mg tablet 500 mg PO TID PRN carbidopa-levodopa 25-100 mg tablet 2 tab PO QID diclofenac sodium [Voltaren Arthritis Pain] 1 % gel 4 g topical QID PRN (Reason: shoulder pain) Qty: 100 0RF Rx Instructions: apply to single knee, ankle, foot; for foot includes sole/toes/top of foot Referrals: Sunil Tovar MD [Primary Care Provider] - Stand Alone Forms: Patient Portal/API
[2023-04-17 21:06] VITALS: PULSE 71; RESP 18; O2SAT 97
[2023-04-17 21:32] VITALS: BP 201/88; PULSE 68; RESP 18; O2SAT 97
--- NOTE | 2023-04-17 21:32 | PC.NURSE ---
Notified provider patient had not had nighttime dose of blood pressure medications. No new orders.
[2023-04-17 21:34] VITALS: BP 201/88
== END 2023-04-17 21:32 | disposition home or self-care (01) ==
PROVIDERS: Emergency Provider Emergency Medicine; PCP Internal Medicine
DX: R13.10 Dysphagia, unspecified (principal); R05.3 Chronic cough; T17.908A Unspecified foreign body in respiratory tract, part unspecified causing other injury, initial encounter; G20 Parkinson's disease; Z20.822 Contact with and (suspected) exposure to COVID-19
CPT/HCPCS: 0241U; 71046; 94667; 99283

== ENCOUNTER → 2023-04-21 12:43 | Outpatient (CLI) | payer MEDICARE, OTHER, SELFPAY ==
[2022-06-30 11:17] VITALS: BMI 26.3
[2023-04-21 13:25] LABS: Hematocrit 41.6 % (41-53); Hemoglobin 14.1 g/dL (13.5-17.5); Mean Corpuscular Hemoglobin 30.4 PG (26-34); Mean Corpuscular Volume 89.5 fL (80-100); Platelet Count 266 X10^3/uL (150-400); Red Blood Cell Count 4.64 X10^6/uL (4.5-5.9); Red Cell Distribution Width 14.2 % (11.6-14.8); White Blood Cell Count 9.2 X10^3/uL (4.5-11.0)
[2023-04-21 13:47] LABS: Alanine Aminotransferase 9 IU/L (<50); Albumin Globulin Ratio 1.7 (1.0-2.8); Alkaline Phosphatase 116 U/L (38-126); Aspartate Aminotransferase 19 IU/L (17-59); BUN Creatinine Ratio 31.3 (6-22); Bilirubin Total 0.6 mg/dL (0.2-1.3); Blood Urea Nitrogen 25 mg/dL (9-20); Calcium 9.2 mg/dL (8.4-10.2); Carbon Dioxide 30 mmol/L (22-32); Chloride 102 mmol/L (98-107); Cholesterol 116 mg/dL (140-199); Estimated Glomerular Filt Rate > 60 mL/min (>60); Globulin 2.4 g/dL (1.7-4.1); Glucose 95 mg/dL (80-110); HDL Cholesterol 36 mg/dL (40-60); HEMOLYSIS < 15 (0-50); LDL Cholesterol Calculated 46 mg/dL (<100); Potassium 4.3 mmol/L (3.4-5.1); Sodium 140 mmol/L (137-145); Total Protein 6.4 g/dL (6.3-8.2); Triglycerides 172 mg/dL (35-150)
[2023-04-21 14:16] LABS: TSH w/ Reflex to FT4 1.21 uIU/mL (0.47-4.68)
== END ==
PROVIDERS: PCP Internal Medicine; Referring Provider Internal Medicine; Visit Provider Internal Medicine
DX: E78.2 Mixed hyperlipidemia (principal); G20 Parkinson's disease; I10 Essential (primary) hypertension; T17.908A Unspecified foreign body in respiratory tract, part unspecified causing other injury, initial encounter
CPT/HCPCS: 36415; 80053; 80061; 84443; 85027